=== PATIENT | male | born 1965 | race Hispanic/Latino ===

== ENCOUNTER 2016-08-14 08:56 | Inpatient (IN) | payer MEDICARE, OTHER ==
[2016-08-14 08:57] VITALS: BMI 32.1
[2016-08-14] MEDS ORDERED: Sodium Chloride 0.9% 1,000 ML IV STA (09:28)
[2016-08-14] MEDS ORDERED: Vancomycin 1gm in NS 250ml 250 ML IVPB STA (09:36)
[2016-08-14] MEDS ORDERED: Piperacill/Tazo 4.5gm in NS 100 ML IVPB STA (09:36)
--- NOTE | 2016-08-14 09:39 | ED PDOC ---
Arrival/HPI - General Historian: Patient - History of Present Illness Time/Duration: Other (since last night) Context: Home <Dean Diamond - Last Filed: 08/14/16 12:11> <Uyen Nicole - Last Filed: 08/22/16 11:13> - General Chief Complaint: Lower Extremity Problem/Injury Time Seen by Provider: 08/14/16 09:04 - History of Present Illness Narrative History of Present Illness (Text): 08/14/16 09:37 This 51 yo male with pmh dm, foot ulcer, presents to this ED c/o chill, fever since last night. Patient stated he stepped on a toy with his right foot, which has a foot ulcer. Patient stated his foot ulcer underwent a surgical procedure, performed at [facility] on 2016. Patient saw volumetric weigher surgeon from [facility], who stated wound is healing slow but getting better. Patient had spoke with Dr. Alvarado, who will (Dean Diamond) Past Medical History - Provider Review Nursing Documentation Reviewed: Yes - Infectious Disease Hx of Infectious Diseases: None - Tetanus Immunization Tetanus Immunization: Up to Date - Cardiac Hx Cardiac Disorders: Yes Hx Hypertension: Yes Hx Peripheral Edema: Yes Hx Peripheral Vascular Disease: Yes - Pulmonary Hx Respiratory Disorders: Yes Hx Emphysema: Yes - Neurological Hx Neurological Disorder: Yes Other/Comment: neuropathy - HEENT Hx HEENT Disorder: No - Renal Hx Renal Disorder: No - Endocrine/Metabolic Hx Endocrine Disorders: Yes Hx Diabetes Mellitus Type 2: Yes - Hematological/Oncological Hx Blood Disorders: Yes Hx Cirrhosis: Yes - Integumentary Hx Dermatological Disorder: Yes (hx cellulitis, gangrene left 2nd toe) Other/Comment: prior visit triage notes: 4th toe rt foot ulcer (resolved). RIGHT FOOT 3RD TOE AMPUTATED,PARTIAL AMPUTATION TO 4TH AND 5TH TOE. LEFT FOOT 2ND TOE AMPUTATION. OPEN WOUND TO SOLE OF RIGHT FOOT.HAD A BLISTER ,GOT WORSE. pt trerated by dr alvarado at the wound center with wound care and a cast but wound opened up 4x's, pt went to [facility], [place] to a dr nicole who specializes in charcot feet, had bone shaved on bottom of right charcot foot on 06/05/16, cast and herbie wrap in place pt ambulated with crutches - Musculoskeletal/Rheumatological Hx Falls: Yes (past) - Gastrointestinal Hx Gastrointestinal Disorders: Yes (c dif,colitis) - Genitourinary/Gynecological Hx Genitourinary Disorders: No - Psychiatric Hx Psychophysiologic Disorder: Yes (affective mood disorder/self mutilation) Hx Anxiety: Yes Hx Bipolar Disorder: Yes Hx Depression: Yes Hx Substance Use: No Other/Comment: notes from previous visit/triage: hx of bipolar depression and anxiety, 4 yrs ago, attends [facility] clinic once a week, suicide attempt lithium od october 2012, has been in rehab for alcoholism the last time was 05/2013 but had a couple beers friday, denies drug use, presently pt quit drinking 2 1/2 yrs ago, denies smoking and substance abuse - Surgical History Hx Amputation: Yes (left 2d toe, rt 3d toe,4TH AND 5TH PARTIAL AMPUTATION.) Hx Appendectomy: Yes Hx Joint Replacement: Yes (left knee replacement) Hx Orthopedic Surgery: Yes Other/Comment: RIGHT KNEE SURGERY - Anesthesia Hx Anesthesia: Yes Hx Anesthesia Reactions: No Hx Malignant Hyperthermia: No - Suicidal Assessment Feels Threatened In Home Enviroment: No <Dean Diamond - Last Filed: 08/14/16 12:11> Family/Social History - Physician Review Nursing Documentation Reviewed: Yes Family/Social History: No Known Family HX Smoking Status: Never Smoked Hx Alcohol Use: Yes (quit 1 1/2 yrs ago) Hx Substance Use: No Hx Substance Use Treatment: No <Dean Diamond - Last Filed: 08/14/16 12:11> Allergies/Home Meds <Dean Diamond - Last Filed: 08/14/16 12:11> <Uyen Nicole - Last Filed: 08/22/16 11:13> Allergies/Adverse Reactions: Allergies No Known Allergies Allergy (Verified 08/14/16 17:55) Home Medications: Home Meds Medication Instructions Recorded Confirmed Glimepiride [amaRYL] 4 mg PO BID 08/02/15 08/14/16 Losartan/Hydrochlorothiazide 1 tab PO DAILY 08/02/15 08/14/16 [Losartan-Hctz 100-12.5 mg Tab] Review of Systems - Review of Systems Constitutional: Fevers. absent: Fatigue, Weight Change, Night Sweats Eyes: Normal ENT: Normal Respiratory: Normal. absent: SOB, Cough Cardiovascular: Normal. absent: Chest Pain, Palpitations Gastrointestinal: Normal. absent: Abdominal Pain, Nausea, Vomiting Genitourinary Male: Normal Musculoskeletal: Other (See HPI) Skin: Normal Neurological: Normal. absent: Headache, Dizziness Endocrine: Normal Hemo/Lymphatic: Normal Psychiatric: Normal <DiamondDean block P - Last Filed: 08/14/16 12:11> Physical Exam Temperature: Febrile Blood Pressure: Hypertensive Pulse: Tachycardic Respiratory Rate: Normal Appearance: Positive for: Well-Appearing, Non-Toxic, Comfortable Pain Distress: None Mental Status: Positive for: Alert and Oriented X 3 Finger Stick Blood Glucose: 313 - Systems Exam Head: Present: Atraumatic, Normocephalic Pupils: Present: PERRL Extroacular Muscles: Present: EOMI Conjunctiva: Present: Normal Mouth: Present: Moist Mucous Membranes Pharnyx: Present: Normal. No: ERYTHEMA, EXUDATE, TONSILS ENLARGED Neck: Present: Normal Range of Motion. No: Meningeal Signs Respiratory/Chest: Present: Clear to Auscultation, Good Air Exchange. No: Respiratory Distress, Accessory Muscle Use, Wheezes, Retracting, Rhonchi Cardiovascular: Present: Regular Rate and Rhythm, Normal S1, S2. No: Murmurs Abdomen: Present: Normal Bowel Sounds. No: Tenderness, Distention, Peritoneal Signs, Rebound, Guarding Back: Present: Normal Inspection. No: CVA Tenderness Upper Extremity: Present: Normal Inspection, Normal ROM, NORMAL PULSES, Neurovascularly Intact, Capillary Refill < 2s. No: Cyanosis, Edema Lower Extremity: Present: Normal Inspection, NORMAL PULSES, Normal ROM, Capillary Refill < 2 s. No: Edema Neurological: Present: GCS=15, CN II-XII Intact, Speech Normal, Motor Func Grossly Intact, Normal Sensory Function, Normal Cerebellar Funct, Memory Normal Skin: Present: Warm, Dry, Normal Color, Other ((+) large plantar ulcer. Right foot is warmth to touch, whicha radiates to right anterior lower leg). No: Rashes Psychiatric: Present: Alert, Oriented x 3, Normal Insight <Dean Diamond P - Last Filed: 08/14/16 12:11> Medical Decision Making Re-evaluation Time: 12:15 Reassessment Condition: Re-examined, Improving,but remains with symptoms - Lab Interpretations Interpretation: Abnormal lab values - EKG Interpretation Interpreted by ED Physician: Yes (Sinus tachycardia @ 116bpm. No ST changes) Type: 12 lead EKG Comparison: No previous EKG avail. <Dean Diamond - Last Filed: 08/14/16 12:11> <Uyen Nicole - Last Filed: 08/22/16 11:13> ED Course and Treatment: 08/14/16 09:[address] Addi HYLTON regarding patient history and symptoms. He agrees with admission 08/14/16 12:[address] Sreekanth YO, who knows patient from previous visits. He recommended Meropenem 1 gr IV stat. He is aware patient is admitted (Dean Diamond) Patient's exam consistent with sepsis. IV antibitoics initiated after consultation with ID. Suspect cellulitis/osteomyelitis. (Uyen Nicole) - Lab Interpretations Microbiology Results: Microbiology Results 08/14/16 09:45 Blood-Venous Blood Culture - Final Streptococcus Pyogenes Grp A 08/14/16 09:45 Blood-Venous Gram Stain - Final 08/14/16 09:30 Blood-Venous S.aureus & Coag-Neg Staph PNA FISH - Final 08/14/16 09:30 Blood-Venous Blood Culture - Final Streptococcus Pyogenes Grp A 08/14/16 09:30 Blood-Venous Gram Stain - Final 08/14/16 10:15 Foot - Right Gram Stain - Final 08/14/16 10:15 Foot - Right Wound Culture - Final Staphylococcus Aureus Corynebacterium Species 08/14/16 09:45 Urine Urine Culture - Final No Growth (<1,000 CFU/ML) Lab Results: 08/14/16 09:30 08/14/16 09:30 Lab Results 08/14/16 10:19: Phosphorus 3.9, Magnesium 1.7 08/14/16 09:45: Urine Color Yellow, Urine Appearance Sl cloudy, Urine pH 6.0, Ur Specific Lamont 1.020, Urine Protein 30 H, Urine Glucose (UA) >=1000, Urine Ketones 40 H, Urine Blood Small H, Urine Nitrate Negative, Urine Bilirubin Negative, Urine Urobilinogen 0.2, Ur Leukocyte Esterase Negative, Urine RBC 0 - 2, Urine WBC 0 - 2 08/14/16 09:30: ESR 7 08/14/16 09:30: Hemoglobin A1c 7.3 H 08/14/16 09:30: C-React Prot High Sens > 15.00 H 08/14/16 09:30: pO2 22 L, VBG pH 7.27 L, VBG pCO2 49.0, VBG HCO3 22.5, VBG Total CO2 24.0, VBG O2 Sat (Calc) 37.4 L, VBG Base Excess -4.7 L, VBG Potassium 4.5, Sodium 133.0, Chloride 93.0 L, Glucose 361 H, Lactate 5.2 H*, FiO2 21.0, Venous Blood Potassium 4.5 08/14/16 09:30: Sodium 135, Chloride 93 L, Potassium 4.5, Carbon Dioxide 24, Anion Gap 23 H, BUN 19, Creatinine 1.0, Est GFR ( Amer) > 60, Est GFR ( Non-Af Amer) > 60, Random Glucose 349 H* D, Calcium 9.9, Total Bilirubin 2.0 H, AST 34, ALT 29, Alkaline Phosphatase 89, Total Protein 8.9 H, Albumin 4.7, Globulin 4.2, Albumin/Globulin Ratio 1.1 08/14/16 09:30: PT 12.1 H, INR 1.12 H, APTT 32.8 H 08/14/16 09:30: WBC 18.8 H D, RBC 5.44, Hgb 16.0, Hct 45.1, MCV 82.9, MCH 29.4, MCHC 35.5, RDW 14.5, Plt Count 79 L, MPV 10.4, Gran % 91.2 H, Lymph % (Auto) 2.6 L, Dodge % (Auto) 6.1 H, Eos % (Auto) 0.0 L, Baso % (Auto) 0.1, Gran # 17.17 H, Lymph # 0.5 L, Dodge # 1.1 H, Eos # 0.0, Baso # 0.01 08/14/16 09:23: POC Glucose (mg/dL) 313 H - RAD Interpretation Narrative RAD Interpretations (Text): 08/14/16 12:15 Accession No. : [id number] Patient Name / ID : STEPH Suggs / [id number] Exam Date : 08/14/2016 10:50:17 ( Approved ) Study Comment : Sex / Age : M / 51Y Creator : Jennie Victoria V. Dictator : Jennie Victoria V. Loans Consultant : Hand Glass Cutter : Jennie Victoria V. Approver2 : Report Date : 08/14/2016 11:22:16 My Comment : PROCEDURE: CHEST RADIOGRAPH, 1 VIEW HISTORY: admission COMPARISON: 06/10/2016 FINDINGS: LUNGS: Clear. PLEURA: No pneumothorax or pleural fluid seen. CARDIOVASCULAR: Normal. OSSEOUS STRUCTURES: Old left rib fractures -healed with resultant deformity -similar-appearing. Mild dextroscoliosis and thoracic spondylosis VISUALIZED UPPER ABDOMEN: Normal. OTHER FINDINGS: None. IMPRESSION: No active disease. No interval pathology noted 08/14/16 12:15 Accession No. : [id number] Patient Name / ID : STEPH Suggs / [id number] Exam Date : 08/14/2016 10:48:08 ( Approved ) Study Comment : Sex / Age : Creator : Jennie Victoria V. Dictator : Jennie Victoria V. Loans Consultant : Hand Glass Cutter : Jennie Victoria V. Approver2 : Report Date : 08/14/2016 11:30:39 My Comment : PROCEDURE: Right Foot Radiographs. Escape HISTORY: pain r/o osteo COMPARISON: 06/10/2016 FINDINGS: BONES: Extensive ossific debris and ossific disorganization of the tarsal and tarsal metatarsal suggest neuropathic/Charcot changes 2nd-3rd hypertrophic bony fusion as before The partial amputation since of the 3rd and 5th digit are as before The faint flocculent ossifications plantar and tarsal level on lateral view are similar appearing an overlap with both neuropathic and chronic osteomyelitis changes (in the past here) previously there was greater soft tissue swelling here. Currently, a superficial plantar 6 x 4 mm ulcer is suggested. No ulcer continuity/air tract to the bone directly is appreciated. No interval acute or subacute appearing periosteal reaction here suggested. Radiographically no acute on chronic osteomyelitis changes are appreciated JOINTS: As above SOFT TISSUES: Soft tissue swelling plantar midfoot-however less than before. Plantar ulcer as above OTHER FINDINGS: None. IMPRESSION: Neuropathic/Charcot changes, an postop partial amputations -as above. Interval plantar superficial ulcer gout interval acute on chronic osteomyelitis changes aappreciated . If further is needed consider MRI. (Dean Diamond) Radiology Orders: 08/14/16 09:38 CHEST ONE VIEW [RAD] Stat FOOT RIGHT 3 VIEWS ROUTINE [RAD] Stat - Medication Orders Current Medication Orders: Discontinued Medications Acetaminophen (Tylenol 325mg Tab) 650 mg PO STAT STA Stop: 08/14/16 09:33 Last Admin: 08/14/16 09:39 Dose: 650 mg Acetaminophen (Tylenol 325mg Tab) 650 mg PO Q6H PRN PRN Reason: Fever >100.4 F Last Admin: 08/14/16 16:52 Dose: 650 mg Re-Assess: [facility] Pain/Vitals Document 08/14/16 17:52 [facility] (Rec: 08/14/16 18:28 [id number]) Vitals Temperature (97.6 F-99.6 F) 100.3 F Temperature Source Oral Acetaminophen (Tylenol 325mg Tab) 650 mg PO Q4 PRN PRN Reason: Fever >100.4 F Last Admin: 08/16/16 18:50 Dose: 650 mg Fentanyl (Fentanyl) Confirm Administered Dose 100 mcg .ROUTE .STK-MED ONE Stop: 08/15/16 16:36 Gentamicin Sulfate (Gentamicin) Confirm Administered Dose 80 mg .ROUTE .STK-MED ONE Stop: 08/15/16 16:42 Last Admin: 08/15/16 16:55 Dose: 80 mg Comments: ORM Administered Route: IP Glimepiride (Amaryl) 4 mg PO BID [facility] Last Admin: 08/20/16 17:11 Dose: 4 mg Home Med (*Refrigerator Open) Confirm Administered Dose 1 unit XX .STK-MED ONE Stop: 08/16/16 16:00 Hydrochlorothiazide (Microzide) 12.5 mg PO DAILY [facility] Last Admin: 08/20/16 11:30 Dose: 12.5 mg Hydromorphone HCl (Dilaudid) 0.5 mg IVP Q15M PRN PRN Reason: Pain, moderate (4-7) Stop: 08/15/16 19:35 Sodium Chloride (Sodium Chloride 0.9%) 1,000 mls @ 999 mls/hr IV .Q1H1M STA Stop: 08/14/16 10:28 Last Admin: 08/14/16 09:39 Dose: 999 mls/hr Piperacillin Sod/Tazobactam Sod (Zosyn 4.5 Gm In Ns 100ml) 100 mls @ 200 mls/ hr IVPB STAT STA PRN Reason: Protocol Stop: 08/14/16 10:05 Last Admin: 08/14/16 09:42 Dose: 200 mls/hr Vancomycin HCl (Vancomycin 1gm) 250 mls @ 167 mls/hr IVPB STAT STA PRN Reason: Protocol Stop: 08/14/16 11:05 Last Admin: 08/14/16 10:19 Dose: 167 mls/hr Sodium Chloride 3,400 ml/ IV (SUPPLIES) 3,400 mls @ 6,803.88 mls/hr IV ONCE ONE PRN Reason: 60 ML/KG/HR Stop: 08/14/16 09:48 Last Admin: 08/14/16 10:11 Dose: 6,803.88 mls/hr Meropenem 1g/NS 100mL IVPB (Meropenem 1g/Ns 100ml Ivpb) 100 mls @ 100 mls/hr IVPB STAT STA PRN Reason: Protocol Stop: 08/14/16 12:56 Last Admin: 08/14/16 13:52 Dose: 100 mls/hr Meropenem 1 gm/ Sodium (Chloride) 100 mls @ 100 mls/hr IVPB Q8 JIMMIE PRN Reason: Protocol Stop: 08/21/16 22:01 Last Admin: 08/15/16 05:22 Dose: 100 mls/hr Vancomycin HCl (Vancomycin 1gm) 250 mls @ 167 mls/hr IVPB Q12H [facility] PRN Reason: Protocol Last Admin: 08/18/16 09:47 Dose: 167 mls/hr Meropenem 1g/NS 100mL IVPB (Meropenem 1g/Ns 100ml Ivpb) 100 mls @ 100 mls/hr IVPB Q8 [facility] Stop: 08/21/16 22:01 Last Admin: 08/18/16 05:46 Dose: 100 mls/hr Lactated Ringer's (Lactated Ringer's) 1,000 mls @ 75 mls/hr IV .[id number] [facility] Stop: 08/15/16 19:46 Last Admin: 08/15/16 19:59 Dose: Heparin Sodium (Porcine) (Heparin 1000 Units/500 Ml Ns) Confirm Administered Dose 500 mls @ ud IV .STK-MED ONE Stop: 08/16/16 09:42 Cefazolin Sodium 2 gm/ Sodium (Chloride) 100 mls @ 200 mls/hr IVPB Q8 [facility] PRN Reason: Protocol Last Admin: 08/20/16 13:59 Dose: 200 mls/hr Insulin Detemir (Levemir) 80 unit SC HS [facility] Last Admin: 08/19/16 22:55 Dose: 20 unit Comments: pt feels comfortable with this dose Insulin Human Regular (Humulin R Low) 0 units SC ACHS [facility] PRN Reason: Protocol Last Admin: 08/20/16 17:11 Dose: 1 units Lidocaine HCl (Lidocaine 2% 20ml Vial) Confirm Administered Dose 20 ml .ROUTE .STK-MED ONE Stop: 08/15/16 14:54 Lidocaine HCl (Lidocaine 2% 20ml Vial) Confirm Administered Dose 20 ml .ROUTE .STK-MED ONE Stop: 08/15/16 16:40 Lidocaine HCl (Lidocaine 2% 20ml Vial) Confirm Administered Dose 20 ml .ROUTE .STK-MED ONE Stop: 08/16/16 09:41 Losartan Potassium (Cozaar) 100 mg PO DAILY [facility] Last Admin: 08/20/16 11:30 Dose: 100 mg Metformin HCl (Glucophage) 1,000 mg PO BID [facility] Last Admin: 08/20/16 17:13 Dose: 1,000 mg Metoclopramide HCl (Reglan) Confirm Administered Dose 10 mg .ROUTE .STK-MED ONE Stop: 08/15/16 16:54 Midazolam HCl (Versed Inj) Confirm Administered Dose 2 mg .ROUTE .STK-MED ONE Stop: 08/15/16 16:36 Morphine Sulfate (Morphine) 2 mg IVP STAT STA Stop: 08/14/16 09:44 Last Admin: 08/14/16 10:19 Dose: 2 mg Morphine Sulfate (Morphine) 2 mg IVP STAT STA Stop: 08/14/16 14:14 Last Admin: 08/14/16 14:24 Dose: 2 mg Non-Formulary Medication (Losartan/Hydrochlorothiazide [Losartan-Hctz 100-12.5 Mg Tab]) 1 tab PO DAILY [facility] Ondansetron HCl (Zofran Inj) Confirm Administered Dose 4 mg .ROUTE .STK-MED ONE Stop: 08/15/16 16:54 Oxychlorosene Sodium (Clorpactin Wcs-90) 2 gm TOP ONCE ONE Stop: 08/16/16 09:01 Oxycodone/Acetaminophen (Percocet 5/325 Mg Tab) 1 tab PO Q4H PRN PRN Reason: Pain, moderate (4-7) Stop: 08/17/16 19:39 Last Admin: 08/17/16 14:53 Dose: 1 tab Re-Assess: [facility] Pain Assessment Document 08/17/16 15:53 DSZ (Rec: 08/17/16 18:16 DSZ [facility] [place] [id number]) Pain Reassessment Is this a pain reassessment? Yes Sleep Is patient sleeping during reassessment? No Presence of Pain Presence of Pain No Location Left, Right or Bilateral Right Pain Location Body Site Foot Description Description Sharp Intensity of Pain at present 1 Oxycodone/Acetaminophen (Percocet 5/325 Mg Tab) 1 tab PO Q4H PRN PRN Reason: Pain, moderate (4-7) Stop: 08/20/16 20:53 Last Admin: 08/20/16 13:58 Dose: 1 tab Re-Assess: [facility] Pain Assessment Document 08/20/16 14:58 [facility] (Rec: 08/20/16 17:12 SES [id number]) Pain Reassessment Is this a pain reassessment? Yes Sleep Is patient sleeping during reassessment? No Presence of Pain Presence of Pain Yes Pain Scale Used Pain Scale Used Numeric Location Left, Right or Bilateral Right Pain Location Body Site Foot Description Intensity of Pain at present 4 Alleviating Factors/Management Inactivity Techniques Pneumococcal Polyvalent Vaccine (Pneumovax 23 Vaccine) 0.5 ml IM .ONCE ONE Stop: 08/14/16 20:06 Potassium Chloride (K-Dur 20 Meq Er Tab) 20 meq PO ONCE ONE Stop: 08/17/16 14:14 Last Admin: 08/17/16 14:44 Dose: 20 meq Propofol (Diprivan) Confirm Administered Dose 200 mg .ROUTE .STK-MED ONE Stop: 08/15/16 16:36 Sitagliptin Phosphate (Januvia) 50 mg PO BID [facility] Last Admin: 08/20/16 17:13 Dose: 50 mg - PA / ASSISTANT BOOKKEEPER / Resident Statement /DO has reviewed & agrees with the documentation as recorded. / has examined the patient and agrees with the treatment plan. <Uyen Nicole - Last Filed: 08/22/16 11:13> Disposition/Present on Arrival - Present on Arrival Any Indicators Present on Arrival: No History of DVT/PE: No History of Uncontrolled Diabetes: No Urinary Catheter: No History of Decub. Ulcer: No History Surgical Site Infection Following: None - Disposition Have Diagnosis and Disposition been Completed?: Yes Disposition Time: 12:17 <Dean Diamond - Last Filed: 08/14/16 12:11> <Uyen Nicole - Last Filed: 08/22/16 11:13> - Disposition Diagnosis: Sepsis affecting skin, Cellulitis of foot, Diabetic foot ulcer Disposition: HOSPITALIZED
[2016-08-14 09:40] LABS: ADD MANUAL DIFF? NO
[2016-08-14] MEDS ORDERED: Morphine 2 mg/ml ISec IVP STA ×2 (09:43→14:13)
[2016-08-14 09:45] LABS: VENOUS BLOOD GAS BASE EXCESS -4.7 mmol/L (0.0-2.0); VENOUS BLOOD PH 7.27 (7.32-7.43)
[2016-08-14 09:46] LABS: BASO # 0.01 K/mm3 (0.0-2.0); BASO % 0.1 % (0.0-3.0); GRAN # 17.17 (1.4-6.5); GRAN % 91.2 % (50.0-68.0); HEMATOCRIT 45.1 % (42.0-52.0); LYMPH # 0.5 (1.2-3.4); LYMPH % 2.6 % (22.0-35.0); MEAN CELL VOLUME 82.9 fL (80.0-105.0); MEAN CORPUSCULAR HEMOGLOBIN 29.4 pg (25.0-35.0); MEAN CORPUSCULAR HGB CONC 35.5 g/dl (31.0-37.0); MEAN PLATELET VOLUME 10.4 fl (7.0-11.0); MONO # 1.1 (0.1-0.6); MONO % 6.1 % (1.0-6.0); PLATELET COUNT 79 10^3/uL (120.0-450.0); RED CELL DISTRIBUTION WIDTH 14.5 % (11.5-14.5); WHITE BLOOD COUNT 18.8 10^3/ul (4.5-11.0)
[2016-08-14 09:51] LABS: ALB/GLOB RATIO 1.1 (1.1-1.8); ALKALINE PHOSPHATASE 89 U/L (38-133); ALT/SGPT 29 U/L (7-56); AST/SGOT 34 U/L (15-59); BLOOD UREA NITROGEN 19 mg/dL (7-21); CALCIUM 9.9 mg/dL (8.4-10.5); CARBON DIOXIDE 24 mmol/L (21-33); CHLORIDE 93 mmol/L (95-110); GFR AFRICAN-AMERICAN > 60; POTASSIUM 4.5 mmol/L (3.6-5.0); SODIUM 135 mmol/L (132-148); TOTAL PROTEIN 8.9 g/dL (5.8-8.3)
[2016-08-14 09:52] LABS: URINE BILIRUBIN NEGATIVE (NEGATIVE); URINE BLOOD SMALL (NEGATIVE); URINE GLUCOSE (UA) >=1000 mg/dL (NEGATIVE); URINE KETONE 40 mg/dL (NEGATIVE); URINE LEUKOCYTE ESTERASE NEGATIVE Leu/uL (NEGATIVE); URINE PROTEIN 30 mg/dL (<30 mg/dL); URINE UROBILINOGEN 0.2 E.U./dL (<1 E.U./dL)
[2016-08-14 09:53] LABS: URINE APPEARANCE SL CLOUDY (CLEAR); URINE COLOR YELLOW (YELLOW)
[2016-08-14 09:54] LABS: GLUCOSE,RANDOM 349 mg/dL (70-110)
[2016-08-14 09:55] LABS: INR 1.12 (0.93-1.08); PARTIAL THROMBOPLASTIN TIME 32.8 Seconds (23.7-30.8)
[2016-08-14 10:07] LABS: URINE RBC 0 - 2 /hpf (0-2); URINE WBC 0 - 2 /hpf (0-6)
[2016-08-14 10:27] LABS: MAGNESIUM 1.7 mg/dL (1.7-2.2); PHOSPHOROUS 3.9 mg/dL (2.5-4.5)
--- NOTE | 2016-08-14 11:24 | RAD ---
PROCEDURE: CHEST RADIOGRAPH, 1 VIEW HISTORY: admission COMPARISON: 06/10/2016 FINDINGS: LUNGS: Clear. PLEURA: No pneumothorax or pleural fluid seen. CARDIOVASCULAR: Normal. OSSEOUS STRUCTURES: Old left rib fractures -healed with resultant deformity -similar-appearing. Mild dextroscoliosis and thoracic spondylosis VISUALIZED UPPER ABDOMEN: Normal. OTHER FINDINGS: None. IMPRESSION: No active disease. No interval pathology noted
--- NOTE | 2016-08-14 11:32 | RAD ---
PROCEDURE: Right Foot Radiographs. Escape HISTORY: pain r/o osteo COMPARISON: 06/10/2016 FINDINGS: BONES: Extensive ossific debris and ossific disorganization of the tarsal and tarsal metatarsal suggest neuropathic/Charcot changes 2nd-3rd hypertrophic bony fusion as before The partial amputation since of the 3rd and 5th digit are as before The faint flocculent ossifications plantar and tarsal level on lateral view are similar appearing an overlap with both neuropathic and chronic osteomyelitis changes (in the past here) previously there was greater soft tissue swelling here. Currently, a superficial plantar 6 x 4 mm ulcer is suggested. No ulcer continuity/air tract to the bone directly is appreciated. No interval acute or subacute appearing periosteal reaction here suggested. Radiographically no acute on chronic osteomyelitis changes are appreciated JOINTS: As above SOFT TISSUES: Soft tissue swelling plantar midfoot-however less than before. Plantar ulcer as above OTHER FINDINGS: None. IMPRESSION: Neuropathic/Charcot changes, an postop partial amputations -as above. Interval plantar superficial ulcer gout interval acute on chronic osteomyelitis changes aappreciated . If further is needed consider MRI.
[2016-08-14] MEDS ORDERED: Meropenem 1g/NS 100mL IVPB 100 ML IVPB STA (11:57)
--- NOTE | 2016-08-14 12:05 | CP.PCM.CON ---
Addendum entered and electronically signed by Yoselyn Gonzalez DPM 08/14/16 17:31: patient to go to OR tomorrow afternoon at 3:30PM for right foot incision and drainage with bone biopsy patient NPO after 6:30 AM tomorrow morning Original Note: <Yoselyn Gonzalez - Last Filed: 08/14/16 14:05> History of Present Illness - History of Present Illness History of Present Illness: 51 year old male with a PMH of DM, alcohol abuse with liver disease and history of portal hypertension, bipolar disorder, history of right foot infection S/P amputation of digits, Charcot arthropathy of the right foot seen in the ED with attending Dr. Alvarado for worsening pain in his right foot after stepping on a toy two nights ago. Patient reports having surgery on his right foot on 06/05/16 at [facility]. Patient states that he has had a fever, chills, denies v/d /cp/sob. Review of Systems - Constitutional Constitutional: As Per HPI Past Patient History - Infectious Disease Hx of Infectious Diseases: None - Tetanus Immunizations Tetanus Immunization: Up to Date - Past Medical History & Family History Past Medical History?: Yes - Past Social History Smoking Status: Never Smoked - CARDIAC Hx Cardiac Disorders: Yes Hx Hypertension: Yes Hx Peripheral Edema: Yes Hx Peripheral Vascular Disease: Yes - PULMONARY Hx Respiratory Disorders: Yes Hx Emphysema: Yes - NEUROLOGICAL Hx Neurological Disorder: Yes Other/Comment: neuropathy - HEENT Hx HEENT Problems: No - RENAL Hx Chronic Kidney Disease: No - ENDOCRINE/METABOLIC Hx Endocrine Disorders: Yes Hx Diabetes Mellitus Type 2: Yes - HEMATOLOGICAL/ONCOLOGICAL Hx Blood Disorders: Yes Hx Cirrhosis: Yes - INTEGUMENTARY Hx Dermatological Problems: Yes (hx cellulitis, gangrene left 2nd toe) Other/Comment: prior visit triage notes: 4th toe rt foot ulcer (resolved). RIGHT FOOT 3RD TOE AMPUTATED,PARTIAL AMPUTATION TO 4TH AND 5TH TOE. LEFT FOOT 2ND TOE AMPUTATION. OPEN WOUND TO SOLE OF RIGHT FOOT.HAD A BLISTER ,GOT WORSE. pt trerated by dr alvarado at the wound center with wound care and a cast but wound opened up 4x's, pt went to [facility] to a dr nicole who specializes in charcot feet, had bone shaved on bottom of right charcot foot on 06/05/16, cast and herbie wrap in place pt ambulated with crutches - MUSCULOSKELETAL/RHEUMATOLOGICAL Hx Falls: Yes (past) - GASTROINTESTINAL Hx Gastrointestinal Disorders: Yes (c dif,colitis) - GENITOURINARY/GYNECOLOGICAL Hx Genitourinary Disorders: No - PSYCHIATRIC Hx Psychophysiologic Disorder: Yes (affective mood disorder/self mutilation) Hx Anxiety: Yes Hx Bipolar Disorder: Yes Hx Depression: Yes Hx Substance Use: No Other/Comment: notes from previous visit/triage: hx of bipolar depression and anxiety, 4 yrs ago, attends [facility] mental health clinic once a week, suicide attempt lithium od october 2012, has been in rehab for alcoholism the last time was 05/2013 but had a couple beers friday, denies drug use, presently pt quit drinking 2 1/2 yrs ago, denies smoking and substance abuse - SURGICAL HISTORY Hx Amputation: Yes (left 2d toe, rt 3d toe,4TH AND 5TH PARTIAL AMPUTATION.) Hx Appendectomy: Yes Hx Joint Replacement: Yes (left knee replacement) Hx Orthopedic Surgery: Yes Other/Comment: RIGHT KNEE SURGERY - ANESTHESIA Hx Anesthesia: Yes Hx Anesthesia Reactions: No Hx Malignant Hyperthermia: No Meds Allergies/Adverse Reactions: Allergies Allergy/AdvReac Type Severity Reaction Status Date / Time No Known Allergies Allergy Verified 08/14/16 17:55 - Medications Medications: Current Medications Meropenem 1g/NS 100mL IVPB (Meropenem 1g/Ns 100ml Ivpb) 100 mls @ 100 mls/hr IVPB STAT STA PRN Reason: Protocol Stop: 08/14/16 12:56 Insulin Human Regular (Humulin R Low) 0 units SC ACHS JIMMIE PRN Reason: Protocol Physical Exam - Constitutional Appears: Well, Non-toxic, No Acute Distress - Extremities Exam Additional comments: vasc: nonpalpable pedal pulses, TG warm to warm, CFT < 3 sec to all digits neuro: grossly diminished derm: live grade 2 ulceration on the right plantar midfoot measuring 4cm x 3cm x 1cm mixed granular and fibrotic base with fibrotic border, mild serous drainage, no purulence, no malodor, no ascending cellulitis, probe to capsule + ortho: right foot 3rd toe amputated, partial amputation of 4th and 5th toes, left foot 2nd toe amputated - Neurological Exam Neurological exam: Alert, Oriented x3 - Psychiatric Exam Psychiatric exam: Normal Affect, Normal Mood Results - Vital Signs Recent Vital Signs: Last Vital Signs Temp 103.3 F H 08/14/16 10:35 Pulse 102 H 08/14/16 11:55 Resp 18 08/14/16 11:55 BP 144/83 08/14/16 11:55 Pulse Ox 98 08/14/16 11:55 - Labs Result Diagrams: 08/14/16 09:30 08/14/16 09:30 Assessment & Plan - Assessment and Plan (Free Text) Assessment: 51 y/o male with pmhx of HTN, DM, Charcot foot seen at bedside in ED for right foot ulceration and sepsis Plan: patient evaluated and seen at bedside with attending Dr. Alvarado labs and vitals reviewed; TMax 103.3, WBC 18.8 continue IV abx as instructed f.u wound cx f.u TERRA/PVR f/u right foot MRI f/u ESR, CRP, HA1C flushed wound with copious amounts of peroxide, applied petroleum gauze, DSD to right foot podiatry will continue to follow while patient remains in house <Leigh Ann Alvarado - Last Filed: 08/16/16 13:00> Meds - Medications Medications: Current Medications Acetaminophen (Tylenol 325mg Tab) 650 mg PO Q4 PRN PRN Reason: Fever >100.4 F Last Admin: 08/15/16 15:41 Dose: 650 mg Glimepiride (Amaryl) 4 mg PO BID [facility] Last Admin: 08/16/16 11:11 Dose: 4 mg Hydrochlorothiazide (Microzide) 12.5 mg PO DAILY [facility] Last Admin: 08/16/16 11:11 Dose: 12.5 mg Vancomycin HCl (Vancomycin 1gm) 250 mls @ 167 mls/hr IVPB Q12H JIMMIE PRN Reason: Protocol Last Admin: 08/15/16 22:49 Dose: 167 mls/hr Meropenem 1g/NS 100mL IVPB (Meropenem 1g/Ns 100ml Ivpb) 100 mls @ 100 mls/hr IVPB Q8 [facility] Stop: 08/21/16 22:01 Last Admin: 08/16/16 06:15 Dose: 100 mls/hr Insulin Detemir (Levemir) 80 unit SC HS [facility] Insulin Human Regular (Humulin R Low) 0 units SC ACHS JIMMIE PRN Reason: Protocol Last Admin: 08/16/16 08:06 Dose: 2 units Losartan Potassium (Cozaar) 100 mg PO DAILY [facility] Last Admin: 08/16/16 11:11 Dose: 100 mg Metformin HCl (Glucophage) 1,000 mg PO BID [facility] Last Admin: 08/16/16 11:11 Dose: 1,000 mg Oxycodone/Acetaminophen (Percocet 5/325 Mg Tab) 1 tab PO Q4H PRN PRN Reason: Pain, moderate (4-7) Stop: 08/17/16 19:39 Last Admin: 08/16/16 11:09 Dose: 1 tab Sitagliptin Phosphate (Januvia) 50 mg PO BID [facility] Last Admin: 08/16/16 11:11 Dose: 50 mg Results - Vital Signs Recent Vital Signs: Last Vital Signs Temp 98.9 F 08/16/16 12:00 Pulse 89 08/16/16 12:00 Resp 20 08/16/16 12:00 BP 130/73 08/16/16 12:00 Pulse Ox 98 08/15/16 18:00 - Labs Result Diagrams: 08/16/16 09:00 08/16/16 09:00 Labs: Laboratory Results - last 24 hr 08/15/16 08/15/16 08/15/16 07:30 10:25 11:45 WBC RBC Hgb Hct MCV MCH MCHC RDW Plt Count MPV Gran % Lymph % (Auto) Amelia % (Auto) Eos % (Auto) Baso % (Auto) Gran # Lymph # Amelia # Eos # Baso # Sodium Potassium Chloride Carbon Dioxide Anion Gap BUN Creatinine Est GFR ( Amer) Est GFR (Non-Af Amer) POC Glucose (mg/dL) Random Glucose Calcium Ferritin 235.0 Total Bilirubin AST ALT Alkaline Phosphatase Total Protein Total Protein (PEP) 6.4 Albumin Globulin Albumin/Globulin Ratio Vitamin B12 332 Folate 6.6 Blood Type AB NEGATIVE Antibody Screen Negative BBK History Checked No verified bt 08/15/16 08/16/16 17:40 09:00 WBC 3.7 L D RBC 4.32 Hgb 12.4 L Hct 35.5 L MCV 82.2 MCH 28.7 MCHC 34.9 RDW 14.8 H Plt Count 60 L MPV 10.0 Gran % 73.3 H Lymph % (Auto) 14.3 L Amelia % (Auto) 12.1 H Eos % (Auto) 0.0 L Baso % (Auto) 0.3 Gran # 2.72 Lymph # 0.5 L Amelia # 0.5 Eos # 0.0 Baso # 0.01 Sodium 135 Potassium 3.9 Chloride 99 Carbon Dioxide 28 Anion Gap 12 BUN 13 Creatinine 0.8 Est GFR ( Amer) > 60 Est GFR (Non-Af Amer) > 60 POC Glucose (mg/dL) 201 H Random Glucose 237 H Calcium 8.0 L Ferritin Total Bilirubin 1.1 AST 45 ALT 52 Alkaline Phosphatase 59 Total Protein 6.8 Total Protein (PEP) Albumin 3.4 Globulin 3.4 Albumin/Globulin Ratio 1.0 L Vitamin B12 Folate Blood Type Antibody Screen BBK History Checked Attending/Attestation - Attestation I have personally seen and examined this patient.: Yes I have fully participated in the care of the patient.: Yes I have reviewed all pertinent clinical information: Yes Notes (Text): 08/16/16 12:59 Pt seen in ER with resident - pt examined - assessment is deep tissue abcess and acute OM right foot; call made to Dr Fontana patients PMD - pt needs surgical treatment scheduled for tomorrow
[2016-08-14 13:00] LABS: VENOUS BLOOD GAS BASE EXCESS -1.7 mmol/L (0.0-2.0); VENOUS BLOOD PH 7.39 (7.32-7.43)
--- NOTE | 2016-08-14 13:44 | CP.PCM.CON ---
<Obey May - Last Filed: 08/14/16 13:30> History of Present Illness - History of Present Illness History of Present Illness: 51 y/o M with PMH of DM, HTN, and right charcot foot arthropathy presents to the ED after a 1 day history of worsening right foot pain. Pt states he stepped on his grandchild's toy and reinjured his foot yesterday. He states that it did not initially hurt, but began to get worse as the night progressed. Pt states the pain is now 10/10 and constant, described as a sharp pain. Pt does not radiate, but is located in multiple spots in his right foot. Pt reports having surgery on his right foot back in April. Pt reports trouble with wound healing and repeated infection in his foot at the time. Pt does admit to having one episode of vomiting overnight. Denies CP, SOB, diarrhea, fevers, chills, headaches. PMH: HTN, DM, Charcot foot Surgical Hx: Left ankle, left foot 5th digit amputation, left knee replacement. Right 3, 4, 5th, toe amputation FMH: Cancer on both sides of family Social Hx: Denies alcohol, tobacco, or illicit drugs Medications: Losartan, Glimeride, janumet, humalog Allergies: NKDA Review of Systems - Constitutional Constitutional: absent: Fatigue, Fever - EENT Eyes: absent: Blurred Vision, Change in Vision Nose/Mouth/Throat: absent: Nasal Congestion, Nasal Discharge - Cardiovascular Cardiovascular: absent: Chest Pain, Irregular Heart Rhythm - Respiratory Respiratory: absent: Cough, Dyspnea - Gastrointestinal Gastrointestinal: absent: Abdominal Pain, Diarrhea - Genitourinary Genitourinary: absent: Dysuria, Hematuria - Neurological Neurological: absent: Numbness, Tingling Past Patient History - Infectious Disease Hx of Infectious Diseases: None - Tetanus Immunizations Tetanus Immunization: Up to Date - Past Medical History & Family History Past Medical History?: Yes - Past Social History Smoking Status: Never Smoked - CARDIAC Hx Cardiac Disorders: Yes Hx Hypertension: Yes Hx Peripheral Edema: Yes Hx Peripheral Vascular Disease: Yes - PULMONARY Hx Respiratory Disorders: Yes Hx Emphysema: Yes - NEUROLOGICAL Hx Neurological Disorder: Yes Other/Comment: neuropathy - HEENT Hx HEENT Problems: No - RENAL Hx Chronic Kidney Disease: No - ENDOCRINE/METABOLIC Hx Endocrine Disorders: Yes Hx Diabetes Mellitus Type 2: Yes - HEMATOLOGICAL/ONCOLOGICAL Hx Blood Disorders: Yes Hx Cirrhosis: Yes - INTEGUMENTARY Hx Dermatological Problems: Yes (hx cellulitis, gangrene left 2nd toe) Other/Comment: prior visit triage notes: 4th toe rt foot ulcer (resolved). RIGHT FOOT 3RD TOE AMPUTATED,PARTIAL AMPUTATION TO 4TH AND 5TH TOE. LEFT FOOT 2ND TOE AMPUTATION. OPEN WOUND TO SOLE OF RIGHT FOOT.HAD A BLISTER ,GOT WORSE. pt trerated by dr alvarado at the wound center with wound care and a cast but wound opened up 4x's, [facility] to a dr nicole who specializes in charcot feet, had bone shaved on bottom of right charcot foot on 06/05/16, cast and herbie wrap in place pt ambulated with crutches - MUSCULOSKELETAL/RHEUMATOLOGICAL Hx Falls: Yes (past) - GASTROINTESTINAL Hx Gastrointestinal Disorders: Yes (c dif,colitis) - GENITOURINARY/GYNECOLOGICAL Hx Genitourinary Disorders: No - PSYCHIATRIC Hx Psychophysiologic Disorder: Yes (affective mood disorder/self mutilation) Hx Anxiety: Yes Hx Bipolar Disorder: Yes Hx Depression: Yes Hx Substance Use: No Other/Comment: notes from previous visit/triage: hx of bipolar depression and anxiety, 4 yrs ago, attends [facility] mental [facility] clinic once a week, suicide attempt lithium od october 2012, has been in rehab for alcoholism the last time was 05/2013 but had a couple beers friday, denies drug use, presently pt quit drinking 2 1/2 yrs ago, denies smoking and substance abuse - SURGICAL HISTORY Hx Amputation: Yes (left 2d toe, rt 3d toe,4TH AND 5TH PARTIAL AMPUTATION.) Hx Appendectomy: Yes Hx Joint Replacement: Yes (left knee replacement) Hx Orthopedic Surgery: Yes Other/Comment: RIGHT KNEE SURGERY - ANESTHESIA Hx Anesthesia: Yes Hx Anesthesia Reactions: No Hx Malignant Hyperthermia: No Meds Allergies/Adverse Reactions: Allergies Allergy/AdvReac Type Severity Reaction Status Date / Time No Known Allergies Allergy Verified 10/25/15 22:16 - Medications Medications: Current Medications Acetaminophen (Tylenol 325mg Tab) 650 mg PO Q6H PRN PRN Reason: Fever >100.4 F Insulin Human Regular (Humulin R Low) 0 units SC ACHS JIMMIE PRN Reason: Protocol Physical Exam - Constitutional Appears: Well, No Acute Distress - Head Exam Head Exam: ATRAUMATIC, NORMAL INSPECTION, NORMOCEPHALIC - Eye Exam Eye Exam: Normal appearance, PERRL - ENT Exam ENT Exam: Mucous Membranes Moist, Normal Exam - Neck Exam Neck exam: Positive for: Normal Inspection. Negative for: Lymphadenopathy - Respiratory Exam Respiratory Exam: Clear to Auscultation Bilateral, NORMAL BREATHING PATTERN. absent: Rales, Rhonchi, Wheezes - Cardiovascular Exam Cardiovascular Exam: RRR, +S1, +S2 - GI/Abdominal Exam GI & Abdominal Exam: Normal Bowel Sounds, Soft. absent: Tenderness - Extremities Exam Extremities exam: Positive for: tenderness. Negative for: calf tenderness Additional comments: Right bandaged by podiatry. Bandage clean, dry, and intact. - Neurological Exam Neurological exam: Alert, Oriented x3 - Psychiatric Exam Psychiatric exam: Normal Affect, Normal Mood - Skin Skin Exam: Intact, Normal Color, Warm Results - Vital Signs Recent Vital Signs: Last Vital Signs Temp 103.3 F H 08/14/16 10:35 Pulse 107 H 08/14/16 12:44 Resp 20 08/14/16 12:44 BP 128/81 08/14/16 12:44 Pulse Ox 98 08/14/16 12:44 - Labs Result Diagrams: 08/14/16 09:30 08/14/16 09:30 Labs: Laboratory Results - last 24 hr 08/14/16 12:45 pO2 58 H VBG pH 7.39 VBG pCO2 38.0 L VBG HCO3 23.0 VBG Total CO2 24.2 VBG O2 Sat (Calc) 92.3 H VBG Base Excess -1.7 L VBG Potassium 3.8 Sodium 132.0 Chloride 101.0 Glucose 299 H Lactate 2.5 H FiO2 21.0 Venous Blood Potassium 3.8 Assessment & Plan - Assessment and Plan (Free Text) Plan: 51 y/o M with PMH of DM, HTN, and right charcot foot arthropathy presents with right foot osteomyelitis. Pt will be followed by podiatry at this time. Pt is shown to have met sepsis criteria with no signs of shock at this time. Continue antibiotics, ID consulted. Pt will not require ICU admission. Neuro: AAOx3 Monitor mental status Cardio: Maintain hemodynamic stability Maintain MAP>65 Pulm: Maintain O2 sat >90% No supplemental O2 at this time GI: Consistent card diet Protonix for GI prophylaxis Endo: ISS Maintain euglycemia Nephro: Maintain euvolemia Replenish electrolytes as needed Heme/ID: Febrile, with leukocytosis Blood, urine, and wound cultures pending Vancomycin, Zosyn, and Merrem given in ED Continue abx Maintain normothermia ID consulted, Dr. Carter MSK: Right foot wound, bandaged Right foot MRI ordered which show findings consistent with osteomyelitis Podiatry following, Dr. Alvarado Seen, reviewed, and discussed with attending Yadira, PGY-1 <Rajesh HAMMER,Obinna H - Last Filed: 08/14/16 15:23> Meds - Medications Medications: Current Medications Acetaminophen (Tylenol 325mg Tab) 650 mg PO Q6H PRN PRN Reason: Fever >100.4 F Last Admin: 08/14/16 14:31 Dose: 650 mg Glimepiride (Amaryl) 4 mg PO BID JIMMIE Hydrochlorothiazide (Microzide) 12.5 mg PO DAILY [facility] Insulin Human Regular (Humulin R Low) 0 units SC ACHS JIMMIE PRN Reason: Protocol Losartan Potassium (Cozaar) 100 mg PO DAILY [facility] Results - Vital Signs Recent Vital Signs: Last Vital Signs Temp 103.3 F H 08/14/16 10:35 Pulse 107 H 08/14/16 12:44 Resp 20 08/14/16 12:44 BP 128/81 08/14/16 12:44 Pulse Ox 98 08/14/16 12:44 - Labs Result Diagrams: 08/14/16 09:30 08/14/16 09:30 Labs: Laboratory Results - last 24 hr 08/14/16 12:45 pO2 58 H VBG pH 7.39 VBG pCO2 38.0 L VBG HCO3 23.0 VBG Total CO2 24.2 VBG O2 Sat (Calc) 92.3 H VBG Base Excess -1.7 L VBG Potassium 3.8 Sodium 132.0 Chloride 101.0 Glucose 299 H Lactate 2.5 H FiO2 21.0 Venous Blood Potassium 3.8 Attending/Attestation - Attestation I have personally seen and examined this patient.: Yes I have fully participated in the care of the patient.: Yes I have reviewed all pertinent clinical information: Yes Notes (Text): 08/14/16 15:20 51 y/o M came to the ER with Painful R foot. Previous surgery was done to the foot and there is concern of non healing infection in that foot. Code sepsis was called and per the [employer] request- ICu was consulted. Currently pt is aao x3, hemodynamicaly stable and not in distress. No ICU indication Pt was started on IV fluids and lactate to be trended in 4 hrs. ABX should be given in the hr ( Vanco+ Zosyn) MRI would be needed to r.o Osteomylitis . Podiatry / Orthopedics may need to get involved. DM control needed . cc time 45 min please call the ICu if there is an ICU indication or change in clinical status
--- NOTE | 2016-08-14 13:55 | MRI ---
PROCEDURE: MRI of the right foot without contrast HISTORY: rule out OM of right foot COMPARISON: MRI right foot 12/26/2015 TECHNIQUE: MRI of the right foot was performed in multiple planes using multiple pulse sequences FINDINGS: There is a large amount of soft tissue inflammation and edema on the plantar side of the foot adjacent to cuboid bone. There is diffuse marrow edema in the cuboid as well as a a fracture line. Findings are most consistent with osteomyelitis. There is some bony destruction of the inferior cortex with some focal fluid collections. Findings are best seen on sagittal image 14 series 4 and 5 and axial image 11 series 6. Findings are also well demonstrated on coronal image 30 series 2. These findings were not present on the previous study. There is some chronic bony deformity of the 2nd and 3rd metatarsals and the midfoot. IMPRESSION: Marrow edema and fracture line in the cuboid with adjacent fluid collections and inflammatory changes. Findings consistent with osteomyelitis
--- NOTE | 2016-08-14 14:44 | US ---
PROCEDURE: Lower extremity TERRA exam HISTORY: Peripheral vascular disease with pain and ulceration. Diabetes PHYSICIAN(S): Bal Carrillo MD. FINDINGS: The resting TERRA's are normal: right, 1.17and left, 1.22. The brachial systolic pressures are symmetric. The high thigh pressures and waveforms are relatively normal. The calf PVR waveforms augment normally. No significant gradients are noted across the thighs. The ankle and metatarsal waveforms are relatively normal and symmetric. No significant pressure gradients are noted across the lower legs. IMPRESSION: 1. Relatively normal TERRA and PVR examination at rest.
--- NOTE | 2016-08-14 14:51 | HP ---
HISTORY OF PRESENT ILLNESS: This 51-year-old male presented to [place] [facility] with a history of an ulcer at the sole of the right foot that has been draining fluid. The patient states that sev eral weeks ago at [facility] he had a shaving of the foot done by a surgeon who specializes in Charcot feet, which the patient has on both sides, because of recurrent bouts of ulcer disease. He states that he has been having some delayed healing and he has been going year for wound care. Recen tly the wound started to drain more so he came to [place] [facility]. PAST MEDICAL HISTORY: He has a past medical history of alcohol abuse, bipolar disorder, depression, diabetes mellitus, suicidal ideation, drug overdose, foot ulcer, amputation of toes on both the right and left feet, lipoma of the axilla, seizure, syncope, hypertension, systemic inflammatory response syndrome, cellulitis of the legs, sepsis, thrombocytopenia. SOCIAL HISTORY: He states that he is not drinking at this time. He is not smoking, and he is not usi ng any drugs. MEDICATIONS: He is not able to give us an accurate list of his medications other than he is on losar harris/hydrochlorothiazide and Amaryl. He is requesting that family members to bring in his medications from home. ALLERGIES: He denies any known allergy history. REVIEW OF SYSTEMS: Twelve systems are reviewed. Pertinent findings is that there is a draining ulce r at the sole of the right foot. PHYSICAL EXAMINATION: VITAL SIGNS: The patient was found to have a temperature of 103.3 rectally and he was tachycardic wi th a pulse of 101, blood pressure was 113/54, respiratory rate was 25, oxygen saturation was reported at 98% on room air. NEUROLOGIC: He is alert and oriented x 3. NECK: Supple. LUNGS: Show diminished breath sounds at the bases. HEART: An S1, S2 rhythm. ABDOMEN: Soft with positive bowel sounds. EXTREMITIES: There is deformity secondary to the prior toe amputations and his Charcot feet, and the re is a draining ulcer on the sole of the right foot. LABORATORY DATA: Showed a WBC of 18.8, RBC 5.44, hemoglobin 16, hematocrit 45, platelet count of 79, 000. Sed rate of 7. His PT is 12.1 with an INR of 1.12. His PTT is 32.8. A lactate level of 5.2. His chemistry showed a sodium 135, potassium 4.5, chloride 93, CO2 24, BUN of 19, creatinine of 1. His blood sugar was 349. His calcium is 9.9. Phosphorus was 3.9, magnesium was 1.7. Total bilirubi n is 2. AST, ALT and alkaline phosphatase are normal. Total protein is 8.9. Urinalysis showed posi tive for glucose, cloudy, 0-2 WBC. A chest x-ray is read by the radiologist showing prior old fractures with no evidence of active disea se. An x-ray of the foot shows flocculent ossifications in the plantar and tarsal level on the later al view with chronic osteomyelitic changes. There is a superficial plantar 6 x 4 mm ulcer suggested on the x-ray. Soft tissue swelling is noted on the plantar surface. Neuropathic Charcot changes are noted also along with postop partial amputations. An MRI of the foot shows a large amount of soft t issue inflammation and edema on the plantar side of the foot adjacent to the cuboid bone. There is d iffuse marrow edema in the cuboid as well as a fracture line. Findings are consistent with osteomyel itis. There is some bony destruction on the inferior cortex with some focal fluid collection. There is also chronic bony deformities of the second and third metatarsals in the midfoot. A code sepsis was called in the Emergency Room. The patient was initiated on morphine for pain manag ement, IV fluids. He received Zosyn and vancomycin in the Emergency Room. Meropenem was later given . Consults have been requested with infectious disease and podiatry. An arterial Doppler study has been requested by podiatry. The Emergency Room physician initiated an evaluation by the secretary specialist, but verbal communication states that the secretary specialist does not feel that the patient was appropriate for the unit. Given the severity of the clinical setting, the high fever, the leukocytosis, the find ings on the MRI and the code sepsis, the patient will be admitted to telemetry; this with the recomme ndation by the Emergency Room physician as well as the consultants. Will follow up the patient's blo od work. Request has been made for the patient's family to bring in his home medications. He will b e placed on a diet with low carbohydrate consistency with a sliding insulin scale at this time and in itiated on antibiotic therapy. Will follow the patient closely. Aspen Fontana MD cc: [id number] TT: 08/14/2016 14:50:23 mn
[2016-08-14] MEDS: Insulin Reg-LOW-Coverage SC SCH ×2 (16:30→23:11)
--- NOTE | 2016-08-14 17:58 | CARD ---
APPROVED REPORT EKG Measurement Heart [id number] [place] [id number] <Conclusion> Sinus tachycardia Cannot rule out Anterior infarct, age undetermined Abnormal ECG
[2016-08-14] MEDS: Oxycodone/Acetaminophen 5/325 mg Tab PO PRN (19:58)
[2016-08-14] MEDS ORDERED: Pneumococcal 23-Valent Vaccine IM ONE (20:05)
[2016-08-14] MEDS: Vancomycin 1gm in NS 250ml 250 ML IVPB SCH (23:11)
[2016-08-14] MEDS: Meropenem 1 GM in Sodium Chloride 0.9% 100 ML IVPB SCH (23:11)
[2016-08-15] MEDS: Oxycodone/Acetaminophen 5/325 mg Tab PO PRN ×4 (00:47→20:12)
[2016-08-15] MEDS: Meropenem 1 GM in Sodium Chloride 0.9% 100 ML IVPB SCH (05:22)
[2016-08-15 07:20] LABS: ADD MANUAL DIFF? NO
[2016-08-15 07:26] LABS: BASO # 0.01 K/mm3 (0.0-2.0); BASO % 0.1 % (0.0-3.0); GRAN # 6.55 (1.4-6.5); GRAN % 89.3 % (50.0-68.0); HEMATOCRIT 37.8 % (42.0-52.0); LYMPH # 0.3 (1.2-3.4); LYMPH % 3.7 % (22.0-35.0); MEAN CELL VOLUME 82.4 fL (80.0-105.0); MEAN CORPUSCULAR HEMOGLOBIN 28.3 pg (25.0-35.0); MEAN CORPUSCULAR HGB CONC 34.4 g/dl (31.0-37.0); MEAN PLATELET VOLUME 10.9 fl (7.0-11.0); MONO # 0.5 (0.1-0.6); MONO % 6.9 % (1.0-6.0); PLATELET COUNT 53 10^3/uL (120.0-450.0); WHITE BLOOD COUNT 7.3 10^3/ul (4.5-11.0)
[2016-08-15 07:50] LABS: ALKALINE PHOSPHATASE 65 U/L (38-133); ALT/SGPT 38 U/L (7-56); AST/SGOT 31 U/L (15-59); BILIRUBIN,TOTAL 1.7 mg/dL (0.2-1.3); BLOOD UREA NITROGEN 14 mg/dL (7-21); CALCIUM 8.4 mg/dL (8.4-10.5); CARBON DIOXIDE 26 mmol/L (21-33); CHLORIDE 96 mmol/L (98-107); GFR AFRICAN-AMERICAN > 60; GLUCOSE,RANDOM 208 mg/dL (70-110); POTASSIUM 3.9 mmol/L (3.6-5.0); SODIUM 132 mmol/L (132-148); TOTAL PROTEIN 7.1 g/dL (5.8-8.3)
[2016-08-15] MEDS: Insulin Reg-LOW-Coverage SC SCH ×4 (08:33→22:52)
--- NOTE | 2016-08-15 08:41 | PN ---
DATE: 08/15/2016 A 51-year-old male feeling better this morning. PHYSICAL EXAMINATION: VITAL SIGNS: His T-max was 103.6. His pulse is 105. His blood pressure is 151/78. His oxygen sat is reported at 99% on room air with a respiratory rate of 20. GENERAL: He is alert and oriented x 3. NECK: Supple. LUNGS: Clear. HEART: S1, S2 rhythm. ABDOMEN: Soft with positive bowel sounds. EXTREMITIES: Show no edema, but there is a dressing on the right foot over an ulcer. LABORATORY DATA: Shows electrolytes - sodium is 132. Potassium is 3.9. Chloride is 96. BUN is 14. Creatinine is 0.9. His blood sugar was 208. Total bilirubin is 1.7. His CBC shows a WBC of 7.3, hemoglobin 13, hematocrit 37.8, platelet count 53,000. MEDICATIONS: The patient is currently on Amaryl 4 mg b.i.d., Cozaar 100 mg daily, hydrochlorothiazid e 12.5 mg daily, Percocet 5/325 q. 4 hours p.r.n. pain, Tylenol p.r.n. for temperature. He has been placed on meropenem and vancomycin by infectious disease. He has on MRI an osteomyelitis of the right foot. He is recently status post shaving of the right fo ot for management of his Charcot deformity with a recent development of an ulcer on the sole of the r ight foot. Podiatry has seen the patient and tentatively scheduled to go to the OR for debridement. We will continue to follow the patient closely. He has thrombocytopenia secondary to his cirrhosis. His coags were normal. We will follow up the patient's labs. He has a history of bipolar disorder , suicidal ideation, depression, episodes of cellulitis, systemic inflammatory response syndrome, and toe amputation secondary to his diabetic disorder. Aspen Fontana MD cc: [id number] TT: 08/15/2016 08:41:09 Confirmation # [id number] Dictation # [id number] tapan
--- NOTE | 2016-08-15 09:06 | PN ---
DATE: 08/15/2016 This is a 51-year-old diabetic male seen yesterday in the ER for an infected right foot. The patient is known to me from past. He had, approximately 6 weeks ago, gone to [place] to a surgeon to have a reconstruction of his right Charcot foot. However, at that time, only a bumpectomy was done under wh ere patient had a chronic opening and closing ulceration. Since that time, he has had an ulcer on th e plantar aspect of the foot. He states that he stepped on a toy and the foot became very painful an d he presented yesterday to the ER. PAST MEDICAL HISTORY: Positive for diabetes. The patient also has had multiple digital amputations on both feet. He has bilateral Charcot foot with deformity of the feet. He also has had a history o f drug and alcohol abuse. He is in a recovery program. The patient has a history of bipolar disease , seizures and syncope. He also has a history of hypertension and he has had sepsis in the past. MEDICATIONS: Noted on the MAR. He does not have any drug allergies. SOCIAL HISTORY: He lives at home with his and family, and as noted above he is in a recovery pr [facility] and does not use alcohol or drugs anymore, and he denies any tobacco use. PHYSICAL EXAMINATION: GENERAL: Shows him alert and oriented at bedside. VITAL SIGNS: Today show a temperature max of 103.6, his pulse was 105, blood pressure is 151/78 and his oxygen sat was 99. LABORATORY DATA: The patient's labs are reviewed. He came in yesterday with an 18.8 white blood faby l count; this morning it is 7.3. His H and H are 13 and 37.8. His platelets are 53. The patient do es have a history of a thrombocytopenia in the past. The patient's chemistries were reviewed. His g lucose was 295. His BUN and creatinine are 14 and 0.9. His sodium and potassium are within normal l imits. His C-reactive protein was greater than 15. ESR was only noted to be 7. The patient's micro biology has a Gram stain ____ culture pending. The Gram stain shows gram-positive cocci and gram-neg ative rods. Clinically, patient was seen at bedside with a dressing clean, dry and intact. He is scheduled to go to the OR today. The wound is deep. There is no bone exposed. However, there is a sinus tract manuelito t probes right down to the patient's cuboid area. The patient's wound was not fluctuant, but there w as a gross amount of edema and the plantar aspect of the foot was cellulitic and hot, leading to thin k that there may be an underlying deep seated abscess. His imagings were reviewed. His extremity ultrasound was normal ABIs with the right at 1.1 and the l eft at 1.1. His foot MRI was also reviewed. His foot MRI shows a large amount of soft tissue inflam mation and edema, which is consistent with the clinical picture, diffuse marrow edema in the cuboid a s well as a fracture line in the cuboid. These findings are consistent with osteomyelitis and again clinically it correlates. There is bony destruction of the inferior cortex with some focal fluid col lections and again clinical correlation seems to agree with the MRI findings. The patient's foot x-r ay was reviewed. The foot x-ray shows some bony erosion, some of it most likely from the bumpectomy that he had about 6 weeks ago; however, there are multiple fractures along the midtarsal joint and th ere are bony fragments noted along the lateral aspect of the foot as well as the dorsal aspect of the foot. There is a large enchondroma in the second metatarsal of this foot and, again, multiple fract ures and dislocations in the midtarsal joint area. ASSESSMENT: A diabetic with lower extremity neuropathy, Charcot disease bilateral, with sepsis and i nfected right foot ulcer and, because of the fracture line noted in the cuboid, this must be consider ed an osteomyelitis. PLAN OF TREATMENT: He is scheduled for the OR this afternoon at 3:30 for debridement and exploration . We will clean the wound, explore and see if there is any abscess, and at the same time will get de ep tissue cultures as well as a bone culture. The patient is well aware and consents to the above obrien rgery. The patient will be seen in followup. Leigh Ann Alvarado DPM cc: [id number] TT: 08/15/2016 09:05:34 Confirmation # [id number] Dictation # [id number] mn
[2016-08-15] MEDS: Vancomycin 1gm in NS 250ml 250 ML IVPB SCH ×2 (09:44→22:49)
[2016-08-15] MEDS ORDERED: Non Formulary Medication (Losartan/Hydrochlorothiazide [Losartan-Hctz 100-12.5 Mg Tab] 1 T PO SCH (10:00)
[2016-08-15 10:53] LABS: RETIC% 2.29 % (0.5-1.5)
[2016-08-15 12:15] LABS: IRON 15 ug/dL (45-180)
[2016-08-15] MEDS: Meropenem 1g/NS 100mL IVPB 100 ML IVPB SCH ×2 (14:04→22:48)
[2016-08-15] MEDS ORDERED: Lidocaine 2% Inj (20ml) ONE ×2 (14:53→16:39)
[2016-08-15] MEDS ORDERED: Propofol 10 mg/ml Inj (20 ML) ONE (16:35)
[2016-08-15] MEDS ORDERED: Midazolam 2 MG/2 ML VIAL ONE (16:35)
--- NOTE | 2016-08-15 16:37 | CON ---
DATE: 08/15/2016 REASON FOR CONSULTATION: Thrombocytopenia. HISTORY OF PRESENT ILLNESS: The patient is a 51-year-old male with past medical history significant for multiple medical problems including bipolar disorder, depression, diabetes, suicidal ideation, dr ug overdose, foot ulcer and known alcohol abuse. Hypertension as well as known thrombocytopenia seco ndary to known liver disease who presented to the Emergency Room with complaints of right foot ulcera tion as well as drainage of purulent fluid from the sole of the foot. He had a surgery done at [facility] several weeks ago, but his ulcers have not resolved. There is a question of osteomyelit is currently, and patient is awaiting re-revision of the surgery today. He has been having fevers. His normal platelet counts have been running around 100,000, but today's platelet count is at 53,000. There is no active bleeding. He has had prior platelet transfusions with prior procedures includin g his knee replacement. Denies any other complaints. No bruising. No other complaints. PAST MEDICAL HISTORY: As above, multiple medical problems including alcohol abuse, bipolar disorder, depression, diabetes, suicidal ideation, recurrent and chronic foot ulcers, amputation of both toes, lipoma of the axilla, seizure disorder, syncope, hypertension, cellulitis as well as thrombocytopeni a. SOCIAL HISTORY: Positive for alcohol abuse. Denies any tobacco abuse or illicit drug use. MEDICATIONS: At home include her losartan, hydrochlorothiazide and Amaryl. ALLERGIES: No known drug allergies. FAMILY HISTORY: Noncontributory. REVIEW OF SYSTEMS: As per the HPI. PHYSICAL EXAMINATION: VITAL SIGNS: Reveal a temperature of 98.1, T-max of 103.6, pulse of 99, respiratory rate of 20, and a blood pressure 115/75. GENERAL: The patient is a middle-aged male lying in bed in no acute distress. HEAD AND NECK: Normocephalic, atraumatic. EYES: Pupils equal, round, reactive to light and accommodation. Extraocular muscles are intact. Th ere is no pallor, no icterus is noted. NECK: Supple with no adenopathy, no JVD, no thyromegaly. LUNGS: Clear to auscultation bilaterally with no rales or rhonchi. CARDIOVASCULAR: S1, S2 is heard. ABDOMEN: Positive bowel sounds, soft, nontender, nondistended, no organomegaly is palpated. EXTREMITIES: There is a scar on the left knee from his total knee replacement as well as a bandage o brenda his foot ulcer. LABORATORY DATA: Reveal a white count of 7.3 initially was 18.8, hemoglobin 13.0, hematocrit 37.8 an d a platelet count of 53,000. White count is within normal limits. His retic is 2.29. ESR is malik l. Electrolytes are within normal limits. Iron studies reveal anemia of chronic disease. B12 and f olate are pending as is SPEP. ASSESSMENT AND PLAN: Middle-aged male with known alcohol abuse and thrombocytopenia secondary to alc oholic liver disease. Platelet counts have dropped from admission 79,000-53,000. He is awaiting julio judy today. Would transfuse 1 unit of single donor platelets prior to surgery as the risk of bleedin g is high with an acutely low platelet count. Check B12 and folate levels, will likely need replacem ent. Thank you for the consult. We will follow. Mirna Ferrell MD cc: [id number] TT: 08/15/2016 16:36:47 Confirmation # [id number] Dictation # [id number] an
[2016-08-15] MEDS ORDERED: Gentamicin 80 mg/2mL Inj. ONE (16:41)
[2016-08-15 17:32] LABS: FOLATE 6.6 ng/mL
[2016-08-15] MEDS ORDERED: HYDROmorphone 0.5 mg/0.5 ml ISec IVP PRN (17:35)
--- NOTE | 2016-08-15 17:35 | PCM.SURG1 ---
Surgeon's Initial Post Op Note - Surgeon's Notes Surgeon: Dr. Alvarado Virtual Classroom Manager: Dr. Gonzalez PGY-1 Type of Anesthesia: General Endo, Local Anesthesia Administered By: Dr. Valle Pre-Operative Diagnosis: right foot osteomyelitis with deep abscess Operative Findings: see dictation. 10mL 2% lidocaine plain Post-Operative Diagnosis: same as preop Operation Performed: right foot incision and drainage, bone biopsy and culture Specimen/Specimens Removed: bone and soft tissue Estimated Blood Loss: EBL {In ML}: 10 Blood Products Given: N/A Drains Used: No Drains Post-Op Condition: Good Date of Surgery/Procedure: 08/15/16 Time of Surgery/Procedure: 16:45
--- NOTE | 2016-08-15 17:40 | CP.PCM.CON ---
History of Present Illness - History of Present Illness History of Present Illness: 51 year old male with a PMH of DM, alcohol abuse with liver disease and history of portal hypertension, bipolar disorder, history of right foot infection S/P amputation of digits, Charcot arthropathy of the right foot, S/P surgery on the right foot in [address] Alvarado yesterday after apparently stepping on a toy with his right foot, with worsening pain. He also had fever and chills. He denies animal contacts, no walking on soil, no wading in water or swimming. He denies nausea or vomiting, no chest pain, no SOB, no dysuria, no abdominal pain, no headache, no sore throat, no headache or dizziness, no diarrhea, no cough or colds. In the ED, he was noted to have fever and leukocytosis. MRI of the right foot done yesterday showed osteomyelitis with associated fluid collection. Infectious Diseases consult is requested to further evaluate and manage. Review of Systems - Review of Systems All systems: reviewed and no additional remarkable complaints except (as per HPI ) Past Patient History - Infectious Disease Hx of Infectious Diseases: None - Tetanus Immunizations Tetanus Immunization: Up to Date - Past Medical History & Family History Past Medical History?: Yes - Past Social History Smoking Status: Never Smoked - CARDIAC Hx Cardiac Disorders: Yes Hx Hypertension: Yes Hx Peripheral Edema: Yes Hx Peripheral Vascular Disease: Yes - PULMONARY Hx Respiratory Disorders: Yes Hx Emphysema: Yes - NEUROLOGICAL Hx Neurological Disorder: Yes Other/Comment: neuropathy - HEENT Hx HEENT Problems: No - RENAL Hx Chronic Kidney Disease: No - ENDOCRINE/METABOLIC Hx Endocrine Disorders: Yes Hx Diabetes Mellitus Type 2: Yes - HEMATOLOGICAL/ONCOLOGICAL Hx Blood Disorders: Yes Hx Cirrhosis: Yes - INTEGUMENTARY Hx Dermatological Problems: Yes (hx cellulitis, gangrene left 2nd toe) Other/Comment: prior visit triage notes: 4th toe rt foot ulcer (resolved). RIGHT FOOT 3RD TOE AMPUTATED,PARTIAL AMPUTATION TO 4TH AND 5TH TOE. LEFT FOOT 2ND TOE AMPUTATION. OPEN WOUND TO SOLE OF RIGHT FOOT.HAD A BLISTER ,GOT WORSE. pt trerated by dr alvarado at the wound center with wound care and a cast but wound opened up 4x's, pt went [facility] to a dr nicole who specializes in charcot feet, had bone shaved on bottom of right charcot foot on 06/05/16, cast and herbie wrap in place pt ambulated with crutches - MUSCULOSKELETAL/RHEUMATOLOGICAL Hx Falls: Yes (past) - GASTROINTESTINAL Hx Gastrointestinal Disorders: Yes (c dif,colitis) - GENITOURINARY/GYNECOLOGICAL Hx Genitourinary Disorders: No - PSYCHIATRIC Hx Psychophysiologic Disorder: Yes (affective mood disorder/self mutilation) Hx Anxiety: Yes Hx Bipolar Disorder: Yes Hx Depression: Yes Hx Substance Use: No Other/Comment: notes from previous visit/triage: hx of bipolar depression and anxiety, 4 yrs ago, attends [facility] outpatient mental health clinic once a week, suicide attempt lithium od october 2012, has been in rehab for alcoholism the last time was 05/2013 but had a couple beers friday, denies drug use, presently pt quit drinking 2 1/2 yrs ago, denies smoking and substance abuse - SURGICAL HISTORY Hx Amputation: Yes (left 2d toe, rt 3d toe,4TH AND 5TH PARTIAL AMPUTATION.) Hx Appendectomy: Yes Hx Joint Replacement: Yes (left knee replacement) Hx Orthopedic Surgery: Yes Other/Comment: RIGHT KNEE SURGERY - ANESTHESIA Hx Anesthesia: Yes Hx Anesthesia Reactions: No Hx Malignant Hyperthermia: No Meds Allergies/Adverse Reactions: Allergies Allergy/AdvReac Type Severity Reaction Status Date / Time No Known Allergies Allergy Verified 08/14/16 17:55 - Medications Medications: Current Medications Acetaminophen (Tylenol 325mg Tab) 650 mg PO Q6H PRN PRN Reason: Fever >100.4 F Last Admin: 08/14/16 14:31 Dose: 650 mg Glimepiride (Amaryl) 4 mg PO BID JIMMIE Hydrochlorothiazide (Microzide) 12.5 mg PO DAILY JIMMIE Meropenem 1 gm/ Sodium (Chloride) 100 mls @ 100 mls/hr IVPB Q8 JIMMIE PRN Reason: Protocol Stop: 08/21/16 22:01 Vancomycin HCl (Vancomycin 1gm) 250 mls @ 167 mls/hr IVPB Q12H JIMMIE PRN Reason: Protocol Insulin Human Regular (Humulin R Low) 0 units SC ACHS JIMMIE PRN Reason: Protocol Losartan Potassium (Cozaar) 100 mg PO DAILY JIMMIE Physical Exam - Constitutional Appears: Non-toxic, No Acute Distress - Head Exam Head Exam: NORMAL INSPECTION - ENT Exam ENT Exam: Mucous Membranes Moist - Neck Exam Neck exam: Negative for: Lymphadenopathy, Meningismus - Respiratory Exam Respiratory Exam: Decreased Breath Sounds - Cardiovascular Exam Cardiovascular Exam: +S1, +S2 - GI/Abdominal Exam GI & Abdominal Exam: Soft. absent: Tenderness Results - Vital Signs Recent Vital Signs: Last Vital Signs Temp 103.3 F H 08/14/16 10:35 Pulse 107 H 08/14/16 12:44 Resp 20 08/14/16 12:44 BP 128/81 08/14/16 12:44 Pulse Ox 98 08/14/16 12:44 - Labs Result Diagrams: 08/15/16 06:45 08/15/16 06:45 Labs: Laboratory Results - last 24 hr 08/14/16 12:45 pO2 58 H VBG pH 7.39 VBG pCO2 38.0 L VBG HCO3 23.0 VBG Total CO2 24.2 VBG O2 Sat (Calc) 92.3 H VBG Base Excess -1.7 L VBG Potassium 3.8 Sodium 132.0 Chloride 101.0 Glucose 299 H Lactate 2.5 H FiO2 21.0 Venous Blood Potassium 3.8 Assessment & Plan - Assessment and Plan (Free Text) Plan: Assessment Sepsis secondary to right foot osteomyelitis and probable abscess history of right foot skin and skin structure infection Charcot foot on the right S/P shaving of the bone last week history of left sided parotitis Diabetes Mellitus Liver disease with history of portal hypertension Plan started patient on Vancomycin and Merrem pending blood cx, OR cultures and pathology; patient is for OR today Will follow clinically Discussed with Dr. Fontana
[2016-08-15] MEDS ORDERED: Lactated Ringer's 1,000 ML IV SCH (17:45)
--- NOTE | 2016-08-15 17:53 | OP ---
PROCEDURE DATE: 08/15/2016 PREOPERATIVE DIAGNOSES: Diabetic with an abscess and osteomyelitis to the right foot. POSTOPERATIVE DIAGNOSES: Diabetic with an abscess and osteomyelitis to the right foot. PROCEDURE: I and D of an abscess and bone biopsy with debridement of the ulcer to the right foot. SURGEON: Leigh Ann Alvarado DPM MATERIALS CLERK: ANESTHESIA: General. The patient was brought into the OR and placed on the OR table in the usual supine position. After a nesthesia was given, 10 mL of lidocaine plain was given in a V fashion to facilitate anesthesia, afte r which the foot was prepped and draped in the usual sterile fashion. Attention was directed to the plantar aspect of the right foot where an ulceration was noted measuring approximately 5 cm x 5 cm wi th a depth of approximately 4 cm. There was a sinus that went straight down to the cuboid. The tiss ue was devitalized granulation tissue and using a sterile stat, this wound was explored. There was a pocket of pink and yellow pus that was released from the medial and proximal portion of this ulcer. There is a sinus tract that tracks from the mid portion of the ulcer laterally, approximately 7-8 cm ; however, no pus was released from that sinus tract. We also opened up proximal and distal and no o ther areas of pus were opened at that time. The wound was then copiously flushed using gentamicin an d a Simpulse flush system. After the foot was copiously flushed, we took a bone culture. We took a piece of bone from the cuboid and was sent for bone culture as well as pathology. We then did a deep tissue culture. The wound was then packed open with iodoform and all of the sinuses and patient did coagulate. He was given platelets preop because of thrombocytopenia. The patient tolerated the ane sthesia and the procedure well, and he will be returned to the telemetry floor, where he will be foll owed in-house. The patient does have an osteomyelitis, for which he will need 4-6 weeks of IV antibi otics. Leigh Ann Alvarado DPM cc: [id number] TT: 08/15/2016 17:52:37 en
[2016-08-16] MEDS: Oxycodone/Acetaminophen 5/325 mg Tab PO PRN ×5 (01:29→20:18)
[2016-08-16] MEDS: Meropenem 1g/NS 100mL IVPB 100 ML IVPB SCH ×3 (06:15→22:55)
[2016-08-16 07:40] LABS: TOTAL PROTEIN, SERUM 6.4 g/dL (6.1-8.1)
[2016-08-16] MEDS: Insulin Reg-LOW-Coverage SC SCH ×4 (08:06→21:23)
[2016-08-16] MEDS ORDERED: Oxychlorosene Topical 2 gm Packet TOP ONE (09:00)
[2016-08-16 09:14] LABS: ADD MANUAL DIFF? NO
[2016-08-16 09:16] LABS: BASO # 0.01 K/mm3 (0.0-2.0); BASO % 0.3 % (0.0-3.0); GRAN # 2.72 (1.4-6.5); GRAN % 73.3 % (50.0-68.0); HEMATOCRIT 35.5 % (42.0-52.0); LYMPH # 0.5 (1.2-3.4); LYMPH % 14.3 % (22.0-35.0); MEAN CELL VOLUME 82.2 fL (80.0-105.0); MEAN CORPUSCULAR HEMOGLOBIN 28.7 pg (25.0-35.0); MEAN CORPUSCULAR HGB CONC 34.9 g/dl (31.0-37.0); MONO # 0.5 (0.1-0.6); MONO % 12.1 % (1.0-6.0); PLATELET COUNT 60 10^3/uL (120.0-450.0); RED CELL DISTRIBUTION WIDTH 14.8 % (11.5-14.5); WHITE BLOOD COUNT 3.7 10^3/ul (4.5-11.0)
[2016-08-16 09:38] LABS: ALKALINE PHOSPHATASE 59 U/L (38-133); ALT/SGPT 52 U/L (7-56); AST/SGOT 45 U/L (15-59); BILIRUBIN,TOTAL 1.1 mg/dL (0.2-1.3); BLOOD UREA NITROGEN 13 mg/dL (7-21); CARBON DIOXIDE 28 mmol/L (21-33); CHLORIDE 99 mmol/L (98-107); GFR AFRICAN-AMERICAN > 60; GLUCOSE,RANDOM 237 mg/dL (70-110); POTASSIUM 3.9 mmol/L (3.6-5.0); SODIUM 135 mmol/L (132-148); TOTAL PROTEIN 6.8 g/dL (5.8-8.3)
[2016-08-16] MEDS ORDERED: Lidocaine 2% Inj (20ml) ONE (09:40)
--- NOTE | 2016-08-16 09:44 | PN ---
DATE: 08/16/2016 A 51-year-old male, postop day 1 for surgical management of osteomyelitis of the right foot. PHYSICAL EXAMINATION: VITAL SIGNS: His T-max was 103. This morning, his temp is 97.6, his pulse is 87, his blood pressure is 137/65, respiratory rate is 20. GENERAL: He is alert and oriented x 3. NECK: Supple. LUNGS: Clear. HEART: Has an S1, S2 rhythm. ABDOMEN: Soft with positive bowel sounds. EXTREMITIES: Show a dressing over the right foot. LABORATORY DATA: Shows a WBC of 3.7, RBC 4.32, hemoglobin 12.4, hematocrit 35.5, platelet count is 6 0,000. Chemistry is pending. Iron studies show an iron of 15, a TIBC of 288, 5% saturation. B12 is 332. Folate is 6.6. The patient is currently on vancomycin and meropenem by infectious disease for osteomyelitis of the r ight foot. He is on insulin sliding scale along with Januvia and metformin and Amaryl for his diabet es. He is on Cozaar and hydrochlorothiazide for his blood pressure. He is on Percocet p.r.n. for pa in. The patient will require a PICC line placement for IV antibiotic therapy. Blood cultures are showing group A Strep pyogenes. Urine culture is negative and the wound culture grew gram-positive cocci an d corynebacterium species. The patient has a history of thrombocytopenia secondary to his cirrhosis. He received a transfusion of platelets prior to going to the OR and workup is being done by hematol ogkya. Continue current level of care. All the clinical findings have been discussed with the patient . Aspen Fontana MD cc: [id number] TT: 08/16/2016 09:44:21 Confirmation # [id number] Dictation # [id number]
--- NOTE | 2016-08-16 11:59 | CP.PCM.PN ---
<Yoselyn Gonzalez - Last Filed: 08/16/16 11:55> Subjective - Date & Time of Evaluation Date of Evaluation: 08/16/16 Time of Evaluation: 11:55 - Subjective Subjective: 51 y/o male seen at bedside with attending Dr. Wilson 1 day s/p incision and drainage and debridement of right foot plantar wound. Patients denies any acute events overnight. He had a slight fever overnight of 100.1. Patients dressing remains c/d/i with no strikethrough or drainage on bandage. Patient denies n/v/d /c/sob. Objective - Vital Signs/Intake and Output Vital Signs (last 24 hours): Temp Pulse Resp BP Pulse Ox 97.6 F 87 20 137/65 98 08/16/16 06:00 08/16/16 06:00 08/16/16 06:00 08/16/16 06:00 08/15/16 18:00 Intake and Output: 08/16/16 08/16/16 06:59 18:59 Intake Total 420 Output Total 1700 Balance -1280 - Medications Medications: Current Medications Acetaminophen (Tylenol 325mg Tab) 650 mg PO Q4 PRN PRN Reason: Fever >100.4 F Last Admin: 08/15/16 15:41 Dose: 650 mg Glimepiride (Amaryl) 4 mg PO BID [facility] Last Admin: 08/16/16 11:11 Dose: 4 mg Hydrochlorothiazide (Microzide) 12.5 mg PO DAILY [facility] Last Admin: 08/16/16 11:11 Dose: 12.5 mg Vancomycin HCl (Vancomycin 1gm) 250 mls @ 167 mls/hr IVPB Q12H [facility] PRN Reason: Protocol Last Admin: 08/15/16 22:49 Dose: 167 mls/hr Meropenem 1g/NS 100mL IVPB (Meropenem 1g/Ns 100ml Ivpb) 100 mls @ 100 mls/hr IVPB Q8 [facility] Stop: 08/21/16 22:01 Last Admin: 08/16/16 06:15 Dose: 100 mls/hr Insulin Detemir (Levemir) 80 unit SC HS [facility] Insulin Human Regular (Humulin R Low) 0 units SC ACHS [facility] PRN Reason: Protocol Last Admin: 08/16/16 08:06 Dose: 2 units Losartan Potassium (Cozaar) 100 mg PO DAILY [facility] Last Admin: 08/16/16 11:11 Dose: 100 mg Metformin HCl (Glucophage) 1,000 mg PO BID [facility] Last Admin: 08/16/16 11:11 Dose: 1,000 mg Oxycodone/Acetaminophen (Percocet 5/325 Mg Tab) 1 tab PO Q4H PRN PRN Reason: Pain, moderate (4-7) Stop: 08/17/16 19:39 Last Admin: 08/16/16 11:09 Dose: 1 tab Sitagliptin Phosphate (Januvia) 50 mg PO BID [facility] Last Admin: 08/16/16 11:11 Dose: 50 mg - Labs Labs: 08/16/16 09:00 08/16/16 09:00 PT 12.1 Seconds (9.9-11.8) H 08/14/16 09:30 INR 1.12 (0.93-1.08) H 08/14/16 09:30 APTT 32.8 Seconds (23.7-30.8) H 08/14/16 09:30 - Constitutional Appears: Well, Non-toxic, No Acute Distress - Extremities Exam Additional comments: vasc: nonpalpable pedal pulses, TG warm to warm, CFT < 3 sec to all digits neuro: grossly diminished derm: plantar ulceration of right midfoot measuring 5cm x 3cm x 2cm consists of granular base, fibrotic border, no malodor, no purulence, no ascending cellulitis, probe to bone +, no active bleeding ortho: right foot 3rd toe amputated, partial amputation of 4th and 5th toes, left foot 2nd toe amputated - Neurological Exam Neurological Exam: Alert, Awake, Oriented x3 - Psychiatric Exam Psychiatric exam: Normal Affect, Normal Mood Assessment and Plan - Assessment and Plan (Free Text) Assessment: 51 y/o male seen at bedside 1 day s/p right foot I&D with debridement Plan: patient evaluated and chart reviewed seen at bedside with attending Dr. Wilson labs and vitals reviewed; WBC 3.7 flushed right foot wound with chlorpactin solution with saline, packed with 1/2 inch iodoform, applied DSD and ARLEN continue IV abx as per ID podiatry will continue to monitor while patient remains in house <Blayne Wilson - Last Filed: 08/20/16 12:40> Objective - Vital Signs/Intake and Output Vital Signs (last 24 hours): Temp Pulse Resp BP Pulse Ox 98.1 F 75 20 130/87 98 08/20/16 08:00 08/20/16 08:00 08/20/16 08:00 08/20/16 08:00 08/20/16 08:00 Intake and Output: 08/20/16 08/20/16 06:59 18:59 Intake Total 1020 Balance 1020 - Medications Medications: Current Medications Acetaminophen (Tylenol 325mg Tab) 650 mg PO Q4 PRN PRN Reason: Fever >100.4 F Last Admin: 08/16/16 18:50 Dose: 650 mg Glimepiride (Amaryl) 4 mg PO BID [facility] Last Admin: 08/20/16 11:29 Dose: 4 mg Hydrochlorothiazide (Microzide) 12.5 mg PO DAILY [facility] Last Admin: 08/20/16 11:30 Dose: 12.5 mg Cefazolin Sodium 2 gm/ Sodium (Chloride) 100 mls @ 200 mls/hr IVPB Q8 [facility] PRN Reason: Protocol Last Admin: 08/19/16 22:56 Dose: 200 mls/hr Insulin Detemir (Levemir) 80 unit SC HS [facility] Last Admin: 08/19/16 22:55 Dose: 20 unit Insulin Human Regular (Humulin R Low) 0 units SC ACHS [facility] PRN Reason: Protocol Last Admin: 08/20/16 11:33 Dose: 1 units Losartan Potassium (Cozaar) 100 mg PO DAILY [facility] Last Admin: 08/20/16 11:30 Dose: 100 mg Metformin HCl (Glucophage) 1,000 mg PO BID [facility] Last Admin: 08/20/16 11:30 Dose: 1,000 mg Oxycodone/Acetaminophen (Percocet 5/325 Mg Tab) 1 tab PO Q4H PRN PRN Reason: Pain, moderate (4-7) Stop: 08/20/16 20:53 Last Admin: 08/20/16 09:41 Dose: 1 tab Sitagliptin Phosphate (Januvia) 50 mg PO BID [facility] Last Admin: 08/20/16 11:30 Dose: 50 mg - Labs Labs: 08/19/16 06:55 08/19/16 06:55 PT 12.1 Seconds (9.9-11.8) H 08/14/16 09:30 INR 1.12 (0.93-1.08) H 08/14/16 09:30 APTT 32.8 Seconds (23.7-30.8) H 08/14/16 09:30 Attending/Attestation - Attestation I have personally seen and examined this patient.: Yes I have fully participated in the care of the patient.: Yes I have reviewed all pertinent clinical information, including history, physical exam and plan: Yes
[2016-08-16] MEDS: Vancomycin 1gm in NS 250ml 250 ML IVPB SCH ×2 (14:12→21:16)
--- NOTE | 2016-08-16 17:36 | VASCULAR ---
PROCEDURE: Ultrasound and fluoroscopic left upper extremity PICC line HISTORY: Diabetic foot abscess with osteomyelitis. Long-term IV antibiotics. Needs PICC line. PHYSICIAN(S): Bal Carrillo MD. TECHNIQUE: The relative risks and indication of the procedure were explained the patient consent obtained. The patient is placed supine on the arteriogram table in a left arm prepped and draped usual sterile fashion. A tourniquet was applied at the left axilla. The skin and soft tissues at the puncture site were anesthetized 1 percent xylocaine. Under direct ultrasound guidance, a left brachial vein was punctured with a 21 gauge needle. 0.018 guidewire was advanced centrally in used to measure the length to the SVC/RA junction. A 5 [place] single lumen PICC line 44 centimeters long was advanced to the peel-away sheath with its tip placed at the SVC/RA junction. The catheter was flushed and secured. The patient tolerated the procedure well. FINDINGS: . IMPRESSION: Ultrasound fluoroscopically placed left upper extremity PICC line.
[2016-08-16 20:20] LABS: BETA 1 GLOBULIN 0.4 g/dL (0.4-0.6); BETA 2 GLOBULIN 0.5 g/dL (0.2-0.5); GAMMA GLOBULIN 0.9 g/dL (0.8-1.7)
[2016-08-16] MEDS: Insulin Detemir 100 units/ml Vial (Levemir) SC SCH (21:23)
--- NOTE | 2016-08-17 00:24 | CP.PCM.PN ---
Subjective - Date & Time of Evaluation Date of Evaluation: 08/16/16 Time of Evaluation: 10:45 - Subjective Subjective: Had surgery yesterday, no pain in his foot currently. No fevers overnight. Objective - Vital Signs/Intake and Output Vital Signs (last 24 hours): Temp Pulse Resp BP Pulse Ox 100.2 F H 94 H 20 130/82 98 08/16/16 18:50 08/16/16 16:00 08/16/16 16:00 08/16/16 16:00 08/16/16 16:00 Intake and Output: 08/16/16 08/17/16 18:59 06:59 Intake Total 780 480 Output Total 875 500 Balance -95 -20 - Medications Medications: Current Medications Acetaminophen (Tylenol 325mg Tab) 650 mg PO Q4 PRN PRN Reason: Fever >100.4 F Last Admin: 08/16/16 18:50 Dose: 650 mg Glimepiride (Amaryl) 4 mg PO BID [facility] [place] Last Admin: 08/16/16 18:48 Dose: 4 mg Hydrochlorothiazide (Microzide) 12.5 mg PO DAILY [facility] [place] Last Admin: 08/16/16 11:11 Dose: 12.5 mg Vancomycin HCl (Vancomycin 1gm) 250 mls @ 167 mls/hr IVPB Q12H [facility] PRN Reason: Protocol Last Admin: 08/16/16 21:16 Dose: 167 mls/hr Meropenem 1g/NS 100mL IVPB (Meropenem 1g/Ns 100ml Ivpb) 100 mls @ 100 mls/hr IVPB Q8 [facility] [place] Stop: 08/21/16 22:01 Last Admin: 08/16/16 22:55 Dose: 100 mls/hr Insulin Detemir (Levemir) 80 unit SC HS [facility] Last Admin: 08/16/16 21:23 Dose: 80 unit Insulin Human Regular (Humulin R Low) 0 units SC ACHS [facility] [place] PRN Reason: Protocol Last Admin: 08/16/16 21:23 Dose: Not Given Losartan Potassium (Cozaar) 100 mg PO DAILY [facility] Last Admin: 08/16/16 11:11 Dose: 100 mg Metformin HCl (Glucophage) 1,000 mg PO BID [facility] [place] Last Admin: 08/16/16 18:49 Dose: 1,000 mg Oxycodone/Acetaminophen (Percocet 5/325 Mg Tab) 1 tab PO Q4H PRN PRN Reason: Pain, moderate (4-7) Stop: 08/17/16 19:39 Last Admin: 08/16/16 20:18 Dose: 1 tab Sitagliptin Phosphate (Januvia) 50 mg PO BID [facility] Last Admin: 08/16/16 18:50 Dose: 50 mg - Labs Labs: 08/16/16 09:00 08/16/16 09:00 PT 12.1 Seconds (9.9-11.8) H 08/14/16 09:30 INR 1.12 (0.93-1.08) H 08/14/16 09:30 APTT 32.8 Seconds (23.7-30.8) H 08/14/16 09:30 - Constitutional Appears: Non-toxic, No Acute Distress - Head Exam Head Exam: NORMAL INSPECTION - ENT Exam ENT Exam: Mucous Membranes Moist - Neck Exam Neck Exam: absent: Lymphadenopathy, Meningismus - Respiratory Exam Respiratory Exam: Decreased Breath Sounds - Cardiovascular Exam Cardiovascular Exam: +S1, +S2 - GI/Abdominal Exam GI & Abdominal Exam: Soft. absent: Tenderness - Extremities Exam Additional comments: right foot with dressings in place Assessment and Plan - Assessment and Plan (Free Text) Plan: Assessment Sepsis secondary to right foot osteomyelitis and abscess S/P debridement POD #1 , with associated Group A strep bacteremia history of right foot skin and skin structure infection Charcot foot on the right S/P shaving of the bone last week history of left sided parotitis Diabetes Mellitus Liver disease with history of portal hypertension Plan continue Vancomycin and Merrem day 2, pending OR cultures and pathology; follow up repeat blood cx Will follow clinically Discussed with Dr. Fontana
[2016-08-17] MEDS: Oxycodone/Acetaminophen 5/325 mg Tab PO PRN ×5 (00:32→21:08)
[2016-08-17] MEDS: Meropenem 1g/NS 100mL IVPB 100 ML IVPB SCH ×3 (06:01→22:58)
[2016-08-17 07:13] LABS: ADD MANUAL DIFF? NO
[2016-08-17 07:14] LABS: BASO # 0.01 K/mm3 (0.0-2.0); BASO % 0.3 % (0.0-3.0); EOS % 0.6 % (1.5-5.0); GRAN # 2.49 (1.4-6.5); GRAN % 72.6 % (50.0-68.0); HEMATOCRIT 33.6 % (42.0-52.0); LYMPH # 0.4 (1.2-3.4); LYMPH % 12.5 % (22.0-35.0); MEAN CELL VOLUME 81.2 fL (80.0-105.0); MEAN CORPUSCULAR HEMOGLOBIN 28.3 pg (25.0-35.0); MEAN CORPUSCULAR HGB CONC 34.8 g/dl (31.0-37.0); MEAN PLATELET VOLUME 10.4 fl (7.0-11.0); MONO # 0.5 (0.1-0.6); PLATELET COUNT 63 10^3/uL (120.0-450.0); RED CELL DISTRIBUTION WIDTH 14.7 % (11.5-14.5); WHITE BLOOD COUNT 3.4 10^3/ul (4.5-11.0)
[2016-08-17 07:23] LABS: BLOOD UREA NITROGEN 12 mg/dL (7-21); CARBON DIOXIDE 25 mmol/L (21-33); CHLORIDE 102 mmol/L (95-110); GFR AFRICAN-AMERICAN > 60; GLUCOSE,RANDOM 158 mg/dL (70-110); POTASSIUM 3.5 mmol/L (3.6-5.0); SODIUM 135 mmol/L (132-148)
[2016-08-17] MEDS: Insulin Reg-LOW-Coverage SC SCH ×4 (08:20→22:58)
--- NOTE | 2016-08-17 08:39 | CP.PCM.PN ---
<Suresh Wong - Last Filed: 08/17/16 08:36> Subjective - Date & Time of Evaluation Date of Evaluation: 08/17/16 Time of Evaluation: 08:20 - Subjective Subjective: 51 y/o male seen at bedside with attending Dr. Wilson 2 day s/p incision and drainage with debridement of right foot plantar wound (DOS: 08/15/16). Patient denies any acute events overnight. He had a slight fever overnight of 100.3F, though denies feelings of chills overnight. . Patients dressing remains c/d/i with no strikethrough or drainage on bandage. Patient denies n/v/d/c/sob. Objective - Vital Signs/Intake and Output Vital Signs (last 24 hours): Temp Pulse Resp BP Pulse Ox 98.3 F 80 20 134/81 100 08/17/16 07:55 08/17/16 07:55 08/17/16 07:55 08/17/16 07:55 08/17/16 07:55 Intake and Output: 08/17/16 08/17/16 06:59 18:59 Intake Total 930 Output Total 500 Balance 430 - Medications Medications: Current Medications Acetaminophen (Tylenol 325mg Tab) 650 mg PO Q4 PRN PRN Reason: Fever >100.4 F Last Admin: 08/16/16 18:50 Dose: 650 mg Glimepiride (Amaryl) 4 mg PO BID [facility] Last Admin: 08/17/16 08:22 Dose: 4 mg Hydrochlorothiazide (Microzide) 12.5 mg PO DAILY [facility] Last Admin: 08/17/16 08:23 Dose: 12.5 mg Vancomycin HCl (Vancomycin 1gm) 250 mls @ 167 mls/hr IVPB Q12H [facility] PRN Reason: Protocol Last Admin: 08/16/16 21:16 Dose: 167 mls/hr Meropenem 1g/NS 100mL IVPB (Meropenem 1g/Ns 100ml Ivpb) 100 mls @ 100 mls/hr IVPB Q8 [facility] Stop: 08/21/16 22:01 Last Admin: 08/17/16 06:01 Dose: 100 mls/hr Insulin Detemir (Levemir) 80 unit SC HS [facility] Last Admin: 08/16/16 21:23 Dose: 80 unit Insulin Human Regular (Humulin R Low) 0 units SC ACHS [facility] PRN Reason: Protocol Last Admin: 08/17/16 08:20 Dose: 1 units Losartan Potassium (Cozaar) 100 mg PO DAILY [facility] Last Admin: 08/17/16 08:24 Dose: 100 mg Metformin HCl (Glucophage) 1,000 mg PO BID [facility] Last Admin: 08/17/16 08:23 Dose: 1,000 mg Oxycodone/Acetaminophen (Percocet 5/325 Mg Tab) 1 tab PO Q4H PRN PRN Reason: Pain, moderate (4-7) Stop: 08/17/16 19:39 Last Admin: 08/17/16 06:01 Dose: 1 tab Sitagliptin Phosphate (Januvia) 50 mg PO BID [facility] Last Admin: 08/17/16 08:23 Dose: 50 mg - Labs Labs: 08/17/16 07:12 08/17/16 07:12 PT 12.1 Seconds (9.9-11.8) H 08/14/16 09:30 INR 1.12 (0.93-1.08) H 08/14/16 09:30 APTT 32.8 Seconds (23.7-30.8) H 08/14/16 09:30 - Constitutional Appears: Well, Non-toxic, No Acute Distress - Extremities Exam Additional comments: vasc: nonpalpable pedal pulses, TG warm to warm, CFT < 3 sec to all digits neuro: grossly diminished derm: plantar ulceration of right midfoot measuring 5cm x 3cm x 2cm consists of granular base, fibrotic border, no malodor, no purulence, no ascending cellulitis, probe to bone +, no active bleeding ortho: right foot 3rd toe amputated, partial amputation of 4th and 5th toes, left foot 2nd toe amputated - Neurological Exam Neurological Exam: Alert, Awake, Oriented x3 - Psychiatric Exam Psychiatric exam: Normal Affect, Normal Mood Assessment and Plan - Assessment and Plan (Free Text) Assessment: 51 y/o male 2 day s/p right foot I&D with debridement (DOS: 08/15/16) Plan: Patient evaluated and chart reviewed, labs and vitals reviewed; WBC 3.4, T-Max= 100.3F. Seen at bedside with attending Dr. Wilson. Flushed right foot wound with chlorpactin solution with saline, packed with 1/2 inch iodoform, applied DSD and ARLEN. Continue IV abx as per ID. Podiatry will continue to monitor while patient remains in house . <Blayne Wilson - Last Filed: 08/17/16 11:58> Objective - Vital Signs/Intake and Output Vital Signs (last 24 hours): Temp Pulse Resp BP Pulse Ox 98.3 F 80 20 134/81 100 08/17/16 07:55 08/17/16 07:55 08/17/16 07:55 08/17/16 07:55 08/17/16 07:55 Intake and Output: 08/17/16 08/17/16 06:59 18:59 Intake Total 930 Output Total 500 Balance 430 - Medications Medications: Current Medications Acetaminophen (Tylenol 325mg Tab) 650 mg PO Q4 PRN PRN Reason: Fever >100.4 F Last Admin: 08/16/16 18:50 Dose: 650 mg Glimepiride (Amaryl) 4 mg PO BID [facility] Last Admin: 08/17/16 10:05 Dose: Not Given Hydrochlorothiazide (Microzide) 12.5 mg PO DAILY [facility] Last Admin: 08/17/16 10:06 Dose: Not Given Vancomycin HCl (Vancomycin 1gm) 250 mls @ 167 mls/hr IVPB Q12H [facility] PRN Reason: Protocol Last Admin: 08/17/16 09:44 Dose: 167 mls/hr Meropenem 1g/NS 100mL IVPB (Meropenem 1g/Ns 100ml Ivpb) 100 mls @ 100 mls/hr IVPB Q8 [facility] Stop: 08/21/16 22:01 Last Admin: 08/17/16 06:01 Dose: 100 mls/hr Insulin Detemir (Levemir) 80 unit SC HS [facility] Last Admin: 08/16/16 21:23 Dose: 80 unit Insulin Human Regular (Humulin R Low) 0 units SC ACHS [facility] PRN Reason: Protocol Last Admin: 08/17/16 08:20 Dose: 1 units Losartan Potassium (Cozaar) 100 mg PO DAILY [facility] Last Admin: 08/17/16 10:05 Dose: Not Given Metformin HCl (Glucophage) 1,000 mg PO BID [facility] Last Admin: 08/17/16 10:05 Dose: Not Given Oxycodone/Acetaminophen (Percocet 5/325 Mg Tab) 1 tab PO Q4H PRN PRN Reason: Pain, moderate (4-7) Stop: 08/17/16 19:39 Last Admin: 08/17/16 10:05 Dose: 1 tab Sitagliptin Phosphate (Januvia) 50 mg PO BID [facility] Last Admin: 08/17/16 10:06 Dose: Not Given - Labs Labs: 08/17/16 07:12 08/17/16 07:12 PT 12.1 Seconds (9.9-11.8) H 08/14/16 09:30 INR 1.12 (0.93-1.08) H 08/14/16 09:30 APTT 32.8 Seconds (23.7-30.8) H 08/14/16 09:30 Attending/Attestation - Attestation I have personally seen and examined this patient.: Yes I have fully participated in the care of the patient.: Yes I have reviewed all pertinent clinical information, including history, physical exam and plan: Yes
[2016-08-17] MEDS: Vancomycin 1gm in NS 250ml 250 ML IVPB SCH ×2 (09:44→21:08)
--- NOTE | 2016-08-17 09:49 | PN ---
DATE: 08/17/2016 A 51-year-old male postop day 2 of surgical management and debridement of osteomyelitis of the right foot. He recently had shaving of a Charcot foot deformity and developed a draining ulcer. PHYSICAL EXAMINATION: VITAL SIGNS: Currently, the patient is afebrile with a temp of 98.3. His blood pressure is 134/81. His oxygen sat is 100% on room air. GENERAL: He is alert and oriented x 3. NECK: Supple. LUNGS: Clear. HEART: An S1, S2 rhythm. ABDOMEN: Soft with positive bowel sounds. EXTREMITIES: The right foot is dressed. It was recently seen by the executive creative director, Dr. Wilson. LABORATORY DATA: He has a WBC of 3.4, hemoglobin 11.7, hematocrit 33.6, platelet count is 63,000. H is chemistry showed a blood sugar this morning of 159. The patient received platelet transfusion prior to surgery. He has thrombocytopenia secondary to his cirrhosis. Immunological evaluation is pending. Microbiological studies have shown that the patien t was growing Strep ____ group A in blood cultures and the wound culture showed Staph aureus and ____ bacteria species. Repeat cultures of the blood are pending. Repeat wound culture is also pending. Currently, the patient is on vancomycin and meropenem IV. He is on Amaryl 4 mg b.i.d. Glucophage 100 0 mg b.i.d., Januvia 50 mg b.i.d., and Levemir 80 units subQ at bedtime for his diabetes. He is on h ydrochlorothiazide and Cozaar for his hypertension and Percocet p.r.n. for pain. A PICC line was radha patrick for IV antibiotic access and he is currently feeling more comfortable this morning. We will foll ow up the patient's labs and continue current care. Aside from his osteomyelitis and diabetes, he martines s a history of cirrhosis with thrombocytopenia, history of depression, bipolar disorder, suicidal matt ation and hypertension. Aspen Fontana MD cc: [id number] TT: 08/17/2016 09:48:22 Confirmation # [id number] Dictation # [id number]
[2016-08-17] MEDS ORDERED: Potassium Chloride 20 mEq ER Tab PO ONE (14:13)
--- NOTE | 2016-08-17 20:54 | CP.PCM.PN ---
Subjective - Date & Time of Evaluation Date of Evaluation: 08/17/16 Time of Evaluation: 20:53 - Subjective Subjective: Renewal of percocet was ordered as order fell off [facility]. Objective - Vital Signs/Intake and Output Vital Signs (last 24 hours): Temp Pulse Resp BP Pulse Ox 99.3 F 82 20 141/94 H 100 08/17/16 16:21 08/17/16 16:21 08/17/16 16:21 08/17/16 16:21 08/17/16 16:21 Intake and Output: 08/17/16 08/18/16 18:59 06:59 Intake Total 860 Output Total 800 Balance 60 - Medications Medications: Current Medications Acetaminophen (Tylenol 325mg Tab) 650 mg PO Q4 PRN PRN Reason: Fever >100.4 F Last Admin: 08/16/16 18:50 Dose: 650 mg Glimepiride (Amaryl) 4 mg PO BID [facility] Last Admin: 08/17/16 18:14 Dose: 4 mg Hydrochlorothiazide (Microzide) 12.5 mg PO DAILY [facility] Last Admin: 08/17/16 10:06 Dose: Not Given Vancomycin HCl (Vancomycin 1gm) 250 mls @ 167 mls/hr IVPB Q12H [facility] PRN Reason: Protocol Last Admin: 08/17/16 09:44 Dose: 167 mls/hr Meropenem 1g/NS 100mL IVPB (Meropenem 1g/Ns 100ml Ivpb) 100 mls @ 100 mls/hr IVPB Q8 [facility] Stop: 08/21/16 22:01 Last Admin: 08/17/16 14:43 Dose: 100 mls/hr Insulin Detemir (Levemir) 80 unit SC HS [facility] Last Admin: 08/16/16 21:23 Dose: 80 unit Insulin Human Regular (Humulin R Low) 0 units SC ACHS [facility] PRN Reason: Protocol Last Admin: 08/17/16 18:15 Dose: 1 units Losartan Potassium (Cozaar) 100 mg PO DAILY [facility] Last Admin: 08/17/16 10:05 Dose: Not Given Metformin HCl (Glucophage) 1,000 mg PO BID [facility] Last Admin: 08/17/16 18:14 Dose: 1,000 mg Oxycodone/Acetaminophen (Percocet 5/325 Mg Tab) 1 tab PO Q4H PRN PRN Reason: Pain, moderate (4-7) Stop: 08/20/16 20:53 Sitagliptin Phosphate (Januvia) 50 mg PO BID [facility] Last Admin: 08/17/16 18:14 Dose: 50 mg - Labs Labs: 08/17/16 07:12 08/17/16 07:12 PT 12.1 Seconds (9.9-11.8) H 08/14/16 09:30 INR 1.12 (0.93-1.08) H 08/14/16 09:30 APTT 32.8 Seconds (23.7-30.8) H 08/14/16 09:30
--- NOTE | 2016-08-17 21:52 | CP.PCM.PN ---
Subjective - Date & Time of Evaluation Date of Evaluation: 08/17/16 Time of Evaluation: 10:50 - Subjective Subjective: Less pain in the foot, no nausea, no diarrhea, no fevers overnight. Had PICC line placed yesterday. Objective - Vital Signs/Intake and Output Vital Signs (last 24 hours): Temp Pulse Resp BP Pulse Ox 99.3 F 82 20 141/94 H 100 08/17/16 16:21 08/17/16 16:21 08/17/16 16:21 08/17/16 16:21 08/17/16 16:21 Intake and Output: 08/17/16 08/18/16 18:59 06:59 Intake Total 860 1020 Output Total 800 550 Balance 60 470 - Medications Medications: Current Medications Acetaminophen (Tylenol 325mg Tab) 650 mg PO Q4 PRN PRN Reason: Fever >100.4 F Last Admin: 08/16/16 18:50 Dose: 650 mg Glimepiride (Amaryl) 4 mg PO BID [facility] Last Admin: 08/17/16 18:14 Dose: 4 mg Hydrochlorothiazide (Microzide) 12.5 mg PO DAILY [facility] Last Admin: 08/17/16 10:06 Dose: Not Given Vancomycin HCl (Vancomycin 1gm) 250 mls @ 167 mls/hr IVPB Q12H [facility] PRN Reason: Protocol Last Admin: 08/17/16 21:08 Dose: 167 mls/hr Meropenem 1g/NS 100mL IVPB (Meropenem 1g/Ns 100ml Ivpb) 100 mls @ 100 mls/hr IVPB Q8 [facility] Stop: 08/21/16 22:01 Last Admin: 08/17/16 14:43 Dose: 100 mls/hr Insulin Detemir (Levemir) 80 unit SC HS [facility] Last Admin: 08/16/16 21:23 Dose: 80 unit Insulin Human Regular (Humulin R Low) 0 units SC ACHS [facility] PRN Reason: Protocol Last Admin: 08/17/16 18:15 Dose: 1 units Losartan Potassium (Cozaar) 100 mg PO DAILY [facility] Last Admin: 08/17/16 10:05 Dose: Not Given Metformin HCl (Glucophage) 1,000 mg PO BID [facility] Last Admin: 08/17/16 18:14 Dose: 1,000 mg Oxycodone/Acetaminophen (Percocet 5/325 Mg Tab) 1 tab PO Q4H PRN PRN Reason: Pain, moderate (4-7) Stop: 08/20/16 20:53 Last Admin: 08/17/16 21:08 Dose: 1 tab Sitagliptin Phosphate (Januvia) 50 mg PO BID [facility] Last Admin: 08/17/16 18:14 Dose: 50 mg - Labs Labs: 08/17/16 07:12 08/17/16 07:12 PT 12.1 Seconds (9.9-11.8) H 08/14/16 09:30 INR 1.12 (0.93-1.08) H 08/14/16 09:30 APTT 32.8 Seconds (23.7-30.8) H 08/14/16 09:30 - Constitutional Appears: Non-toxic, No Acute Distress - Head Exam Head Exam: NORMAL INSPECTION - ENT Exam ENT Exam: Mucous Membranes Moist - Neck Exam Neck Exam: absent: Lymphadenopathy, Meningismus - Respiratory Exam Respiratory Exam: Decreased Breath Sounds - Cardiovascular Exam Cardiovascular Exam: +S1, +S2 - GI/Abdominal Exam GI & Abdominal Exam: Soft. absent: Tenderness - Extremities Exam Additional comments: right foot with dry dressings in place Assessment and Plan - Assessment and Plan (Free Text) Plan: Assessment Sepsis secondary to right foot osteomyelitis and abscess S/P debridement POD #2 , with associated Group A strep bacteremia history of right foot skin and skin structure infection Charcot foot on the right S/P shaving of the bone last week history of left sided parotitis Diabetes Mellitus Liver disease with history of portal hypertension Plan continue Vancomycin and Merrem day 3, pending OR cultures and pathology; repeat blood cx negqtive x 24 hours Will continue to follow clinically Discussed with Dr. Fontana
[2016-08-17] MEDS: Insulin Detemir 100 units/ml Vial (Levemir) SC SCH (22:57)
[2016-08-18] MEDS: Oxycodone/Acetaminophen 5/325 mg Tab PO PRN ×6 (01:59→23:21)
[2016-08-18] MEDS: Meropenem 1g/NS 100mL IVPB 100 ML IVPB SCH (05:46)
[2016-08-18 06:02] LABS: ADD MANUAL DIFF? NO
[2016-08-18 06:28] LABS: BASO # 0.01 K/mm3 (0.0-2.0); BASO % 0.2 % (0.0-3.0); EOS # 0.1 (0.0-0.7); EOS % 1.4 % (1.5-5.0); GRAN % 62.4 % (50.0-68.0); HEMATOCRIT 34.2 % (42.0-52.0); MEAN CELL VOLUME 81.2 fL (80.0-105.0); MEAN CORPUSCULAR HGB CONC 34.5 g/dl (31.0-37.0); MEAN PLATELET VOLUME 10.7 fl (7.0-11.0); MONO # 0.5 (0.1-0.6); PLATELET COUNT 72 10^3/uL (120.0-450.0); RED CELL DISTRIBUTION WIDTH 14.7 % (11.5-14.5); WHITE BLOOD COUNT 4.2 10^3/ul (4.5-11.0)
[2016-08-18 06:45] LABS: ALB/GLOB RATIO 0.9 (1.1-1.8); ALKALINE PHOSPHATASE 67 U/L (38-133); ALT/SGPT 65 U/L (7-56); AST/SGOT 43 U/L (15-59); BLOOD UREA NITROGEN 11 mg/dL (7-21); CALCIUM 8.5 mg/dL (8.4-10.5); CARBON DIOXIDE 26 mmol/L (21-33); CHLORIDE 102 mmol/L (98-107); GFR AFRICAN-AMERICAN > 60; GLUCOSE,RANDOM 144 mg/dL (70-110); POTASSIUM 3.7 mmol/L (3.6-5.0); SODIUM 136 mmol/L (132-148); TOTAL PROTEIN 6.7 g/dL (5.8-8.3)
[2016-08-18] MEDS: Insulin Reg-LOW-Coverage SC SCH ×4 (08:08→22:48)
[2016-08-18] MEDS: Vancomycin 1gm in NS 250ml 250 ML IVPB SCH (09:47)
--- NOTE | 2016-08-18 11:00 | PN ---
DATE: 08/18/2016 A 51-year-old male, postoperative day 2 for debridement of an osteomyelitis of the right foot with bi opsy of the bone, which is pending. PHYSICAL EXAMINATION: VITAL SIGNS: He has a temp of 98.6, his blood pressure is 142/95, his respiration is 18, his pulse i s 76, oxygen saturation 100% on room air. GENERAL: He is alert and oriented x 3. LUNGS: Clear. HEART: Has an S1, S2 rhythm. ABDOMEN: Soft with positive bowel sounds. EXTREMITIES: Show an ARLEN wrapping of the right foot. Currently, the patient is being treated for sepsis with group A Strep, on vancomycin and meropenem. Culture of the wound, bone biopsy is pending. He has insulin-dependent diabetes, is on medication. His evening dose of Levemir is being adjusted according to his blood sugar levels. This has been dis cussed with the patient. He has a history of cirrhosis with thrombocytopenia, history of bipolar dis order and depression, suicidal ideation and hypertension. LABORATORY DATA: Shows a WBC of 4.2, hemoglobin 11.8, hematocrit 34.2, platelet count is 72,000. Ch emistry shows normal electrolytes. His random blood sugar was 138. LFTs show an ALT of 65. We will continue current antibiotic treatment, being followed by infectious disease and podiatry. We will await bone biopsy culture results and follow the patient's labs. Aspen Fontana MD cc: [id number] TT: 08/18/2016 10:59:46 Confirmation # [id number] Dictation # [id number]
[2016-08-18] MEDS: ceFAZolin 2 GM in Sodium Chloride 0.9% 100 ML IVPB SCH ×2 (13:04→21:35)
--- NOTE | 2016-08-18 18:40 | CP.PCM.PN ---
Subjective - Date & Time of Evaluation Date of Evaluation: 08/18/16 Time of Evaluation: 10:55 - Subjective Subjective: Comfortable in bed, not in distresss, no fevers, no nausea, no diarrhea. Objective - Vital Signs/Intake and Output Vital Signs (last 24 hours): Temp Pulse Resp BP Pulse Ox 98.8 F 77 18 149/90 98 08/18/16 16:00 08/18/16 16:00 08/18/16 16:00 08/18/16 16:00 08/18/16 16:00 Intake and Output: 08/18/16 08/18/16 06:59 18:59 Intake Total 1260 960 Output Total 1850 1000 Balance -590 -40 - Medications Medications: Current Medications Acetaminophen (Tylenol 325mg Tab) 650 mg PO Q4 PRN PRN Reason: Fever >100.4 F Last Admin: 08/16/16 18:50 Dose: 650 mg Glimepiride (Amaryl) 4 mg PO BID [facility] Last Admin: 08/18/16 17:38 Dose: 4 mg Hydrochlorothiazide (Microzide) 12.5 mg PO DAILY [facility] Last Admin: 08/18/16 09:48 Dose: 12.5 mg Cefazolin Sodium 2 gm/ Sodium (Chloride) 100 mls @ 200 mls/hr IVPB Q8 [facility] PRN Reason: Protocol Last Admin: 08/18/16 13:04 Dose: 200 mls/hr Insulin Detemir (Levemir) 80 unit SC HS [facility] Last Admin: 08/17/16 22:57 Dose: 30 unit Insulin Human Regular (Humulin R Low) 0 units SC ACHS [facility] PRN Reason: Protocol Last Admin: 08/18/16 16:29 Dose: Not Given Losartan Potassium (Cozaar) 100 mg PO DAILY [facility] Last Admin: 08/18/16 09:48 Dose: 100 mg Metformin HCl (Glucophage) 1,000 mg PO BID [facility] Last Admin: 08/18/16 17:38 Dose: 1,000 mg Oxycodone/Acetaminophen (Percocet 5/325 Mg Tab) 1 tab PO Q4H PRN PRN Reason: Pain, moderate (4-7) Stop: 08/20/16 20:53 Last Admin: 08/18/16 14:42 Dose: 1 tab Sitagliptin Phosphate (Januvia) 50 mg PO BID [facility] Last Admin: 08/18/16 17:38 Dose: 50 mg - Labs Labs: 08/18/16 05:45 08/18/16 05:45 PT 12.1 Seconds (9.9-11.8) H 08/14/16 09:30 INR 1.12 (0.93-1.08) H 08/14/16 09:30 APTT 32.8 Seconds (23.7-30.8) H 08/14/16 09:30 - Constitutional Appears: Non-toxic, No Acute Distress - Head Exam Head Exam: NORMAL INSPECTION - Neck Exam Neck Exam: absent: Lymphadenopathy, Meningismus - Respiratory Exam Respiratory Exam: Decreased Breath Sounds - Cardiovascular Exam Cardiovascular Exam: +S1, +S2 - GI/Abdominal Exam GI & Abdominal Exam: Soft. absent: Tenderness - Extremities Exam Additional comments: right foot with dressings in place; left upper arm with PICC line in place Assessment and Plan - Assessment and Plan (Free Text) Plan: Assessment Sepsis secondary to right foot osteomyelitis and abscess S/P debridement POD #3 , with associated Group A strep bacteremia; bone is growing Group B strep and wound is growing MSSA history of right foot skin and skin structure infection Charcot foot on the right S/P shaving of the bone last week history of left sided parotitis Diabetes Mellitus Liver disease with history of portal hypertension Plan changed antibiotics to Cefazolin - plan is to complete 4-6 weeks of antibiotics with weekly ESR, CRP, CBC, CMP; follow up OR pathology; repeat blood cx negative Will continue to follow clinically Discussed with Dr. Fontana previously
[2016-08-18] MEDS: Insulin Detemir 100 units/ml Vial (Levemir) SC SCH (21:35)
[2016-08-19] MEDS: Oxycodone/Acetaminophen 5/325 mg Tab PO PRN ×5 (04:01→22:54)
[2016-08-19] MEDS: ceFAZolin 2 GM in Sodium Chloride 0.9% 100 ML IVPB SCH ×3 (05:49→22:56)
[2016-08-19 07:51] LABS: ADD MANUAL DIFF? NO
[2016-08-19 07:55] LABS: BASO # 0.02 K/mm3 (0.0-2.0); BASO % 0.4 % (0.0-3.0); EOS # 0.1 (0.0-0.7); GRAN # 3.46 (1.4-6.5); GRAN % 68.5 % (50.0-68.0); HEMATOCRIT 34.9 % (42.0-52.0); LYMPH % 19.2 % (22.0-35.0); MEAN CELL VOLUME 81.4 fL (80.0-105.0); MEAN CORPUSCULAR HEMOGLOBIN 27.5 pg (25.0-35.0); MEAN CORPUSCULAR HGB CONC 33.8 g/dl (31.0-37.0); MEAN PLATELET VOLUME 10.4 fl (7.0-11.0); MONO # 0.5 (0.1-0.6); MONO % 9.9 % (1.0-6.0); PLATELET COUNT 98 10^3/uL (120.0-450.0); RED CELL DISTRIBUTION WIDTH 14.6 % (11.5-14.5); WHITE BLOOD COUNT 5.1 10^3/ul (4.5-11.0)
[2016-08-19] MEDS: Insulin Reg-LOW-Coverage SC SCH ×4 (08:03→22:55)
[2016-08-19 08:23] LABS: ALB/GLOB RATIO 0.9 (1.1-1.8); ALKALINE PHOSPHATASE 77 U/L (38-133); ALT/SGPT 62 U/L (7-56); AST/SGOT 41 U/L (15-59); BILIRUBIN,TOTAL 0.5 mg/dL (0.2-1.3); BLOOD UREA NITROGEN 14 mg/dL (7-21); CALCIUM 8.6 mg/dL (8.4-10.5); CARBON DIOXIDE 25 mmol/L (21-33); CHLORIDE 104 mmol/L (95-110); GFR AFRICAN-AMERICAN > 60; GLUCOSE,RANDOM 119 mg/dL (70-110); POTASSIUM 3.6 mmol/L (3.6-5.0); SODIUM 140 mmol/L (132-148); TOTAL PROTEIN 6.8 g/dL (5.8-8.3)
--- NOTE | 2016-08-19 09:23 | CP.PCM.PN ---
<Yoselyn Gonzalez - Last Filed: 08/19/16 09:19> Subjective - Date & Time of Evaluation Date of Evaluation: 08/19/16 Time of Evaluation: 09:19 - Subjective Subjective: 51 y/o male seen at bedside with attending Dr. Alvarado 4 day s/p incision and drainage with debridement of right foot plantar wound (DOS: 08/15/16). Patient denies any acute events overnight. Patients dressing remains c/d/i with no strikethrough or drainage on bandage. Patient denies n/v/d/c/sob. Objective - Vital Signs/Intake and Output Vital Signs (last 24 hours): Temp Pulse Resp BP Pulse Ox 98.3 F 78 18 135/86 100 08/19/16 07:30 08/19/16 07:30 08/19/16 07:30 08/19/16 07:30 08/19/16 07:30 Intake and Output: 08/19/16 08/19/16 06:59 18:59 Intake Total 1080 Output Total 2400 Balance -1320 - Medications Medications: Current Medications Acetaminophen (Tylenol 325mg Tab) 650 mg PO Q4 PRN PRN Reason: Fever >100.4 F Last Admin: 08/16/16 18:50 Dose: 650 mg Glimepiride (Amaryl) 4 mg PO BID [facility] Last Admin: 08/18/16 17:38 Dose: 4 mg Hydrochlorothiazide (Microzide) 12.5 mg PO DAILY [facility] Last Admin: 08/18/16 09:48 Dose: 12.5 mg Cefazolin Sodium 2 gm/ Sodium (Chloride) 100 mls @ 200 mls/hr IVPB Q8 [facility] PRN Reason: Protocol Last Admin: 08/19/16 05:49 Dose: 200 mls/hr Insulin Detemir (Levemir) 80 unit SC HS [facility] Last Admin: 08/18/16 21:35 Dose: 60 unit Insulin Human Regular (Humulin R Low) 0 units SC ACHS [facility] PRN Reason: Protocol Last Admin: 08/19/16 08:03 Dose: Not Given Losartan Potassium (Cozaar) 100 mg PO DAILY [facility] Last Admin: 08/18/16 09:48 Dose: 100 mg Metformin HCl (Glucophage) 1,000 mg PO BID [facility] Last Admin: 08/18/16 17:38 Dose: 1,000 mg Oxycodone/Acetaminophen (Percocet 5/325 Mg Tab) 1 tab PO Q4H PRN PRN Reason: Pain, moderate (4-7) Stop: 08/20/16 20:53 Last Admin: 08/19/16 04:01 Dose: 1 tab Sitagliptin Phosphate (Januvia) 50 mg PO BID [facility] Last Admin: 08/18/16 17:38 Dose: 50 mg - Labs Labs: 08/19/16 06:55 08/19/16 06:55 PT 12.1 Seconds (9.9-11.8) H 08/14/16 09:30 INR 1.12 (0.93-1.08) H 08/14/16 09:30 APTT 32.8 Seconds (23.7-30.8) H 08/14/16 09:30 - Constitutional Appears: Well, Non-toxic, No Acute Distress - Extremities Exam Additional comments: vasc: nonpalpable pedal pulses, TG warm to warm, CFT < 3 sec to all digits neuro: grossly diminished derm: plantar ulceration of right midfoot measuring 5cm x 3cm x 2cm consists of granular base, fibrotic border, no malodor, no purulence, no ascending cellulitis, probe to bone +, no active bleeding ortho: right foot 3rd toe amputated, partial amputation of 4th and 5th toes, left foot 2nd toe amputated - Neurological Exam Neurological Exam: Alert, Awake, Oriented x3 - Psychiatric Exam Psychiatric exam: Normal Affect, Normal Mood Assessment and Plan - Assessment and Plan (Free Text) Assessment: 51 y/o male 4 days s/p right foot I&D with debridement (DOS: 08/15/16) Plan: Patient evaluated and chart reviewed, labs and vitals reviewed; WBC 5.1, afebrile Seen at bedside with attending Dr. Alvarado Flushed right foot wound with chlorpactin solution with saline, packed with 1/2 inch iodoform, applied DSD and ARLEN. Continue IV abx as per ID. Picc line in place for 4-6 weeks of IV abx patient instructed to remain nonweightbearing to right foot Podiatry will continue to monitor while patient remains in house . <Leigh Ann Alvarado - Last Filed: 09/01/16 14:07> Objective - Vital Signs/Intake and Output Vital Signs (last 24 hours): Temp Pulse Resp BP Pulse Ox 98.4 F 80 20 130/86 96 08/20/16 16:00 08/20/16 16:00 08/20/16 16:00 08/20/16 16:00 08/20/16 16:00 - Labs Labs: 08/19/16 06:55 08/19/16 06:55 PT 12.1 Seconds (9.9-11.8) H 08/14/16 09:30 INR 1.12 (0.93-1.08) H 08/14/16 09:30 APTT 32.8 Seconds (23.7-30.8) H 08/14/16 09:30 Attending/Attestation - Attestation I have personally seen and examined this patient.: Yes I have fully participated in the care of the patient.: Yes I have reviewed all pertinent clinical information, including history, physical exam and plan: Yes
--- NOTE | 2016-08-19 11:53 | CARD ---
APPROVED REPORT EXAM: Two-dimensional and M-mode echocardiogram with Doppler and color Doppler. INDICATION R/O VEGETATIONS 2D DIMENSIONS Left Atrium (2D)4.2 (1.6-4.0cm)IVSd1.9 (0.7-1.1cm) Aortic Root (2D)3.6 (2.0-3.7cm)LVDd4.3 (3.9-5.9cm) PWd1.6 (0.7-1.1cm)LVDs2.9 (2.5-4.0cm) FS (%) 32.6 %LVEF (%)61.4 (>50%) M-Mode DIMENSIONS Aortic Cusp Exc.2.30 (1.5-2.0cm) Aortic Valve AoV Peak Opidhfoc308.0cm/Riddhi Peak GR.7mmHg Mitral Valve MV E Muhpylif34.3cm/sMV A Tqctpzzn94.3cm/sE/A ratio1.1 TDI Lateral E' Peak V6.53cm/sMedial E' Peak V7.60cm/sE/Lateral E'11.5 E/Medial E'9.9 Pulmonary Valve PV Peak Ueqvawvp98.0cm/sPV Peak Grad.3mmHg Tricuspid Valve TR Peak Pnsdhspr208jl/sRAP NTMAMBND9cfWtCZ Peak Gr.19mmHg [id number] LEFT VENTRICLE The left ventricle is normal size. There is mild concentric left ventricular hypertrophy. The left ventricular function is normal. The left ventricular ejection fraction is within the normal range. There is normal LV segmental wall motion. Transmitral Doppler flow pattern is Grade I-abnormal relaxation pattern. RIGHT VENTRICLE The right ventricle is borderline dilated. The right ventricle is mildly hypertrophied. The right ventricular systolic function is normal. ATRIA The left atrium is borderline dilated. The right atrium size is normal. AORTIC VALVE The aortic valve is not well visualized. No aortic regurgitation is present. MITRAL VALVE The mitral valve is normal in structure. There is no mitral valve regurgitation noted. TRICUSPID VALVE There is no pulmonary hypertension. GREAT VESSELS The aortic root is normal in size. <Conclusion> Poor Echow window No vegitation seen
--- NOTE | 2016-08-19 17:47 | PN ---
DATE: 08/19/2016 This is a 51-year-old male receiving IV antibiotic therapy for osteomyelitis of the right foot. PHYSICAL EXAMINATION: VITAL SIGNS: The temperature is 98.3, his pulse is 78, his blood pressure is 135/86, his oxygen satu ration is 100% on room air. GENERAL: Alert and oriented x 3. NECK: Supple. LUNGS: Clear. HEART: Regular S1, S2 rhythm. ABDOMEN: Soft with positive bowel sounds. EXTREMITIES: Show a dressing over the right foot. LABORATORY DATA: Shows a WBC of 5.1, RBC 4.29, hemoglobin 11.8, hematocrit 34.9, platelet count 98,0 00. Chemistry shows normal electrolytes, the BUN is 14, the creatinine is 0.6. His random blood sug ar is 119. His ALT is now 62. The remainder of his LFTs are normal. Repeat blood cultures are nega tive. He had a first set of blood cultures which grew out strep pyogenes group A and a wound culture growing Staph aureus and corynebacterium species. A C. diff specimen of stool is negative. He continues at this time on Amaryl 4 mg b.i.d., metformin 1000 mg b.i.d., Levemir 30 units at bedtim e, depending upon the patient's blood sugar, hydrochlorothiazide 12.5 mg daily, Cozaar 100 mg daily, Januvia 50 mg b.i.d., Percocet p.r.n. for pain, Tylenol p.r.n. for fever. He is currently being followed by podiatry and infectious disease. We are awaiting the results of an echocardiogram and decision about continuation of the patient's antibiotics and course of therapy. Aspen Fontana MD cc: [id number] TT: 08/19/2016 17:46:55 Confirmation # [id number] Dictation # [id number]
--- NOTE | 2016-08-19 22:27 | CP.PCM.PN ---
Subjective - Date & Time of Evaluation Date of Evaluation: 08/19/16 Time of Evaluation: 12:40 - Subjective Subjective: Comfortable in bed, not in distress, afebrile, no pain in the foot currently. Objective - Vital Signs/Intake and Output Vital Signs (last 24 hours): Temp Pulse Resp BP Pulse Ox 98.1 F 77 18 159/91 H 99 08/19/16 16:00 08/19/16 16:00 08/19/16 16:00 08/19/16 16:00 08/19/16 16:00 Intake and Output: 08/19/16 08/20/16 18:59 06:59 Intake Total 960 780 Balance 960 780 - Medications Medications: Current Medications Acetaminophen (Tylenol 325mg Tab) 650 mg PO Q4 PRN PRN Reason: Fever >100.4 F Last Admin: 08/16/16 18:50 Dose: 650 mg Glimepiride (Amaryl) 4 mg PO BID [facility] Last Admin: 08/19/16 17:05 Dose: 4 mg Hydrochlorothiazide (Microzide) 12.5 mg PO DAILY [facility] Last Admin: 08/19/16 09:40 Dose: 12.5 mg Cefazolin Sodium 2 gm/ Sodium (Chloride) 100 mls @ 200 mls/hr IVPB Q8 [facility] PRN Reason: Protocol Last Admin: 08/19/16 14:06 Dose: 200 mls/hr Insulin Detemir (Levemir) 80 unit SC HS [facility] Last Admin: 08/18/16 21:35 Dose: 60 unit Insulin Human Regular (Humulin R Low) 0 units SC ACHS [facility] PRN Reason: Protocol Last Admin: 08/19/16 17:02 Dose: Not Given Losartan Potassium (Cozaar) 100 mg PO DAILY [facility] Last Admin: 08/19/16 09:40 Dose: 100 mg Metformin HCl (Glucophage) 1,000 mg PO BID [facility] Last Admin: 08/19/16 17:05 Dose: 1,000 mg Oxycodone/Acetaminophen (Percocet 5/325 Mg Tab) 1 tab PO Q4H PRN PRN Reason: Pain, moderate (4-7) Stop: 08/20/16 20:53 Last Admin: 08/19/16 18:26 Dose: 1 tab Sitagliptin Phosphate (Januvia) 50 mg PO BID [facility] Last Admin: 08/19/16 17:05 Dose: 50 mg - Labs Labs: 08/19/16 06:55 08/19/16 06:55 PT 12.1 Seconds (9.9-11.8) H 08/14/16 09:30 INR 1.12 (0.93-1.08) H 08/14/16 09:30 APTT 32.8 Seconds (23.7-30.8) H 08/14/16 09:30 - Constitutional Appears: Non-toxic, No Acute Distress - Head Exam Head Exam: NORMAL INSPECTION - Neck Exam Neck Exam: absent: Lymphadenopathy, Meningismus - Respiratory Exam Respiratory Exam: Decreased Breath Sounds - Cardiovascular Exam Cardiovascular Exam: +S1, +S2 - GI/Abdominal Exam GI & Abdominal Exam: Soft. absent: Tenderness - Extremities Exam Additional comments: right foot with dressings in place Assessment and Plan - Assessment and Plan (Free Text) Plan: Assessment Sepsis secondary to right foot osteomyelitis and abscess S/P debridement POD #4 , with associated Group A strep bacteremia; bone is growing Group B strep and wound is growing MSSA history of right foot skin and skin structure infection Charcot foot on the right S/P shaving of the bone last week history of left sided parotitis Diabetes Mellitus Liver disease with history of portal hypertension Plan continue Cefazolin - plan is to complete 4-6 weeks of antibiotics with weekly ESR, CRP, CBC, CMP; repeat blood cx negative; reviewed 2D echo results which does not show valvular vegetations Will continue to follow clinically Discussed with Dr. Fontana
[2016-08-19] MEDS: Insulin Detemir 100 units/ml Vial (Levemir) SC SCH (22:55)
[2016-08-20] MEDS: Insulin Reg-LOW-Coverage SC SCH ×3 (07:58→17:11)
[2016-08-20 08:46] VITALS: RESP 20
[2016-08-20] MEDS: Oxycodone/Acetaminophen 5/325 mg Tab PO PRN ×2 (09:41→13:58)
--- NOTE | 2016-08-20 10:39 | CP.PCM.PN ---
Subjective - Date & Time of Evaluation Date of Evaluation: 08/20/16 Time of Evaluation: 10:37 - Subjective Subjective: 51 y/o male seen at bedside 5 days s/p incision and drainage with debridement of right foot plantar wound (DOS: 08/15/16). Patient denies any acute events overnight. Patients dressing remains c/d/i with no strikethrough or drainage on bandage. Patient denies n/v/d/c/sob. Objective - Vital Signs/Intake and Output Vital Signs (last 24 hours): Temp Pulse Resp BP Pulse Ox 98.1 F 75 20 130/87 98 08/20/16 08:00 08/20/16 08:00 08/20/16 08:00 08/20/16 08:00 08/20/16 08:00 Intake and Output: 08/20/16 08/20/16 06:59 18:59 Intake Total 1020 Balance 1020 - Medications Medications: Current Medications Acetaminophen (Tylenol 325mg Tab) 650 mg PO Q4 PRN PRN Reason: Fever >100.4 F Last Admin: 08/16/16 18:50 Dose: 650 mg Glimepiride (Amaryl) 4 mg PO BID [facility] Last Admin: 08/19/16 17:05 Dose: 4 mg Hydrochlorothiazide (Microzide) 12.5 mg PO DAILY [facility] Last Admin: 08/19/16 09:40 Dose: 12.5 mg Cefazolin Sodium 2 gm/ Sodium (Chloride) 100 mls @ 200 mls/hr IVPB Q8 [facility] PRN Reason: Protocol Last Admin: 08/19/16 22:56 Dose: 200 mls/hr Insulin Detemir (Levemir) 80 unit SC HS [facility] Last Admin: 08/19/16 22:55 Dose: 20 unit Insulin Human Regular (Humulin R Low) 0 units SC ACHS [facility] PRN Reason: Protocol Last Admin: 08/20/16 07:58 Dose: Not Given Losartan Potassium (Cozaar) 100 mg PO DAILY [facility] Last Admin: 08/19/16 09:40 Dose: 100 mg Metformin HCl (Glucophage) 1,000 mg PO BID [facility] Last Admin: 08/19/16 17:05 Dose: 1,000 mg Oxycodone/Acetaminophen (Percocet 5/325 Mg Tab) 1 tab PO Q4H PRN PRN Reason: Pain, moderate (4-7) Stop: 08/20/16 20:53 Last Admin: 08/20/16 09:41 Dose: 1 tab Sitagliptin Phosphate (Januvia) 50 mg PO BID [facility] Last Admin: 08/19/16 17:05 Dose: 50 mg - Labs Labs: 08/19/16 06:55 08/19/16 06:55 PT 12.1 Seconds (9.9-11.8) H 08/14/16 09:30 INR 1.12 (0.93-1.08) H 08/14/16 09:30 APTT 32.8 Seconds (23.7-30.8) H 08/14/16 09:30 - Constitutional Appears: Well, Non-toxic, No Acute Distress - Extremities Exam Additional comments: vasc: nonpalpable pedal pulses, TG warm to warm, CFT < 3 sec to all digits neuro: grossly diminished derm: plantar ulceration of right midfoot measuring 5cm x 3cm x 2cm consists of granular base, fibrotic border, no malodor, no purulence, no ascending cellulitis, probe to bone +, no active bleeding ortho: right foot 3rd toe amputated, partial amputation of 4th and 5th toes, left foot 2nd toe amputated - Neurological Exam Neurological Exam: Alert, Awake, Oriented x3 - Psychiatric Exam Psychiatric exam: Normal Affect, Normal Mood Assessment and Plan - Assessment and Plan (Free Text) Assessment: 51 y/o male 5 days s/p right foot I&D with debridement (DOS: 08/15/16) Plan: Patient evaluated and chart reviewed, labs and vitals reviewed; afebrile discussed in detail with attending Dr. Wilson Flushed right foot wound with sterile saline solution,applied DSD and ARLEN. Continue IV abx as per ID. Picc line in place for 4-6 weeks of IV abx patient instructed to remain nonweightbearing to right foot patient stable from podiatry standpoint and instructed to follow up [facility] as [facility] Podiatry will continue to monitor while patient remains in house .
[2016-08-20] MEDS: ceFAZolin 2 GM in Sodium Chloride 0.9% 100 ML IVPB SCH (13:59)
[2016-08-20 17:28] VITALS: BP 130/86; PULSE 80; TEMP 98.4; O2SAT 96
--- NOTE | 2016-08-20 21:11 | CP.PCM.PN ---
Subjective - Date & Time of Evaluation Date of Evaluation: 08/20/16 Time of Evaluation: 11:50 - Subjective Subjective: Comfortable in bed, not in distress, afebrile. Objective - Vital Signs/Intake and Output Vital Signs (last 24 hours): Temp Pulse Resp BP Pulse Ox 98.4 F 80 20 130/86 96 08/20/16 16:00 08/20/16 16:00 08/20/16 16:00 08/20/16 16:00 08/20/16 16:00 Intake and Output: 08/20/16 08/21/16 18:59 06:59 Intake Total 840 Balance 840 - Labs Labs: 08/19/16 06:55 08/19/16 06:55 PT 12.1 Seconds (9.9-11.8) H 08/14/16 09:30 INR 1.12 (0.93-1.08) H 08/14/16 09:30 APTT 32.8 Seconds (23.7-30.8) H 08/14/16 09:30 - Constitutional Appears: Non-toxic, No Acute Distress - Head Exam Head Exam: NORMAL INSPECTION - ENT Exam ENT Exam: Mucous Membranes Moist - Neck Exam Neck Exam: absent: Lymphadenopathy, Meningismus - Respiratory Exam Respiratory Exam: Decreased Breath Sounds - Cardiovascular Exam Cardiovascular Exam: +S1, +S2 - GI/Abdominal Exam GI & Abdominal Exam: Soft. absent: Tenderness - Extremities Exam Additional comments: right foot with dry dressings in place Assessment and Plan - Assessment and Plan (Free Text) Plan: Assessment Sepsis secondary to right foot osteomyelitis and abscess S/P debridement POD #4 , with associated Group A strep bacteremia; bone is growing Group B strep and wound is growing MSSA history of right foot skin and skin structure infection Charcot foot on the right S/P shaving of the bone last week history of left sided parotitis Diabetes Mellitus Liver disease with history of portal hypertension Plan continue Cefazolin - plan is to complete 4-6 weeks of antibiotics with weekly ESR, CRP, CBC, CMP; repeat blood cx negative; reviewed 2D echo results which does not show valvular vegetations Will continue to follow clinically Discussed with Dr. Fontana
--- NOTE | 2016-08-22 18:58 | DS ---
This is a 51-year-old male who is status post surgical debridement of an osteomyelitis of his right f oot with Charcot foot deformity. He is receiving IV antibiotics and is being followed by podiatry an d infectious disease. PHYSICAL EXAMINATION: VITAL SIGNS: On discharge show a temperature of 98.7, his blood pressure was 140/70. He had a tempe rature of 98.7. His oxygen saturation was 96%. NECK: Supple. LUNGS: Clear. HEART: S1, S2 rhythm. ABDOMEN: Soft with positive bowel sounds. EXTREMITIES: Showed dressing over the right foot. LABORATORY DATA: WBC of 5.1, hemoglobin 11.8, hematocrit 34.9, platelet count of 98,000. He had nor mal coags. His chemistry showed a sodium 136, potassium 3.7, chloride 102, BUN of 11, the chloride w as 26, creatinine was 0.6. The patient would continue at a subacute rehab facility to complete a course of 4-6 weeks of antibiot ics, Ancef 3 times a day for group A strep bacteremia and osteomyelitis of the foot. The wound was g rowing group B strep and MSSA. He is a diabetic and is on Levemir in the evening on a titrated scale with metformin and Amaryl. He is on Tylenol p.r.n. for temperature and the Amaryl is 4 mg twice a day. He is on Microzide 12.5 mg daily. He will be on Ancef 2 grams q. 8. He will be on a Levemir titrated scale, Cozaar 100 mg chandler y, metformin 1000 mg b.i.d., Percocet 5/325 q. 4 hours for pain. He is on Januvia 50 mg b.i.d. 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 He had a PICC line in place. His other past medical history problems were bipolar disorder, suicidal ideation, rommel ateral Charcot foot deformity. He has had osteomyelitis in the past. He recently had a shaving of t he right foot prior to this recent surgery and will continue to be followed as an outpatient. Aspen Fontana MD cc: [id number] TT: 08/22/2016 18:57:48 rn
== END 2016-08-20 18:40 | DRG 854 ==
LOC: ED 08:56 → ERH 11:31 → 2RNO 14:42 → 5RSO 08-16 14:56
PROVIDERS: ADMIT Internal Medicine; ATTEND Internal Medicine
PROC: 0QBL0ZX Excision of Right Tarsal, Open Approach, Diagnostic (ICD-10-PCS; 2016-08-15)
PROC: 30233R1 Transfusion of Nonautologous Platelets into Peripheral Vein, Percutaneous Approach (ICD-10-PCS; 2016-08-15)
PROC: 0J9Q0ZZ Drainage of Right Foot Subcutaneous Tissue and Fascia, Open Approach (ICD-10-PCS; principal; 2016-08-15 15:30)
PROC: B548ZZA Ultrasonography of Superior Vena Cava, Guidance (ICD-10-PCS; 2016-08-16)
PROC: 02HV33Z Insertion of Infusion Device into Superior Vena Cava, Percutaneous Approach (ICD-10-PCS; 2016-08-16)
DX: A40.0 Sepsis due to streptococcus, group A (principal); M86.671 Other chronic osteomyelitis, right ankle and foot; E11.69 Type 2 diabetes mellitus with other specified complication; E11.610 Type 2 diabetes mellitus with diabetic neuropathic arthropathy; E11.621 Type 2 diabetes mellitus with foot ulcer; L02.611 Cutaneous abscess of right foot; M14.679 Charcot's joint, unspecified ankle and foot; L97.519 Non-pressure chronic ulcer of other part of right foot with unspecified severity; K70.30 Alcoholic cirrhosis of liver without ascites; K76.6 Portal hypertension; D69.59 Other secondary thrombocytopenia; I10 Essential (primary) hypertension; F31.9 Bipolar disorder, unspecified; F10.10 Alcohol abuse, uncomplicated; G40.909 Epilepsy, unspecified, not intractable, without status epilepticus; K70.9 Alcoholic liver disease, unspecified; Z96.652 Presence of left artificial knee joint

== ENCOUNTER 2016-10-06 20:37 | Inpatient (IN) | payer MEDICARE, OTHER ==
[2016-10-06 20:38] VITALS: BMI 32.1
--- NOTE | 2016-10-06 21:08 | ED PDOC ---
Arrival/HPI - General Chief Complaint: Psychiatric Evaluation Time Seen by Provider: 10/06/16 20:39 - History of Present Illness Narrative History of Present Illness (Text): 10/06/16 21:05 51 yo male, hx of etoh abuse, depression, previous diabetic foot ulcer, presetns with feeling depressed. pt states he "was drinking with his friends" and was "talking stupid" and considering "jumping into the water to swim to [place]". pt reports feeling depressed over last few days. no hi/ hallucinations. pt also reports a chronic right foot ulcer, which he reports is improving, follws with podiatry. Past Medical History - Provider Review Nursing Documentation Reviewed: Yes - Infectious Disease Hx of Infectious Diseases: None - Tetanus Immunization Tetanus Immunization: Up to Date - Cardiac Hx Cardiac Disorders: Yes Hx Hypertension: Yes Hx Peripheral Edema: Yes Hx Peripheral Vascular Disease: Yes - Pulmonary Hx Respiratory Disorders: Yes Hx Emphysema: Yes - Neurological Hx Neurological Disorder: Yes Other/Comment: neuropathy - HEENT Hx HEENT Disorder: No - Renal Hx Renal Disorder: No - Endocrine/Metabolic Hx Endocrine Disorders: Yes Hx Diabetes Mellitus Type 2: Yes - Hematological/Oncological Hx Blood Disorders: Yes Hx Cirrhosis: Yes - Integumentary Hx Dermatological Disorder: Yes (hx cellulitis, gangrene left 2nd toe) Other/Comment: prior visit triage notes: 4th toe rt foot ulcer (resolved). RIGHT FOOT 3RD TOE AMPUTATED,PARTIAL AMPUTATION TO 4TH AND 5TH TOE. LEFT FOOT 2ND TOE AMPUTATION. OPEN WOUND TO SOLE OF RIGHT FOOT.HAD A BLISTER ,GOT WORSE. pt trerated by dr underwood at the wound center with wound care and a cast but wound opened up 4x's, pt went to [facility] to a dr nicole who specializes in charcot feet, had bone shaved on bottom of right charcot foot on 06/05/16, cast and herbie wrap in place pt ambulated with crutches - Musculoskeletal/Rheumatological Hx Falls: Yes (past) - Gastrointestinal Hx Gastrointestinal Disorders: Yes (c dif,colitis) - Genitourinary/Gynecological Hx Genitourinary Disorders: No - Psychiatric Hx Psychophysiologic Disorder: Yes (affective mood disorder/self mutilation) Hx Anxiety: Yes Hx Bipolar Disorder: Yes Hx Depression: Yes Hx Substance Use: No Other/Comment: notes from previous visit/triage: hx of bipolar depression and anxiety, 4 yrs ago, attends [facility] once a week, suicide attempt lithium od october 2012, has been in rehab for alcoholism the last time was 05/2013 but had a couple beers friday, denies drug use, presently pt quit drinking 2 1/2 yrs ago, denies smoking and substance abuse - Surgical History Hx Amputation: Yes (left 2d toe, rt 3d toe,4TH AND 5TH PARTIAL AMPUTATION.) Hx Appendectomy: Yes Hx Joint Replacement: Yes (left knee replacement) Hx Orthopedic Surgery: Yes Other/Comment: RIGHT KNEE SURGERY - Anesthesia Hx Anesthesia: Yes Hx Anesthesia Reactions: No Hx Malignant Hyperthermia: No - Suicidal Assessment Feels Threatened In Home Enviroment: No Family/Social History - Physician Review Nursing Documentation Reviewed: Yes Family/Social History: Unknown Family HX Smoking Status: Never Smoked Hx Alcohol Use: Yes (quit 1 1/2 yrs ago) Hx Substance Use: No Hx Substance Use Treatment: No Allergies/Home Meds Allergies/Adverse Reactions: Allergies No Known Allergies Allergy (Verified 10/07/16 03:50) Home Medications: Home Meds Medication Instructions Recorded Confirmed Glimepiride [amaRYL] 4 mg PO BID 08/02/15 10/07/16 Losartan/Hydrochlorothiazide 1 tab PO DAILY 08/02/15 10/07/16 [Losartan-Hctz 100-12.5 mg Tab] Insulin Glargine, Recombina 0 units SQ HS 10/06/16 10/07/16 [Lantus] Insulin Lispro [humALOG] units SQ ACHS 10/06/16 Sitagliptin Phos/Metformin HCl 1 tab PO BID 10/06/16 10/07/16 [Janumet 50-1,000 mg Tablet] Review of Systems - Review of Systems Constitutional: Normal Eyes: Normal ENT: Normal Respiratory: Normal Cardiovascular: Normal Gastrointestinal: Normal Genitourinary Male: Normal Musculoskeletal: Normal Skin: Ulcer ((+)right sided foot ulcer, healing) Neurological: Normal Endocrine: Normal Hemo/Lymphatic: Normal Psychiatric: Depression Physical Exam Vital Signs Temp Pulse Resp BP Pulse Ox 10/07/16 02:39 89 18 112/55 L 96 10/07/16 00:21 92 H 18 132/74 98 10/06/16 23:04 105 H 16 146/80 95 10/06/16 20:38 98.1 F 111 H 18 148/79 96 Temperature: Afebrile Blood Pressure: Normal Pulse: Regular Respiratory Rate: Normal Appearance: Positive for: Well-Appearing, Non-Toxic, Comfortable Pain Distress: None Mental Status: Positive for: Alert and Oriented X 3 - Systems Exam Head: Present: Atraumatic, Normocephalic Pupils: Present: PERRL Extroacular Muscles: Present: EOMI Conjunctiva: Present: Normal Mouth: Present: Moist Mucous Membranes Neck: Present: Normal Range of Motion Respiratory/Chest: Present: Clear to Auscultation, Good Air Exchange. No: Respiratory Distress, Accessory Muscle Use Cardiovascular: Present: Regular Rate and Rhythm, Normal S1, S2. No: Murmurs Abdomen: Present: Normal Bowel Sounds. No: Tenderness, Distention, Peritoneal Signs Back: Present: Normal Inspection Upper Extremity: Present: Normal Inspection. No: Cyanosis, Edema Lower Extremity: Present: Normal Inspection, Other ((+)healing right foot ulcer , 1cm, to plantar surface, no surrouding erythema). No: Edema Neurological: Present: GCS=15, CN II-XII Intact, Speech Normal Skin: Present: Warm, Dry, Normal Color. No: Rashes Psychiatric: Present: Alert, Oriented x 3, Normal Insight, Normal Concentration Medical Decision Making ED Course and Treatment: 10/06/16 21:08 ekg sins tac 115, no st t wave chagnes, normal interval.s 10/06/16 21:28 cxr no acute disease, as read by me 10/06/16 22:[address] Fontana, who is aware and agrees with plan as possible psych admission. 10/07/16 00:37 Pt medically cleared for psychiatric evaluation. 10/07/16 02:55 Pt seen and evaluate by CAROLINE Leger, who discussed case with Dr. Bajwa. States pt can be admitted to behavioral health for major depression and alcohol use disorder, sever under Dr. Bajwa's service. - Lab Interpretations Lab Results: 10/06/16 21:30 10/06/16 21:30 Lab Results 10/06/16 21:30: Alcohol, Quantitative 227 H 10/06/16 21:30: Salicylates < 1 L, Acetaminophen < 10.0 L 10/06/16 21:30: Urine Opiates Screen Negative, Urine Methadone Screen Negative, Ur Barbiturates Screen Negative, Ur Phencyclidine Scrn Negative, Ur Amphetamines Screen Negative, U Benzodiazepines Scrn Negative, U Oth Cocaine Metabols Negative, U Cannabinoids Screen Negative 10/06/16 21:30: Sodium 139, Potassium 3.7, Chloride 101, Carbon Dioxide 21, Anion Gap 21 H, BUN 9, Creatinine 0.8, Est GFR ( Amer) > 60, Est GFR (Non -Af Amer) > 60, Random Glucose 249 H, Calcium 9.5, Total Bilirubin 0.6, AST 33, ALT 38, Alkaline Phosphatase 61, Total Protein 7.4, Albumin 4.5, Globulin 3.0, Albumin/Globulin Ratio 1.5 10/06/16 21:30: Urine Color Yellow, Urine Appearance Clear, Urine pH 6.0, Ur Specific [place] 1.010, Urine Protein Negative, Urine Glucose (UA) 250 H, Urine Ketones Negative, Urine Blood Negative, Urine Nitrate Negative, Urine Bilirubin Negative, Urine Urobilinogen 0.2, Ur Leukocyte Esterase Negative 10/06/16 21:30: WBC 8.4 D, RBC 4.77, Hgb 13.6 L, Hct 39.0 L, MCV 81.8, MCH 28.5 , MCHC 34.9, RDW 14.4, Plt Count 86 L, MPV 10.7, Gran % 68.9 H, Lymph % (Auto) 20.8 L, [place] % (Auto) 8.9 H, Eos % (Auto) 1.2 L, Baso % (Auto) 0.2, Gran # 5.81 , Lymph # 1.8, [place] # 0.8 H, Eos # 0.1, Baso # 0.02 - RAD Interpretation Radiology Orders: 10/06/16 21:03 CHEST PORTABLE [RAD] Stat - Medication Orders Current Medication Orders: Discontinued Medications Lorazepam (Ativan) 0.5 mg PO STAT STA PRN Reason: Protocol Stop: 10/06/16 23:31 Last Admin: 10/06/16 23:51 Dose: 0.5 mg Disposition/Present on Arrival - Present on Arrival Any Indicators Present on Arrival: No History of DVT/PE: No History of Uncontrolled Diabetes: No Urinary Catheter: No History of Decub. Ulcer: No History Surgical Site Infection Following: None - Disposition Have Diagnosis and Disposition been Completed?: Yes Diagnosis: Depression Disposition: HOSPITALIZED Disposition Time: 04:21 Condition: STABLE
[2016-10-06 21:39] LABS: ADD MANUAL DIFF? NO
[2016-10-06 21:49] LABS: ALB/GLOB RATIO 1.5 (1.1-1.8); ALKALINE PHOSPHATASE 61 U/L (38-133); ALT/SGPT 38 U/L (7-56); AST/SGOT 33 U/L (15-59); BILIRUBIN,TOTAL 0.6 mg/dL (0.2-1.3); BLOOD UREA NITROGEN 9 mg/dL (7-21); CALCIUM 9.5 mg/dL (8.4-10.5); CARBON DIOXIDE 21 mmol/L (21-33); CHLORIDE 101 mmol/L (95-110); GFR AFRICAN-AMERICAN > 60; GLUCOSE,RANDOM 249 mg/dL (70-110); POTASSIUM 3.7 mmol/L (3.6-5.0); SODIUM 139 mmol/L (132-148); TOTAL PROTEIN 7.4 g/dL (5.8-8.3)
[2016-10-06 22:10] LABS: URINE BILIRUBIN NEGATIVE (NEGATIVE); URINE BLOOD NEGATIVE (NEGATIVE); URINE GLUCOSE (UA) 250 mg/dL (NEGATIVE); URINE KETONE NEGATIVE (NEGATIVE); URINE LEUKOCYTE ESTERASE NEGATIVE Leu/uL (NEGATIVE); URINE PROTEIN NEGATIVE mg/dL (<30 mg/dL); URINE UROBILINOGEN 0.2 E.U./dL (<1 E.U./dL)
[2016-10-06 22:16] LABS: BASO # 0.02 K/mm3 (0.0-2.0); BASO % 0.2 % (0.0-3.0); EOS # 0.1 (0.0-0.7); EOS % 1.2 % (1.5-5.0); GRAN # 5.81 (1.4-6.5); GRAN % 68.9 % (50.0-68.0); LYMPH # 1.8 (1.2-3.4); LYMPH % 20.8 % (22.0-35.0); MEAN CELL VOLUME 81.8 fL (80.0-105.0); MEAN CORPUSCULAR HEMOGLOBIN 28.5 pg (25.0-35.0); MEAN CORPUSCULAR HGB CONC 34.9 g/dl (31.0-37.0); MEAN PLATELET VOLUME 10.7 fl (7.0-11.0); MONO # 0.8 (0.1-0.6); MONO % 8.9 % (1.0-6.0); PLATELET COUNT 86 10^3/uL (120.0-450.0); RED CELL DISTRIBUTION WIDTH 14.4 % (11.5-14.5); WHITE BLOOD COUNT 8.4 10^3/ul (4.5-11.0)
[2016-10-06 22:20] LABS: URINE APPEARANCE CLEAR (CLEAR); URINE COLOR YELLOW (YELLOW)
[2016-10-07 02:40] VITALS: O2SAT 96
[2016-10-07 07:55] LABS: CHOLESTEROL 172 mg/dL (130-200)
[2016-10-07] MEDS ORDERED: Insulin Lispro 1 UNITS/0.01 ML SC ONE (09:45)
--- NOTE | 2016-10-07 10:17 | RAD ---
HISTORY: pes COMPARISON: 08/14/2016 FINDINGS: LUNGS: No active pulmonary disease. PLEURA: No significant pleural effusion identified, no pneumothorax apparent. CARDIOVASCULAR: Normal. OSSEOUS STRUCTURES: Multiple old rib fractures on the left VISUALIZED UPPER ABDOMEN: Normal. OTHER FINDINGS: None. IMPRESSION: No active disease.
--- NOTE | 2016-10-07 11:01 | CARD ---
APPROVED REPORT EKG Measurement Heart [id number] <Conclusion> Sinus tachycardia NSSTW changes
[2016-10-07] MEDS ORDERED: Insulin Lispro 1 UNITS/0.01 ML SC SCH (11:30)
[2016-10-07] MEDS ORDERED: Insulin Lispro (humaLOG) LOW Coverage SC SCH (11:30)
[2016-10-07] MEDS ORDERED: Insulin Detemir 100 units/ml Vial (Levemir) SC SCH ×2 (11:30→22:00)
[2016-10-07] MEDS: Insulin Lispro 1 UNITS/0.01 ML SC SCH ×2 (12:54→16:57)
--- NOTE | 2016-10-07 14:32 | CON ---
DATE: 10/07/2016 MEDICAL CONSULT HISTORY OF PRESENT ILLNESS: This is a 51-year-old male who came to [facility] seeking help. He recently has been drinking alcohol. He states that over the last several days, he has been sneaking some drinks, and had argument at home, subsequently, leading to increase in his dri nking, and he came to the Emergency Room for assistance. PAST MEDICAL HISTORY: Bipolar disorder and suicidal ideation, depression, insulin-dependent diabetes , cirrhosis of the liver, thrombocytopenia secondary to the above, history of osteomyelitis of the ri ght foot, with Charcot foot. He has had foot surgery recently as well. He has recently completed a course of antibiotics for his osteomyelitis and is being followed by Dr. Alvarado, the solution strategist, as an outpatient. He has a history of hypertension. ALLERGY HISTORY: He does not admit to any known allergies. HOME MEDICATIONS: Amaryl 4 mg p.o. b.i.d., losartan/hydrochlorothiazide 100/12.5, Janumet b. i.d. He is on a sliding insulin scale with his Lantus and Humalog, which is to be clarified with the patient and the staff. He is on trazodone 50 mg at bedtime. Librium, he has been placed on 50 mg q . 8 hours p.r.n. REVIEW OF SYSTEMS: Fourteen systems are reviewed. Pertinent findings are that he is wearing a boot cast on the right foot. He states that the wound on the right foot is healed, although there is a sm all open area secondary to rupture of the stitches, which Dr. Alvarado has been following, but there h as been no evidence of drainage or infection. PHYSICAL EXAMINATION: VITAL SIGNS: His temperature is reported at 98.1. His pulse is 89. His blood pressure is 112/55. Oxygen saturation is 96% on room air. His respiratory rate is 20. He is alert and oriented x 3. NECK: Supple. There is no JVD. LUNGS: Clear. HEART: Has an S1, S2 rhythm. ABDOMEN: Soft, scaphoid with positive bowel sounds. EXTREMITIES: The left foot is no evidence of edema. NEUROLOGIC: The right foot has a boot cast on it. His EKG is reported as a sinus tachycardia, otherwise normal EKG. Chest x-ray is pending. LABORATORY DATA: Shows a drug screen - alcohol level was 227. Urinalysis was within normal range. Chemistry showed normal electrolytes. His BUN is 9. His creatinine is 0.8. His random blood sugar was 249. His LFTs are normal. Triglycerides are 208. Cholesterol is 172. His LDL cholesterol is 123. HDL is 29. Hematology: WBC is 8.4. RBC is 4.77, hemoglobin 13.6, hematocrit 39. Platelet co unt is 86,000. IMPRESSION: 1. A 51-year-old male with known history of alcohol abuse, bipolar disorder, suicidal ideation. 2. History of insulin-dependent diabetes. 3. History of Charcot foot. 4. History of recent osteomyelitis of the right foot. 5. Cirrhosis. 6. Thrombocytopenia. The patient will be on the psychiatry unit, will be followed by the psychiatrist, and we will follow the patient medically. We will also request a podiatry followup. Aspen Fontana MD cc: [id number] TT: 10/07/2016 14:31:22 Confirmation # [id number] Dictation # [id number] tapan
--- NOTE | 2016-10-07 15:43 | PCM.PSYCH ---
Initial Psychiatric Evaluation - Initial Psychiatric Evaluation Type of Admission: Voluntary Legal Status: Capacity (atient has capacity to sign consent for treatment) Chief Complaint (in patient's own words): 'I asked bystanders to call 911, I was not able to contract for safety, I wanted to be in the hospital, I was not able to control myself, and act stupidly" Patient's Reaction to Hospitalization: patient was admitted for evaluation of d symptoms, irritability, suicidal ideations with a plan to jump into the river and swim to [facility]. History of Present Illness and Precipitating Events: Shortly pt is 51yo male with long and debilitated h/o alcohol dependence, h/o mood disorder, multiple admissions in psych inpatient unit, multiple suicidal attempts, three rehabs in the past, lives at [facility] with his , was admitted for evaluation and stabilization of depressive symptoms, suicidal ideation with the plan to jump into the water and "swim into the [place]", pt also relapsed on alcohol, was feeling depressed, hopeless and helpless. Pt was seen and examined, discussed with RNs, SW and medical residents and student. patient was seen at the treatment team meeting, patient said that he was released from subacute rehabilitation at the end of August, patient started to have relapse on his alcohol, was feeling irritable, angry, had impulsive behavior such drinking for past week, patient said that he was outside he was drinking about a pint of vodka, he started to have intrusive thoughts about killing himself, patient asked bystanders to call 911 because he was not able to contract for safety. During the interview patient denied thoughts of harming himself or others. Patient said for past month she was feeling more depressed, irritable, angry, "it is not usually what they feel". Patient said that he was screaming at his grandkids, was feeling irritable, was not able to sleep "because of my mind racing", was not taking medications for past here, does not have a knee follow- up appointment with outpatient psychiatrist. Patient denied smoking, denied using illicit drugs. Patient denied feeling anxious, no psychotic symptoms elicited or reported. Patient feels guilty about his relapse on alcohol, patient said "if I could wait till October, I would have 2 years of sobriety". pt said that he still goes to AA meetings, has sponsor. Pt had three rehabs in the past, most recent was in [place] about four years ago. No psychotic symptoms were elicited. h/o mental illness: multiple psych admissions, h/o bipolar, h/o suicidal attempts pt's LFT wnl patient was educated about naltrexone, Abilify, as well as cymbalta and neurontin. Risk benefits alternatives were discussed with the patient, patient is willing to try those medications. pt denied abuse pt said that he has poor relationship with his son who recently revealed that he is a tolentino, had difficulties to accept it. medical issues: Insulin-dependent diabetes, Charcot foot, recent osteomyelitis of the right foot, cirrhosis, thrombocytopenia, diabetic neuropathy. 10/06/16 21:30 10/06/16 21:30 Lab Results 10/07/16 11:35: POC Glucose (mg/dL) 214 H 10/07/16 07:17: POC Glucose (mg/dL) 242 H 10/07/16 07:00: Hemoglobin A1c 7.1 H 10/07/16 07:00: Triglycerides 208 H, Cholesterol 172, LDL Cholesterol Direct 123 , HDL Cholesterol 29 10/07/16 04:51: POC Glucose (mg/dL) 248 H 10/06/16 21:30: Alcohol, Quantitative 227 H 10/06/16 21:30: Salicylates < 1 L, Acetaminophen < 10.0 L 10/06/16 21:30: Urine Opiates Screen Negative, Urine Methadone Screen Negative, Ur Barbiturates Screen Negative, Ur Phencyclidine Scrn Negative, Ur Amphetamines Screen Negative, U Benzodiazepines Scrn Negative, U Oth Cocaine Metabols Negative, U Cannabinoids Screen Negative 10/06/16 21:30: Sodium 139, Potassium 3.7, Chloride 101, Carbon Dioxide 21, Anion Gap 21 H, BUN 9, Creatinine 0.8, Est GFR ( Amer) > 60, Est GFR (Non -Af Amer) > 60, Random Glucose 249 H, Calcium 9.5, Total Bilirubin 0.6, AST 33, ALT 38, Alkaline Phosphatase 61, Total Protein 7.4, Albumin 4.5, Globulin 3.0, Albumin/Globulin Ratio 1.5 10/06/16 21:30: Urine Color Yellow, Urine Appearance Clear, Urine pH 6.0, Ur Specific [place] 1.010, Urine Protein Negative, Urine Glucose (UA) 250 H, Urine Ketones Negative, Urine Blood Negative, Urine Nitrate Negative, Urine Bilirubin Negative, Urine Urobilinogen 0.2, Ur Leukocyte Esterase Negative 10/06/16 21:30: WBC 8.4 D, RBC 4.77, Hgb 13.6 L, Hct 39.0 L, MCV 81.8, MCH 28.5 , MCHC 34.9, RDW 14.4, Plt Count 86 L, MPV 10.7, Gran % 68.9 H, Lymph % (Auto) 20.8 L, [place]bert % (Auto) 8.9 H, Eos % (Auto) 1.2 L, Baso % (Auto) 0.2, Gran # 5.81 , Lymph # 1.8, Colbert # 0.8 H, Eos # 0.1, Baso # 0.02 Vital Signs Temp Pulse Pulse Resp BP Pulse Ox 10/07/16 04:32 90 20 10/07/16 02:39 89 18 112/55 L 96 10/07/16 00:21 92 H 18 132/74 98 10/06/16 23:04 105 H 16 146/80 95 10/06/16 20:38 98.1 F 111 H 18 148/79 96 Current Medications: Active Medications Generic Name Dose Route Start Last Admin Trade Name Freq PRN Reason Stop Dose Admin Chlordiazepoxide 50 mg 10/07/16 04:40 Librium PO Q8 PRN ETOH WITHDRAWAL Protocol Duloxetine HCl 20 mg 10/08/16 08:00 Cymbalta PO DAILY [facility] Folic Acid 1 mg 10/07/16 14:15 Folic Acid PO DAILY [facility] Gabapentin 100 mg 10/07/16 18:00 Neurontin PO TID [facility] Protocol Glimepiride 4 mg 10/07/16 16:30 Amaryl PO ACBD [facility] Hydrochlorothiazide 12.5 mg 10/07/16 08:45 10/07/16 09:29 Microzide PO 12.5 mg DAILY [facility] Administration Insulin Detemir 100 unit 10/07/16 22:00 Levemir SC HS [facility] Insulin Human Lispro 30 units 10/07/16 11:30 10/07/16 12:54 Humalog SC 30 units ACTID [facility] Administration Insulin Human Lispro 0 units 10/07/16 16:30 Humalog Low SC ACHS [facility] Protocol Losartan Potassium 100 mg 10/07/16 08:45 10/07/16 09:29 Cozaar PO 100 mg DAILY JIMMIE Administration Metformin HCl 1,000 mg 10/07/16 08:45 10/07/16 09:29 Glucophage PO 1,000 mg BID JIMMIE Administration Multivitamins 1 tab 10/07/16 14:15 Thera Tab PO DAILY JIMMI[facility] Naltrexone HCl 50 mg 10/07/16 14:15 Revia PO DAILY JIMMIE Sitagliptin Phosphate 50 mg 10/07/16 08:45 10/07/16 09:29 Januvia PO 50 mg BID JIMMIE Administration Thiamine HCl 100 mg 10/07/16 14:15 Vitamin B1 Tab PO DAILY JIMMIE Trazodone HCl 50 mg 10/07/16 04:43 Desyrel PO HS PRN Insomnia Past Psychiatric History - Past Psychiatric History Previous Treatment History: Inpatient Prior Professional Help: see HPI Prior Psychiatric Treatment: see HPI At what hospital: see HPI Duration: see HPI Nature of Treatment: see HPI Explanation of prior treatment: see HPI History of Abuse: see HPI History of ETOH/Drug Use: see HPI History of Family Illness: see HPI Pertinent Medical Hx (Current Medical&Sleep Prob, Allergies): Allergies Allergy/AdvReac Type Severity Reaction Status Date / Time No Known Allergies Allergy Verified 10/07/16 03:50 Glimepiride [amaRYL] 4 mg PO BID 08/02/15 Losartan/Hydrochlorothiazide [Losartan-Hctz 100-12.5 mg Tab] 1 tab PO DAILY 10/11 Insulin Glargine, Recombina [Lantus] 0 units SQ HS 10/06/16 Insulin Lispro [humALOG] units SQ ACHS 10/06/16 Sitagliptin Phos/Metformin HCl [Janumet 50-1,000 mg Tablet] 1 tab PO BID Review of Systems - Review of Systems Systems not reviewed;Unavailable: Acuity of Condition - EENT Eyes: As Per HPI Ears: As Per HPI Nose/Mouth/Throat: As Per HPI - Cardiovascular Cardiovascular: As Per HPI - Respiratory Respiratory: As Per HPI - Gastrointestinal Gastrointestinal: As Per HPI - Genitourinary Genitourinary: As Per HPI - Reproductive: Male Reproductive:Male: As Per HPI - Musculoskeletal Musculoskeletal: As Par HPI - Integumentary Integumentary: As Per HPI - Neurological Neurological: As Per HPI - Psychiatric Psychiatric: As Per HPI - Endocrine Endocrine: As Per HPI - Hematologic/Lymphatic Hematologic: As Per HPI Mental Status Examination - Personal Presentation Personal Presentation: Looks stated age - Affect Affect: Flat - Motor Activity Motor Activity: Calm - Reliability in Providing Information Reliability in Providing Information: Fair - Speech Speech: Organized - Mood Mood: Depressed, Anxious - Formal Thought Process Formal Thought Process: No Impairment - Obsessions/Compulsions Obsessions: None Compulsions: None - Cognitive Functions Orientation: Person Sensorium: Alert Attention/Concentration: Easily distracted Abstract Thinking: [place] Estimate of Intelligence: Average Judgement: Intact, as evidence by: Insight regarding need for hospitalization - Risk Risk: Suicidal, Withdrawal, Self-mutilation, Diminished functioning - Strength & Assets Inventory Strength & Assets Inventory: Family support, 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) , Employment history, Life experience, Cooperative - Limitations Limitations: Other (chronic alcoholism) DSM 5 DX - DSM 5 DSM 5 Diagnosis: bipolar as per h/o, most recent episode mixed alcohol use disorder - Recommended/Plan of Treatment Treatment Recommendations and Plan of Treatment: milieu/structure/supportive therapy will start Cymbalta 20 mg daily for depression and anxiety, diabetes neuropathy Neurontin 100 mg 3 times a day for neuropathy as well as mood stabilization as well as anxiety and cravings Abilify 5 mg at the nighttime as a most stabilizer Multivitamins, folic acid, thiamine will be started naltrexone 50 mg daily for cravings, patient had history of cirrhosis, will monitor LFTs closely family involvement SW evaluation medical consult appreciated Projected ELOS: 7days Prognosis: guarded Discharge Plan and Discharge Criteria: Pt will be not depressed or manic, will be more hopeful, will be not psychotic or anxious, will be not having thoughts of harming self or others, will be tolerating medications well, will not have major side effects, will be able to function, will not pose threat to self or others. - Smoking Cessation Smoking Cessation Initiated: No Reason for not providing: pt denied smoking
[2016-10-07] MEDS: Insulin Lispro (humaLOG) LOW Coverage SC SCH ×2 (16:57→22:00)
[2016-10-07] MEDS: Multivitamin Therapeutic Tab PO SCH (17:27)
--- NOTE | 2016-10-07 20:21 | CON ---
DATE: 10/07/2016 LOCATION: Room 513, psychiatry. HISTORY OF PRESENT ILLNESS: This is a 51-year-old male with known history of type 2 insulin-requirin g diabetes with near optimal metabolic control on a combination therapy of both insulin and oral hypo glycemic medications, who presents here with progressively worsening depression, suicidal ideations a nd has been admitted to psychiatry for closer evaluation and management. He is being referred now fo r diabetic evaluation and management. He was actually seen in my office over a week ago with near op timal metabolic control of his diabetic condition and the last hemoglobin A1c he had was 7.1%. PAST MEDICAL HISTORY: As mentioned above, history of type 2 insulin-requiring diabetes on a combinat ion of Janumet given as b.i.d. with Amaryl given as 4 mg b.i.d. before meals as ordered. He is also on a basal and bolus insulin regimen with Toujeo taken as 100 units subQ at bedtime daily wit h Humalog taken as 30 units subQ t.i.d. before meals as ordered. History of hypertension and dyslip idemia, history of diabetic retinopathy, polyneuropathy and severe underlying vasculopathy with perip heral arterial disease as noted. History of a right foot nonhealing plantar ulceration and has been followed very closely by Dr. 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 He had a prior history of osteomyelitis and recei josefa antibiotic management accordingly. FAMILY HISTORY: Positive for hypertension and heart disease. SOCIAL HISTORY: The patient has supportive family. Admits to chronic alcoholism and apparently was off alcohol for a few months until recently when he overindulged with acute alcoholic intoxicat ion and developed suicidal ideations as noted thereof. REVIEW OF SYSTEMS: As mentioned above. Admits to generalized body weakness with easy fatigability a nd tiredness and suboptimal energy level. No chest pains, palpitations or PNDs. His oral intake is variable, but admits to occasional nausea and dyspepsia with vague upper abdominal pains. Also, admi ts to recent nocturia and polyuria with about a 5-pound or so weight loss because of variable oral in take. PHYSICAL EXAMINATION: GENERAL: This is an overweight male in no apparent distress. VITAL SIGNS: Blood pressure of 140/80, pulse of 70 beats per minute and regular, temperature 98, res pirations 20. Height is 6 feet 2 inches, weight is 250 pounds. HEENT: Head normocephalic. Eyes anicteric with pink conjunctivae. Fundoscopy not possible at this time. Ears, nose and throat otherwise normal. NECK: Supple. Thyroid gland is normal size. No carotid bruits or any cervical adenopathy. CARDIOPULMONARY: Some adynamic precordium. S1, S2 is rapid and regular. LUNGS: Clear to auscultation. ABDOMEN: Flat, soft with positive bowel sounds. EXTREMITIES: No peripheral edema. Pulses are +2 bilaterally. Pinprick is diminished up to the mids haft of both legs. His nonhealing right foot plantar ulceration is bandaged at this time as noted wi th no active bleeding or exudate noted at this time LABORATORY DATA: His chemistry showed a BUN of 9, sodium 139, potassium 3.7, chloride 101, CO2 21, g lucose 249 and creatinine is 0.8. His hemoglobin A1c is 7.1% and the glucose levels have ranged from 214-242 mg/dL. ASSESSMENT: This is a 51-year-old male with uncontrolled and decompensated type 2 insulin-requiring diabetes with a significant history of near optimal metabolic control on combination therapy using salma oral hypoglycemic therapy and a basal and bolus insulin drug combination, who presents here with m ajor depression and with underlying generalized anxiety and depressive disorders as noted thereof. Courtney wiggins also had a recent bout of suicidal ideations as noted from the detailed history mentioned above. T here is also a significant history of alcoholic intoxication on the background of chronic alcoholism, which could be a big factor with this resurgence of his major depressive disorder. There is also si gnificant history of diabetic microvascular complications of retinopathy and polyneuropathy with diab etic macrovascular complications of peripheral arterial disease and vasculopathy. He has a nonhealin g right foot neuropathic ulceration at this time. PLAN OF MANAGEMENT: As discussed with the patient and the staff. We will restart him back on his [facility] home insulin regimen with Humalog given as 30 units subQ t.i.d. before meals to start today as or dered. We will also continue the basal insulin given as Levemir, which is the only one available in our hospital formulary, to be given as 100 units subQ at bedtime daily as given. We will modify the coverage scale to a very low dose algorithm using Humalog insulin as given and detailed orders have b een given. A hemoglobin A1c has been done and will obtain serial chemistries and supplement accordin gly as needed. We will follow. Christianne Russ MD cc: [id number] TT: 10/07/2016 20:20:55 Confirmation # [id number] Dictation # [id number] mn
[2016-10-07] MEDS: Insulin Detemir 100 units/ml Vial (Levemir) SC SCH (22:53)
[2016-10-08 07:41] LABS: ALB/GLOB RATIO 1.4 (1.1-1.8); ALKALINE PHOSPHATASE 59 U/L (38-133); ALT/SGPT 39 U/L (7-56); AST/SGOT 23 U/L (15-59); BILIRUBIN,TOTAL 0.9 mg/dL (0.2-1.3); BLOOD UREA NITROGEN 10 mg/dL (7-21); CALCIUM 9.4 mg/dL (8.4-10.5); CARBON DIOXIDE 24 mmol/L (21-33); CHLORIDE 103 mmol/L (98-107); CHOLESTEROL 168 mg/dL (130-200); GFR AFRICAN-AMERICAN > 60; GLUCOSE,RANDOM 196 mg/dL (70-110); POTASSIUM 3.9 mmol/L (3.6-5.0); SODIUM 137 mmol/L (132-148); TOTAL PROTEIN 7.1 g/dL (5.8-8.3)
[2016-10-08] MEDS: Multivitamin Therapeutic Tab PO SCH (08:30)
[2016-10-08] MEDS: Insulin Lispro (humaLOG) LOW Coverage SC SCH ×4 (08:32→21:32)
[2016-10-08] MEDS: Insulin Lispro 1 UNITS/0.01 ML SC SCH ×3 (08:33→17:24)
--- NOTE | 2016-10-08 11:49 | CP.PCM.CON ---
History of Present Illness - History of Present Illness History of Present Illness: 51 year old male know to podiatry service and followed in [facility] seen in psychiatric department concerning right foot Charcot wound. Pt presents to [facility] after alcohol relapse following home argument. Pt is registered in Alcoholics Anonymous. Pt has no major pedal complaints at this time. Still ambulating to right lower extremity with CAM boot to offload ulceration site. Pt denies overnight fever, chills chest pain, shortness of breath, nausea, and vomiting. Past Patient History - Infectious Disease Hx of Infectious Diseases: None - Tetanus Immunizations Tetanus Immunization: Up to Date - Past Medical History & Family History Past Medical History?: Yes - Past Social History Smoking Status: Never Smoked - CARDIAC Hx Cardiac Disorders: Yes Hx Hypertension: Yes Hx Peripheral Edema: Yes Hx Peripheral Vascular Disease: Yes - PULMONARY Hx Respiratory Disorders: Yes Hx Emphysema: Yes - NEUROLOGICAL Hx Neurological Disorder: Yes Hx Seizures: No Other/Comment: neuropathy - HEENT Hx HEENT Problems: No - RENAL Hx Chronic Kidney Disease: No - ENDOCRINE/METABOLIC Hx Endocrine Disorders: Yes Hx Diabetes Mellitus Type 2: Yes - HEMATOLOGICAL/ONCOLOGICAL Hx Blood Disorders: Yes Hx Cirrhosis: Yes - INTEGUMENTARY Hx Dermatological Problems: Yes (hx cellulitis, gangrene left 2nd toe) Other/Comment: prior visit triage notes: 4th toe rt foot ulcer (resolved). RIGHT FOOT 3RD TOE AMPUTATED,PARTIAL AMPUTATION TO 4TH AND 5TH TOE. LEFT FOOT 2ND TOE AMPUTATION. OPEN WOUND TO SOLE OF RIGHT FOOT.HAD A BLISTER ,GOT WORSE. pt trerated by dr alvarado at the wound center with wound care and a cast but wound opened up 4x's, pt went to [facility] to a dr nicole who specializes in charcot feet, had bone shaved on bottom of right charcot foot on 06/05/16, cast and herbie wrap in place pt ambulated with crutches - MUSCULOSKELETAL/RHEUMATOLOGICAL Hx Falls: Yes (past) - GASTROINTESTINAL Hx Gastrointestinal Disorders: Yes (c dif,colitis) - GENITOURINARY/GYNECOLOGICAL Hx Genitourinary Disorders: No - PSYCHIATRIC Hx Anxiety: Yes Hx Depression: Yes - SURGICAL HISTORY Hx Amputation: Yes (left 2d toe, rt 3d toe,4TH AND 5TH PARTIAL AMPUTATION.) Hx Appendectomy: Yes Hx Joint Replacement: Yes (left knee replacement) Hx Orthopedic Surgery: Yes (left ankle F/X 6 years ago) Other/Comment: RIGHT KNEE SURGERY - ANESTHESIA Hx Anesthesia: Yes Hx Anesthesia Reactions: No Hx Malignant Hyperthermia: No Meds Allergies/Adverse Reactions: Allergies Allergy/AdvReac Type Severity Reaction Status Date / Time No Known Allergies Allergy Verified 10/07/16 03:50 - Medications Medications: Current Medications Aripiprazole (Abilify) 5 mg PO HS [facility] Last Admin: 10/07/16 22:12 Dose: 5 mg Chlordiazepoxide (Librium) 50 mg PO Q8 PRN; Protocol PRN Reason: ETOH WITHDRAWAL Last Admin: 10/07/16 22:12 Dose: 50 mg Duloxetine HCl (Cymbalta) 20 mg PO DAILY [facility] Last Admin: 10/08/16 08:30 Dose: 20 mg Folic Acid (Folic Acid) 1 mg PO DAILY [facility] Last Admin: 10/08/16 08:31 Dose: 1 mg Gabapentin (Neurontin) 100 mg PO TID [facility] PRN Reason: Protocol Last Admin: 10/08/16 08:30 Dose: 100 mg Glimepiride (Amaryl) 4 mg PO ACBD [facility] Last Admin: 10/08/16 08:30 Dose: 4 mg Hydrochlorothiazide (Microzide) 12.5 mg PO DAILY [facility] Last Admin: 10/08/16 08:30 Dose: 12.5 mg Insulin Detemir (Levemir) 100 unit SC HS [facility] Last Admin: 10/07/16 22:53 Dose: 100 unit Insulin Human Lispro (Humalog Low) 0 units SC [facility] PRN Reason: Protocol Last Admin: 10/08/16 08:32 Dose: Not Given Insulin Human Lispro (Humalog) 24 units SC ACTID [facility] Last Admin: 10/08/16 08:33 Dose: 24 units Losartan Potassium (Cozaar) 100 mg PO DAILY [facility] Last Admin: 10/08/16 08:30 Dose: 100 mg Metformin HCl (Glucophage) 1,000 mg PO BID [facility] Last Admin: 10/08/16 08:30 Dose: 1,000 mg Multivitamins (Thera Tab) 1 tab PO DAILY [facility] Last Admin: 10/08/16 08:30 Dose: 1 tab Naltrexone HCl (Revia) 50 mg PO DAILY [facility] Last Admin: 10/08/16 08:30 Dose: 50 mg Sitagliptin Phosphate (Januvia) 50 mg PO BID [facility] Last Admin: 10/08/16 08:30 Dose: 50 mg Thiamine HCl (Vitamin B1 Tab) 100 mg PO DAILY [facility] Last Admin: 10/08/16 08:31 Dose: 100 mg Trazodone HCl (Desyrel) 50 mg PO HS PRN PRN Reason: Insomnia Last Admin: 10/07/16 22:12 Dose: 50 mg Physical Exam - Constitutional Appears: Well, Non-toxic, No Acute Distress - Extremities Exam Additional comments: Vasc: nonpalpable pedal pulses, TG warm to warm, CFT < 3 sec to all digits Neuro: grossly diminished Derm: plantar ulceration of right midfoot measuring 4cm x 2cm x 0.5cm consists of fibro-granular base and hyperkeratitic periwound borders. No noted malodor, purulence, ascending cellulitis, nor positive [id number]. No active bleeding Musc: right foot 3rd toe amputated, partial amputation of 4th and 5th toes, left foot 2nd toe amputated - Neurological Exam Neurological exam: Alert, Oriented x3 Results - Vital Signs Recent Vital Signs: Last Vital Signs Temp 98.5 F 10/08/16 07:18 Pulse 85 10/08/16 07:18 Resp 20 10/08/16 07:18 BP 141/86 10/08/16 07:18 Pulse Ox 96 10/07/16 02:39 - Labs Result Diagrams: 10/06/16 21:30 10/08/16 06:59 Labs: Laboratory Results - last 24 hr 10/07/16 10/07/16 10/07/16 07:00 15:45 21:46 Sodium Potassium Chloride Carbon Dioxide Anion Gap BUN Creatinine Est GFR ( Amer) Est GFR (Non-Af Amer) POC Glucose (mg/dL) 67 289 H Random Glucose Hemoglobin A1c 7.1 H Calcium Total Bilirubin AST ALT Alkaline Phosphatase Total Protein Albumin Globulin Albumin/Globulin Ratio Triglycerides Cholesterol LDL Cholesterol Direct HDL Cholesterol TSH 3rd Generation 10/08/16 10/08/16 10/08/16 06:59 06:59 07:16 Sodium 137 Potassium 3.9 Chloride 103 Carbon Dioxide 24 Anion Gap 14 BUN 10 Creatinine 0.7 Est GFR ( Amer) > 60 Est GFR (Non-Af Amer) > 60 POC Glucose (mg/dL) 200 H Random Glucose 196 H Hemoglobin A1c Calcium 9.4 Total Bilirubin 0.9 AST 23 ALT 39 Alkaline Phosphatase 59 Total Protein 7.1 Albumin 4.1 Globulin 3.0 Albumin/Globulin Ratio 1.4 Triglycerides 169 H Cholesterol 168 LDL Cholesterol Direct 126 HDL Cholesterol 31 TSH 3rd Generation 0.80 10/08/16 11:22 Sodium Potassium Chloride Carbon Dioxide Anion Gap BUN Creatinine Est GFR ( Amer) Est GFR (Non-Af Amer) POC Glucose (mg/dL) 257 H Random Glucose Hemoglobin A1c Calcium Total Bilirubin AST ALT Alkaline Phosphatase Total Protein Albumin Globulin Albumin/Globulin Ratio Triglycerides Cholesterol LDL Cholesterol Direct HDL Cholesterol TSH 3rd Generation Assessment & Plan - Assessment and Plan (Free Text) Assessment: Right foot partial thickness ulceration, ( non-complicated Sánchez Grade 1) secondary to Charcot arthropathy deformities. Plan: Pt seen and evaluated with attending Dr. Alvarado. Chart and vitals reviewed. Cleansed wound site with normal saline. Dressed with Acticote, and bordered gauze. Pt to continue full weightbearing to right foot and leg. Podiatry will continue to follow while inhouse. - Date & Time Date: 10/07/16 Time: 13:00
--- NOTE | 2016-10-08 12:23 | PN ---
DATE: 10/08/2016 This is a 51-year-old male on the psych unit being seen by psychiatry for recent resumption of alcoho l consumption and has a history of bipolar disorder, suicidal ideation history. He has a past medica l history of insulin-dependent diabetes, hypertension, cirrhosis, thrombocytopenia, Charcot foot on t he right, osteomyelitis of the right foot. He has been found to have a worsening depression with roman cidal ideations and was admitted to psychiatry floor. PHYSICAL EXAMINATION: VITAL SIGNS: This morning show a temp of 98.5, his pulse is 85, his blood pressure is 141/86, his re spiratory rate is 20. Oxygen saturation is 96% on room air. GENERAL: He is alert and oriented x 3. LUNGS: Clear. HEART: An S1, S2 rhythm. ABDOMEN: Soft with positive bowel sounds. EXTREMITIES: Show no evidence of edema. His chest x-ray was shown as no active disease. His EKG is reported as showing a sinus tach on admis tony. His blood sugar this morning was 196. Triglycerides are 169, cholesterol 168. His TSH is 0.8 . Electrolytes are normal. His BUN is 10 with a creatinine of 0.7. The patient has been placed on Abilify 5 mg at bedtime, Cymbalta 20 mg daily, Desyrel 50 mg at bedtim e, Librium 50 mg q. 8 hours p.r.n. for alcohol withdrawal. He will be continued to monitor medically , following his sliding insulin scale coverage. Request has been made for podiatry to follow the pat ient as well as endocrinology. Aspen Fontana MD cc: [id number] TT: 10/08/2016 12:22:12 Confirmation # [id number] Dictation # [id number] tn
--- NOTE | 2016-10-08 15:32 | PN ---
DATE: 10/08/2016 ROOM: 513 SUBJECTIVE: This is a 51-year-old male with recent uncontrolled type 2 insulin-requiring diabetes pr esenting here with major depression and concomitant recent alcoholic intoxication on the background o f chronic alcoholism and is now being followed closely in the psychiatric unit and also from the meta bolic viewpoint, being followed closely for diabetic management. His oral intake is quite variable w ith the hospital meals as given and noted. His latest chemistries showed a BUN of 10, sodium 137, po tassium 3.9, chloride 103, CO2 24, glucose 196 and creatinine 0.7. His latest glucose levels have ra nged from 200-257 mg/dL. The hemoglobin A1c is 7.1% which is actually near optimal and indicative of very good metabolic control of his diabetic condition thereof. However, because of the underlying i ncreased insulin resistance, he has tremendous insulin requirements to override increased insulin res istance as mentioned and noted thereof. So at this time, we will continue the modified basal and dmitry us insulin regimen as given with Levemir given as 100 units subQ at bedtime daily as ordered. We jasmyn l continue the Humalog given as 24 units subQ t.i.d. before meals as ordered. We will also continue his oral hypoglycemic therapy with Januvia given as 50 mg b.i.d. and metformin as 1000 mg b.i.d. as h feliciano is actually using Janumet mg b.i.d. on the outpatient. We will continue the Amaryl given a s 4 mg b.i.d. before meals as ordered. We will titrate incrementally as indicated to optimize metabo lic control. We will follow. Christianne Russ MD cc: [id number] TT: 10/08/2016 15:31:43 Confirmation # [id number] Dictation # [id number] tn
--- NOTE | 2016-10-08 15:40 | PCM.PYCHPN ---
Psychiatric Progress Note - Psychiatric Progress Note Patient seen today, length of contact: 30 minutes Patient Chief Complaint: 'I slept well last night, usually I am not sleeping at all" Problems Identified/Issues Discussed: Suicide/ homicide prevention, past psychiatric h/o, current psychiatric symptoms , medical problems, risk/benefits and alternatives of medications, medications compliance, coping strategies, substance abuse h/o, relapse prevention, importance of follow up with psychiatrist and therapist, discharge plan. Medical Problems: Insulin-dependent diabetes, Charcot foot, recent osteomyelitis of the right foot , cirrhosis, thrombocytopenia, diabetic neuropathy. Diagnostic Results: 10/06/16 21:30 10/08/16 06:59 Lab Results 10/08/16 11:22: POC Glucose (mg/dL) 257 H 10/08/16 07:16: POC Glucose (mg/dL) 200 H 10/08/16 06:59: TSH 3rd Generation 0.80 10/08/16 06:59: Sodium 137, Potassium 3.9, Chloride 103, Carbon Dioxide 24, Anion Gap 14, BUN 10, Creatinine 0.7, Est GFR ( Amer) > 60, Est GFR (Non- Af Amer) > 60, Random Glucose 196 H, Calcium 9.4, Total Bilirubin 0.9, AST 23, ALT 39, Alkaline Phosphatase 59, Total Protein 7.1, Albumin 4.1, Globulin 3.0, Albumin/Globulin Ratio 1.4, Triglycerides 169 H, Cholesterol 168, LDL Cholesterol Direct 126, HDL Cholesterol 31 10/07/16 21:46: POC Glucose (mg/dL) 289 H 10/07/16 15:45: POC Glucose (mg/dL) 67 10/07/16 11:35: POC Glucose (mg/dL) 214 H 10/07/16 07:17: POC Glucose (mg/dL) 242 H 10/07/16 07:00: Hemoglobin A1c 7.1 H 10/07/16 07:00: Triglycerides 208 H, Cholesterol 172, LDL Cholesterol Direct 123 , HDL Cholesterol 29 10/07/16 04:51: POC Glucose (mg/dL) 248 H 10/06/16 21:30: Alcohol, Quantitative 227 H 10/06/16 21:30: Salicylates < 1 L, Acetaminophen < 10.0 L 10/06/16 21:30: Urine Opiates Screen Negative, Urine Methadone Screen Negative, Ur Barbiturates Screen Negative, Ur Phencyclidine Scrn Negative, Ur Amphetamines Screen Negative, U Benzodiazepines Scrn Negative, U Oth Cocaine Metabols Negative, U Cannabinoids Screen Negative 10/06/16 21:30: Sodium 139, Potassium 3.7, Chloride 101, Carbon Dioxide 21, Anion Gap 21 H, BUN 9, Creatinine 0.8, Est GFR ( Amer) > 60, Est GFR (Non -Af Amer) > 60, Random Glucose 249 H, Calcium 9.5, Total Bilirubin 0.6, AST 33, ALT 38, Alkaline Phosphatase 61, Total Protein 7.4, Albumin 4.5, Globulin 3.0, Albumin/Globulin Ratio 1.5 10/06/16 21:30: Urine Color Yellow, Urine Appearance Clear, Urine pH 6.0, Ur Specific [place] 1.010, Urine Protein Negative, Urine Glucose (UA) 250 H, Urine Ketones Negative, Urine Blood Negative, Urine Nitrate Negative, Urine Bilirubin Negative, Urine Urobilinogen 0.2, Ur Leukocyte Esterase Negative 10/06/16 21:30: WBC 8.4 D, RBC 4.77, Hgb 13.6 L, Hct 39.0 L, MCV 81.8, MCH 28.5 , MCHC 34.9, RDW 14.4, Plt Count 86 L, MPV 10.7, Gran % 68.9 H, Lymph % (Auto) 20.8 L, Holt % (Auto) 8.9 H, Eos % (Auto) 1.2 L, Baso % (Auto) 0.2, Gran # 5.81 , Lymph # 1.8, Holt # 0.8 H, Eos # 0.1, Baso # 0.02 Vital Signs Temp Pulse Pulse Resp BP Pulse Ox 10/08/16 07:18 98.5 F 85 20 141/86 10/07/16 15:56 84 158/89 H 10/07/16 04:32 90 20 10/07/16 02:39 89 18 112/55 L 96 10/07/16 00:21 92 H 18 132/74 98 10/06/16 23:04 105 H 16 146/80 95 10/06/16 20:38 98.1 F 111 H 18 148/79 96 DSM 5 Symptoms Update: Shortly pt is 51yo male with long and debilitated h/o alcohol dependence, h/o mood disorder, multiple admissions in psych inpatient unit, multiple suicidal attempts, three rehabs in the past, lives at [place] with his , was admitted for evaluation and stabilization of depressive symptoms, suicidal ideation with the plan to jump into the water and "swim into the [place]", pt also relapsed on alcohol, was feeling depressed, hopeless and helpless. Pt was seen and examined next to the nursing station, improved hygiene, pt said that he slept better. pt still reported to be irritable, depressed, hopeless, denied thoughts of harming self or others. Patient denied feeling anxious, no psychotic symptoms elicited or reported. Patient feels guilty about his relapse on alcohol. pt compliant with meds, was educated about antabuse, campral, narltrexone, pt prefer the last one, pt was educated about potential liver damage, pt verbalized understanding. pt tolerates meds well, no side effects observed or reported. Impression: bipolar, most recent episode mixed alcohol use disorder Medication Change: Yes Medical Record Reviewed: Yes Consults ordered or reviewed: med consult appreciated Mental Status Examination - Cognitive Function Orientation: Person Memory: Intact Attention: Poor Concentration: Poor Association: WNL Fund of Knowledge: WNL - Mood Mood: Depressed, Anxious - Affect Affect: Flat - Speech Speech: Appropriate - Formal Thought Process Formal Thought Process: No Impairment - Suicidal Ideation Suicidal Ideation: No - Homicidal Ideation Homicidal Ideation: No Goal/Treatment Plan - Goal/Treatment Plan Need for Continued Stay: Remain at risks for inpatient hospitalization, Severe depression anxiety, Discharge may exacerbated symptoms, Failed transitioning, Severe functional impairment Progress Toward Problem(s) and Goals/Treatment Plan: milieu/structure/supportive therapy Cymbalta 20 mg daily for depression and anxiety, diabetes neuropathy Neurontin 3300 mg 3 times a day for neuropathy as well as mood stabilization as well as anxiety and cravings Abilify 5 mg at the nighttime as a most stabilizer Multivitamins, folic acid, thiamine will be started naltrexone 50 mg daily for cravings, patient had history of cirrhosis, will monitor LFTs closely family involvement SW evaluation medical consult appreciated Estimated Date of D/C: 10/11/16 (we'll monitor closely)
--- NOTE | 2016-10-08 16:59 | CP.PCM.PN ---
<Suresh Wong - Last Filed: 10/08/16 16:55> Subjective - Date & Time of Evaluation Date of Evaluation: 10/08/16 Time of Evaluation: 11:50 - Subjective Subjective: 51 year old male seen concerning right foot Charcot wound. Pt has no major pedal complaints at this time. Still ambulating to right lower extremity with CAM boot to offload ulceration site. Pt denies overnight fever, chills chest pain, shortness of breath, nausea, and vomiting. Objective - Vital Signs/Intake and Output Vital Signs (last 24 hours): Temp Pulse Resp BP Pulse Ox 98.5 F 85 20 141/86 96 10/08/16 07:18 10/08/16 07:18 10/08/16 07:18 10/08/16 07:18 10/07/16 02:39 - Medications Medications: Current Medications Aripiprazole (Abilify) 5 mg PO HS [facility] Last Admin: 10/07/16 22:12 Dose: 5 mg Chlordiazepoxide (Librium) 50 mg PO Q8 PRN; Protocol PRN Reason: ETOH WITHDRAWAL Last Admin: 10/07/16 22:12 Dose: 50 mg Duloxetine HCl (Cymbalta) 20 mg PO DAILY [facility] Last Admin: 10/08/16 08:30 Dose: 20 mg Folic Acid (Folic Acid) 1 mg PO DAILY [facility] Last Admin: 10/08/16 08:31 Dose: 1 mg Gabapentin (Neurontin) 300 mg PO TID [facility] PRN Reason: Protocol Glimepiride (Amaryl) 4 mg PO ACBD [facility] Last Admin: 10/08/16 08:30 Dose: 4 mg Hydrochlorothiazide (Microzide) 12.5 mg PO DAILY [facility] Last Admin: 10/08/16 08:30 Dose: 12.5 mg Insulin Detemir (Levemir) 100 unit SC HS [facility] Last Admin: 10/07/16 22:53 Dose: 100 unit Insulin Human Lispro (Humalog Low) 0 units SC [facility] PRN Reason: Protocol Last Admin: 10/08/16 12:55 Dose: Not Given Insulin Human Lispro (Humalog) 24 units SC ACTID [facility] Last Admin: 10/08/16 12:56 Dose: 24 units Losartan Potassium (Cozaar) 100 mg PO DAILY [facility] Last Admin: 10/08/16 08:30 Dose: 100 mg Metformin HCl (Glucophage) 1,000 mg PO BID [facility] Last Admin: 10/08/16 08:30 Dose: 1,000 mg Multivitamins (Thera Tab) 1 tab PO DAILY [facility] Last Admin: 10/08/16 08:30 Dose: 1 tab Naltrexone HCl (Revia) 50 mg PO DAILY [facility] Last Admin: 10/08/16 08:30 Dose: 50 mg Sitagliptin Phosphate (Januvia) 50 mg PO BID [facility] Last Admin: 10/08/16 08:30 Dose: 50 mg Thiamine HCl (Vitamin B1 Tab) 100 mg PO DAILY [facility] Last Admin: 10/08/16 08:31 Dose: 100 mg Trazodone HCl (Desyrel) 50 mg PO HS PRN PRN Reason: Insomnia Last Admin: 10/07/16 22:12 Dose: 50 mg - Labs Labs: 10/08/16 06:59 - Constitutional Appears: Well, Non-toxic, No Acute Distress - Extremities Exam Additional comments: Vasc: nonpalpable pedal pulses, TG warm to warm, CFT < 3 sec to all digits Neuro: grossly diminished Derm: plantar ulceration of right midfoot measuring 0.8 x 0.4 x 0.3 cm consists of fibro-granular base on a raised hyperkeratotic periwound area covering 4 x 2 cm. No noted malodor, purulence, ascending cellulitis, nor positive [id number]. No active bleeding Musc: right foot 3rd toe amputated, partial amputation of 4th and 5th toes, left foot 2nd toe amputated - Neurological Exam Neurological Exam: Alert, Awake, Oriented x3 Assessment and Plan - Assessment and Plan (Free Text) Assessment: Right foot partial thickness ulceration, ( non-complicated Sánchez Grade 1) secondary to Charcot arthropathy deformities. Plan: Pt seen and evaluated with attending Dr. Wilson. Chart and vitals reviewed. Cleansed wound site with normal saline. Dressed with Acticote, and DSD. Pt to continue full weightbearing to right foot and leg in CAM boot. Podiatry will continue to follow while inhouse. Upon discharge, pt to follow up at [facility] at previously established, regularly scheduled intervals. <Blayne Wilson - Last Filed: 10/11/16 18:21> Objective - Vital Signs/Intake and Output Vital Signs (last 24 hours): Temp Pulse Resp BP Pulse Ox 97.8 F 81 20 114/64 96 10/11/16 07:36 10/11/16 16:19 10/11/16 07:36 10/11/16 16:19 10/07/16 02:39 - Medications Medications: Current Medications Acetaminophen (Tylenol 325mg Tab) 650 mg PO Q6H PRN PRN Reason: Pain, moderate (4-7) Last Admin: 10/10/16 20:01 Dose: 650 mg Aripiprazole (Abilify) 5 mg PO AMHS [facility] Last Admin: 10/11/16 09:42 Dose: 5 mg Chlordiazepoxide (Librium) 50 mg PO Q8 PRN; Protocol PRN Reason: ETOH WITHDRAWAL Last Admin: 10/10/16 21:43 Dose: 50 mg Duloxetine HCl (Cymbalta) 40 mg PO DAILY [facility] Folic Acid (Folic Acid) 1 mg PO DAILY [facility] Last Admin: 10/11/16 08:44 Dose: 1 mg Gabapentin (Neurontin) 300 mg PO TID [facility] PRN Reason: Protocol Last Admin: 10/11/16 17:16 Dose: 300 mg Glimepiride (Amaryl) 4 mg PO ACBD [facility] Last Admin: 10/11/16 17:18 Dose: 4 mg Hydrochlorothiazide (Microzide) 12.5 mg PO DAILY [facility] Last Admin: 10/11/16 08:43 Dose: 12.5 mg Insulin Detemir (Levemir) 100 unit SC HS [facility] Last Admin: 10/10/16 21:43 Dose: 100 unit Insulin Human Lispro (Humalog Low) 0 units SC ACHS [facility] PRN Reason: Protocol Last Admin: 10/11/16 17:27 Dose: Not Given Insulin Human Lispro (Humalog) 24 units SC ACTID [facility] Last Admin: 10/11/16 17:26 Dose: 24 units Lorazepam (Ativan) 1 mg PO TID [facility] PRN Reason: Protocol Last Admin: 10/11/16 17:16 Dose: 1 mg Losartan Potassium (Cozaar) 100 mg PO DAILY [facility] Last Admin: 10/11/16 08:43 Dose: 100 mg Metformin HCl (Glucophage) 1,000 mg PO BID [facility] Last Admin: 10/11/16 17:17 Dose: 1,000 mg Multivitamins (Thera Tab) 1 tab PO DAILY [facility] Last Admin: 10/11/16 08:44 Dose: 1 tab Naltrexone HCl (Revia) 50 mg PO DAILY [facility] Last Admin: 10/11/16 08:45 Dose: 50 mg Sitagliptin Phosphate (Januvia) 50 mg PO BID [facility] Last Admin: 10/11/16 17:16 Dose: 50 mg Thiamine HCl (Vitamin B1 Tab) 100 mg PO DAILY [facility] Last Admin: 10/11/16 08:45 Dose: 100 mg Trazodone HCl (Desyrel) 50 mg PO HS PRN PRN Reason: Insomnia Last Admin: 10/10/16 21:43 Dose: 50 mg - Labs Labs: 10/10/16 05:00 Attending/Attestation - Attestation I have personally seen and examined this patient.: Yes I have fully participated in the care of the patient.: Yes I have reviewed all pertinent clinical information, including history, physical exam and plan: Yes
[2016-10-08] MEDS: Insulin Detemir 100 units/ml Vial (Levemir) SC SCH (22:09)
[2016-10-09] MEDS: Insulin Lispro (humaLOG) LOW Coverage SC SCH ×3 (08:00→17:26)
[2016-10-09] MEDS: Insulin Lispro 1 UNITS/0.01 ML SC SCH ×3 (08:22→17:28)
[2016-10-09] MEDS: Multivitamin Therapeutic Tab PO SCH (08:24)
--- NOTE | 2016-10-09 10:36 | PN ---
DATE: 10/09/2016 A 51-year-old male on the psychiatry unit, being followed for depression, anxiety, history of suicida l ideation. VITAL SIGNS: Show a temp of 98.1, pulse is 82, blood pressure is 127/77, oxygen saturation is 98% on room air, respiratory rate is 20. His blood sugar this morning is reported at 161. His TSH level was 0.8. The patient states that he slept better last night, but still has a little bit of anxiety. He is waiting to meet with the psych iatrist. PHYSICAL EXAMINATION NECK: Supple. LUNGS: Clear. HEART: S1, S2 rhythm. ABDOMEN: Soft with positive bowel sounds. EXTREMITIES: Show no evidence of edema. There is an Unna boot on his right lower extremity. He has a Charcot foot on the right, status post treatment for acute osteomyelitis. He is being followed by podiatry, Dr. Alvarado. He has a history of cirrhosis of the liver, thrombocy topenia secondary to cirrhosis, history of hypertension, insulin-dependent diabetes, suicidal ideatio n, bipolar disorder, anxiety, depression. He has had surgeries on both feet, most recently on the tn ght. MEDICATIONS: At this time consist of Abilify 5 mg at bedtime, Amaryl 4 mg daily, Cozaar 100 mg daily , Cymbalta 20 mg daily, Desyrel 50 mg at bedtime, folic acid 1 mg daily, Glucophage 1000 mg b.i.d. H e is on Humalog insulin 24 units t.i.d. and Januvia 50 mg b.i.d., Levemir 100 units at bedtime. He i s on Librium 50 mg p.o. q. 8 hours for alcohol withdrawal as he had been drinking on the outside. Remy rontin 300 mg t.i.d., Revia 50 mg daily, multivitamin and vitamin B1 complex. He has been seen by Dr. Russ, his portfolio analyst, who has reviewed his medications. He is being foll owed by Dr. Bajwa, the psychiatrist. He is being followed by podiatry for his foot. Will cont inue to monitor the patient closely. He is here for psych social support as well as medical manageme nt. Aspen Fontana MD cc: [id number] TT: 10/09/2016 10:35:30 Confirmation # [id number] Dictation # [id number] rn
--- NOTE | 2016-10-09 17:07 | PN ---
DATE: 10/09/2016 ROOM: 513. SUBJECTIVE: This is a 51-year-old male with recent uncontrolled type 2 insulin-requiring diabetes, p resenting here with major depression and associated alcoholic intoxication on the background of chron ic alcoholism and is now being followed closely for metabolic management. His glycemic levels are fl uctuating, but much improved at this time and the latest glucose levels have ranged from 142-166 mg/d L. His latest chemistries showed a BUN of 10, sodium 137, potassium 3.9, chloride 103, CO2 of 24, gl ucose 196 and creatinine 0.7. His A1c level is 7.1%, which is near optimal in terms of his outpatien t metabolic control of his diabetic condition. So at this time, we will continue the same basal and bolus insulin regimen to allow for dose equilibration and keep him on the Humalog given as 24 units s ubQ t.i.d. before meals as ordered. We will also continue the low-dose correction scale using Humalo g insulin as given. We will continue also the Levemir given as 100 units subQ at bedtime daily as or dered. We will continue his dual oral hypoglycemic drug therapy with Janumet given as b.i.d. a nd Amaryl given as 4 mg b.i.d. before meals as ordered. We will titrate incrementally as indicated t o optimize metabolic control. We will also obtain serial chemistries and supplement accordingly as n eeded. We will follow . Christianne Russ MD cc: [id number] TT: 10/09/2016 17:06:17 Confirmation # [id number] Dictation # [id number] kev
--- NOTE | 2016-10-09 17:21 | PCM.PYCHPN ---
Psychiatric Progress Note - Psychiatric Progress Note Patient seen today, length of contact: 30 minutes Patient Chief Complaint: 'I am very angry, anxious too" Problems Identified/Issues Discussed: Suicide/ homicide prevention, past psychiatric h/o, current psychiatric symptoms , medical problems, risk/benefits and alternatives of medications, medications compliance, coping strategies, substance abuse h/o, relapse prevention, importance of follow up with psychiatrist and therapist, discharge plan. Medical Problems: Insulin-dependent diabetes, Charcot foot, recent osteomyelitis of the right foot , cirrhosis, thrombocytopenia, diabetic neuropathy. Diagnostic Results: 10/06/16 21:30 10/08/16 06:59 Lab Results 10/08/16 11:22: POC Glucose (mg/dL) 257 H 10/08/16 07:16: POC Glucose (mg/dL) 200 H 10/08/16 06:59: TSH 3rd Generation 0.80 10/08/16 06:59: Sodium 137, Potassium 3.9, Chloride 103, Carbon Dioxide 24, Anion Gap 14, BUN 10, Creatinine 0.7, Est GFR ( Amer) > 60, Est GFR (Non- Af Amer) > 60, Random Glucose 196 H, Calcium 9.4, Total Bilirubin 0.9, AST 23, ALT 39, Alkaline Phosphatase 59, Total Protein 7.1, Albumin 4.1, Globulin 3.0, Albumin/Globulin Ratio 1.4, Triglycerides 169 H, Cholesterol 168, LDL Cholesterol Direct 126, HDL Cholesterol 31 10/07/16 21:46: POC Glucose (mg/dL) 289 H 10/07/16 15:45: POC Glucose (mg/dL) 67 10/07/16 11:35: POC Glucose (mg/dL) 214 H 10/07/16 07:17: POC Glucose (mg/dL) 242 H 10/07/16 07:00: Hemoglobin A1c 7.1 H 10/07/16 07:00: Triglycerides 208 H, Cholesterol 172, LDL Cholesterol Direct 123 , HDL Cholesterol 29 10/07/16 04:51: POC Glucose (mg/dL) 248 H 10/06/16 21:30: Alcohol, Quantitative 227 H 10/06/16 21:30: Salicylates < 1 L, Acetaminophen < 10.0 L 10/06/16 21:30: Urine Opiates Screen Negative, Urine Methadone Screen Negative, Ur Barbiturates Screen Negative, Ur Phencyclidine Scrn Negative, Ur Amphetamines Screen Negative, U Benzodiazepines Scrn Negative, U Oth Cocaine Metabols Negative, U Cannabinoids Screen Negative 10/06/16 21:30: Sodium 139, Potassium 3.7, Chloride 101, Carbon Dioxide 21, Anion Gap 21 H, BUN 9, Creatinine 0.8, Est GFR ( Amer) > 60, Est GFR (Non -Af Amer) > 60, Random Glucose 249 H, Calcium 9.5, Total Bilirubin 0.6, AST 33, ALT 38, Alkaline Phosphatase 61, Total Protein 7.4, Albumin 4.5, Globulin 3.0, Albumin/Globulin Ratio 1.5 10/06/16 21:30: Urine Color Yellow, Urine Appearance Clear, Urine pH 6.0, Ur Specific [place] 1.010, Urine Protein Negative, Urine Glucose (UA) 250 H, Urine Ketones Negative, Urine Blood Negative, Urine Nitrate Negative, Urine Bilirubin Negative, Urine Urobilinogen 0.2, Ur Leukocyte Esterase Negative 10/06/16 21:30: WBC 8.4 D, RBC 4.77, Hgb 13.6 L, Hct 39.0 L, MCV 81.8, MCH 28.5 , MCHC 34.9, RDW 14.4, Plt Count 86 L, MPV 10.7, Gran % 68.9 H, Lymph % (Auto) 20.8 L, Rice % (Auto) 8.9 H, Eos % (Auto) 1.2 L, Baso % (Auto) 0.2, Gran # 5.81 , Lymph # 1.8, Rice # 0.8 H, Eos # 0.1, Baso # 0.02 Vital Signs Temp Pulse Pulse Resp BP Pulse Ox 10/08/16 07:18 98.5 F 85 20 141/86 10/07/16 15:56 84 158/89 H 10/07/16 04:32 90 20 10/07/16 02:39 89 18 112/55 L 96 10/07/16 00:21 92 H 18 132/74 98 10/06/16 23:04 105 H 16 146/80 95 10/06/16 20:38 98.1 F 111 H 18 148/79 96 Laboratory Results - last 24 hr 10/08/16 10/09/16 10/09/16 21:25 07:19 11:18 POC Glucose (mg/dL) 142 H 161 H 166 H DSM 5 Symptoms Update: Shortly pt is 51yo male with long and debilitated h/o alcohol dependence, h/o mood disorder, multiple admissions in psych inpatient unit, multiple suicidal attempts, three rehabs in the past, lives at [place] with his , was admitted for evaluation and stabilization of depressive symptoms, suicidal ideation with the plan to jump into the water and "swim into the [place]", pt also relapsed on alcohol, was feeling depressed, hopeless and helpless. Pt was seen and examined next to the nursing station, improved hygiene, pt said that he slept better. pt still reported to be irritable, depressed, hopeless, denied thoughts of harming self or others, pt also said he feels more irritable and angry, as well asked meds for anxiety. pt compliant with meds, was educated about antabuse, campral, narltrexone, pt prefer the last one, pt was educated about potential liver damage, pt verbalized understanding. pt tolerates meds well, no side effects observed or reported. Impression: bipolar, most recent episode mixed alcohol use disorder Medication Change: Yes (abilify increased, ativan and cymbalta) Medical Record Reviewed: Yes Consults ordered or reviewed: med consult appreciated Mental Status Examination - Cognitive Function Orientation: Person Memory: Intact Attention: Poor Concentration: Poor Association: WNL Fund of Knowledge: WNL - Mood Mood: Depressed, Anxious - Affect Affect: Flat - Speech Speech: Appropriate - Formal Thought Process Formal Thought Process: No Impairment - Suicidal Ideation Suicidal Ideation: No - Homicidal Ideation Homicidal Ideation: No Goal/Treatment Plan - Goal/Treatment Plan Need for Continued Stay: Remain at risks for inpatient hospitalization, Severe depression anxiety, Discharge may exacerbated symptoms, Failed transitioning, Severe functional impairment Progress Toward Problem(s) and Goals/Treatment Plan: milieu/structure/supportive therapy Cymbalta 30 mg daily for depression and anxiety, diabetes neuropathy Neurontin 300 mg 3 times a day for neuropathy as well as mood stabilization as well as anxiety and cravings Abilify 5 mg amhs as a mood stabilizer ativan 0.5mg tid for anxiety Multivitamins, folic acid, thiamine will be started naltrexone 50 mg daily for cravings, patient had history of cirrhosis, will monitor LFTs closely family involvement SW evaluation medical consult appreciated [facility] tomorrow to f/u on LFT Estimated Date of D/C: 10/11/16 (we'll monitor closely)
[2016-10-09] MEDS: Insulin Detemir 100 units/ml Vial (Levemir) SC SCH (22:00)
[2016-10-10] MEDS: Insulin Lispro 1 UNITS/0.01 ML SC SCH ×3 (08:27→17:37)
[2016-10-10 08:31] LABS: ALB/GLOB RATIO 1.3 (1.1-1.8); ALKALINE PHOSPHATASE 68 U/L (38-133); ALT/SGPT 43 U/L (7-56); AST/SGOT 31 U/L (15-59); BILIRUBIN,TOTAL 0.8 mg/dL (0.2-1.3); BLOOD UREA NITROGEN 12 mg/dL (7-21); CALCIUM 9.5 mg/dL (8.4-10.5); CARBON DIOXIDE 25 mmol/L (21-33); CHLORIDE 103 mmol/L (98-107); GFR AFRICAN-AMERICAN > 60; GLUCOSE,RANDOM 150 mg/dL (70-110); POTASSIUM 4.4 mmol/L (3.6-5.0); SODIUM 137 mmol/L (132-148); TOTAL PROTEIN 7.5 g/dL (5.8-8.3)
[2016-10-10] MEDS: Multivitamin Therapeutic Tab PO SCH (08:40)
[2016-10-10] MEDS: Insulin Lispro (humaLOG) LOW Coverage SC SCH ×4 (10:26→21:41)
--- NOTE | 2016-10-10 10:28 | PN ---
DATE: 10/10/2016 The patient this morning states that he met with the psychiatrist yesterday who is adjusting his medi cations. He says he is sleeping at night. PHYSICAL EXAMINATION: VITAL SIGNS: His temp is 98, his pulse is 84, his blood pressure is 136/90, his respiratory rate is 20. His blood sugar this morning was 152: GENERAL: He is alert and oriented x 3, a bit anxious. LUNGS: Clear. HEART: An S1, S2 rhythm. ABDOMEN: Soft with positive bowel sounds. EXTREMITIES: There is a surgical boot on his right foot where he is being followed by podiatry post- treatment for osteomyelitis of the right foot. He has Charcot foot. He has a history of cirrhosis of the liver with thrombocytopenia, hypertension, insulin-dependent estrellita betes and osteomyelitis. He is being followed by psychiatry for his bipolar disorder, suicidal ideat ion, anxiety and depression. Currently, he is on Abilify 5 mg at bedtime, Amaryl 4 mg b.i.d., Ativan 0.5 mg t.i.d., Cozaar 100 mg daily, Cymbalta 30 mg daily, Desyrel 50 mg at bedtime, folic acid 1 mg daily, Glucophage 1000 mg b.i. d. Humalog 24 units t.i.d. and a sliding low scale with Humalog, Januvia 50 mg b.i.d., Levemir 100 u nits at bedtime, Librium 50 mg p.r.n. for alcohol withdrawal, hydrochlorothiazide 12.5 mg daily, Neur ontin 300 mg t.i.d. for peripheral neuropathy, Revia 50 mg daily and multivitamin. He is also on thi amine. The patient is being followed by Dr. Russ, his emergency response technician, and by podiatry for his wound care. Aspen Fontana MD cc: [id number] TT: 10/10/2016 10:28:11 Confirmation # [id number] Dictation # [id number] tn
--- NOTE | 2016-10-10 10:43 | PN ---
DATE: 10/10/2016 This is a 51-year-old diabetic male seen for followup of an ulceration on the plantar aspect of his r ight foot secondary to an exostosectomy of bone and he has just finished a 4-week course of IV antibi otics. The patient's dressing is clean, dry and intact. Upon removal of the dressing, there is a sm all ulceration remaining that measures 0.4 x 0.1 x 0.1 cm. There is minimal drainage. There is no c ellulitis. There is a small amount of callus built up, but no fluctuance or edema is noted in the fo ot. LABORATORY DATA: The patient's labs were reviewed. They are from 10/06. At that time, he had an 8.4 white blood cell count and his SMA was grossly within normal except for the glucose which was at 150 . ASSESSMENT: Diabetic with bilateral Charcot foot, history of osteomyelitis to the right foot, post-a ntibiotic use. PLAN OF TREATMENT: Local care. I put an Acticoat 7-day dressing on the patient's foot with a foam d ressing. He is to leave that in place until I see him again on Friday. Leigh Ann Alvarado DPM cc: [id number] TT: 10/10/2016 10:42:20 Confirmation # [id number] Dictation # [id number] tn
--- NOTE | 2016-10-10 14:00 | PN ---
DATE: 10/10/2016 ROOM: 513, psychiatry. SUBJECTIVE: This is a 51-year-old male with recent uncontrolled type 2 insulin-requiring diabetes, p resenting here with major depression and behavioral disturbances also related to recent alcoholic int oxication and is now being followed closely for metabolic management. His glycemic levels are fluctu ating, but much improved at this time and have ranged from 152 to 180 mg/dL. It was 148 to 193 at be dtime last night. The latest chemistry showed a BUN of 12, sodium 137, potassium 4.4, chloride 103, CO2 25, glucose 150, and creatinine 0.5. So, at this time, we will continue the same basal and bolus insulin regimen to allow for dose equilibration and keep him on the Humalog given as 24 units subQ t .i.d. before meals as ordered. We will continue the basal insulin given as Levemir at 100 units subQ at bedtime daily as ordered. We will continue the low-dose correction scale using Humalog insulin a s given. We will also continue his oral hypoglycemic drug therapy given in the dual drug combination with Janumet given at 51,000 b.i.d. and Amaryl given as 4 mg b.i.d. before meals as ordered. We jasmyn l titrate incrementally as indicated to optimize metabolic control. We will follow. Christianne Russ MD cc: [id number] TT: 10/10/2016 13:59:51 Confirmation # [id number] Dictation # [id number] tapan
--- NOTE | 2016-10-10 15:46 | PCM.PYCHPN ---
Psychiatric Progress Note - Psychiatric Progress Note Patient seen today, length of contact: 30 minutes Patient Chief Complaint: 'I am less irritable" Problems Identified/Issues Discussed: Suicide/ homicide prevention, past psychiatric h/o, current psychiatric symptoms , medical problems, risk/benefits and alternatives of medications, medications compliance, coping strategies, substance abuse h/o, relapse prevention, importance of follow up with psychiatrist and therapist, discharge plan. Medical Problems: Insulin-dependent diabetes, Charcot foot, recent osteomyelitis of the right foot , cirrhosis, thrombocytopenia, diabetic neuropathy. Diagnostic Results: 10/06/16 21:30 10/08/16 06:59 Lab Results 10/08/16 11:22: POC Glucose (mg/dL) 257 H 10/08/16 07:16: POC Glucose (mg/dL) 200 H 10/08/16 06:59: TSH 3rd Generation 0.80 10/08/16 06:59: Sodium 137, Potassium 3.9, Chloride 103, Carbon Dioxide 24, Anion Gap 14, BUN 10, Creatinine 0.7, Est GFR ( Amer) > 60, Est GFR (Non- Af Amer) > 60, Random Glucose 196 H, Calcium 9.4, Total Bilirubin 0.9, AST 23, ALT 39, Alkaline Phosphatase 59, Total Protein 7.1, Albumin 4.1, Globulin 3.0, Albumin/Globulin Ratio 1.4, Triglycerides 169 H, Cholesterol 168, LDL Cholesterol Direct 126, HDL Cholesterol 31 10/07/16 21:46: POC Glucose (mg/dL) 289 H 10/07/16 15:45: POC Glucose (mg/dL) 67 10/07/16 11:35: POC Glucose (mg/dL) 214 H 10/07/16 07:17: POC Glucose (mg/dL) 242 H 10/07/16 07:00: Hemoglobin A1c 7.1 H 10/07/16 07:00: Triglycerides 208 H, Cholesterol 172, LDL Cholesterol Direct 123 , HDL Cholesterol 29 10/07/16 04:51: POC Glucose (mg/dL) 248 H 10/06/16 21:30: Alcohol, Quantitative 227 H 10/06/16 21:30: Salicylates < 1 L, Acetaminophen < 10.0 L 10/06/16 21:30: Urine Opiates Screen Negative, Urine Methadone Screen Negative, Ur Barbiturates Screen Negative, Ur Phencyclidine Scrn Negative, Ur Amphetamines Screen Negative, U Benzodiazepines Scrn Negative, U Oth Cocaine Metabols Negative, U Cannabinoids Screen Negative 10/06/16 21:30: Sodium 139, Potassium 3.7, Chloride 101, Carbon Dioxide 21, Anion Gap 21 H, BUN 9, Creatinine 0.8, Est GFR ( Amer) > 60, Est GFR (Non -Af Amer) > 60, Random Glucose 249 H, Calcium 9.5, Total Bilirubin 0.6, AST 33, ALT 38, Alkaline Phosphatase 61, Total Protein 7.4, Albumin 4.5, Globulin 3.0, Albumin/Globulin Ratio 1.5 10/06/16 21:30: Urine Color Yellow, Urine Appearance Clear, Urine pH 6.0, Ur Specific [place] 1.010, Urine Protein Negative, Urine Glucose (UA) 250 H, Urine Ketones Negative, Urine Blood Negative, Urine Nitrate Negative, Urine Bilirubin Negative, Urine Urobilinogen 0.2, Ur Leukocyte Esterase Negative 10/06/16 21:30: WBC 8.4 D, RBC 4.77, Hgb 13.6 L, Hct 39.0 L, MCV 81.8, MCH 28.5 , MCHC 34.9, RDW 14.4, Plt Count 86 L, MPV 10.7, Gran % 68.9 H, Lymph % (Auto) 20.8 L, [place] % (Auto) 8.9 H, Eos % (Auto) 1.2 L, Baso % (Auto) 0.2, Gran # 5.81 , Lymph # 1.8, [place] # 0.8 H, Eos # 0.1, Baso # 0.02 Vital Signs Temp Pulse Pulse Resp BP Pulse Ox 10/08/16 07:18 98.5 F 85 20 141/86 10/07/16 15:56 84 158/89 H 10/07/16 04:32 90 20 10/07/16 02:39 89 18 112/55 L 96 10/07/16 00:21 92 H 18 132/74 98 10/06/16 23:04 105 H 16 146/80 95 10/06/16 20:38 98.1 F 111 H 18 148/79 96 Laboratory Results - last 24 hr 10/08/16 10/09/16 10/09/16 21:25 07:19 11:18 POC Glucose (mg/dL) 142 H 161 H 166 H Laboratory Results - last 24 hr 10/09/16 10/09/16 10/10/16 17:08 21:25 05:00 Sodium 137 Potassium 4.4 Chloride 103 Carbon Dioxide 25 Anion Gap 13 BUN 12 Creatinine 0.7 Est GFR ( Amer) > 60 Est GFR (Non-Af Amer) > 60 POC Glucose (mg/dL) 148 H 193 H Random Glucose 150 H Calcium 9.5 Total Bilirubin 0.8 AST 31 ALT 43 Alkaline Phosphatase 68 Total Protein 7.5 Albumin 4.2 Globulin 3.3 Albumin/Globulin Ratio 1.3 10/10/16 10/10/16 07:10 11:07 Sodium Potassium Chloride Carbon Dioxide Anion Gap BUN Creatinine Est GFR ( Amer) Est GFR (Non-Af Amer) POC Glucose (mg/dL) 152 H 180 H Random Glucose Calcium Total Bilirubin AST ALT Alkaline Phosphatase Total Protein Albumin Globulin Albumin/Globulin Ratio DSM 5 Symptoms Update: Shortly pt is 51yo male with long and debilitated h/o alcohol dependence, h/o mood disorder, multiple admissions in psych inpatient unit, multiple suicidal attempts, three rehabs in the past, lives at [place] with his , was admitted for evaluation and stabilization of depressive symptoms, suicidal ideation with the plan to jump into the water and "swim into the [place]", pt also relapsed on alcohol, was feeling depressed, hopeless and helpless. Pt was seen and examined next to the nursing station, improved hygiene, pt said that he slept better. pt still reported to be irritable "but less doctor", depressed, hopeless, denied thoughts of harming self or others, pt also said he feels more irritable and angry, as well asked meds for anxiety. pt compliant with meds, was educated about antabuse, campral, narltrexone, pt prefer the last one, pt was educated about potential liver damage, pt verbalized understanding. pt tolerates meds well, no side effects observed or reported. Impression: bipolar, most recent episode mixed alcohol use disorder Medication Change: Yes (abilify increased, ativan and cymbalta) Medical Record Reviewed: Yes Consults ordered or reviewed: med consult appreciated Mental Status Examination - Cognitive Function Orientation: Person Memory: Intact Attention: Poor Concentration: Poor Association: WNL Fund of Knowledge: WNL - Mood Mood: Depressed, Anxious - Affect Affect: Flat - Speech Speech: Appropriate - Formal Thought Process Formal Thought Process: No Impairment - Suicidal Ideation Suicidal Ideation: No - Homicidal Ideation Homicidal Ideation: No Goal/Treatment Plan - Goal/Treatment Plan Need for Continued Stay: Remain at risks for inpatient hospitalization, Severe depression anxiety, Discharge may exacerbated symptoms, Failed transitioning, Severe functional impairment Progress Toward Problem(s) and Goals/Treatment Plan: milieu/structure/supportive therapy Cymbalta 30 mg daily for depression and anxiety, diabetes neuropathy Neurontin 300 mg 3 times a day for neuropathy as well as mood stabilization as well as anxiety and cravings Abilify 5 mg amhs as a mood stabilizer ativan 0.5mg tid for anxiety Multivitamins, folic acid, thiamine will be started naltrexone 50 mg daily for cravings, patient had history of cirrhosis, will monitor LFTs closely family involvement SW evaluation medical consult appreciated ALT AST WNL Estimated Date of D/C: 10/11/16 (we'll monitor closely)
[2016-10-10] MEDS: Insulin Detemir 100 units/ml Vial (Levemir) SC SCH (21:43)
[2016-10-11] MEDS: Insulin Lispro (humaLOG) LOW Coverage SC SCH ×4 (08:43→22:08)
[2016-10-11] MEDS: Multivitamin Therapeutic Tab PO SCH (08:44)
[2016-10-11] MEDS: Insulin Lispro 1 UNITS/0.01 ML SC SCH ×3 (09:31→17:26)
--- NOTE | 2016-10-11 09:34 | PN ---
DATE: 10/11/2016 A 51-year-old male on the psych unit, being followed for depression, anxiety, suicidal ideation histo ry, bipolar disorder history. He also has a history of cirrhosis, thrombocytopenia, insulin-dependen t diabetes, history of Charcot foot, history of podiatric surgery on the Charcot foot, history of ost eomyelitis of the right foot. This morning, the nursing staff relates that the patient is doing okay . PHYSICAL EXAMINATION: VITAL SIGNS: His temp is 97.8, his pulse is 82, his blood pressure is 124/76. NECK: Supple. LUNGS: Clear. HEART: Has an S1, S2 rhythm. ABDOMEN: Soft with positive bowel sounds. EXTREMITIES: Show no evidence of edema. He is wearing a podiatric boot for support on his right naomie t and is being followed by podiatry. He states this morning that he has been getting some low back p ain across the lower back. On physical exam, there is some mild tenderness in the mid lumbar area. We will get an x-ray of this area as discussed with the patient and follow up. He continues on Abili fy 5 mg at bedtime, Amaryl 4 mg b.i.d., Ativan 0.5 mg t.i.d., Cozaar 100 mg daily, Cymbalta 30 mg karan ly, Desyrel 50 mg at bedtime, folic acid 1 mg daily, Glucophage 1000 mg b.i.d., Humalog 24 units t.i. d., insulin lispro scale, Januvia 50 mg b.i.d., Levemir 100 units at bedtime, Librium 50 mg q. 8 hour s p.r.n. for alcohol withdrawal, hydrochlorothiazide 12.5 mg daily, Neurontin 300 t.i.d., Revia 50 mg daily, multivitamins daily, Tylenol q. 6 hours p.r.n. and vitamin B 100 mg daily. Aspen Fontana MD cc: [id number] TT: 10/11/2016 09:34:14 Confirmation # [id number] Dictation # [id number] cn
--- NOTE | 2016-10-11 10:35 | RAD ---
PROCEDURE: Radiographs of the Lumbar Spine. HISTORY: bach pain COMPARISON: No prior. FINDINGS: BONES: Normal alignment. No listhesis. No fracture. DISC SPACES: Unremarkable. OTHER FINDINGS: None. IMPRESSION: Unremarkable radiographs of the lumbar spine.
--- NOTE | 2016-10-11 15:09 | PCM.PYCHPN ---
Psychiatric Progress Note - Psychiatric Progress Note Patient seen today, length of contact: 30 minutes Patient Chief Complaint: "look, I am shacking...." Problems Identified/Issues Discussed: Suicide/ homicide prevention, past psychiatric h/o, current psychiatric symptoms , medical problems, risk/benefits and alternatives of medications, medications compliance, coping strategies, substance abuse h/o, relapse prevention, importance of follow up with psychiatrist and therapist, discharge plan. Medical Problems: Insulin-dependent diabetes, Charcot foot, recent osteomyelitis of the right foot , cirrhosis, thrombocytopenia, diabetic neuropathy. Diagnostic Results: 10/06/16 21:30 10/08/16 06:59 Lab Results 10/08/16 11:22: POC Glucose (mg/dL) 257 H 10/08/16 07:16: POC Glucose (mg/dL) 200 H 10/08/16 06:59: TSH 3rd Generation 0.80 10/08/16 06:59: Sodium 137, Potassium 3.9, Chloride 103, Carbon Dioxide 24, Anion Gap 14, BUN 10, Creatinine 0.7, Est GFR ( Amer) > 60, Est GFR (Non- Af Amer) > 60, Random Glucose 196 H, Calcium 9.4, Total Bilirubin 0.9, AST 23, ALT 39, Alkaline Phosphatase 59, Total Protein 7.1, Albumin 4.1, Globulin 3.0, Albumin/Globulin Ratio 1.4, Triglycerides 169 H, Cholesterol 168, LDL Cholesterol Direct 126, HDL Cholesterol 31 10/07/16 21:46: POC Glucose (mg/dL) 289 H 10/07/16 15:45: POC Glucose (mg/dL) 67 10/07/16 11:35: POC Glucose (mg/dL) 214 H 10/07/16 07:17: POC Glucose (mg/dL) 242 H 10/07/16 07:00: Hemoglobin A1c 7.1 H 10/07/16 07:00: Triglycerides 208 H, Cholesterol 172, LDL Cholesterol Direct 123 , HDL Cholesterol 29 10/07/16 04:51: POC Glucose (mg/dL) 248 H 10/06/16 21:30: Alcohol, Quantitative 227 H 10/06/16 21:30: Salicylates < 1 L, Acetaminophen < 10.0 L 10/06/16 21:30: Urine Opiates Screen Negative, Urine Methadone Screen Negative, Ur Barbiturates Screen Negative, Ur Phencyclidine Scrn Negative, Ur Amphetamines Screen Negative, U Benzodiazepines Scrn Negative, U Oth Cocaine Metabols Negative, U Cannabinoids Screen Negative 10/06/16 21:30: Sodium 139, Potassium 3.7, Chloride 101, Carbon Dioxide 21, Anion Gap 21 H, BUN 9, Creatinine 0.8, Est GFR ( Amer) > 60, Est GFR (Non -Af Amer) > 60, Random Glucose 249 H, Calcium 9.5, Total Bilirubin 0.6, AST 33, ALT 38, Alkaline Phosphatase 61, Total Protein 7.4, Albumin 4.5, Globulin 3.0, Albumin/Globulin Ratio 1.5 10/06/16 21:30: Urine Color Yellow, Urine Appearance Clear, Urine pH 6.0, Ur Specific [place] 1.010, Urine Protein Negative, Urine Glucose (UA) 250 H, Urine Ketones Negative, Urine Blood Negative, Urine Nitrate Negative, Urine Bilirubin Negative, Urine Urobilinogen 0.2, Ur Leukocyte Esterase Negative 10/06/16 21:30: WBC 8.4 D, RBC 4.77, Hgb 13.6 L, Hct 39.0 L, MCV 81.8, MCH 28.5 , MCHC 34.9, RDW 14.4, Plt Count 86 L, MPV 10.7, Gran % 68.9 H, Lymph % (Auto) 20.8 L, [place] % (Auto) 8.9 H, Eos % (Auto) 1.2 L, Baso % (Auto) 0.2, Gran # 5.81 , Lymph # 1.8, [place] # 0.8 H, Eos # 0.1, Baso # 0.02 Vital Signs Temp Pulse Pulse Resp BP Pulse Ox 10/08/16 07:18 98.5 F 85 20 141/86 10/07/16 15:56 84 158/89 H 10/07/16 04:32 90 20 10/07/16 02:39 89 18 112/55 L 96 10/07/16 00:21 92 H 18 132/74 98 10/06/16 23:04 105 H 16 146/80 95 10/06/16 20:38 98.1 F 111 H 18 148/79 96 Laboratory Results - last 24 hr 10/08/16 10/09/16 10/09/16 21:25 07:19 11:18 POC Glucose (mg/dL) 142 H 161 H 166 H Laboratory Results - last 24 hr 10/09/16 10/09/16 10/10/16 17:08 21:25 05:00 Sodium 137 Potassium 4.4 Chloride 103 Carbon Dioxide 25 Anion Gap 13 BUN 12 Creatinine 0.7 Est GFR ( Amer) > 60 Est GFR (Non-Af Amer) > 60 POC Glucose (mg/dL) 148 H 193 H Random Glucose 150 H Calcium 9.5 Total Bilirubin 0.8 AST 31 ALT 43 Alkaline Phosphatase 68 Total Protein 7.5 Albumin 4.2 Globulin 3.3 Albumin/Globulin Ratio 1.3 10/10/16 10/10/16 07:10 11:07 Sodium Potassium Chloride Carbon Dioxide Anion Gap BUN Creatinine Est GFR ( Amer) Est GFR (Non-Af Amer) POC Glucose (mg/dL) 152 H 180 H Random Glucose Calcium Total Bilirubin AST ALT Alkaline Phosphatase Total Protein Albumin Globulin Albumin/Globulin Ratio Temp Pulse Resp BP Pulse Ox 97.8 F 82 20 124/76 96 10/11/16 07:36 10/11/16 07:36 10/11/16 07:36 10/11/16 07:36 10/07/16 02:39 DSM 5 Symptoms Update: Shortly pt is 51yo male with long and debilitated h/o alcohol dependence, h/o mood disorder, multiple admissions in psych inpatient unit, multiple suicidal attempts, three rehabs in the past, lives at [place] with his , was admitted for evaluation and stabilization of depressive symptoms, suicidal ideation with the plan to jump into the water and "swim into the [place]", pt also relapsed on alcohol, was feeling depressed, hopeless and helpless. Pt was seen and examined next to the nursing station, improved hygiene, pt said that he slept better. pt still reported to be irritable "but less doctor", depressed, hopeless, denied thoughts of harming self or others, pt also said he feels more irritable and angry, pt c/o to be feeling "anxious and not on ease, look I am shaking..." . ativan will be increased. pt will also expressed willingness for family session at 's office (local psychiatrist). pt compliant with meds, was educated about antabuse, campral, narltrexone, pt prefer the last one, pt was educated about potential liver damage, pt verbalized understanding. pt tolerates meds well, no side effects observed or reported. Impression: bipolar, most recent episode mixed alcohol use disorder Medication Change: Yes (ativan, cymbalta increased) Medical Record Reviewed: Yes Consults ordered or reviewed: med consult appreciated Mental Status Examination - Cognitive Function Orientation: Person Memory: Intact Attention: Poor (some improvement) Concentration: Poor (some improvement) Association: WNL Fund of Knowledge: WNL - Mood Mood: Depressed, Anxious - Affect Affect: Flat - Speech Speech: Appropriate - Formal Thought Process Formal Thought Process: No Impairment - Suicidal Ideation Suicidal Ideation: No - Homicidal Ideation Homicidal Ideation: No Goal/Treatment Plan - Goal/Treatment Plan Need for Continued Stay: Remain at risks for inpatient hospitalization, Severe depression anxiety, Discharge may exacerbated symptoms, Failed transitioning, Severe functional impairment Progress Toward Problem(s) and Goals/Treatment Plan: milieu/structure/supportive therapy Cymbalta 40 mg daily for depression and anxiety, diabetes neuropathy Neurontin 300 mg 3 times a day for neuropathy as well as mood stabilization as well as anxiety and cravings Abilify 5 mg amhs as a mood stabilizer ativan 1mg tid for anxiety Multivitamins, folic acid, thiamine will be started naltrexone 50 mg daily for cravings, patient had history of cirrhosis, will monitor LFTs closely family involvement SW evaluation medical consult appreciated ALT AST WNL Estimated Date of D/C: 10/11/16 (we'll monitor closely)
--- NOTE | 2016-10-11 21:50 | PN ---
DATE: 10/11/2016 ROOM: 513 SUBJECTIVE: This is a 51-year-old male with recent uncontrolled type 2 insulin-requiring diabetes, a dmitted to the psychiatric unit for major depression and is now being followed closely for metabolic management. His glycemic values are fluctuating, but much improved at this time and his glucose leve ls have ranged from 139 to 168 mg/dL. His latest chemistry showed a BUN of 12, sodium 137, potassium 4.4, chloride 103, CO2 25, glucose 150 and creatinine 0.7. So, at this time, we will continue the s jeremy basal and bolus insulin regimen to allow for dose equilibration and keep him on the Humalog given as 24 units subQ t.i.d. before meals as ordered. We will continue the Levemir given as 100 units obrien bQ at bedtime daily as ordered. We will titrate incrementally as indicated to optimize metabolic con trol. We will follow. Christianne Russ MD cc: [id number] TT: 10/11/2016 21:49:44 Confirmation # [id number] Dictation # [id number] jn
[2016-10-11] MEDS: Insulin Detemir 100 units/ml Vial (Levemir) SC SCH (22:09)
--- NOTE | 2016-10-12 08:28 | PCM.PYCHPN ---
Psychiatric Progress Note - Psychiatric Progress Note Patient seen today, length of contact: 25 minutes Patient Chief Complaint: "pretty good" Problems Identified/Issues Discussed: I reviewed recent notes and spoke with patient in the dayroom. He is alert, well -oriented, groomed and superficially pleasant. He reports feeling "pretty good" and he is more hopeful. Affect is congruent and appropriately reactive. Patient reports his sleep and appetite are good. Patient has been taking his medications and denies discomfort, pain or side effects. Staff notes indicate that patient continues to be in good control, visible and attending groups. Social with peers. Insight and judgment are improving. Diagnostic Results: bipolar, most recent episode mixed alcohol use disorder Medication Change: No ( ) Medical Record Reviewed: Yes (reports, notes, vitals, labs) Mental Status Examination - Cognitive Function Orientation: Person Memory: Intact Attention: Poor (some improvement) Concentration: Poor (some improvement) Association: WNL Fund of Knowledge: WNL - Mood Mood: Depressed ("pretty good"), Anxious - Affect Affect: Flat - Speech Speech: Appropriate - Formal Thought Process Formal Thought Process: No Impairment - Suicidal Ideation Suicidal Ideation: No - Homicidal Ideation Homicidal Ideation: No Goal/Treatment Plan - Goal/Treatment Plan Need for Continued Stay: Remain at risks for inpatient hospitalization, Severe depression anxiety, Discharge may exacerbated symptoms, Failed transitioning, Severe functional impairment Progress Toward Problem(s) and Goals/Treatment Plan: * c/w current tx and plan * No new weekend labs * Vitals reviewed and noted below: Selected Entries 10/11/16 10/11/16 07:36 16:19 Temperature 97.8 F Pulse Rate 82 81 Respiratory 20 Rate Blood Pressure 124/76 114/64 Estimated Date of D/C: 10/11/16 (we'll monitor closely)
[2016-10-12] MEDS: Insulin Lispro (humaLOG) LOW Coverage SC SCH ×4 (10:04→22:32)
[2016-10-12] MEDS: Multivitamin Therapeutic Tab PO SCH (10:22)
[2016-10-12] MEDS: Insulin Lispro 1 UNITS/0.01 ML SC SCH ×4 (10:27→18:33)
--- NOTE | 2016-10-12 14:01 | PN ---
DATE: 10/12/2016 A 51-year-old male on the psychiatry unit, being followed for bipolar disorder, depression, anxiety, and history of suicidal ideation in the past. PHYSICAL EXAMINATION: VITAL SIGNS: Temp is 97.8, pulse is 79, blood pressure is 108/73, respiratory rate is 18. GENERAL: The patient states that he is feeling a bit better today, calmer, sleeping better. LUNGS: Clear. HEART: S1, S2 rhythm. ABDOMEN: Soft with positive bowel sounds. EXTREMITIES: Show no evidence of edema. He has a surgical boot on his right foot. He offers no specific complaints about back pain this morning. The x-ray that was done of the lumbar spine was reported as showing no acute findings. His blood sugar this morning fasting was 97. He continued to be monitored by psychiatry, followed by endocrinology for his non-insulin dependent d iabetes. He has cirrhosis, thrombocytopenia, hypertension. We will continue to monitor the patient closely at this time. Aspen Fontana MD cc: [id number] TT: 10/12/2016 14:00:49 Confirmation # [id number] Dictation # [id number] jn
--- NOTE | 2016-10-12 18:40 | PN ---
DATE: 10/12/2016 ROOM: 513 SUBJECTIVE: This is a 51-year-old male with recent uncontrolled type 2 insulin-requiring diabetes, n ow being followed closely for metabolic management. He is undergoing closer psychiatric evaluation a nd management following a recent bout of major depression and alcoholic intoxication on the backgroun d of chronic alcoholism. His glycemic levels are fluctuating, but much improved at this time and the latest glucose levels have ranged from 97 to 193 and 249 mg/dL. His latest chemistry showed a BUN o f 12, sodium 137, potassium 4.4, chloride 103, CO2 25, glucose 150, and creatinine 0.7. So, at this time, we will continue the same basal and bolus insulin regimen to allow for dose equilibration and k eep him on the Levemir given as 100 units subQ at bedtime daily as ordered. We will also continue th e Humalog given as 24 units subQ t.i.d. before meals as given. We will continue the dual oral hypogl ycemic drug therapy given as Janumet at 51,000 b.i.d. before meals and Amaryl given as 4 mg b.i.d. as ordered. We will obtain serial chemistries and supplement accordingly as needed. We will also cont inue the low-dose correction scale using Humalog insulin to obviate hypoglycemia and detailed orders have been given. We will follow and advise accordingly. Christianne Russ MD cc: [id number] TT: 10/12/2016 18:38:37 Confirmation # [id number] Dictation # [id number] tapan
[2016-10-12] MEDS: Insulin Detemir 100 units/ml Vial (Levemir) SC SCH (22:34)
[2016-10-13 07:46] VITALS: RESP 20
[2016-10-13 08:01] LABS: ADD MANUAL DIFF? NO
[2016-10-13 08:19] LABS: BASO # 0.02 K/mm3 (0.0-2.0); BASO % 0.3 % (0.0-3.0); EOS # 0.1 (0.0-0.7); EOS % 2.2 % (1.5-5.0); GRAN # 4.64 (1.4-6.5); GRAN % 72.6 % (50.0-68.0); HEMATOCRIT 40.3 % (42.0-52.0); LYMPH # 1.1 (1.2-3.4); LYMPH % 16.9 % (22.0-35.0); MEAN CELL VOLUME 83.6 fL (80.0-105.0); MEAN CORPUSCULAR HEMOGLOBIN 28.6 pg (25.0-35.0); MEAN CORPUSCULAR HGB CONC 34.2 g/dl (31.0-37.0); MEAN PLATELET VOLUME 10.6 fl (7.0-11.0); MONO # 0.5 (0.1-0.6); PLATELET COUNT 87 10^3/uL (120.0-450.0); WHITE BLOOD COUNT 6.4 10^3/ul (4.5-11.0)
[2016-10-13 08:28] LABS: ALB/GLOB RATIO 1.3 (1.1-1.8); ALKALINE PHOSPHATASE 74 U/L (38-133); ALT/SGPT 47 U/L (7-56); AST/SGOT 33 U/L (15-59); BILIRUBIN,TOTAL 0.6 mg/dL (0.2-1.3); BLOOD UREA NITROGEN 13 mg/dL (7-21); CALCIUM 9.3 mg/dL (8.4-10.5); CARBON DIOXIDE 28 mmol/L (21-33); CHLORIDE 102 mmol/L (98-107); GFR AFRICAN-AMERICAN > 60; GLUCOSE,RANDOM 149 mg/dL (70-110); POTASSIUM 4.7 mmol/L (3.6-5.0); SODIUM 138 mmol/L (132-148); TOTAL PROTEIN 7.5 g/dL (5.8-8.3)
--- NOTE | 2016-10-13 08:33 | PCM.PYCHPN ---
Psychiatric Progress Note - Psychiatric Progress Note Patient seen today, length of contact: 25 minutes Patient Chief Complaint: "pretty good" Problems Identified/Issues Discussed: I reviewed recent notes and spoke with patient in the dayroom. He remains alert , well-oriented, groomed and superficially pleasant. He reports feeling "pretty good" and he is more hopeful. Affect is congruent and appropriately reactive. Patient reports his sleep and appetite are good. Patient has been taking his medications and denies discomfort, pain or side effects. Staff notes indicate that patient continues to be in good control, visible and attending groups. Social with peers and active in the community. Insight and judgment are improving. There were no behavioral issues over the weekend. Diagnostic Results: bipolar, most recent episode mixed alcohol use disorder Medication Change: Yes ( d/c librium) Medical Record Reviewed: Yes (reports, notes, vitals, labs) Mental Status Examination - Cognitive Function Orientation: Person Memory: Intact Attention: Poor (some improvement) Concentration: Poor (some improvement) Association: WNL Fund of Knowledge: WNL - Mood Mood: Depressed ("pretty good"), Anxious - Affect Affect: Flat - Speech Speech: Appropriate - Formal Thought Process Formal Thought Process: No Impairment - Suicidal Ideation Suicidal Ideation: No - Homicidal Ideation Homicidal Ideation: No Goal/Treatment Plan - Goal/Treatment Plan Need for Continued Stay: Remain at risks for inpatient hospitalization, Severe depression anxiety, Discharge may exacerbated symptoms, Failed transitioning, Severe functional impairment Progress Toward Problem(s) and Goals/Treatment Plan: * c/w current tx and plan * Appreciate f/u by Dr. Russ on 10/12/16~ordering serial chemistries & supplementing. Will follow and advised accordingly * Appreciate f/u by Dr. Fontana on 10/12/16~will continue to monitor patient closely at this time * d/c'ed librium 50 mg q8 prn on 10/13/16, patient was only receiving one dose daily at night, remains on Ativan 1 mg po TID. * Vitals reviewed and noted below: Selected Entries 10/11/16 10/12/16 10/12/16 16:19 06:39 14:00 Temperature 97.8 F Pulse Rate 81 79 87 Respiratory 18 Rate Blood Pressure 114/64 108/73 158/95 H 10/13/16 07:45 Temperature 97.7 F Pulse Rate 84 Respiratory 20 Rate Blood Pressure 154/95 H * New weekend labs noted below: Laboratory Results - last 24 hr 10/12/16 10/12/16 10/12/16 11:46 17:04 22:26 WBC RBC Hgb Hct MCV MCH MCHC RDW Plt Count MPV Gran % Lymph % (Auto) [place] % (Auto) Eos % (Auto) Baso % (Auto) Gran # Lymph # [place] # Eos # Baso # POC Glucose (mg/dL) 193 H 249 H 177 H 10/13/16 10/13/16 07:00 07:17 WBC 6.4 D RBC 4.82 Hgb 13.8 L Hct 40.3 L MCV 83.6 MCH 28.6 MCHC 34.2 RDW 15.0 H Plt Count 87 L MPV 10.6 Gran % 72.6 H Lymph % (Auto) 16.9 L [place] % (Auto) 8.0 H Eos % (Auto) 2.2 Baso % (Auto) 0.3 Gran # 4.64 Lymph # 1.1 L [place] # 0.5 Eos # 0.1 Baso # 0.02 POC Glucose (mg/dL) 151 H Estimated Date of D/C: 10/11/16 (we'll monitor closely)
[2016-10-13] MEDS: Multivitamin Therapeutic Tab PO SCH (09:59)
[2016-10-13] MEDS: Insulin Lispro 1 UNITS/0.01 ML SC SCH ×3 (10:01→17:39)
[2016-10-13] MEDS: Insulin Lispro (humaLOG) LOW Coverage SC SCH ×4 (10:03→22:17)
--- NOTE | 2016-10-13 11:08 | PN ---
DATE: 10/13/2016 This is a 51-year-old male sitting in the dining tse on the psychiatric unit. The patient states th at he slept okay last night and that he is feeling a bit calmer. PHYSICAL EXAMINATION: VITAL SIGNS: His temp is 97.7. His blood pressure was reported at 154/95. His pulse is 84. His re spiratory rate is 20. GENERAL: He is alert and oriented x 3. NECK: Supple. There is no JVD. LUNGS: Clear. HEART: Regular S1, S2 rhythm. ABDOMEN: Soft with positive bowel sounds. EXTREMITIES: Show no evidence of edema. He is wearing a surgical boot on the right foot for managem ent of healing wounds secondary to treatment for osteomyelitis with a history of Charcot foot. LABORATORY DATA: Shows sodium 138, potassium 4.7, chloride 102, the BUN is 13, the creatinine is 0.8 . His blood sugar this morning was 149. His LFTs are normal. CBC shows a WBC of 6.4, RBC 4.82, hem oglobin 13.8, hematocrit 40.3. The platelet count is 87,000. ASSESSMENT AND PLAN: 1. The patient is on psychiatry for severe depression, anxiety, history of bipolar disorder, suicidal ideations history, thoughts in the past, recent return to using alcohol. He is being followed by ps ychiatry, and the psychiatric progress note is noted by Dr. Quintana and by Dr. Bajwa. 2. The patient has insulin-dependent diabetes, is being followed by endocrinology and is continuing his medical regimen as prescribed by endocrinology. 3. He has cirrhosis of the liver. 4. Thrombocytopenia secondary to cirrhosis of liver. 5. He has a history of hypertension. His medications are being given, and we will monitor his blood pressure. 6. Backache with a negative x-ray of the lumbar spine. It is slightly better, although it may be at tributed to his gait, which is distorted because of the boot that he is wearing. We will continue us e of Tylenol on a p.r.n. basis for pain. Continue current level of supportive care. As per psychiat ry and endocrinology. Aspen Fontana MD cc: [id number] TT: 10/13/2016 11:07:35 Confirmation # [id number] Dictation # [id number] mn
[2016-10-13] MEDS: Insulin Detemir 100 units/ml Vial (Levemir) SC SCH (22:17)
--- NOTE | 2016-10-14 08:22 | PN ---
DATE: 10/13/2016 This is a 51-year-old male with recent uncontrolled type 2 insulin-requiring diabetes, now being foll owed closely for metabolic management. His glycemic are fluctuating. for psychiatric evaluati on and management major depressive disorder. Repeat chemistry showed a BUN of 13, sodium 138, potassium 4.7, chloride 102, CO2 of 28, glucose 149 and creatinine 0.8. His glucose levels have rang ed from 151 to 177 mg/dL. So at this point, we will continue the same basal and bolus insulin regime n as given . We will continue the Levemir daily as given. optimize . We will continue also and Amaryl given at 4 mg daily before meals as ordered. We will optimize m etabolic control. . Christianne Russ MD cc: [id number] TT: 10/13/2016 14:23:53 Confirmation # [id number] Dictation # [id number]
[2016-10-14] MEDS: Multivitamin Therapeutic Tab PO SCH (08:24)
[2016-10-14] MEDS: Insulin Lispro (humaLOG) LOW Coverage SC SCH ×4 (08:26→22:26)
[2016-10-14] MEDS: Insulin Lispro 1 UNITS/0.01 ML SC SCH ×3 (08:26→17:20)
--- NOTE | 2016-10-14 13:48 | CP.PCM.PN ---
Subjective - Date & Time of Evaluation Date of Evaluation: 10/14/16 Time of Evaluation: 13:44 - Subjective Subjective: 51 year old male seen at bedside in psych with attending Dr. Alvarado for right foot Charcot wound. Pt has no major pedal complaints at this time. Still ambulating to right lower extremity with CAM boot to offload ulceration site. Pt denies overnight fever, chills chest pain, shortness of breath, nausea, and vomiting. Objective - Vital Signs/Intake and Output Vital Signs (last 24 hours): Temp Pulse Resp BP Pulse Ox 97.5 F L 84 20 156/97 H 96 10/14/16 07:45 10/14/16 07:45 10/14/16 07:45 10/14/16 07:45 10/07/16 02:39 - Medications Medications: Current Medications Acetaminophen (Tylenol 325mg Tab) 650 mg PO Q6H PRN PRN Reason: Pain, moderate (4-7) Last Admin: 10/13/16 22:00 Dose: 650 mg Aripiprazole (Abilify) 5 mg PO AMHS [facility] Last Admin: 10/14/16 12:25 Dose: Not Given Duloxetine HCl (Cymbalta) 40 mg PO DAILY [facility] Last Admin: 10/14/16 08:24 Dose: 40 mg Folic Acid (Folic Acid) 1 mg PO DAILY [facility] Last Admin: 10/14/16 08:23 Dose: 1 mg Gabapentin (Neurontin) 300 mg PO TID [facility] PRN Reason: Protocol Last Admin: 10/14/16 12:30 Dose: 300 mg Glimepiride (Amaryl) 4 mg PO ACBD [facility] Last Admin: 10/14/16 08:23 Dose: 4 mg Hydrochlorothiazide (Microzide) 12.5 mg PO DAILY [facility] Last Admin: 10/14/16 08:25 Dose: 12.5 mg Insulin Detemir (Levemir) 100 unit SC HS [facility] Last Admin: 10/13/16 22:17 Dose: 100 unit Insulin Human Lispro (Humalog Low) 0 units SC ACHS [facility] PRN Reason: Protocol Last Admin: 10/14/16 12:27 Dose: Not Given Insulin Human Lispro (Humalog) 24 units SC ACTID [facility] Last Admin: 10/14/16 12:27 Dose: 24 units Lorazepam (Ativan) 0.5 mg PO TID [facility] PRN Reason: Protocol Last Admin: 10/14/16 12:30 Dose: 0.5 mg Losartan Potassium (Cozaar) 100 mg PO DAILY [facility] Last Admin: 10/14/16 08:25 Dose: 100 mg Metformin HCl (Glucophage) 1,000 mg PO BID [facility] Last Admin: 10/14/16 08:25 Dose: 1,000 mg Multivitamins (Thera Tab) 1 tab PO DAILY [facility] Last Admin: 10/14/16 08:24 Dose: 1 tab Naltrexone HCl (Revia) 50 mg PO DAILY [facility] Last Admin: 10/14/16 08:24 Dose: 50 mg Sitagliptin Phosphate (Januvia) 50 mg PO BID [facility] Last Admin: 10/14/16 08:23 Dose: 50 mg Thiamine HCl (Vitamin B1 Tab) 100 mg PO DAILY [facility] Last Admin: 10/14/16 08:23 Dose: 100 mg Trazodone HCl (Desyrel) 50 mg PO PRN PRN Reason: Insomnia Last Admin: 10/13/16 21:59 Dose: 50 mg - Labs Labs: 10/13/16 07:00 10/13/16 07:00 - Constitutional Appears: Well, Non-toxic, No Acute Distress - Extremities Exam Additional comments: Vasc: nonpalpable pedal pulses, TG warm to warm, CFT < 3 sec to all digits Neuro: grossly diminished Derm: plantar ulceration of right midfoot measuring 0.8 x 0.4 x 0.3 cm consists of fibro-granular base on a raised hyperkeratotic periwound area covering 4 x 2 cm. No noted malodor, purulence, ascending cellulitis, nor positive gtjce-er-phej. No active bleeding Musc: right foot 3rd toe amputated, partial amputation of 4th and 5th toes, left foot 2nd toe amputated - Neurological Exam Neurological Exam: Alert, Awake, Oriented x3 - Psychiatric Exam Psychiatric exam: Normal Affect, Normal Mood Assessment and Plan - Assessment and Plan (Free Text) Assessment: 51 y/o male seen at bedside for Right foot partial thickness ulceration, ( non- complicated Sánchez Grade 1) secondary to Charcot arthropathy deformities. Plan: Pt seen and evaluated with attending Dr. Alvarado Chart and vitals reviewed. Cleansed wound site with normal saline. Dressed with Acticote, and DSD. Pt to continue full weightbearing to right foot and leg in CAM boot. Podiatry will continue to follow while inhouse. Upon discharge, pt to follow up at [facility] at previously established, regularly scheduled intervals.
--- NOTE | 2016-10-14 16:23 | PCM.PYCHPN ---
Psychiatric Progress Note - Psychiatric Progress Note Patient seen today, length of contact: 30min Patient Chief Complaint: "my family does not feel that I am ready for discharge" Problems Identified/Issues Discussed: Suicide/ homicide prevention, past psychiatric h/o, current psychiatric symptoms , medical problems, risk/benefits and alternatives of medications, medications compliance, coping strategies, substance abuse h/o, relapse prevention, importance of follow up with psychiatrist and therapist, discharge plan. Medical Problems: Insulin-dependent diabetes, Charcot foot, recent osteomyelitis of the right foot , cirrhosis, thrombocytopenia, diabetic neuropathy. Diagnostic Results: 10/06/16 21:30 10/08/16 06:59 Lab Results 10/08/16 11:22: POC Glucose (mg/dL) 257 H 10/08/16 07:16: POC Glucose (mg/dL) 200 H 10/08/16 06:59: TSH 3rd Generation 0.80 10/08/16 06:59: Sodium 137, Potassium 3.9, Chloride 103, Carbon Dioxide 24, Anion Gap 14, BUN 10, Creatinine 0.7, Est GFR ( Amer) > 60, Est GFR (Non- Af Amer) > 60, Random Glucose 196 H, Calcium 9.4, Total Bilirubin 0.9, AST 23, ALT 39, Alkaline Phosphatase 59, Total Protein 7.1, Albumin 4.1, Globulin 3.0, Albumin/Globulin Ratio 1.4, Triglycerides 169 H, Cholesterol 168, LDL Cholesterol Direct 126, HDL Cholesterol 31 10/07/16 21:46: POC Glucose (mg/dL) 289 H 10/07/16 15:45: POC Glucose (mg/dL) 67 10/07/16 11:35: POC Glucose (mg/dL) 214 H 10/07/16 07:17: POC Glucose (mg/dL) 242 H 10/07/16 07:00: Hemoglobin A1c 7.1 H 10/07/16 07:00: Triglycerides 208 H, Cholesterol 172, LDL Cholesterol Direct 123 , HDL Cholesterol 29 10/07/16 04:51: POC Glucose (mg/dL) 248 H 10/06/16 21:30: Alcohol, Quantitative 227 H 10/06/16 21:30: Salicylates < 1 L, Acetaminophen < 10.0 L 10/06/16 21:30: Urine Opiates Screen Negative, Urine Methadone Screen Negative, Ur Barbiturates Screen Negative, Ur Phencyclidine Scrn Negative, Ur Amphetamines Screen Negative, U Benzodiazepines Scrn Negative, U Oth Cocaine Metabols Negative, U Cannabinoids Screen Negative 10/06/16 21:30: Sodium 139, Potassium 3.7, Chloride 101, Carbon Dioxide 21, Anion Gap 21 H, BUN 9, Creatinine 0.8, Est GFR ( Amer) > 60, Est GFR (Non -Af Amer) > 60, Random Glucose 249 H, Calcium 9.5, Total Bilirubin 0.6, AST 33, ALT 38, Alkaline Phosphatase 61, Total Protein 7.4, Albumin 4.5, Globulin 3.0, Albumin/Globulin Ratio 1.5 10/06/16 21:30: Urine Color Yellow, Urine Appearance Clear, Urine pH 6.0, Ur Specific [place] 1.010, Urine Protein Negative, Urine Glucose (UA) 250 H, Urine Ketones Negative, Urine Blood Negative, Urine Nitrate Negative, Urine Bilirubin Negative, Urine Urobilinogen 0.2, Ur Leukocyte Esterase Negative 10/06/16 21:30: WBC 8.4 D, RBC 4.77, Hgb 13.6 L, Hct 39.0 L, MCV 81.8, MCH 28.5 , MCHC 34.9, RDW 14.4, Plt Count 86 L, MPV 10.7, Gran % 68.9 H, Lymph % (Auto) 20.8 L, [place] % (Auto) 8.9 H, Eos % (Auto) 1.2 L, Baso % (Auto) 0.2, Gran # 5.81 , Lymph # 1.8, [place] # 0.8 H, Eos # 0.1, Baso # 0.02 Vital Signs Temp Pulse Pulse Resp BP Pulse Ox 10/08/16 07:18 98.5 F 85 20 141/86 10/07/16 15:56 84 158/89 H 10/07/16 04:32 90 20 10/07/16 02:39 89 18 112/55 L 96 10/07/16 00:21 92 H 18 132/74 98 10/06/16 23:04 105 H 16 146/80 95 10/06/16 20:38 98.1 F 111 H 18 148/79 96 Laboratory Results - last 24 hr 10/08/16 10/09/16 10/09/16 21:25 07:19 11:18 POC Glucose (mg/dL) 142 H 161 H 166 H Laboratory Results - last 24 hr 10/09/16 10/09/16 10/10/16 17:08 21:25 05:00 Sodium 137 Potassium 4.4 Chloride 103 Carbon Dioxide 25 Anion Gap 13 BUN 12 Creatinine 0.7 Est GFR ( Amer) > 60 Est GFR (Non-Af Amer) > 60 POC Glucose (mg/dL) 148 H 193 H Random Glucose 150 H Calcium 9.5 Total Bilirubin 0.8 AST 31 ALT 43 Alkaline Phosphatase 68 Total Protein 7.5 Albumin 4.2 Globulin 3.3 Albumin/Globulin Ratio 1.3 10/10/16 10/10/16 07:10 11:07 Sodium Potassium Chloride Carbon Dioxide Anion Gap BUN Creatinine Est GFR ( Amer) Est GFR (Non-Af Amer) POC Glucose (mg/dL) 152 H 180 H Random Glucose Calcium Total Bilirubin AST ALT Alkaline Phosphatase Total Protein Albumin Globulin Albumin/Globulin Ratio Temp Pulse Resp BP Pulse Ox 97.8 F 82 20 124/76 96 10/11/16 07:36 10/11/16 07:36 10/11/16 07:36 10/11/16 07:36 10/07/16 02:39 Temp Pulse Resp BP Pulse Ox 97.5 F L 84 20 156/97 H 96 10/14/16 07:45 10/14/16 07:45 10/14/16 07:45 10/14/16 07:45 10/07/16 02:39 DSM 5 Symptoms Update: Shortly pt is 51yo male with long and debilitated h/o alcohol dependence, h/o mood disorder, multiple admissions in psych inpatient unit, multiple suicidal attempts, three rehabs in the past, lives at [place] with his , was admitted for evaluation and stabilization of depressive symptoms, suicidal ideation with the plan to jump into the water and "swim into the [place]", pt also relapsed on alcohol, was feeling depressed, hopeless and helpless. Pt was seen and examined at the tx team meeting, improved hygiene, pt said that he slept better. at the same time pt said that he is not ready to leave the hospital, pt said his and daughter visited him yesterday and they thought that pt is "overmedicated", pt said that he does not feel overmedicated but "mellow". Pt said that he feels down and "I feel that I will be doing better if I will stay for another day". ativan will be decreased to 0.5mg po tid for anxiety. will call pt's for collaterals. case was d/w , pt's expressed concerns about pt and not being ready for d/c. will hold d/c today. pt compliant with meds, was educated about antabuse, campral, narltrexone, pt prefer the last one, pt was educated about potential liver damage, pt verbalized understanding. pt tolerates meds well, no side effects observed or reported. Impression: bipolar, most recent episode mixed alcohol use disorder Medication Change: Yes (ativan decreased) Medical Record Reviewed: Yes (reports, notes, vitals, labs) Consults ordered or reviewed: med consult appreciated Mental Status Examination - Cognitive Function Orientation: Person Memory: Intact Attention: Poor (some improvement) Concentration: Poor (some improvement) Association: WNL Fund of Knowledge: WNL - Mood Mood: Depressed ("mellow"), Anxious - Affect Affect: Constricted (but reactive today) - Speech Speech: Appropriate - Formal Thought Process Formal Thought Process: No Impairment - Suicidal Ideation Suicidal Ideation: No - Homicidal Ideation Homicidal Ideation: No Goal/Treatment Plan - Goal/Treatment Plan Need for Continued Stay: Remain at risks for inpatient hospitalization, Severe depression anxiety, Discharge may exacerbated symptoms, Failed transitioning, Severe functional impairment Progress Toward Problem(s) and Goals/Treatment Plan: milieu/structure/supportive therapy Cymbalta 40 mg daily for depression and anxiety, diabetes neuropathy Neurontin 300 mg 3 times a day for neuropathy as well as mood stabilization as well as anxiety and cravings Abilify 5 mg amhs as a mood stabilizer ativan 0.5mg tid for anxiety Multivitamins, folic acid, thiamine will be started naltrexone 50 mg daily for cravings, patient had history of cirrhosis, will monitor LFTs closely family involvement SW evaluation medical consult appreciated ALT AST WNL Estimated Date of D/C: 10/15/16 (we'll monitor closely)
--- NOTE | 2016-10-14 16:44 | PN ---
DATE: 10/14/2016 ROOM: 513 This is a 51-year-old male with recent uncontrolled type 2 insulin-requiring diabetes, admitted to [facility] psychiatric unit for closer evaluation and management because of major depression and behavioral di sturbances thereof. His glycemic levels are fluctuating, but much improved at this time and the latest glucose levels hav e ranged from 136-220 mg/dL. His bedtime glucose was 167-241 mg/dL. His latest chemistries showed a BUN of 13, sodium 138, potassium 4.7, chloride 102, CO2 28, glucose 149 and creatinine 0.8. So at this time, we will continue the same basal and bolus insulin regimen as given with Levemir give n as 100 units subQ at bedtime daily as ordered. We will continue the Humalog given as 24 units subQ t.i.d. before meals as given. We will also continue the oral hypoglycemic drug therapy as ordered w ith Janumet given as 50-1000 b.i.d. and Amaryl given as 4 mg b.i.d. as ordered. We will titrate incr ementally as indicated to optimize metabolic control. We will also reinforce diabetic education and dietary instructions at the time of this admission. We will follow. Christianne Russ MD cc: [id number] TT: 10/14/2016 16:43:48 Confirmation # [id number] Dictation # [id number]
--- NOTE | 2016-10-14 18:50 | PN ---
DATE: 10/14/2016 This is a 51-year-old male on the psychiatric unit, being followed for recent excessive use of alcoho l, bipolar disorder, depression, anxiety disorder, history of suicidal ideation, cirrhosis of the cam er with thrombocytopenia, diabetic neuropathy and recent osteomyelitis of the right foot. PHYSICAL EXAMINATION: GENERAL: He is alert and oriented x 3. NECK: Supple. There is no JVD. LUNGS: Clear. HEART: An S1, S2 rhythm. ABDOMEN: Soft with positive bowel sounds. His blood sugar was 136. He is being followed by endocrinology for his insulin-dependent diabetes. He is being followed by podiatry for wound care of his right foot, status post treatment for osteomye litis and is being followed by psychiatry. The patient states that he is feeling a bit better since coming on to the unit and has been encouraged to interact with the psychiatrist and express his clinton rns as well as his concerns about interacting with his family. This has also been conveyed to the ps ychiatry. Will continue current level of care and follow the patient. Aspen Fontana MD cc: [id number] TT: 10/14/2016 18:49:51 Confirmation # [id number] Dictation # [id number] zoran
[2016-10-14] MEDS: Insulin Detemir 100 units/ml Vial (Levemir) SC SCH (21:19)
[2016-10-15 08:07] VITALS: BP 139/95; PULSE 77; TEMP 97.8
[2016-10-15] MEDS: Multivitamin Therapeutic Tab PO SCH (09:19)
[2016-10-15] MEDS: Insulin Lispro 1 UNITS/0.01 ML SC SCH ×2 (09:21→13:07)
[2016-10-15] MEDS: Insulin Lispro (humaLOG) LOW Coverage SC SCH (09:22)
--- NOTE | 2016-10-15 15:13 | PCM.PYCHDC ---
Mental Status Examination - Mental Status Examination Orientation: Person, Place, Situation, Time Memory: Intact Mood: Neutral Affect: Broad (`and mood congruent) Speech: Appropriate Attention: WNL Concentration: WNL Association: WNL Fund of Knowledge: WNL Formal Thought Process: No Impairment Description of patient's judgement and insight: Pt has improved insight into mental and medical illness, pt was compliant with medications and unit rules and regulations, pt was going to groups, was calm, cooperative, socially appropriate, no behavioral incidents, no agitation, no aggression. Psychotic Thoughts and Behaviors: Pt denied v/a/t hallucinations, denied paranoid ideations, pt does not appear to be psychotic, and thought process is goal directed. Suicidal Ideation: No Current Homicidal Ideation?: No Plan: pt adamantly denied thoughts of harming self or others denied intent or plan. Discharge Summary - Discharge Note Reason for Hospitalization: patient was admitted for evaluation of d symptoms, irritability, suicidal ideations with a plan to jump into the river and swim to the [place]. Psychiatric History (includes Medical, Family, Personal Hx): see HPI Laboratory Data: Abnormal Lab Results 10/14/16 10/15/16 10/15/16 22:22 07:21 11:07 POC Glucose (mg/dL) 145 H 83 190 H Consultations:: List each consultation separately and include: 1. Reason for request. 2. Findings. 3. Follow-up Consultations: med consult appreciated see notes for more detailed information Summary of Hospital Course include:: 1. Description of specific treatment plan utilized for patients during their course of treatmen. 2. Summarize the time- course for resolution of acute symptoms and/or regressed behaviors. 3. Describe issues identified and worked on during hospitalization. 4. Describe medication utilized. 5. Describe medical problems identified and treated. 6. Reassessment of suicide risk Summary of Hospital Course: Shortly pt is 51yo male with long and debilitated h/o alcohol dependence, h/o mood disorder, multiple admissions in psych inpatient unit, multiple suicidal attempts, three rehabs in the past, lives at [place] with his , was admitted for evaluation and stabilization of depressive symptoms, suicidal ideation with the plan to jump into the water and "swim into the [place]", pt also relapsed on alcohol, was feeling depressed, hopeless and helpless. initially patient was seen at the treatment team meeting, patient said that he was released from subacute rehabilitation at the end of August, patient started to have relapse on his alcohol, was feeling irritable, angry, had impulsive behavior such drinking for past week, patient said that he was outside he was drinking about a pint of vodka, he started to have intrusive thoughts about killing himself, patient asked bystanders to call 911 because he was not able to contract for safety. During the interview patient denied thoughts of harming himself or others. Patient said for past month she was feeling more depressed, irritable, angry, "it is not usually what they feel". Patient said that he was screaming at his grandkids, was feeling irritable, was not able to sleep "because of my mind racing", was not taking medications for past here, does not have a knee follow- up appointment with outpatient psychiatrist. Patient denied smoking, denied using illicit drugs. Patient denied feeling anxious, no psychotic symptoms elicited or reported. Patient feels guilty about his relapse on alcohol, patient said "if I could wait till October, I would have 2 years of sobriety". pt said that he still goes to AA meetings, has sponsor. Pt had three rehabs in the past, most recent was in [place] about four years ago. No psychotic symptoms were elicited. h/o mental illness: multiple psych admissions, h/o bipolar, h/o suicidal attempts pt's LFT wnl patient was educated about naltrexone, Abilify, as well as cymbalta and neurontin. Risk benefits alternatives were discussed with the patient, patient is willing to try those medications. pt denied abuse pt said that he has poor relationship with his son who recently revealed that he is a tolentino, had difficulties to accept it. medical issues: Insulin-dependent diabetes, Charcot foot, recent osteomyelitis of the right foot, cirrhosis, thrombocytopenia, diabetic neuropathy. 10/06/16 21:30 10/06/16 21:30 Lab Results 10/07/16 11:35: POC Glucose (mg/dL) 214 H 10/07/16 07:17: POC Glucose (mg/dL) 242 H 10/07/16 07:00: Hemoglobin A1c 7.1 H 10/07/16 07:00: Triglycerides 208 H, Cholesterol 172, LDL Cholesterol Direct 123 , HDL Cholesterol 29 10/07/16 04:51: POC Glucose (mg/dL) 248 H 10/06/16 21:30: Alcohol, Quantitative 227 H 10/06/16 21:30: Salicylates < 1 L, Acetaminophen < 10.0 L 10/06/16 21:30: Urine Opiates Screen Negative, Urine Methadone Screen Negative, Ur Barbiturates Screen Negative, Ur Phencyclidine Scrn Negative, Ur Amphetamines Screen Negative, U Benzodiazepines Scrn Negative, U Oth Cocaine Metabols Negative, U Cannabinoids Screen Negative 10/06/16 21:30: Sodium 139, Potassium 3.7, Chloride 101, Carbon Dioxide 21, Anion Gap 21 H, BUN 9, Creatinine 0.8, Est GFR ( Amer) > 60, Est GFR (Non -Af Amer) > 60, Random Glucose 249 H, Calcium 9.5, Total Bilirubin 0.6, AST 33, ALT 38, Alkaline Phosphatase 61, Total Protein 7.4, Albumin 4.5, Globulin 3.0, Albumin/Globulin Ratio 1.5 10/06/16 21:30: Urine Color Yellow, Urine Appearance Clear, Urine pH 6.0, Ur Specific [place] 1.010, Urine Protein Negative, Urine Glucose (UA) 250 H, Urine Ketones Negative, Urine Blood Negative, Urine Nitrate Negative, Urine Bilirubin Negative, Urine Urobilinogen 0.2, Ur Leukocyte Esterase Negative 10/06/16 21:30: WBC 8.4 D, RBC 4.77, Hgb 13.6 L, Hct 39.0 L, MCV 81.8, MCH 28.5 , MCHC 34.9, RDW 14.4, Plt Count 86 L, MPV 10.7, Gran % 68.9 H, Lymph % (Auto) 20.8 L, [place] % (Auto) 8.9 H, Eos % (Auto) 1.2 L, Baso % (Auto) 0.2, Gran # 5.81 , Lymph # 1.8, [place] # 0.8 H, Eos # 0.1, Baso # 0.02 Vital Signs Temp Pulse Pulse Resp BP Pulse Ox 10/07/16 04:32 90 20 10/07/16 02:39 89 18 112/55 L 96 10/07/16 00:21 92 H 18 132/74 98 10/06/16 23:04 105 H 16 146/80 95 10/06/16 20:38 98.1 F 111 H 18 148/79 96 patient was stabilized on the following medications: Abilify 5 mg twice a day for mood stabilization Cymbalta 40 mg daily for major depressive disorder neuropathy as well as anxiety Ativan 0.5 mg twice a day as needed for anxiety gabapentin 300 mg 3 times a day for neuropathy and anxiety as well as mood stabilization trazodone 50 mg at the nighttime for insomnia and depression Naltrexone was started 50 mg daily, patient liver function tests was within normal limits, repeat of liver function test was within normal limits patient needs to the monitor for liver function test on a monthly basis for 6 months, then every 3 months for another 6 months, after that twice a year because patient has history of liver cirrhosis. Multivitamins thiamine and folic acid was provided to the patient patient tolerated medications well, no side effects observed or reported, aims 0 , no EPS. Patient improved significantly, but patient's family agrees concerned about patient being "over medicated", that is when this short story writer held discharged yesterday. Patient Erica was called today [phone], she reported that patient looks better, willing to accept patient back:, Willing to have family meeting at 's office (local psychiatrist). patient was seen by medical team, endocrinology team, meds were adjusted. Over the course of this hospitalization pt was attending groups, pt also had medication management, had therapeutic milieu. Overall pt improved significantly, pt's affect became brighter, pt was less depressed, has realistic future oriented plans, pt also does not appear to be psychotic, or anxious, pt was socially appropriate, no behavioral issues, pts insight improved as well and soon pt deemed to be ready for discharge. At the time of the discharge pt denied been depressed, denied thoughts of harming self or others, denied psychotic symptoms, and pt does not appeared to be psychotic, denied been anxious, was considered to pose no threat to self or others, will be following up at 's office, information about follow up appointment, time and address provided to the pt, it is patient responsibility to follow up with outpatient clinic, PMD as well as specialists (see SW note for more detailed information). In case pt will need to obtain results of studies pending at discharge pt was provided with contact information of Psychiatric Inpatient unit [phone] as well as Medical Record Department [phone]. Counseling about alcohol cessation provided AA meetings as well as [facility] smoking cessation treatment program information was provided by the pt was provided with prescriptions for two weeks and one refill for psychotropic meds (see medication reconciliation form) d/w today, pt will be f/u in his office and switch foreman within two weeks Pt was educated about safety plan in case of worsening of symptoms or in case of suicidal or homicidal ideation call 911 or go to the nearest ER, also was educated to take meds as prescribed and stay away from drugs, pt verbalized understanding. - Diagnosis (1) Alcohol use disorder Status: Acute (2) Bipolar 1 disorder, depressed Status: Acute Comment: Patient states improved mood and sleeping well. Dr. Hay from psychiatry saw patient and does not find reason for involuntary commitment. (see report) Pt to be d/c on Cymbalta, Neurontin and Trazadole. Pt has been cleared by Psych. Pt to follow up with his pyschiatrist Dr. Hughes as outpatient next week. - Final Diagnosis (DSM 5) Condition upon Discharge: STABLE Disposition: HOME/ ROUTINE Follow-up Treatment Plan: At the time of the discharge pt denied been depressed, denied thoughts of harming self or others, denied psychotic symptoms, and pt does not appeared to be psychotic, denied been anxious, was considered to pose no threat to self or others, will be following up at 's office, information about follow up appointment, time and address provided to the pt, it is patient responsibility to follow up with outpatient clinic, PMD as well as specialists (see note for more detailed information). In case pt will need to obtain results of studies pending at discharge pt was provided with contact information of Psychiatric Inpatient unit [phone] as well as Medical Record Department [phone]. Counseling about alcohol cessation provided AA meetings as well as [facility] smoking cessation treatment program information was provided by the pt was provided with prescriptions for two weeks and one refill for psychotropic meds (see medication reconciliation form) d/w today, pt will be f/u in his office and switch foreman within two weeks Pt was educated about safety plan in case of worsening of symptoms or in case of suicidal or homicidal ideation call 911 or go to the nearest ER, also was educated to take meds as prescribed and stay away from drugs, pt verbalized understanding. Prescriptions/Medication Reconciliation: ARIPiprazole [Abilify] 5 mg PO AMHS #30 tab DULoxetine [Cymbalta] 40 mg PO DAILY #30 ecc Gabapentin [Neurontin] 300 mg PO TID #45 cap Lorazepam [Ativan] 0.5 mg PO BID #30 tab LORazepam [Ativan] 0.5 mg PO TID #14 tab Naltrexone [Revia] 50 mg PO DAILY #14 tab traZODone [Desyrel] 50 mg PO HS PRN #14 tab PRN Reason: Insomnia - Smoking Cessation Smoking Cessation Medication prescribed: No Reason for not providing: pt does not smoke - Antipsychotic Medications Pt discharged on 2 or more routine antipsychotic medications: No
--- NOTE | 2016-10-15 15:49 | PN ---
DATE: 10/15/2016 ROOM: 513, psychiatry. This is a 51-year-old male with recent uncontrolled type 2 insulin-requiring diabetes, admitted here to the psychiatric unit because of major depression and is now being followed closely for metabolic m anagement. His glycemic levels are fluctuating but much improved at this time, and the latest glucose levels hav e ranged from 83-145 and 190 mg/dL. His A1c was 7.1% which is actually near optimal in terms of his metabolic control on the outpatient. So for now, will continue the same basal and bolus insulin regimen as ordered with Levemir given as 1 00 units subQ at bedtime daily and Humalog given as 24 units subQ t.i.d. before meals as ordered. Wi ll titrate incrementally as indicated to optimize metabolic control. He is scheduled for discharge t and he will resume his home insulin regimen at home as discussed lengthily at bedtime. Christianne Russ MD cc: [phone] TT: 10/15/2016 15:47:59 Confirmation # [id number] Dictation # [id number] kev
== END 2016-10-15 14:35 | disposition home or self-care (01) | DRG 885 ==
LOC: ED 20:37 → ERH 10-07 02:55 → PSYC 10-07 03:33
PROVIDERS: ADMIT Psychiatry & Neurology Psychiatry; ATTEND Psychiatry & Neurology Psychiatry
PROC: GZ3ZZZZ Medication Management (ICD-10-PCS; principal; 2016-10-07)
DX: F31.9 Bipolar disorder, unspecified (principal); F10.229 Alcohol dependence with intoxication, unspecified; R45.851 Suicidal ideations; F41.1 Generalized anxiety disorder; E11.42 Type 2 diabetes mellitus with diabetic polyneuropathy; E11.51 Type 2 diabetes mellitus with diabetic peripheral angiopathy without gangrene; E11.610 Type 2 diabetes mellitus with diabetic neuropathic arthropathy; D69.59 Other secondary thrombocytopenia; M86.9 Osteomyelitis, unspecified; E11.621 Type 2 diabetes mellitus with foot ulcer; L97.519 Non-pressure chronic ulcer of other part of right foot with unspecified severity; K70.30 Alcoholic cirrhosis of liver without ascites; I10 Essential (primary) hypertension; E11.319 Type 2 diabetes mellitus with unspecified diabetic retinopathy without macular edema; E78.5 Hyperlipidemia, unspecified; Z96.652 Presence of left artificial knee joint; Z79.4 Long term (current) use of insulin; Z89.421 Acquired absence of other right toe(s)

== ENCOUNTER 2016-12-21 15:23 | Emergency (ER) | payer MEDICARE, OTHER ==
[2016-12-21 15:31] VITALS: BMI 32.1
[2016-12-21 15:32] VITALS: TEMP 98.2
[2016-12-21] MEDS ORDERED: Sodium Chloride 0.9% 500 ML IV ONE (15:36)
--- NOTE | 2016-12-21 15:39 | ED PDOC ---
Arrival/HPI - General Chief Complaint: GI Problem Time Seen by Provider: 12/21/16 15:26 Historian: Patient - History of Present Illness Time/Duration: Other (This morning) Symptom Onset: Gradual Symptom Course: Improving Severity Level: Mild Activities at Onset: Rest Associated Symptoms (Text): 12/21/16 15:37 Patient woke up this morning with nausea vomiting and diarrhea. The vomiting has since resolved, but the diarrhea continues. He then developed a generalized global headache. He took his blood pressure was elevated at 220/120. Then this afternoon he developed some shortness of breath. He reports that his blood sugar was elevated this morning requiring insulin. No fever or chills. No chest pain. No abdominal pain. No numbness tingling or paresthesias. There is generalized, but no focal, weakness. No difficulty with ADLs. No dizziness or lightheadedness. No visual disturbance. No travel or exposure. He does not appear ill, but he is somewhat anxious. Past Medical History - Infectious Disease Hx of Infectious Diseases: None - Tetanus Immunization Tetanus Immunization: Up to Date - Cardiac Hx Hypertension: Yes Hx Peripheral Vascular Disease: Yes - Pulmonary Hx Respiratory Disorders: Yes Hx Emphysema: Yes - Neurological Hx Neurological Disorder: Yes Hx Seizures: No Other/Comment: neuropathy - HEENT Hx HEENT Disorder: No - Renal Hx Renal Disorder: No - Endocrine/Metabolic Hx Endocrine Disorders: Yes Hx Diabetes Mellitus Type 2: Yes - Hematological/Oncological Hx Blood Disorders: Yes Hx Cirrhosis: Yes - Integumentary Hx Dermatological Disorder: Yes (hx cellulitis, gangrene left 2nd toe) Other/Comment: prior visit triage notes: 4th toe rt foot ulcer (resolved). RIGHT FOOT 3RD TOE AMPUTATED,PARTIAL AMPUTATION TO 4TH AND 5TH TOE. LEFT FOOT 2ND TOE AMPUTATION. OPEN WOUND TO SOLE OF RIGHT FOOT.HAD A BLISTER ,GOT WORSE. pt trerated by dr underwood at the wound center with wound care and a cast but wound opened up 4x's, pt went to [facility] to a dr nicole who specializes in charcot feet, had bone shaved on bottom of right charcot foot on 06/05/16, cast and herbie wrap in place pt ambulated with crutches - Musculoskeletal/Rheumatological Hx Arthritis: Yes - Gastrointestinal Hx Gastrointestinal Disorders: Yes (c dif,colitis) - Genitourinary/Gynecological Hx Genitourinary Disorders: No - Psychiatric Hx Anxiety: Yes Hx Depression: Yes Hx Substance Use: No - Surgical History Hx Orthopedic Surgery: Yes (left ankle F/X 6 years ago) - Anesthesia Hx Anesthesia: Yes Hx Anesthesia Reactions: No Hx Malignant Hyperthermia: No - Suicidal Assessment Feels Threatened In Home Enviroment: No Family/Social History - Physician Review Nursing Documentation Reviewed: Yes Family/Social History: Unknown Family HX Smoking Status: Never Smoked Hx Alcohol Use: Yes Hx Substance Use: No Hx Substance Use Treatment: No Allergies/Home Meds Allergies/Adverse Reactions: Allergies No Known Allergies Allergy (Verified 10/07/16 03:50) Home Medications: Home Meds Medication Instructions Recorded Confirmed Insulin Glargine,Hum.rec.anlog 100 unit SQ HS 10/22/16 12/21/16 [Toujeo Solostar] Losartan/Hydrochlorothiazide 1 tab PO DAILY 10/22/16 12/21/16 [Losartan Potassium-Hydrochlorothiazide 12.5 M] Sitagliptin Phos/Metformin HCl 1 each PO BID 10/22/16 12/21/16 [Janumet 50-1,000 mg Tablet] buPROPion XL [Wellbutrin] 150 mg PO DAILY 10/22/16 12/21/16 traZODone [Desyrel] 150 mg PO HS 10/22/16 12/21/16 Gabapentin [Neurontin] 600 mg PO TID 12/21/16 12/21/16 Glimepiride [amaRYL] 4 mg PO BID 12/21/16 12/21/16 Insulin Lispro [humALOG] 0 units SC TID 12/21/16 12/21/16 Review of Systems - Physician Review All systems were reviewed & negative as marked: Yes - Review of Systems Constitutional: Normal Eyes: Normal ENT: Normal Respiratory: SOB. absent: Cough, Wheezing Cardiovascular: absent: Chest Pain, Palpitations, Syncope Gastrointestinal: Diarrhea, Nausea, Vomiting. absent: Abdominal Pain, Constipation, Anorexia Genitourinary Male: absent: Dysuria, Frequency Neurological: Headache. absent: Dizziness, Focal Weakness, Gait Changes, Speech Changes, Facial Droop, Disequilibrium, Seizure Physical Exam Vital Signs Temp Pulse Resp BP Pulse Ox 12/21/16 17:05 58 L 176/102 H 12/21/16 16:32 56 L 16 189/104 H 97 12/21/16 16:01 56 L 193/103 H 12/21/16 15:23 98.2 F 64 18 197/103 H 98 Temperature: Afebrile Blood Pressure: Hypertensive Pulse: Regular Respiratory Rate: Normal Appearance: Positive for: Well-Appearing, Non-Toxic, Comfortable Pain Distress: None Mental Status: Positive for: Alert and Oriented X 3 - Systems Exam Head: Present: Atraumatic, Normocephalic Pupils: Present: PERRL Extroacular Muscles: Present: EOMI Conjunctiva: Present: Normal Ears: Present: NORMAL TM, Normal Canal. No: Erythema Mouth: Present: Moist Mucous Membranes Pharnyx: No: ERYTHEMA, EXUDATE, TONSILS ENLARGED Neck: Present: Normal Range of Motion. No: Meningeal Signs, MIDLINE TENDERNESS , Paraspinal Tenderness Respiratory/Chest: Present: Clear to Auscultation, Good Air Exchange. No: Respiratory Distress, Accessory Muscle Use Cardiovascular: Present: Regular Rate and Rhythm, Normal S1, S2. No: Murmurs Abdomen: Present: Normal Bowel Sounds. No: Tenderness, Distention, Peritoneal Signs, Rebound, Guarding Upper Extremity: Present: Normal Inspection. No: Cyanosis, Edema Neurological: Present: GCS=15, CN II-XII Intact, Speech Normal, Motor Func Grossly Intact, Normal Sensory Function, Normal Cerebellar Funct, Gait Normal Skin: Present: Warm, Dry, Normal Color. No: Rashes Psychiatric: Present: Alert, Oriented x 3, Normal Insight, Normal Concentration Medical Decision Making ED Course and Treatment: 12/21/16 15:43 EKG shows sinus bradycardia rate approximately [address] or T-wave changes and poor R-wave progression. 12/21/16 16:18 Patient's lipase is always elevated in the 312-360 range. Chronic thrombocytopenia noted different from usual. 12/21/16 17:05 Symptoms have markedly improved. He did take his medications this morning, but vomited and did not hold them down. He wants to go home with his daughter. Second dose of clonidine has been given and we are waiting for his blood pressure to improve, but patient does not want to wait. Patient's d-dimer BNP and troponin are all within normal limits. He will be discharged home with Codie to follow up with his PMD. Follow up in ER as needed. - Lab Interpretations Lab Results: 12/21/16 15:45 12/21/16 15:45 Lab Results 12/21/16 15:45: Sodium 137, Potassium 4.1, Chloride 103, Carbon Dioxide 25, Anion Gap 13, BUN 15, Creatinine 0.8, Est GFR ( Amer) > 60, Est GFR (Non- Af Amer) > 60, Random Glucose 227 H, Calcium 9.6, Total Bilirubin 0.6, AST 30, ALT 36, Alkaline Phosphatase 65, Lactate Dehydrogenase 387, Total Creatine Kinase 82, Troponin I < 0.01, NT-Pro-B Natriuret Pep 363, Total Protein 6.7, Albumin 3.9, Globulin 2.8, Albumin/Globulin Ratio 1.4, Lipase 348 H 12/21/16 15:45: PT 11.6, INR 1.07, APTT 28.1, D-Dimer, Quantitative 0.24 12/21/16 15:45: WBC 4.1 L D, RBC 4.64, Hgb 12.6 L, Hct 37.0 L, MCV 79.7 L, MCH 27.2, MCHC 34.1, RDW 14.8 H, Plt Count 66 L, MPV 10.8, Gran % 73.7 H, Lymph % ( Auto) 17.2 L, [place] % (Auto) 7.4 H, Eos % (Auto) 1.5, Baso % (Auto) 0.2, Gran # 3.00, Lymph # 0.7 L, [place] # 0.3, Eos # 0.1, Baso # 0.01 - RAD Interpretation Radiology Orders: 12/21/16 15:35 HEAD W/O CONTRAST [CT] Stat CHEST ONE VIEW [RAD] Stat CT scan of the head as read by the radiologist shows no acute findings. Chest x- ray shows no infiltrate effusion or cardiomegaly. Retail Visual Merchandiser: Radiologist - Medication Orders Current Medication Orders: Discontinued Medications Clonidine HCl (Catapres) 0.1 mg PO ONCE ONE Stop: 12/21/16 16:01 Last Admin: 12/21/16 16:01 Dose: 0.1 mg Clonidine HCl (Catapres) 0.2 mg PO ONCE ONE Stop: 12/21/16 16:52 Last Admin: 12/21/16 17:05 Dose: 0.2 mg Sodium Chloride (Sodium Chloride 0.9%) 500 mls @ 500 mls/hr IV ONCE ONE Stop: 12/21/16 16:35 Last Admin: 12/21/16 15:58 Dose: 500 mls/hr Ondansetron HCl (Zofran Inj) 4 mg IVP ONCE ONE Stop: 12/21/16 15:37 Last Admin: 12/21/16 15:54 Dose: 4 mg Disposition/Present on Arrival - Present on Arrival Any Indicators Present on Arrival: No History of DVT/PE: No History of Uncontrolled Diabetes: No Urinary Catheter: No History of Decub. Ulcer: No History Surgical Site Infection Following: None - Disposition Have Diagnosis and Disposition been Completed?: Yes Diagnosis: HTN (hypertension), Headache, Nausea vomiting and diarrhea, Gastroenteritis, Thrombocytopenia, Dyspnea, Hyperglycemia Disposition: HOME/ ROUTINE Disposition Time: 17:14 Patient Plan: Discharge Condition: IMPROVED Discharge Instructions (ExitCare): Gastroenteritis (ED), Acute Nausea and Vomiting (ED), Acute Diarrhea (ED), Hypertension (ED), Dyspnea (ED), Diabetic Hyperglycemia (ED) Additional Instructions: Tylenol or Advil as directed on bottle as needed. Follow-up with her PMD. Follow -up in the ER as needed. Prescriptions: Ondansetron [Zofran Odt] 4 mg SL Q6 #20 odt Referrals: Aspen Fontana MD [Primary Care Provider] - Follow up with primary
[2016-12-21 16:13] LABS: ALB/GLOB RATIO 1.4 (1.1-1.8); ALKALINE PHOSPHATASE 65 U/L (38-133); ALT/SGPT 36 U/L (7-56); AST/SGOT 30 U/L (15-59); BILIRUBIN,TOTAL 0.6 mg/dL (0.2-1.3); BLOOD UREA NITROGEN 15 mg/dL (7-21); CALCIUM 9.6 mg/dL (8.4-10.5); CARBON DIOXIDE 25 mmol/L (21-33); CHLORIDE 103 mmol/L (98-107); GFR AFRICAN-AMERICAN > 60; GLUCOSE,RANDOM 227 mg/dL (70-110); LIPASE 348 U/L (23-300); POTASSIUM 4.1 mmol/L (3.6-5.0); SODIUM 137 mmol/L (132-148); TOTAL PROTEIN 6.7 g/dL (5.8-8.3)
[2016-12-21 16:22] LABS: BASO # 0.01 K/mm3 (0.0-2.0); BASO % 0.2 % (0.0-3.0); EOS # 0.1 (0.0-0.7); EOS % 1.5 % (1.5-5.0); GRAN % 73.7 % (50.0-68.0); LYMPH # 0.7 (1.2-3.4); LYMPH % 17.2 % (22.0-35.0); MEAN CELL VOLUME 79.7 fl (80.0-105.0); MEAN CORPUSCULAR HEMOGLOBIN 27.2 pg (25.0-35.0); MEAN CORPUSCULAR HGB CONC 34.1 g/dl (31.0-37.0); MEAN PLATELET VOLUME 10.8 fl (7.0-11.0); MONO # 0.3 (0.1-0.6); MONO % 7.4 % (1.0-6.0); RED CELL DISTRIBUTION WIDTH 14.8 % (11.5-14.5); WHITE BLOOD COUNT 4.1 10^3/ul (4.5-11.0)
--- NOTE | 2016-12-21 16:32 | CT ---
PROCEDURE: CT HEAD WITHOUT CONTRAST. HISTORY: [facility] COMPARISON: Comparison made with CT scan brain 06/10/2016. TECHNIQUE: Axial computed tomography images were obtained through the head/brain without intravenous contrast. Radiation dose: Total exam DLP = 870.54 mGy-cm. This CT exam was performed using one or more of the following dose reduction techniques: Automated exposure control, adjustment of the mA and/or kV according to patient size, and/or use of iterative reconstruction technique. FINDINGS: HEMORRHAGE: No acute parenchymal, subarachnoid or extra-axial hemorrhage. BRAIN: There appears to be some very minor chronic periventricular white matter ischemic changes. No obvious parenchymal nor extra-axial mass or collection seen on this noncontrast study. The mild generalized volume loss with more mild moderate localized biparietal cortical atrophic changes. VENTRICLES: No obstructive hydrocephalus CALVARIUM: Calvarium appears grossly intact. PARANASAL SINUSES: The frontal sinuses remain underpneumatized/ hypoplastic more so on the left side the remaining visualized paranasal sinuses are well-developed. No fluid levels seen to suggest acute sinusitis or hemorrhage. Minor focal polypoid like mucosal thickening floor right maxillary antrum. There may also be some minimal mucosal thickening few ethmoid air cells. . MASTOID AIR CELLS: Unremarkable as visualized. No inflammatory changes. OTHER FINDINGS: None. IMPRESSION: No acute intracranial hemorrhage. Suspect minor chronic white matter ischemic changes. Mild generalized volume loss with more localized mild moderate cortical atrophic changes both parietal lobes
[2016-12-21 16:33] VITALS: RESP 16; O2SAT 97
[2016-12-21 16:37] LABS: TROPONIN I < 0.01 ng/mL
[2016-12-21 16:43] LABS: INR 1.07 (0.93-1.08); PARTIAL THROMBOPLASTIN TIME 28.1 Seconds (23.7-30.8)
--- NOTE | 2016-12-21 16:45 | RAD ---
PROCEDURE: CHEST RADIOGRAPH, 1 VIEW HISTORY: sob COMPARISON: Comparison chest 10/06/2016 FINDINGS: LUNGS: Clear. PLEURA: No pneumothorax or pleural fluid seen. CARDIOVASCULAR: Cardiomegaly. OSSEOUS STRUCTURES: No significant abnormalities. Re- demonstrated are multiple old healed left posterolateral rib fractures. VISUALIZED UPPER ABDOMEN: Normal. OTHER FINDINGS: None. IMPRESSION: No acute infiltrates.
[2016-12-21 16:46] LABS: D DIMER 0.24 mg/L FEU (0-0.50)
[2016-12-21 17:05] VITALS: PULSE 58
[2016-12-21 17:28] VITALS: BP 168/106
--- NOTE | 2016-12-22 21:14 | CARD ---
APPROVED REPORT EKG Measurement Heart [id number] [id number] <Conclusion> Sinus bradycardia Cannot rule out Anterior infarct, age undetermined Abnormal ECG
== END 2016-12-21 17:28 | disposition home or self-care (01) ==
LOC: ED 15:23
DX: K52.9 Noninfective gastroenteritis and colitis, unspecified (principal); I10 Essential (primary) hypertension; E11.65 Type 2 diabetes mellitus with hyperglycemia; D69.6 Thrombocytopenia, unspecified; R51 Headache; R06.00 Dyspnea, unspecified
CPT/HCPCS: 70450; 71010; 80053; 82550; 83615; 83690; 83880; 84484; 85025; 85378; 85610; 85730; 93005; 96361; 96374; 99284; J2405; J7040

== ENCOUNTER 2016-12-23 09:11 | Observation (INO) | payer MEDICARE, OTHER ==
[2016-12-23 10:09] LABS: BASO # 0.01 K/mm3 (0.0-2.0); BASO % 0.2 % (0.0-3.0); EOS # 0.1 (0.0-0.7); GRAN # 5.12 (1.4-6.5); GRAN % 82.4 % (50.0-68.0); HEMATOCRIT 39.3 % (42.0-52.0); LYMPH # 0.6 (1.2-3.4); LYMPH % 9.8 % (22.0-35.0); MEAN CELL VOLUME 78.9 fl (80.0-105.0); MEAN CORPUSCULAR HEMOGLOBIN 27.5 pg (25.0-35.0); MEAN CORPUSCULAR HGB CONC 34.9 g/dl (31.0-37.0); MEAN PLATELET VOLUME 10.7 fl (7.0-11.0); MONO # 0.4 (0.1-0.6); MONO % 6.6 % (1.0-6.0); RED CELL DISTRIBUTION WIDTH 14.8 % (11.5-14.5); URINE BILIRUBIN NEGATIVE (NEGATIVE); URINE BLOOD NEGATIVE (NEGATIVE); URINE GLUCOSE (UA) 500 mg/dL (NEGATIVE); URINE KETONE NEGATIVE (NEGATIVE); URINE LEUKOCYTE ESTERASE NEGATIVE Leu/uL (NEGATIVE); URINE PROTEIN NEGATIVE mg/dL (<30 mg/dL); URINE UROBILINOGEN 0.2 E.U./dL (<1 E.U./dL); WHITE BLOOD COUNT 6.2 10^3/ul (4.5-11.0)
--- NOTE | 2016-12-23 10:12 | ED PDOC ---
Arrival/HPI - General Chief Complaint: Dizziness/Lightheaded Time Seen by Provider: 12/23/16 09:23 Historian: Patient, Spouse - History of Present Illness Narrative History of Present Illness (Text): 12/23/16 10:09 51yr old male with hx of DM, right foot wound, HTN, presents today with dizziness and unsteady gait that started this morning upon awakening from sleep. pt states for the past 2 days he has been having headaches, dizziness, nausea and just not feeling right. pt denies chest pain. pt states he has been having intermittent SOB on exertion. pt denies sob at present time. pt states he is a diabetic and did not check his sugar today. pt c/o dry mouth. no vomiting. c/o continued headaches for the past 3 days. no urinary symptoms. denies abdominal pain. no other complaints. Time/Duration: Other (2-3 days) Symptom Onset: Gradual Symptom Course: Worsening Severity Level: 2 Past Medical History - Provider Review Nursing Documentation Reviewed: Yes - Travel History Have you recently traveled outside [place] w/in the past 3 mons?: No - Infectious Disease Hx of Infectious Diseases: None - Tetanus Immunization Tetanus Immunization: Up to Date - Cardiac Hx Hypertension: Yes Hx Peripheral Vascular Disease: Yes - Pulmonary Hx Respiratory Disorders: Yes Hx Emphysema: Yes - Neurological Hx Neurological Disorder: Yes Hx Seizures: No Other/Comment: neuropathy - HEENT Hx HEENT Disorder: No - Renal Hx Renal Disorder: No - Endocrine/Metabolic Hx Endocrine Disorders: Yes Hx Diabetes Mellitus Type 2: Yes - Hematological/Oncological Hx Blood Disorders: Yes Hx Cirrhosis: Yes - Integumentary Hx Dermatological Disorder: Yes (hx cellulitis, gangrene left 2nd toe) Other/Comment: prior visit triage notes: 4th toe rt foot ulcer (resolved). RIGHT FOOT 3RD TOE AMPUTATED,PARTIAL AMPUTATION TO 4TH AND 5TH TOE. LEFT FOOT 2ND TOE AMPUTATION. OPEN WOUND TO SOLE OF RIGHT FOOT.HAD A BLISTER ,GOT WORSE. pt trerated by dr underwood at the wound center with wound care and a cast but wound opened up 4x's, pt went to [facility] to a dr nicole who specializes in charcot feet, had bone shaved on bottom of right charcot foot on 06/05/16, cast and herbie wrap in place pt ambulated with crutches - Musculoskeletal/Rheumatological Hx Arthritis: Yes - Gastrointestinal Hx Gastrointestinal Disorders: Yes (c dif,colitis) - Genitourinary/Gynecological Hx Genitourinary Disorders: No - Psychiatric Hx Anxiety: Yes Hx Depression: Yes Hx Substance Use: No - Surgical History Hx Orthopedic Surgery: Yes (left ankle F/X 6 years ago, L TKR) - Anesthesia Hx Anesthesia: Yes Hx Anesthesia Reactions: No Hx Malignant Hyperthermia: No - Suicidal Assessment Feels Threatened In Home Enviroment: No Family/Social History - Physician Review Nursing Documentation Reviewed: Yes Family/Social History: Unknown Family HX Smoking Status: Never Smoked Hx Alcohol Use: Yes Hx Substance Use: No Hx Substance Use Treatment: No Allergies/Home Meds Allergies/Adverse Reactions: Allergies No Known Allergies Allergy (Verified 10/07/16 03:50) Home Medications: Home Meds Medication Instructions Recorded Confirmed Insulin Glargine,Hum.rec.anlog 100 unit SQ HS 10/22/16 12/23/16 [Toujeo Solostar] Losartan/Hydrochlorothiazide 1 tab PO DAILY 10/22/16 12/23/16 [Losartan Potassium-Hydrochlorothiazide 12.5 M] Sitagliptin Phos/Metformin HCl 1 each PO BID 10/22/16 12/23/16 [Janumet 50-1,000 mg Tablet] buPROPion XL [Wellbutrin] 150 mg PO DAILY 10/22/16 12/23/16 traZODone [Desyrel] 150 mg PO HS 10/22/16 12/23/16 Gabapentin [Neurontin] 600 mg PO TID 12/21/16 12/23/16 Glimepiride [amaRYL] 4 mg PO BID 12/21/16 12/23/16 Insulin Lispro [humALOG] 0 units SC TID 12/21/16 12/23/16 Review of Systems - Review of Systems Constitutional: Fatigue. absent: Fevers ENT: absent: Sinus Congestion Respiratory: SOB. absent: Cough Cardiovascular: absent: Chest Pain, Palpitations, Syncope Gastrointestinal: Diarrhea, Nausea. absent: Abdominal Pain, Constipation, Vomiting Genitourinary Male: Frequency. absent: Dysuria Musculoskeletal: absent: Arthralgias, Back Pain Skin: Other (right foot wound) Neurological: Headache, Dizziness, Gait Changes Psychiatric: absent: Anxiety, Depression, Suicidal Ideation Physical Exam Vital Signs Reviewed: Yes Vital Signs Temp Pulse Resp BP Pulse Ox 12/23/16 14:18 64 17 165/96 H 96 12/23/16 14:00 62 18 167/90 H 95 12/23/16 12:06 68 18 167/95 H 96 12/23/16 11:38 65 18 184/113 H 96 12/23/16 09:29 66 18 183/110 H 96 12/23/16 09:26 98.3 F 69 13 176/113 H 97 Temperature: Afebrile Blood Pressure: Hypertensive Pulse: Regular Respiratory Rate: Normal Appearance: Positive for: Well-Appearing, Non-Toxic, Comfortable Pain Distress: None Mental Status: Positive for: Alert and Oriented X 3 Finger Stick Blood Glucose: 268 - Systems Exam Head: Present: Atraumatic Mouth: Present: Dry Nose (External): Present: Atraumatic Nose (Internal): Present: Normal Inspection Neck: Present: Normal Range of Motion, Trachea Midline. No: Meningeal Signs Respiratory/Chest: Present: Clear to Auscultation, Good Air Exchange. No: Respiratory Distress, Accessory Muscle Use, Wheezes, Rhonchi Cardiovascular: Present: Regular Rate and Rhythm Abdomen: No: Tenderness, Peritoneal Signs, Rebound, Guarding Back: Present: Normal Inspection Upper Extremity: Present: Normal Inspection, Normal ROM Neurological: Present: GCS=15 Skin: Present: Warm, Dry. No: Rashes Psychiatric: Present: Alert, Oriented x 3 Medical Decision Making ED Course and Treatment: 12/23/16 10:36 51yr old diabetic male with hx of htn. c/o dizziness, weakness x 2-3 days with unsteady gait and dry mouth/slurring of speech that was present when patient woke from sleep. pt c/o continued headache and dizziness with unsteady gait. baseline stroke score; 1 due to slurring of speech which may be related to dry mouth. pt seen and evaluated by dr. clayton cbc: platelets 74 cmp: glucose; 245 trop: wnl lipase; 281 ekg; normal sinus rhythm at 65 bpm normal axis normal intervals no ST elevations cxr; wnl UA: + glucose head ct: FINDINGS: HEMORRHAGE: No intracranial hemorrhage. BRAIN: Vásquez-white matter differentiation is preserved. There is no mass, mass effect or abnormal extra-axial fluid collection. There is no territorial infarction. VENTRICLES: There is mild age-related global parenchymal volume loss and proportionate enlargement of the ventricles and cortical sulci. CALVARIUM: The skull base and calvarium are normal. PARANASAL SINUSES: Predominantly clear. MASTOID AIR CELLS: Predominantly clear. OTHER FINDINGS: None. IMPRESSION: No acute intracranial abnormality. Mild age-related global parenchymal volume loss. pt reassessment; pts BP improved; after drinking water; speech improved. no slurred speech noted. all results discussed with patient and family. TPA was not given as patients onset of symptoms is unknown and patients symptoms of slurred speech improved. case discussed with dr. mejía covering for dr. lee; will admit patient observational status to remote tele with cardiology and neuro consult. ASA given po pt was seen and evaluated by dr. clayton. impression; dizziness, hypertension, hyperglycemia, unsteady gait. admit observational status to remote tele. dr. mejía. - Lab Interpretations Lab Results: 12/23/16 09:40 12/23/16 09:40 Lab Results 12/23/16 10:00: pO2 74 H, VBG pH 7.40, VBG pCO2 48.0, VBG HCO3 29.7 H, VBG Total CO2 31.2 H, VBG O2 Sat (Calc) 97.1 H, VBG Base Excess 4.0 H, VBG Potassium 4.2, Glucose 248 H, Lactate 1.5, FiO2 21.0, Sodium 137.0, Chloride 99.0, Venous Blood Potassium 4.2 12/23/16 09:40: Urine Color Yellow, Urine Appearance Clear, Urine pH 7.0, Ur Specific [place] 1.010, Urine Protein Negative, Urine Glucose (UA) 500 H, Urine Ketones Negative, Urine Blood Negative, Urine Nitrate Negative, Urine Bilirubin Negative, Urine Urobilinogen 0.2, Ur Leukocyte Esterase Negative 12/23/16 09:40: WBC 6.2 D, RBC 4.98, Hgb 13.7 L, Hct 39.3 L, MCV 78.9 L, MCH 27.5, MCHC 34.9, RDW 14.8 H, Plt Count 74 L, MPV 10.7, Gran % 82.4 H, Lymph % ( Auto) 9.8 L, [place] % (Auto) 6.6 H, Eos % (Auto) 1.0 L, Baso % (Auto) 0.2, Gran # 5.12, Lymph # 0.6 L, [place] # 0.4, Eos # 0.1, Baso # 0.01 12/23/16 09:40: Sodium 138, Potassium 4.2, Chloride 99, Carbon Dioxide 27, Anion Gap 16, BUN 13, Creatinine 0.8, Est GFR ( Amer) > 60, Est GFR (Non- Af Amer) > 60, Random Glucose 245 H, Calcium 9.4, Total Bilirubin 0.8, AST 29, ALT 37, Alkaline Phosphatase 69, Lactate Dehydrogenase 486, Total Creatine Kinase 46, Troponin I < 0.01, NT-Pro-B Natriuret Pep 261, Total Protein 7.1, Albumin 4.2, Globulin 3.0, Albumin/Globulin Ratio 1.4, Lipase 281 - RAD Interpretation Radiology Orders: 12/23/16 09:53 HEAD W/O CONTRAST [CT] Stat CHEST ONE VIEW [RAD] Stat - Medication Orders Current Medication Orders: Bupropion HCl (Wellbutrin Xl) 150 mg PO DAILY [facility] Last Admin: 12/23/16 14:50 Dose: Clonidine HCl (Catapres) 0.1 mg PO BID [facility] Last Admin: 12/23/16 17:08 Dose: Gabapentin (Neurontin) 600 mg PO TID [facility] PRN Reason: Protocol Last Admin: 12/23/16 17:15 Dose: 600 mg Glimepiride (Amaryl) 4 mg PO BID [facility] Last Admin: 12/23/16 17:15 Dose: 4 mg Hydrochlorothiazide (Microzide) 12.5 mg PO DAILY [facility] Last Admin: 12/23/16 14:50 Dose: 12.5 mg Sodium Chloride (Sodium Chloride 0.9%) 1,000 mls @ 70 mls/hr IV .[id number] [facility] Last Admin: 12/23/16 12:11 Dose: 70 mls/hr Insulin Human Regular (Humulin R Med) 0 units SC ACHS [facility] PRN Reason: Protocol Last Admin: 12/23/16 17:16 Dose: 3 units Losartan Potassium (Cozaar) 100 mg PO DAILY [facility] Last Admin: 12/23/16 14:50 Dose: 100 mg Metformin HCl (Glucophage) 1,000 mg PO BID [facility] Last Admin: 12/23/16 17:15 Dose: 1,000 mg Oxycodone/Acetaminophen (Percocet 5/325 Mg Tab) 1 tab PO Q6H PRN PRN Reason: Pain, severe (8-10) Stop: 12/26/16 17:00 Last Admin: 12/23/16 17:17 Dose: 1 tab Sitagliptin Phosphate (Januvia) 50 mg PO BID [facility] Last Admin: 12/23/16 17:15 Dose: 50 mg Trazodone HCl (Desyrel) 150 mg PO HS [facility] Discontinued Medications Aspirin (Aspirin) 325 mg PO STAT STA Stop: 12/23/16 11:56 Last Admin: 12/23/16 12:10 Dose: 325 mg NIHSS Scale ([place]) Time Performed: 09:50 - How Severe is the Stoke Baseline Level of Consciousness: 0=Alert LOC to Questions: 0=Both comments correct LOC to commands: 0=Obeys both correctly Best Gaze: 0=Normal Visual: 0=No visual loss Facial: 0=Normal Motor Arm - Left: 0=No drift Motor Arm - Right: 0=No drift Motor Leg - Left: 0=No drift Motor Leg - Right: 0=No drift Limb Ataxia: 0=Absent Sensory: 0=Normal Best Language: 0=No aphasia Dysarthia: 1=Mild to moderate slurring (suspect dry mouth) Extinction & Inattention (Neglect): 0=Normal, no object Score: 1 Risk Level: Minor Stroke Risk Disposition/Present on Arrival - Present on Arrival Any Indicators Present on Arrival: No History of DVT/PE: No History of Uncontrolled Diabetes: No Urinary Catheter: No History of Decub. Ulcer: No History Surgical Site Infection Following: None - Disposition Have Diagnosis and Disposition been Completed?: Yes Diagnosis: Hyperglycemia, Hypertension, Dizziness Disposition: HOSPITALIZED Disposition Time: 12:00 Patient Plan: Observation Condition: FAIR
[2016-12-23 10:13] LABS: URINE APPEARANCE CLEAR (CLEAR); URINE COLOR YELLOW (YELLOW)
[2016-12-23 10:20] LABS: ALB/GLOB RATIO 1.4 (1.1-1.8); ALKALINE PHOSPHATASE 69 U/L (38-133); ALT/SGPT 37 U/L (7-56); AST/SGOT 29 U/L (15-59); BILIRUBIN,TOTAL 0.8 mg/dL (0.2-1.3); BLOOD UREA NITROGEN 13 mg/dL (7-21); CALCIUM 9.4 mg/dL (8.4-10.5); CARBON DIOXIDE 27 mmol/L (21-33); CHLORIDE 99 mmol/L (98-107); GFR AFRICAN-AMERICAN > 60; GLUCOSE,RANDOM 245 mg/dL (70-110); LIPASE 281 U/L (23-300); POTASSIUM 4.2 mmol/L (3.6-5.0); SODIUM 138 mmol/L (132-148); TOTAL PROTEIN 7.1 g/dL (5.8-8.3)
[2016-12-23 10:32] LABS: TROPONIN I < 0.01 ng/mL
--- NOTE | 2016-12-23 10:47 | RAD ---
PROCEDURE: CHEST RADIOGRAPH, 1 VIEW HISTORY: dizziness/unsteady gait COMPARISON: 12/21/2016 FINDINGS: LUNGS: Clear. PLEURA: No pneumothorax or pleural fluid seen. CARDIOVASCULAR: Normal. OSSEOUS STRUCTURES: Chronic rib fractures are seen on the left VISUALIZED UPPER ABDOMEN: Normal. OTHER FINDINGS: None. IMPRESSION: No active disease.
--- NOTE | 2016-12-23 11:11 | CT ---
PROCEDURE: CT HEAD WITHOUT CONTRAST. HISTORY: headache/dizziness/unsteady gait COMPARISON: 12/21/2016. TECHNIQUE: Axial computed tomography images were obtained through the head/brain without intravenous contrast. Radiation dose: Total exam DLP = 802.20 mGy-cm. This CT exam was performed using one or more of the following dose reduction techniques: Automated exposure control, adjustment of the mA and/or kV according to patient size, and/or use of iterative reconstruction technique. FINDINGS: HEMORRHAGE: No intracranial hemorrhage. BRAIN: Vásquez-white matter differentiation is preserved. There is no mass, mass effect or abnormal extra-axial fluid collection. There is no territorial infarction. VENTRICLES: There is mild age-related global parenchymal volume loss and proportionate enlargement of the ventricles and cortical sulci. CALVARIUM: The skull base and calvarium are normal. PARANASAL SINUSES: Predominantly clear. MASTOID AIR CELLS: Predominantly clear. OTHER FINDINGS: None. IMPRESSION: No acute intracranial abnormality. Mild age-related global parenchymal volume loss.
[2016-12-23] MEDS ORDERED: Labetalol 5 mg/ml Inj 20ML IV ONE (11:50)
[2016-12-23] MEDS: Sodium Chloride 0.9% 1,000 ML IV SCH (12:11)
--- NOTE | 2016-12-23 12:57 | CARD ---
APPROVED REPORT EKG Measurement Heart [id number] OK 178P50 [id number] <Conclusion> Normal sinus rhythm Normal ECG
[2016-12-23] MEDS ORDERED: Non Formulary Medication (Losartan/Hydrochlorothiazide [Losartan-Hctz 100-12.5 Mg Tab] 1 T PO SCH (14:15)
[2016-12-23] MEDS: buPROPion 150 mg/24 Hours XL Tab PO SCH (14:50)
[2016-12-23] MEDS: Insulin Reg-MEDIUM-Coverage SC SCH ×2 (17:16→22:04)
[2016-12-23] MEDS: Oxycodone/Acetaminophen 5/325 mg Tab PO PRN ×2 (17:17→23:35)
[2016-12-23] MEDS ORDERED: Non Formulary Medication (Sitagliptin Phos/Metformin Hcl [Janumet 50-1,000 Mg Tablet] 1 EA PO SCH (18:00)
[2016-12-23 19:28] VITALS: BMI 32.3
[2016-12-23] MEDS ORDERED: Pneumococcal 23-Valent Vaccine IM ONE (19:28)
[2016-12-24] MEDS: Sodium Chloride 0.9% 1,000 ML IV SCH (04:21)
[2016-12-24] MEDS: Oxycodone/Acetaminophen 5/325 mg Tab PO PRN ×2 (05:59→11:55)
[2016-12-24] MEDS: Insulin Reg-MEDIUM-Coverage SC SCH ×3 (08:11→16:38)
[2016-12-24 08:27] VITALS: RESP 18
--- NOTE | 2016-12-24 08:32 | CON ---
DATE: 12/23/2016 CARDIOLOGY CONSULTATION HISTORY: The patient is a 51-year-old male who presents with dizziness and unsteady gait. He was found to have elevated blood pressures varying from 180-210 measured both at home as well as in the emergency room. The patient's past medical history is notable for hypertension, diabetes mellitus. Cardiac workup includes a stress test which was performed in 10/2016. The LV function is normal. There is no evidence for coronary disease. The patient has a history of alcoholism as well as mood disorder and was seen, evaluated by psychiatry in the past. SOCIAL HISTORY: Denies smoking. REVIEW OF SYSTEMS: Besides the dizziness, there is no other cardiac symptomatology. PHYSICAL EXAMINATION: VITAL SIGNS; Blood pressure is 180 systolic, heart rate is in the 70s. NECK: Negative JVD. LUNGS: Without rales. HEART: Reveal S1, S2. EXTREMITIES: Without edema. DIAGNOSTIC DATA: EKG is within normal limits. Troponins are negative. CT scan of the head is negative. IMPRESSION: 1. Unsteady gait. 2. Accelerated hypertension. 3. Diabetes mellitus. 4. History of alcoholism. 5. No evidence for acute coronary nor cardiac disease. Given these findings, an MRI of the brain is pending. No echocardiogram is necessary given his recent echocardiogram was unremarkable. We will start the patient on clonidine for better blood pressure control. Bal Caal MD
[2016-12-24] MEDS: buPROPion 150 mg/24 Hours XL Tab PO SCH (09:33)
--- NOTE | 2016-12-24 14:31 | PN ---
DATE: 12/24/2016 SUBJECTIVE: The patient's unsteady gait and dizziness resolved. Blood pressure is much better, currently on Norvasc. OBJECTIVE: VITAL SIGNS: On physical exam, blood pressure is 148/70, heart rate is in the 60s. NECK: Negative JVD. LUNGS: Without rales. HEART: S1, S2. EXTREMITIES: Without edema. LABORATORY DATA: Unremarkable. IMPRESSION: 1. Unsteady gait is much improved. 2. Accelerated hypertension is well-controlled. 3. Diabetes mellitus. 4. History of alcoholism, which the patient no longer drinks. 5. No evidence for acute coronary syndrome. Given these findings, we will continue the patient on Norvasc. From a cardiac perspective, the patient can be discharged. Bal Caal MD
[2016-12-24 16:03] VITALS: BP 160/103; PULSE 75; TEMP 98.5; O2SAT 99
--- NOTE | 2016-12-24 22:22 | CP.PCM.CON ---
<Bill Gamez - Last Filed: 12/24/16 22:10> History of Present Illness - History of Present Illness History of Present Illness: Neurology Consult Note for Dr. Cui Service Consulted for Dizziness HPI: This is a 51 yo M with PMH of DM, charcot foot bilaterally, multiple prior toe amputations B/L, HTN, and alcoholic cirrhosis who presented to [facility] with complaint of dizziness and worsening of unsteady gait. As per patient, symptoms began on Friday (2 days prior to admission), and he presented to the ED, at which time he was found to have elevated BP's (SBP ~200' s as per pt). He was given medication in the ED and sent home. He reports continuing to feel poorly, with home SBP readings of 170-180's persisting ( reports never that high previously, normally 130's-140's), and notes that his gait, which is unsteady at baseline due to diabetic neuropathy and prior surgeries, has worsened to the point that he feels unsafe walking at home even when bracing himself on other objects in the home. He was seen by Dr. Alvarado in the wound care center yesterday, and upon report of his symptoms, directed him to present to the ED. In the ED, was found to still have elevated BP's in the 170's-180's, so patient was admitted. CT head was obtained in the ED, and was read as no acute intracranial abnormalities, with mild age-related global parenchymal volume loss. On exam at bedside today, patient reports dizziness symptoms completely resolved. His SBP overnight improved to 130's-140's with medication, and patient reports feeling back at baseline. Denies sided-motor or sensory deficits, focal weakness, chest pain, shortness of breath, room-spinning, nausea /emesis, cough, diarrhea/constipation, dysuria/hematuria. Admits to bilateral LE numbness 2/2 diabetic neuropathy, which he states is longstanding and at baseline. All other ROS in 12-point system review negative. PMH: As above PSH: R foot (3rd toe complete amputation), partial 4th and 5th toe, bone shaving for Charcot foot), L foot (2nd toe complete amputation), appendectomy as child, L knee replacement 5 yrs prior SHx: Denies any tobacco, admits to former illicits (Cocaine, snorted, last used 7 yrs prior), denies IVDA Chronic alcoholic, ongoing for > 5 years, currently sober 72 days FHx: denies PMD: None Review of Systems - Review of Systems All systems: reviewed and no additional remarkable complaints except (as per HPI ) Past Patient History - Infectious Disease Hx of Infectious Diseases: None - Tetanus Immunizations Tetanus Immunization: Up to Date - Past Medical History & Family History Past Medical History?: Yes - Past Social History Smoking Status: Never Smoked - CARDIAC Hx Hypercholesterolemia: Yes Hx Hypertension: Yes - PULMONARY Hx Respiratory Disorders: Yes Hx Emphysema: Yes - NEUROLOGICAL Hx Neurological Disorder: Yes (syncope) Hx Dizziness: Yes Hx Seizures: No Other/Comment: neuropathy - HEENT Hx HEENT Problems: No - RENAL Hx Chronic Kidney Disease: No - ENDOCRINE/METABOLIC Hx Diabetes Mellitus Type 2: Yes - HEMATOLOGICAL/ONCOLOGICAL Hx Blood Disorders: Yes Hx Cirrhosis: Yes - INTEGUMENTARY Hx Dermatological Problems: Yes (hx cellulitis, gangrene left 2nd toe) Other/Comment: prior visit triage notes: 4th toe rt foot ulcer (resolved), now partially amputated. RIGHT FOOT 3RD TOE AMPUTATED,PARTIAL AMPUTATION TO 4TH AND 5TH TOE.hx gangrene l 2nd toe now amputated. LEFT FOOT 2ND TOE AMPUTATION. OPEN WOUND TO SOLE OF RIGHT FOOT.HAD A BLISTER ,GOT WORSE. pt trerated by dr alvarado at the wound center with wound care and a cast but wound opened up 4x's , pt went to overlook to a dr nicole who specializes in charcot feet, had bone shaved on bottom of right charcot foot on 06/05/16, cast and herbie wrap in place pt ambulated with crutches, wound opened was trreated by dr alvarado, pt stepped on toy made it worse dr alvarado corrected problem with sx abx picc line wound is healing as per pt - MUSCULOSKELETAL/RHEUMATOLOGICAL Hx Arthritis: Yes - GASTROINTESTINAL Hx Gastrointestinal Disorders: Yes (c dif,colitis) - GENITOURINARY/GYNECOLOGICAL Hx Genitourinary Disorders: No - PSYCHIATRIC Hx Anxiety: Yes Hx Bipolar Disorder: Yes Hx Depression: Yes Hx Panic Symptoms: Yes Other/Comment: difficulty sleeping, 2013 suicide attempt lithium od, hx self mutilitation, affective mood disorder - SURGICAL HISTORY Hx Appendectomy: Yes Hx Orthopedic Surgery: Yes (left ankle F/X 6 years ago, L TKR) - ANESTHESIA Hx Anesthesia: Yes Hx Anesthesia Reactions: No Hx Malignant Hyperthermia: No Meds Home Medications: Home Medication List Medication Instructions Recorded Confirmed Type amLODIPine [Norvasc] 10 mg PO DAILY #30 tab 12/24/16 Rx Allergies/Adverse Reactions: Allergies Allergy/AdvReac Type Severity Reaction Status Date / Time No Known Allergies Allergy Verified 10/07/16 03:50 Physical Exam - Constitutional Appears: Well, Non-toxic, No Acute Distress - Head Exam Head Exam: ATRAUMATIC, NORMAL INSPECTION, NORMOCEPHALIC - Eye Exam Eye Exam: EOMI, Normal appearance, PERRL. absent: Conjunctival injection, Scleral icterus Pupil Exam: PERRL. absent: Fixed, Irregular, Unequal - ENT Exam ENT Exam: Mucous Membranes Moist - Neck Exam Neck exam: Positive for: Full Rom, Normal Inspection. Negative for: Lymphadenopathy, Tenderness, Thyromegaly - Respiratory Exam Respiratory Exam: Decreased Breath Sounds (mildly decreased breath sounds in all ndiaye, likely 2/2 body habitus), Clear to Auscultation Bilateral, NORMAL BREATHING PATTERN. absent: Accessory Muscle Use, Chest Wall Tenderness, Prolonged Expiratory Phase, Rales, Rhonchi, Wheezes, Respiratory Distress - Cardiovascular Exam Cardiovascular Exam: REGULAR RHYTHM, RRR, +S1, +S2. absent: Bradycardia, Tachycardia, Irregular Rhythm, JVD, +S4 - GI/Abdominal Exam GI & Abdominal Exam: Normal Bowel Sounds, Soft. absent: Diminished Bowel Sounds , Firm, Guarding, Hyperactive Bowel Sounds, Hypoactive Bowel Sounds, Rigid, Tenderness - Extremities Exam Extremities exam: Negative for: calf tenderness, pedal edema, tenderness, pedal pulses present Additional comments: waxy cool skin at distal LE on palpation amptuations as described in surgical hx unable to palpate dorsalis pedis or posterior tibial pulses bilaterally Gross foot motor intact, minimal sensory intact in bilateral LE (able to sense hard prolonged palpation in bilateral LE from foot to mid-emmanuel only), normal gross motor and sensation proximal to bilateral knees Requires Fitted stabilizer boot on RLE to walk Hesitant gait with short leg swing and placement step - Back Exam Back exam: absent: CVA tenderness (L), CVA tenderness (R), rash noted - Neurological Exam Neurological exam: Alert, CN II-XII Intact, Oriented x3 Additional comments: gait as described in extremities exam gross motor and sensory intact without extinction, able to appropriately lateralize sensation, except as described in extremities exam - Psychiatric Exam Psychiatric exam: Normal Affect, Normal Mood - Skin Skin Exam: Dry, Intact, Normal Color, Warm Results - Vital Signs Recent Vital Signs: Last Vital Signs Temp 98.5 F 12/24/16 16:02 Pulse 75 12/24/16 16:02 Resp 18 12/24/16 16:02 BP 160/103 H 12/24/16 16:02 Pulse Ox 99 12/24/16 16:02 - Labs Result Diagrams: 12/23/16 09:40 12/23/16 09:40 Labs: Laboratory Results - last 24 hr 12/24/16 12/24/16 12/24/16 07:32 11:42 16:04 POC Glucose (mg/dL) 224 H 214 H 94 Assessment & Plan - Assessment and Plan (Free Text) Assessment: This is a 51 yo M with PMH of DM, charcot foot bilaterally, multiple prior toe amputations B/L, HTN, and alcoholic cirrhosis who presented to [facility] with complaint of dizziness and worsening of unsteady gait. His dizziness is likely 2/2 Hypertensive urgency, which has now resolved with improved BP control. Unsteady gait is 2/2 underlying peripheral neuropathy; sensory motor axonal type causing poor gait and imbalance with underlying foot amputations. At this time, he is stable for discharge from Neurological standpoint. Plan: 1) Keep SBP 130-140 2) Sodium reduction in diet 3) maintain Blood glucose 140-180 4) Continue Neurontin 600mg PO TID for neuropathy Patient seen, reviewed, and examined with attending, Dr. Hollie Cui. Thank you for this interesting consult. <Tacos Cui - Last Filed: 12/25/16 11:19> Results - Vital Signs Recent Vital Signs: Last Vital Signs Temp 98.5 F 12/24/16 16:02 Pulse 75 12/24/16 16:02 Resp 18 12/24/16 16:02 BP 160/103 H 12/24/16 16:02 Pulse Ox 99 12/24/16 16:02 - Labs Result Diagrams: 12/23/16 09:40 12/23/16 09:40 Labs: Laboratory Results - last 24 hr 12/24/16 12/24/16 11:42 16:04 POC Glucose (mg/dL) 214 H 94 Attending/Attestation - Attestation I have personally seen and examined this patient.: Yes I have fully participated in the care of the patient.: Yes I have reviewed all pertinent clinical information: Yes
--- NOTE | 2016-12-25 08:39 | HP ---
CHIEF COMPLAINT AND HISTORY OF PRESENT ILLNESS: This 51-year-old male who come to the hospital with past medical history of diabetes, hypertension, right foot wound, and was complaining of dizziness. He was having difficulty ambulating. He says he had woken up from sleep and has been having headache and was dizzy. He denies any chest, pain. He says he does get shortness of breath at times, but did not have shortness of breath when I found this morning. He has no nausea, no vomiting, no abdominal pain, no back pain, no dysuria, no frequency, and no nocturia. He has had cardiac workup in the past. He had a stress test done in October 2016, which was essentially normal. He has no history of coronary artery disease. He does have a history of alcoholism, according to the nurse that I have reviewed in the chart. He says he feels well and currently is feeing better than when he first came into the hospital. REVIEW OF SYSTEMS: All other review of systems are within normal limits except what is mentioned. ALLERGIES: NO KNOWN DRUG ALLERGIES. HOME MEDICATIONS: He is on insulin glargine, potassium, Janumet, bupropion, trazodone, gabapentin, Amaryl, and Humalog. SOCIAL HISTORY: He never smoked. He drinks. He denies drug use. PAST MEDICAL HISTORY: He has hypertension, dyslipidemia, C. diff, bipolar disorder, and diabetes type 2. PAST SURGICAL HISTORY: Appendectomy, left ankle surgery, left second toe surgery, amputation of the third, fourth and fifth toes on the right foot. PHYSICAL EXAMINATION VITAL SIGNS: He has a temperature of 97.8, pulse of 85, blood pressure of 148/80, respirations of 18, and O2 saturation of 97%. Height is 6 feet and 2 inches and weight is 252 pounds, BMI is 32.4. GENERAL: The patient lying in bed, uncomfortable, and in no acute distress. HEENT: Atraumatic and normocephalic. Anicteric sclerae. Moist mucosa. Ola conjunctivae. No oral lesions. NECK: No JVD, anterior and posterior adenopathy, thyromegaly, or bruits. CARDIOVASCULAR: S1 and S2 regular. No murmur, rubs, or gallop. LUNGS: Clear to auscultation bilaterally. No wheezes, rales, or rhonchi. ABDOMEN: Bowel sounds are positive. Soft, nontender and nondistended. No hepatosplenomegaly. No rebound and no guarding EXTREMITIES: No cyanosis, clubbing, or edema. NEUROLOGIC: No facial asymmetry. Tongue is midline. No uvula deviation. Power is 5/5 upper extremity and lower extremity. Sensation intact in upper extremity and lower extremity. PSYCHIATRIC: He is awake, alert and oriented x3. No anxiety or depression. He has normal affect. GENITOURINARY: No CVA tenderness. VASCULAR: 2+ pulses in the carotid pulses and pedal pulses. SKIN: No erythema or nodules SPINE: Shows normal curvature. EXTREMITIES: No Cyanosis and clubbing, no edema. IMAGING DATA: 1. CT of the head done, he has no acute intracranial abnormalities. 2. His EKG showed sinus rhythm at 65, and no ST-T changes. 3. Chest x-ray shows no active disease. LABORATORY DATA: His labs were reviewed. His hemoglobin was 13.7 and white count was 6.2. He had a chemistry that showed a creatinine of 0.8 and troponin of 0.01 ASSESSMENT: 1. Dizziness. 2. Diabetes type 2. 3. Bipolar disorder. 4. Hypertension. PLAN: The patient is currently feeling better. He was given aspirin. He is tolerating his diet. He says he was feeling better, so the patient was discharged home. He was placed on insulin. He was given his blood pressure medication. He was seen by Dr. Caal. I had offered him to wait to be seen by Dr. Cui before being discharged. He is going to follow Dr. Parra. Condition stable. Activities increase as tolerated. Pavan Valero MD
== END 2016-12-24 18:54 | disposition home or self-care (01) ==
LOC: ED 09:11 → ERH 12:14 → 3RSO 14:25
PROVIDERS: ADMIT Internal Medicine Nephrology; ATTEND Internal Medicine Nephrology
DX: I16.0 Hypertensive urgency (principal); E11.65 Type 2 diabetes mellitus with hyperglycemia; E11.40 Type 2 diabetes mellitus with diabetic neuropathy, unspecified; E11.610 Type 2 diabetes mellitus with diabetic neuropathic arthropathy; R26.2 Difficulty in walking, not elsewhere classified; F31.9 Bipolar disorder, unspecified; K70.30 Alcoholic cirrhosis of liver without ascites; E78.5 Hyperlipidemia, unspecified; F10.21 Alcohol dependence, in remission; R42 Dizziness and giddiness; Z89.421 Acquired absence of other right toe(s); Z89.422 Acquired absence of other left toe(s); Z79.4 Long term (current) use of insulin; Z96.652 Presence of left artificial knee joint
CPT/HCPCS: 70450; 71010; 80053; 81003; 82550; 82803; 82948; 83615; 83690; 83880; 84484; 85025; 87086; 93005; 97116; 97161; 99285; G0378; G8978; G8979; G8980; J7040

== ENCOUNTER 2017-04-21 15:50 | Inpatient (IN) | payer MEDICARE ==
[2017-04-21 15:50] VITALS: BMI 32.1
[2017-04-21] MEDS ORDERED: Morphine 4 mg/ml ISec IVP STA (16:13)
[2017-04-21] MEDS ORDERED: Sodium Chloride 0.9% 1,000 ML IV STA (16:13)
--- NOTE | 2017-04-21 16:19 | ED PDOC ---
Arrival/HPI - General Chief Complaint: GI Problem Time Seen by Provider: 04/21/17 16:13 Historian: Patient - History of Present Illness Narrative History of Present Illness (Text): 04/21/17 16:19 pt p/w < 1 day onset of mid abd cramps/pain, at most pain is 7/10, diffuse, and within 1 hour of the onset of abd pain/cramps, pt noted the start of copious episodes of watery diarrhea (light yellow), no foul odor noted, no gross blood noted; pt states at least 18-20 episodes of loose bowel movement is noted prior to ED arrival; pt states + chills, no fever/sweats, no cp/sob/palpitations, + no appetite, no urinary changes, no bleeding, no rashes, recent abx use was a few weeks ago for right heel ulcer; pt has a hx of C-diff ~ 1 year ago and states symptoms today are similar; pt states no loc, mild lightheadedness, no fall/trauma/sick contact, no travel, no new foods as well; pt is here for further eval; pt's without other complaints. 04/21/17 18:05 04/21/17 18:25 Time/Duration: 1-3 hours Symptom Onset: Sudden Symptom Course: Worsening Quality: Cramping Severity Level: 7 Activities at Onset: Rest Context: Home Past Medical History - Provider Review Nursing Documentation Reviewed: Yes - Travel History Have you recently traveled outside [place] w/in the past 3 mons?: No - Past History Past History: No Previous - Infectious Disease Hx of Infectious Diseases: C.diff - Tetanus Immunization Tetanus Immunization: Up to Date - Cardiac Hx Hypertension: Yes Hx Peripheral Edema: Yes - Pulmonary Hx Respiratory Disorders: Yes Hx Emphysema: Yes - Neurological Hx Neurological Disorder: Yes Hx Dizziness: Yes (SYNCOPE) - HEENT Hx HEENT Disorder: No - Renal Hx Renal Disorder: No - Endocrine/Metabolic Hx Diabetes Mellitus Type 2: Yes - Hematological/Oncological Hx Blood Disorders: Yes Hx Cirrhosis: Yes - Integumentary Other/Comment: prior visit triage notes: 4th toe rt foot ulcer (resolved). RIGHT FOOT 3RD TOE AMPUTATED,PARTIAL AMPUTATION TO 4TH AND 5TH TOE. LEFT FOOT 2ND TOE AMPUTATION. OPEN WOUND TO SOLE OF RIGHT FOOT.HAD A BLISTER ,GOT WORSE. pt trerated by dr underwood at the wound center with wound care and a cast but wound opened up 4x's, pt went to [facility] to a dr nicole who specializes in charcot feet, had bone shaved on bottom of right charcot foot on 06/05/16, cast and herbie wrap in place pt ambulated with crutches - Musculoskeletal/Rheumatological Hx Falls: Yes (past) Hx Unsteady Gait: Yes Other/Comment: CHARCOT FOOT RIGHT,LEFT ANKLE WITH PLATES AND SCREWS - Gastrointestinal Hx Gastrointestinal Disorders: Yes (c dif,colitis) - Genitourinary/Gynecological Hx Genitourinary Disorders: No - Psychiatric Hx Substance Use: No Other/Comment: notes from previous visit/triage: hx of bipolar depression and anxiety, 4 yrs ago, attends [facility] outpatient mental health clinic once a week, suicide attempt lithium od october 2012, has been in rehab for alcoholism the last time was 05/2013 but had a couple beers friday, denies drug use, presently pt quit drinking 2 1/2 yrs ago, denies smoking and substance abuse - Surgical History Hx Appendectomy: Yes Hx Orthopedic Surgery: Yes (left ankle F/X 6 years ago, L TKR) - Anesthesia Hx Anesthesia: Yes Hx Anesthesia Reactions: No Hx Malignant Hyperthermia: No - Suicidal Assessment Feels Threatened In Home Enviroment: No Family/Social History - Physician Review Nursing Documentation Reviewed: Yes Family/Social History: No Known Family HX Smoking Status: Never Smoked Hx Alcohol Use: Yes Hx Substance Use: No Hx Substance Use Treatment: No Allergies/Home Meds Allergies/Adverse Reactions: Allergies No Known Allergies Allergy (Verified 10/07/16 03:50) Home Medications: Home Meds Medication Instructions Recorded Confirmed Insulin Glargine,Hum.rec.anlog 100 unit SQ HS 10/22/16 04/21/17 [Toujeo Solostar] Losartan/Hydrochlorothiazide 1 tab PO DAILY 10/22/16 04/21/17 [Losartan-Hctz 100-12.5 mg Tab] Sitagliptin Phos/Metformin HCl 1 each PO BID 10/22/16 04/21/17 [Janumet 50-1,000 mg Tablet] buPROPion XL [Wellbutrin XL] 150 mg PO DAILY 10/22/16 04/21/17 traZODone [Desyrel] 150 mg PO HS 10/22/16 04/21/17 Gabapentin [Neurontin] 600 mg PO TID 12/21/16 04/21/17 Glimepiride [amaRYL] 4 mg PO BID 12/21/16 04/21/17 Insulin Lispro [humALOG] 0 units SC TID 12/21/16 04/21/17 Review of Systems - Review of Systems Constitutional: Fatigue Eyes: Normal ENT: Normal Respiratory: Normal Cardiovascular: Normal Gastrointestinal: Abdominal Pain, Diarrhea, Appetite Changes Genitourinary Male: Normal Musculoskeletal: Normal Skin: Normal Neurological: Dizziness Endocrine: Normal Hemo/Lymphatic: Normal Psychiatric: Normal Physical Exam Vital Signs Reviewed: Yes Vital Signs Temp Pulse Resp BP Pulse Ox 04/21/17 17:51 97.9 F 82 16 121/86 98 04/21/17 15:51 97.8 F 101 H 20 125/84 95 Temperature: Afebrile Blood Pressure: Normal Pulse: Tachycardic (slightly elevated HR) Respiratory Rate: Normal Appearance: Positive for: Well-Appearing, Non-Toxic, Other (uncomfortable, resting in bed, NAD, alert/awake, GCS = 15, oriented x 3) Pain Distress: None Mental Status: Positive for: Alert and Oriented X 3 - Systems Exam Head: Present: Atraumatic, Normocephalic Pupils: Present: PERRL, Other (no photophobia, sclera anicteric, no nystagmus; visual field intact b/l) Extroacular Muscles: Present: EOMI Conjunctiva: Present: Normal Ears: Present: Normal Mouth: Present: Dry, Normal Teeth, Other (uvula/tongue are midline, no exudate/ lesions, no drooling/stridor) Pharnyx: Present: Normal Nose (External): Present: Atraumatic Neck: Present: Normal Range of Motion, Trachea Midline. No: MIDLINE TENDERNESS Respiratory/Chest: Present: Clear to Auscultation, Good Air Exchange. No: Respiratory Distress, Accessory Muscle Use Cardiovascular: Present: Regular Rate and Rhythm, Normal S1, S2. No: Murmurs Abdomen: Present: Normal Bowel Sounds, Other (+ mid abd tenderness, well nourished/obese male, no franks's sign, no mcburney's point tenderness, no masses/rebound/guarding/rigidity). No: Tenderness, Distention, Peritoneal Signs Back: Present: Normal Inspection. No: Midline Tenderness Upper Extremity: Present: Normal Inspection, Normal ROM, NORMAL PULSES, Neurovascularly Intact. No: Cyanosis, Edema Lower Extremity: Present: Normal Inspection, NORMAL PULSES, Normal ROM, Capillary Refill < 2 s. No: Edema Neurological: Present: GCS=15, CN II-XII Intact, Speech Normal Skin: Present: Warm, Dry, Normal Color, Other (cap refill ~ 1 sec, no ulcerations, no petechiae). No: Rashes Psychiatric: Present: Alert, Oriented x 3, Normal Insight, Normal Concentration Medical Decision Making ED Course and Treatment: 04/21/17 18:17 Impression: diarrhea/abd pain/cramps i have consider all the differential diagnosis regarding pt's chief medical complaints/clinical findings, including but are not limited to: ? colitis/c-diff , ? non-specific diarrhea, inflam disorder, infectious disorder, obstruction, unlikely surgical process A/P: abd cramps/diarrhea - labs - stool cultures - ct - ua - observe - supportive care 04/21/17 18:36 re-eval: pt's pain is improved, but remained at 5/10 pt is feeling slightly improved paging Dr Fontana 04/21/17 19:06 Dr Fontana contacted, made aware, agrees with admission, would like pt NPO; would like to consult Dr Carter (ID) and Dr Holliday (GI); to start patient on maintainence fluids and will see patient in the morning pt is made aware of his medical results agrees with admission Re-evaluation Time: 18:19 Reassessment Condition: Improving,but remains with symptoms - Lab Interpretations Lab Results: 04/21/17 16:00 04/21/17 16:00 Lab Results 04/21/17 17:00: Urine Color Yellow, Urine Appearance Clear, Urine pH 6.0, Ur Specific [place] 1.020, Urine Protein Trace H, Urine Glucose (UA) 250 H, Urine Ketones Negative, Urine Blood Negative, Urine Nitrate Negative, Urine Bilirubin Negative, Urine Urobilinogen 0.2, Ur Leukocyte Esterase Negative, Urine RBC Negative, Urine WBC 1 - 3, Ur Epithelial Cells 3 - 4, Urine Bacteria Few 04/21/17 16:00: Sodium 138, Chloride 98, Potassium 4.1, Carbon Dioxide 25, Anion Gap 19, BUN 14, Creatinine 0.9, Est GFR ( Amer) > 60, Est GFR (Non- Af Amer) > 60, Random Glucose 222 H, Calcium 10.5, Total Bilirubin 0.7, AST 25, ALT 49, Alkaline Phosphatase 72, Total Protein 8.6 H, Albumin 5.0 H, Globulin 3.6, Albumin/Globulin Ratio 1.4, Lipase 236 04/21/17 16:00: pO2 60 H, VBG pH 7.39, VBG pCO2 45.0, VBG HCO3 27.2, VBG Total CO2 28.6 H, VBG O2 Sat (Calc) 93.3 H, VBG Base Excess 1.7, VBG Potassium 4.1, Sodium 136.0, Chloride 101.0, Glucose 236 H, Lactate 1.9, FiO2 21.0, Venous Blood Potassium 4.1 04/21/17 16:00: WBC 8.9 D, RBC 5.39, Hgb 15.6, Hct 43.8, MCV 81.3, MCH 28.9, MCHC 35.6, RDW 14.0, Plt Count 115 L, MPV 10.4, Gran % 78.5 H, Lymph % (Auto) 13.5 L, [place] % (Auto) 6.2 H, Eos % (Auto) 1.6, Baso % (Auto) 0.2, Gran # 7.01 H , Lymph # 1.2, [place] # 0.6, Eos # 0.1, Baso # 0.02 elevated GLUC I have reviewed the lab results: Yes (elevated GLUC) Interpretation: Abnormal lab values - RAD Interpretation Radiology Orders: 04/21/17 16:15 ABD & PELVIS IV CONTRAST ONLY [CT] Stat CT Abdomen and Pelvis with contrast HISTORY: diffuse abd pain, diarrhea, hx of c-diff COMPARISON: 01/13/2015 CT abdomen and pelvis TECHNIQUE: Contrast dose: 100 cc Omnipaque 350 Radiation dose: Total exam DLP = 1036.76 mGy-cm. This CT exam was performed using one or more of the following dose reduction techniques: Automated exposure control, adjustment of the mA and/or kV according to patient size, and/or use of iterative reconstruction technique. FINDINGS: LOWER THORAX: Unremarkable. LIVER: Hepatic steatosis. No focal masses. No intrahepatic bile duct dilatation or perihepatic ascites. GALLBLADDER AND BILE DUCTS: Unremarkable. PANCREAS: Unremarkable. No gross lesion or ductal dilatation. SPLEEN: Top-normal spleen, unchanged compared to the prior study. ADRENALS: Unremarkable. No mass. KIDNEYS AND URETERS: Unremarkable. No hydronephrosis. No solid mass. VASCULATURE: Unremarkable. No aortic aneurysm. BOWEL: Fluid throughout the colon and small bowel compatible with a diarrheal state. No evidence of mechanical obstruction. No findings on the current study to indicate acute inflammatory bowel disease, colitis. APPENDIX: No abnormalities to suggest acute appendicitis. No right lower quadrant inflammatory processes identified. PERITONEUM: Unremarkable. No free fluid. No free air. LYMPH NODES: Unremarkable. No enlarged lymph nodes. BLADDER: Unremarkable. REPRODUCTIVE: Unremarkable. BONES: No acute fracture. Healed posterior lateral left rib fractures. OTHER FINDINGS: None. IMPRESSION: Fluid-filled colon and small bowel without mechanical obstruction. No evidence of colitis, inflammatory bowel disease. Additional benign and/or incidental findings described above. 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 - Medication Orders Current Medication Orders: Dextrose/Sodium Chloride (Dextrose 5%/0.9% Ns 1000 Ml) 1,000 mls @ 150 mls/hr IV .Q6H40M [facility] Insulin Human Regular (Humulin R Low) 0 units SC ACHS JIMMIE PRN Reason: Protocol Discontinued Medications Sodium Chloride (Sodium Chloride 0.9%) 1,000 mls @ 1,000 mls/hr IV .Q1H STA Stop: 04/21/17 17:12 Last Admin: 04/21/17 16:58 Dose: 1,000 mls/hr eMAR Start Stop Document 04/21/17 16:58 (Rec: 04/21/17 16:58 [id number] Intravenous Solution Start Date 04/21/17 Start Time 16:58 End Date 04/21/17 End time 17:58 Total Infusion Time 60 Morphine Sulfate (Morphine) 4 mg IVP STAT STA Stop: 04/21/17 16:14 Last Admin: 04/21/17 16:52 Dose: 4 mg MAR Pain Assessment Document 04/21/17 16:52 (Rec: 04/21/17 16:58 [id number] Pain Reassessment Is this a pain reassessment? Yes Sleep Is patient sleeping during reassessment? No Presence of Pain Presence of Pain Yes Pain Scale Used Pain Scale Used Numeric Location Pain Location Body Site Abdomen Description Description Constant Pain Behavior Guarding Aggravating Factors ADL's Alleviating Factors/Management Medication Techniques Alleviating Factors Medication IVP Administration Document 04/21/17 16:52 AB (Rec: 04/21/17 16:58 AB [id number]) Charges for Administration # of IVP Administrations 1 Disposition/Present on Arrival - Present on Arrival Any Indicators Present on Arrival: No History of DVT/PE: No History of Uncontrolled Diabetes: No Urinary Catheter: No History of Decub. Ulcer: No History Surgical Site Infection Following: None - Disposition Have Diagnosis and Disposition been Completed?: Yes Diagnosis: Diarrhea, Dehydration, Abdominal pain Disposition: HOSPITALIZED Disposition Time: 19:08 Patient Plan: Admission Condition: STABLE Forms: [facility] (E[place]ian)
[2017-04-21 16:33] LABS: BASO # 0.02 K/mm3 (0.0-2.0); BASO % 0.2 % (0.0-3.0); EOS # 0.1 (0.0-0.7); EOS % 1.6 % (1.5-5.0); GRAN # 7.01 (1.4-6.5); GRAN % 78.5 % (50.0-68.0); HEMOGLOBIN 15.6 g/dL (14.0-18.0); LYMPH # 1.2 (1.2-3.4); LYMPH % 13.5 % (22.0-35.0); MEAN CELL VOLUME 81.3 fl (80.0-105.0); MEAN CORPUSCULAR HEMOGLOBIN 28.9 pg (25.0-35.0); MEAN CORPUSCULAR HGB CONC 35.6 g/dl (31.0-37.0); MEAN PLATELET VOLUME 10.4 fl (7.0-11.0); MONO # 0.6 (0.1-0.6); MONO % 6.2 % (1.0-6.0); RBC 5.39 10^6/uL (3.5-6.1); VENOUS BLOOD GAS BASE EXCESS 1.7 mmol/L (0.0-2.0); VENOUS BLOOD GAS PO2 60 mm/Hg (30-55); VENOUS BLOOD PH 7.39 (7.32-7.43); WHITE BLOOD COUNT 8.9 10^3/ul (4.5-11.0)
[2017-04-21 16:42] LABS: ALT/SGPT 49 U/L (7-56); AST/SGOT 25 U/L (17-59); BLOOD UREA NITROGEN 14 mg/dL (7-21); CALCIUM 10.5 mg/dL (8.4-10.5); GFR AFRICAN-AMERICAN > 60; GFR NON-AFRICAN AMERICAN > 60; LIPASE 236 U/L (23-300)
[2017-04-21 16:45] LABS: ALB/GLOB RATIO 1.4 (1.1-1.8)
[2017-04-21] MEDS ORDERED: Iohexol 350 MG/100 ML VIAL ONE (16:56)
[2017-04-21 17:16] LABS: URINE BILIRUBIN NEGATIVE (NEGATIVE); URINE BLOOD NEGATIVE (NEGATIVE); URINE GLUCOSE (UA) 250 mg/dL (NEGATIVE); URINE LEUKOCYTE ESTERASE NEGATIVE Leu/uL (NEGATIVE); URINE NITRATE NEGATIVE (NEGATIVE); URINE PROTEIN TRACE mg/dL (<30 mg/dL); URINE UROBILINOGEN 0.2 E.U./dL (<1 E.U./dL)
--- NOTE | 2017-04-21 17:23 | CT ---
PROCEDURE: CT Abdomen and Pelvis with contrast HISTORY: diffuse abd pain, diarrhea, hx of c-diff COMPARISON: 01/13/2015 CT abdomen and pelvis TECHNIQUE: Contrast dose: 100 cc Omnipaque 350 Radiation dose: Total exam DLP = 1036.76 mGy-cm. This CT exam was performed using one or more of the following dose reduction techniques: Automated exposure control, adjustment of the mA and/or kV according to patient size, and/or use of iterative reconstruction technique. FINDINGS: LOWER THORAX: Unremarkable. LIVER: Hepatic steatosis. No focal masses. No intrahepatic bile duct dilatation or perihepatic ascites. GALLBLADDER AND BILE DUCTS: Unremarkable. PANCREAS: Unremarkable. No gross lesion or ductal dilatation. SPLEEN: Top-normal spleen, unchanged compared to the prior study. ADRENALS: Unremarkable. No mass. KIDNEYS AND URETERS: Unremarkable. No hydronephrosis. No solid mass. VASCULATURE: Unremarkable. No aortic aneurysm. BOWEL: Fluid throughout the colon and small bowel compatible with a diarrheal state. No evidence of mechanical obstruction. No findings on the current study to indicate acute inflammatory bowel disease, colitis. APPENDIX: No abnormalities to suggest acute appendicitis. No right lower quadrant inflammatory processes identified. PERITONEUM: Unremarkable. No free fluid. No free air. LYMPH NODES: Unremarkable. No enlarged lymph nodes. BLADDER: Unremarkable. REPRODUCTIVE: Unremarkable. BONES: No acute fracture. Healed posterior lateral left rib fractures. OTHER FINDINGS: None. IMPRESSION: Fluid-filled colon and small bowel without mechanical obstruction. No evidence of colitis, inflammatory bowel disease. Additional benign and/or incidental findings described above.
[2017-04-21 17:28] LABS: URINE APPEARANCE CLEAR (CLEAR); URINE COLOR YELLOW (YELLOW)
[2017-04-21 17:39] LABS: URINE BACTERIA FEW (NEG); URINE RBC NEGATIVE /hpf (0-2)
[2017-04-21] MEDS ORDERED: Dextrose 5%/0.9% NS 1,000 ML IV SCH (19:15)
[2017-04-21] MEDS: Dextrose 5%/0.9% NS 1,000 ML IV SCH (21:09)
[2017-04-21] MEDS: Insulin Reg-LOW-Coverage SC SCH (22:01)
[2017-04-21] MEDS ORDERED: Influenza Vaccine 60 mcg/0.5 mL SYR (4YR UP) IM ONE (23:00)
[2017-04-21] MEDS ORDERED: Pneumococcal 23-Valent Vaccine IM ONE (23:00)
[2017-04-22 07:30] LABS: BASO # 0.02 K/mm3 (0.0-2.0); BASO % 0.3 % (0.0-3.0); EOS # 0.2 (0.0-0.7); EOS % 3.3 % (1.5-5.0); GRAN # 4.8 (1.4-6.5); GRAN % 69.6 % (50.0-68.0); HEMOGLOBIN 13.8 g/dL (14.0-18.0); LYMPH # 1.2 (1.2-3.4); LYMPH % 17.8 % (22.0-35.0); MEAN CELL VOLUME 82.5 fl (80.0-105.0); MEAN CORPUSCULAR HEMOGLOBIN 28.1 pg (25.0-35.0); MEAN CORPUSCULAR HGB CONC 34.1 g/dl (31.0-37.0); MEAN PLATELET VOLUME 10.2 fl (7.0-11.0); MONO # 0.6 (0.1-0.6); RBC 4.91 10^6/uL (3.5-6.1); RED CELL DISTRIBUTION WIDTH 14.2 % (11.5-14.5); WHITE BLOOD COUNT 6.9 10^3/ul (4.5-11.0)
[2017-04-22] MEDS: Insulin Reg-LOW-Coverage SC SCH ×4 (07:45→22:07)
[2017-04-22 07:46] LABS: ALB/GLOB RATIO 1.4 (1.1-1.8); ALBUMIN 4.3 g/dL (3.0-4.8); ALT/SGPT 44 U/L (7-56); AST/SGOT 23 U/L (17-59); BLOOD UREA NITROGEN 12 mg/dL (7-21); CALCIUM 8.8 mg/dL (8.4-10.5); GFR AFRICAN-AMERICAN > 60; GFR NON-AFRICAN AMERICAN > 60
[2017-04-22] MEDS: Dextrose 5%/0.9% NS 1,000 ML IV SCH (07:46)
[2017-04-22 08:05] VITALS: RESP 20
[2017-04-22] MEDS: Vancomycin 25 MG/ML PO SCH ×4 (10:46→22:08)
[2017-04-22] MEDS: Lactobacillus Acidophilus 500 MU Cap PO SCH ×2 (13:44→17:00)
--- NOTE | 2017-04-22 15:15 | CP.PCM.PN ---
Subjective - Date & Time of Evaluation Date of Evaluation: 04/22/17 Time of Evaluation: 15:11 - Subjective Subjective: Podiatry Progress Note for Dr. Alvarado 52 y.o male seen at bedside with attending Dr. Alvarado for right plantar foot ulceration secondary to Charcot foot deformity. Patient is known to Dr. Alvarado and [facility]. Patient comes to wound care weekly for continue treatment of ulceration. Patient was admitted yesterday for abdominal pain and diarrhea. Patient reports denies nausea, vomiting, fever, shortness of breath, chest pains or chills. No other pedal complaints at this time. Objective - Vital Signs/Intake and Output Vital Signs (last 24 hours): Temp Pulse Resp BP Pulse Ox 98.0 F 72 20 140/88 95 04/22/17 07:56 04/22/17 07:56 04/22/17 07:56 04/22/17 10:46 04/22/17 07:56 Intake and Output: 04/22/17 04/22/17 06:59 18:59 Intake Total 0 Balance 0 - Medications Medications: Current Medications Amlodipine Besylate (Norvasc) 10 mg PO DAILY [facility] Last Admin: 04/22/17 10:46 Dose: 10 mg Famotidine (Pepcid) 20 mg PO 1000 JIMMIE Last Admin: 04/22/17 10:46 Dose: 20 mg Dextrose/Sodium Chloride (Dextrose 5%/0.9% Ns 1000 Ml) 1,000 mls @ 100 mls/hr IV .Q10H [facility]IM[facility] Last Admin: 04/22/17 07:46 Dose: 100 mls/hr Insulin Human Regular (Humulin R Low) 0 units SC ACHS [facility] PRN Reason: Protocol Last Admin: 04/22/17 12:15 Dose: Not Given Lactobacillus Acidophilus (Bacid Acidophilus) 1 cap PO TID [facility] Last Admin: 04/22/17 13:44 Dose: 1 cap Vancomycin HCl (Vancocin 25 Mg/Ml (Oral Use)) 250 mg PO QID JIMMIE PRN Reason: Protocol Last Admin: 04/22/17 13:44 Dose: 250 mg - Labs Labs: 04/22/17 07:00 04/22/17 07:00 - Constitutional Appears: Well, Non-toxic, No Acute Distress - Extremities Exam Additional comments: Vasc: nonpalpable pedal pulses, TG warm to warm, CFT < 3 sec to digits Neuro: protective sensation grossly diminished Derm: plantar ulceration of right midfoot measuring 0.5 x 0.5 x 0.2 cm. Wound base is mixture of granular and fibrotic tissue. No erythema, no calor, noted malodor, no purulence, no streaking, no positive [id number]. No active bleeding noted to the ulceration. No clinical signs of infection noted. Musc: right foot 3rd toe amputated, partial amputation of 4th and 5th toes, left foot 2nd toe amputated. No pain with palpation to ulceration site. - Neurological Exam Neurological Exam: Alert, Awake, Oriented x3 - Psychiatric Exam Psychiatric exam: Normal Affect, Normal Mood Assessment and Plan - Assessment and Plan (Free Text) Assessment: 52 y.o male with right plantar foot ulceration secondary to Charcot foot deformity. Plan: Patient seen and examined with attending Dr. Alvarado Labs, charts, vitals reviewed Discussed plan in detail with attending Ulceration cleansed with saline solution, dressed with Maxosorb and optifoam Pt to continue full weightbearing to right foot and leg in CAM boot. Podiatry will continue to follow while in house. Upon discharge, pt to follow up at [facility] at previously established, regularly scheduled intervals.
[2017-04-22] MEDS: Sodium Chloride 0.9% 1,000 ML IV SCH (15:20)
--- NOTE | 2017-04-22 15:33 | CON ---
DATE: 04/22/2017 GASTROENTEROLOGY CONSULTATION REQUESTING PHYSICIAN: Aspen Fontana MD REASON FOR CONSULTATION: I have been asked to see this 52-year-old male with longstanding history of insulin-dependent diabetes mellitus, chronic recurrent right foot ulcer who comes to the hospital with a 1-day history of profuse diarrhea associated with [id number] abdominal cramps. The patient states the diarrhea began on the day of admission. He denies any rectal bleeding, melena, nausea, or vomiting. He states that he had approximately 20 episodes of diarrhea on the day of admission. The patient was treated for 1 week with amoxicillin for his foot ulcer. He was diagnosed with pseudomembranous colitis approximately 1 year ago. He denies ingestion of any unusual foods. He denies any other family members ill at home with diarrheal illness. PAST MEDICAL HISTORY: Notable for diabetes mellitus requiring insulin, hypertension, pseudomembranous colitis, and recurrent right foot ulcer. Past medical history is also notable for bipolar disorder and anxiety. PAST SURGICAL HISTORY: Notable for right foot surgery, amputation of his right third, fourth and fifth toes, left second toe amputation. SOCIAL HISTORY: He denies cigarette smoking and consumes alcohol on a social basis. FAMILY HISTORY: Noncontributory. REVIEW OF SYSTEMS: A 14-point review of systems is notable for profuse diarrhea and abdominal cramps. HOME MEDICATIONS: Include trazodone, bupropion, amlodipine 10 mg once a day, Janumet mg 1 b.i.d., losartan/hydrochlorothiazide 100/12.5 mg once a day, Toujeo 100 units subcutaneous at night, Amaryl 4 mg p.o. b.i.d., and Neurontin 600 mg 3 times a day. PHYSICAL EXAMINATION: GENERAL: Well-developed male lying in bed in no acute distress. VITAL SIGNS: Reveal temperature of 98, blood pressure 148/78, and heart rate 72. HEENT: Revealed oral mucosa be slightly dry. Sclerae white. Conjunctivae pink. NECK: Supple. CHEST: Reveal lungs to be clear. HEART: Reveals regular rate and rhythm. ABDOMEN: Soft and nontender. There are hyperactive bowel sounds. EXTREMITIES: Show 1+ pedal edema with chronic stasis changes of his legs. His right foot is covered by a surgical dressing and a walking boot. LABORATORY DATA: Reveal white blood cell count 6.9 and hemoglobin 13.8. Chemistries reveal normal electrolytes, BUN 12, creatinine 0.9, bicarbonate 23, and blood sugar 183. AST, ALT, and alkaline phosphatase were all normal. IMPRESSION: He is a 52-year-old male with 1 day of profuse diarrhea and abdominal cramps with a CT scan of the abdomen and pelvis showing fluid-filled colon and small bowel loops. I suspect that this is a gastroenteritis, one must also rule out pseudomembranous colitis, as the patient has been on multiple courses of antibiotics over the last several months due to his recurrent right foot infection. The patient has been started on vancomycin on 250 mg 4 times a day by Infectious Disease. RECOMMENDATIONS: 1. Await stool for Clostridium difficile. 2. Check stool for C and S, ova and parasites. 3. Continue IV fluid hydration. 4. I have started the patient on Lactobacillus 1 tablet 3 times a day 90. Mao Holliday MD
--- NOTE | 2017-04-22 16:00 | HP ---
HISTORY OF PRESENT ILLNESS: This is a 52-year-old male, who states that on the day of he had some for dinner, some chicken wings, some sausage. On the following morning, he got up and also had some eggs and sausage, subsequently after which he started to have loose watery stools with crampy abdominal pain. Denies any vomiting. Denies any blood in the stool. Denies any fever or chills and states that no other members of the family who ate the same food have been sick that he is aware of. He does state that a little weeks' prior he had completed a course of antibiotics for a wound infection nonhealing ulcer on his right foot. PAST MEDICAL HISTORY: The patient has a past medical history of cirrhosis, thrombocytopenia, alcohol abuse, suicide ideation, hypertension, insulin-dependent diabetes, and recurrent osteomyelitis of the right foot, with subsequent amputation on several toes with Charcot foot deformity, which also had surgical care. REVIEW OF SYSTEMS: He is lying in bed. He has some gurgling abdominal discomfort. No rebound or tenderness at this time. He has reported that there have been five to six loose bowel movements since coming to the floor. ALLERGIES: HE HAS NO KNOWN ALLERGY HISTORY. MEDICATIONS: Consists of Desyrel 150 at bedtime, Wellbutrin 150 mg daily, and Norvasc 10 mg daily. He is on Janumet twice a day, Zofran sublingual q.6 hours 4 mg, Losartan/hydrochlorothiazide 100/12.5 daily, he is on Humalog insulin subcu t.i.d. on a sliding scale and Toujeo Solostar 100 units of subcu at bedtime, Amaryl 4 mg b.i.d., and Neurontin 300 mg p.o. b.i.d. PHYSICAL EXAMINATION: VITAL SIGNS: Temperature of 98, pulse is 72, blood pressure is 148/78, respiratory rate is 20, and oxygen saturation is 95% on room air. LABORATORY DATA: Shows WBC of 8.9, RBC of 5.39, hemoglobin of 15.6, hematocrit 43.8, and platelet count of 115,000. to lactate level was 1.9. Chemistry showed normal electrolytes, BUN is 14, creatinine is 0.9, and random blood sugar is 222. LFTs are normal. Urinalysis showed trace protein, 250 mcg of sugar, and few urine bacteruria. CAT scan of the abdomen and pelvis reviewed by Radiology was reported as showing findings consistent with fluid filled colon and small bowel without mechanical obstruction. No evidence of colitis or inflammatory bowel disease. IMPRESSION AND PLAN: A 52-year-old male with: 1. Probable infectious diarrhea. 2. Rule out other gastrointestinal pathology. 3. Insulin-dependent diabetes uncontrolled. 4. Hypertension. 5. Cirrhosis. 6. Thrombocytopenia. 7. Charcot deformity of the right foot. 8. History of recurrent osteomyelitis. Aspen Fontana MD
[2017-04-23] MEDS: Sodium Chloride 0.9% 1,000 ML IV SCH ×3 (01:21→20:30)
[2017-04-23] MEDS: Insulin Reg-LOW-Coverage SC SCH ×4 (07:43→23:24)
--- NOTE | 2017-04-23 08:31 | CON ---
DATE: 04/22/2017 LOCATION: The patient is seen early this morning in room 560, bed 1. CHIEF COMPLAINT: Diarrhea times several days. HISTORY OF PRESENT ILLNESS: This is a 52-year-old male with past medical history of diabetes mellitus, ETOH alcohol, liver disease, portal hypertension, bipolar disorder, history of right foot infection and recently hospitalized, also had indication of the in the past. He had recent antibiotics. He is now admitted with diarrhea several times as days described as a watery. He denies any fevers or any chills. No nausea. No abdominal pain, , or constipation. No bright red blood per rectum. No melena. No headaches. PAST MEDICAL HISTORY: Significant for diabetes mellitus, alcoholic liver disease, and portal hypertension. PAST SURGICAL HISTORY: Significant for foot surgery and knee surgery. ALLERGIES: THE PATIENT HAS NO KNOWN ALLERGIES. MEDICATIONS AT HOME: Reviewed. PHYSICAL EXAMINATION GENERAL: The patient is in bed, in no acute distress. Answering questions appropriately. VITAL SIGNS: Temperature of 98, blood pressure is 112/70, and heart rate of 70. HEENT: Unremarkable. NECK: Supple. LUNGS: Have decreased breath sounds. HEART: Normal S1 and S2. ABDOMEN: Soft and nontender. No rebound. No guarding. LABORATORY DATA: Laboratory examination is noted and reviewed. Cultures are pending. White count is reported to be 6.9, hemoglobin of 13 with 94 platelets. BUN of 12 and creatinine of 0.9. Patient is seen in the Emergency Room, had heart rate of 101 and respiratory rate of 20. Patient's stool for C. diff is reported to be positive. ASSESSMENT AND PLAN: This is a 52-year-old male with past medical history of diabetes and alcoholic liver disease, portal hypertension, bipolar disorder, right foot infection, peripheral vascular disease, history of pseudomembranous colitis by history, osteoarthritis, panic disorder, and depression who was admitted now with severe diarrhea. Currently has pseudomembranous colitis, and we will treat the patient with p.o. vancomycin. We will check on the blood cultures. We will follow with you. Linwood Carter MD
[2017-04-23] MEDS: Vancomycin 25 MG/ML PO SCH ×4 (09:46→22:35)
[2017-04-23] MEDS: Lactobacillus Acidophilus 500 MU Cap PO SCH ×3 (09:46→17:00)
[2017-04-23] MEDS: buPROPion 150 mg/24 Hours XL Tab PO SCH (10:52)
[2017-04-23 11:17] LABS: BASO # 0.01 K/mm3 (0.0-2.0); BASO % 0.2 % (0.0-3.0); EOS # 0.2 (0.0-0.7); EOS % 3.4 % (1.5-5.0); GRAN # 3.28 (1.4-6.5); GRAN % 66.6 % (50.0-68.0); HEMOGLOBIN 13.5 g/dL (14.0-18.0); LYMPH % 21.1 % (22.0-35.0); MEAN CELL VOLUME 82.4 fl (80.0-105.0); MEAN CORPUSCULAR HEMOGLOBIN 28.7 pg (25.0-35.0); MEAN CORPUSCULAR HGB CONC 34.8 g/dl (31.0-37.0); MEAN PLATELET VOLUME 10.4 fl (7.0-11.0); MONO # 0.4 (0.1-0.6); MONO % 8.7 % (1.0-6.0); RBC 4.71 10^6/uL (3.5-6.1); WHITE BLOOD COUNT 4.9 10^3/ul (4.5-11.0)
[2017-04-23 11:39] LABS: ALB/GLOB RATIO 1.4 (1.1-1.8); ALBUMIN 4.1 g/dL (3.0-4.8); ALT/SGPT 48 U/L (7-56); AST/SGOT 30 U/L (17-59); BLOOD UREA NITROGEN 6 mg/dL (7-21); GFR AFRICAN-AMERICAN > 60; GFR NON-AFRICAN AMERICAN > 60
--- NOTE | 2017-04-23 20:16 | PN ---
DATE: 04/23/2017 SUBJECTIVE: A 52-year-old diabetic seen for ulceration to the plantar aspect of his right foot. The patient is seen at the bedside. He is hospitalized for C. diff. The patient's dressing is clean, dry and intact. dressing, there is a small ulceration on the plantar aspect of the mid foot this is secondary to a surgery he had approximately a year ago for exostectomy to the foot. The patient's dressing has a small amount of drainage on it. The wound is going on to heal. He is here at the hospital and obviously has been off his feet. PHYSICAL EXAMINATION VITAL SIGNS: Noted. His temperature is 97.6, his pulse is 71 and respirations are 20. LABORATORY DATA: Shows white blood cell count of 4.9, H and H is 13.5 and 38.8 and platelets are 79. The patient's chemistry shows a BUN and creatinine of 6 and 0.9 respectively. His blood glucose was 192. ASSESSMENT: He is a diabetic with a Charcot foot with a plantar foot ulceration. PLAN OF TREATMENT: Since he is here at the hospital, we will get foot x-ray to compare to the old x-rays and I will get a hemoglobin A1c while he is here to if see glucose management may be his part of the problem of his foot healing. The patient's dressing was done and he will be seen and followed. Leigh Ann Alvarado DPM
--- NOTE | 2017-04-23 20:17 | PN ---
DATE: SUBJECTIVE: This is a 52-year-old male, resting in bed comfortably this morning. Nursing staff relates no particular problems during the night. The patient states that his loose bowel movements have improved. PHYSICAL EXAMINATION: VITAL SIGNS: His temperature is 98.4, his pulse is 68, his blood pressure is 126/76, oxygen saturation is 98% on room air, respiratory rate is 20. GENERAL: He is alert and oriented x3. NECK: Supple. LUNGS: Clear. HEART: S1, S2 rhythm. ABDOMEN: Soft with positive bowel sounds. EXTREMITIES: He is wearing a boot on the right lower leg. LABORATORY DATA: Shows WBC of 4.9, RBC of 4.71, hemoglobin 13.5, hematocrit 38.8, and platelet count 79,000. Chemistry shows normal electrolytes. His BUN is 6, his creatinine is 0.9, his random blood sugar is 173. LFTs are normal. ASSESSMENT AND PLAN: He is being followed by Podiatry for an ulcer of his foot secondary to Charcot deformity. He is receiving vancomycin p.o. for positive C. difficile infection. He has an insulin-dependent diabetes, currently on clear liquid diet with fingerstick coverage. He has a peripheral neuropathy, on Neurontin 600 mg q. 8; history of hypertension, on Norvasc 10 mg daily; history of gastroesophageal reflux disease, on Pepcid 20 mg daily. Currently continuing IV fluids and he will start his depression medications. He has a past history of suicidal ideation, severe depression, alcoholism, thrombocytopenia, cirrhosis of the liver, osteomyelitis of the foot, Charcot deformity of the foot, surgery for Charcot deformity of the foot, recurrent episodes of cellulitis of the legs. Continue current level of care. Aspen Fontana MD
--- NOTE | 2017-04-23 23:50 | PN ---
DATE: 04/23/2017 SUBJECTIVE: Patient is in bed in no acute distress, nontoxic. PHYSICAL EXAMINATION VITAL SIGNS: Temperature is 98, blood pressure is 120/70, respiratory rate of 20, heart rate of 60. HEENT: Unremarkable. NECK: Supple. LUNGS: Have decreased breath sounds. HEART: Normal S1, S2. ABDOMEN: Soft. LABORATORY EXAMINATION: Reveals a white count of 4.9, hemoglobin of 13, platelets of 79. Chemistries reveals BUN of 6, creatinine of 0.9. Urinalysis is noted. Microbiology is noted. Blood cultures are reported to be no growth. Stool for C. diff is reported to be positive antigen. ASSESSMENT AND PLAN: This is a 52-year-old male with past medical history of diabetes mellitus, alcohol-induced liver disease, portal hypertension, bipolar disorder, history of right foot infection, recently hospitalized, antibiotics, now admitted with diarrhea with pseudomembranous colitis and currently on p.o. vancomycin. We will follow with you. Linwood Carter MD
[2017-04-24 03:18] VITALS: O2SAT 97
[2017-04-24] MEDS: Sodium Chloride 0.9% 1,000 ML IV SCH (06:01)
[2017-04-24] MEDS: Insulin Reg-LOW-Coverage SC SCH ×2 (08:06→12:18)
[2017-04-24 08:24] VITALS: BP 131/84; PULSE 60; TEMP 97.8
--- NOTE | 2017-04-24 08:32 | RAD ---
PROCEDURE: Right Foot Radiographs. HISTORY: midffot right ulcer COMPARISON: Right foot 11/18/2016. FINDINGS: BONES: Marked deformities at the distal 1st metatarsal greater than 2nd and 3rd distal metatarsal bones again evident from healed fractures. Gross degenerative changes compatible with Charcot joint is seen throughout the tarsal-metatarsal articulations with the cuboid 5th metatarsal joint the least affected the gross osteophytosis is otherwise appreciated at the midfoot. Lisfranc type subluxation of the 2nd through 5th metatarsal bones is again appreciated laterally. Distal phalangeal amputations at the 3rd, 4th and 5th digits is reiterated. No acute fracture and no complete dislocation is identified. No interval focal destructive lesion appreciable. JOINTS: As above. SOFT TISSUES: Unremarkable. OTHER FINDINGS: None. IMPRESSION: Midfoot Charcot joint are identified deformed by gross degenerative changes particularly throughout the tarsal metatarsal joints with Lisfranc type subluxation laterally of the 2nd through 5th metatarsal bones as per above. No definite acute fracture or interval destructive bony lesion appreciable. Prior partial amputations 3rd 4th and 5th digits. Fracture deformities again evident at the 2nd through 4th metatarsal bones distally.
[2017-04-24] MEDS: Vancomycin 25 MG/ML PO SCH (09:15)
[2017-04-24] MEDS: Lactobacillus Acidophilus 500 MU Cap PO SCH (09:16)
[2017-04-24] MEDS: buPROPion 150 mg/24 Hours XL Tab PO SCH (09:16)
--- NOTE | 2017-04-24 11:09 | CP.PCM.PN ---
Subjective - Date & Time of Evaluation Date of Evaluation: 04/24/17 Time of Evaluation: 11:04 - Subjective Subjective: Podiatry Progress Note for Dr. Alvarado 52 y.o male seen at bedside with attending Dr. Alvarado for right plantar foot ulceration secondary to Charcot foot deformity. Patient is seen resting comfortably in bed, in NAD, and AA0x3. Patient reports no acute overnight events. Patient denies n/v/sob/cp/chills/f or d today. Patient reports that he is tolerating his breakfast today without problems. No new complaints at this time. Objective - Vital Signs/Intake and Output Vital Signs (last 24 hours): Temp Pulse Resp BP Pulse Ox 97.8 F 60 20 131/84 97 04/24/17 07:30 04/24/17 07:30 04/24/17 07:30 04/24/17 09:16 04/24/17 07:30 Intake and Output: 04/24/17 04/24/17 06:59 18:59 Intake Total 3720 Output Total 5 Balance 3715 - Medications Medications: Current Medications Amlodipine Besylate (Norvasc) 10 mg PO DAILY [facility] Last Admin: 04/24/17 09:16 Dose: 10 mg Bupropion HCl (Wellbutrin Xl) 150 mg PO DAILY [facility] Last Admin: 04/24/17 09:16 Dose: 150 mg Famotidine (Pepcid) 20 mg PO 1000 [facility] Last Admin: 04/24/17 09:16 Dose: 20 mg Gabapentin (Neurontin) 600 mg PO Q8 [facility] PRN Reason: Protocol Last Admin: 04/24/17 05:59 Dose: 600 mg Insulin Human Regular (Humulin R Low) 0 units SC ACHS [facility] PRN Reason: Protocol Last Admin: 04/24/17 08:06 Dose: Not Given Lactobacillus Acidophilus (Bacid Acidophilus) 1 cap PO TID [facility] Last Admin: 04/24/17 09:16 Dose: 1 cap Trazodone HCl (Desyrel) 150 mg PO HS [facility] Last Admin: 04/23/17 21:39 Dose: 150 mg Vancomycin HCl (Vancocin 25 Mg/Ml (Oral Use)) 250 mg PO QID [facility] PRN Reason: Protocol Last Admin: 04/24/17 09:15 Dose: 250 mg - Labs Labs: 04/23/17 11:00 04/23/17 11:00 - Constitutional Appears: Non-toxic, No Acute Distress - Extremities Exam Additional comments: Vasc: nonpalpable pedal pulses, TG warm to warm, CFT < 3 sec to digits, no edema noted to LE Neuro: protective sensation grossly diminished Derm: plantar ulceration of right midfoot measuring 0.5 x 0.5 x 0.2 cm. Wound base is mixture of granular and fibrotic tissue. No erythema, no calor, noted malodor, no purulence, no streaking, no positive [id number]. Periwound is intact with hyperkeratotic rim. No active bleeding noted to the ulceration. No clinical signs of infection noted. Musc: right foot 3rd toe amputated, partial amputation of 4th and 5th toes, left foot 2nd toe amputated. No pain with palpation to ulceration site. - Psychiatric Exam Psychiatric exam: Normal Affect, Normal Mood Assessment and Plan - Assessment and Plan (Free Text) Assessment: 52 y.o male with right plantar foot ulceration secondary to Charcot foot deformity. Plan: Patient seen and examined with attending Dr. Alvarado Labs, charts, vitals reviewed (afebrile, absent leukocytosis WBC=4.9 on 04/23/17 ) Discussed plan in detail with attending Ulceration cleansed with saline solution, dressed with Maxosorb and optifoam Pt to continue full weightbearing to right foot and leg in CAM boot. X-rays results reviewed Impression: Midfoot Charcot joint are identified deformed by gross degenerative changes particularly throughout the tarsal metatarsal joints with Lisfranc type subluxation laterally of the 2nd through 5th metatarsal bones as per above. No definite acute fracture or interval destructive bony lesion appreciable. Prior partial amputations 3rd 4th and 5th digits. Fracture deformities again evident at the 2nd through 4th metatarsal bones distally. Podiatry will continue to follow while in house. Patient is stable per podiatry standpoint Upon discharge, pt to follow up at [facility] at previously established, regularly scheduled intervals.
[2017-04-24] MEDS ORDERED: Influenza Vaccine 60 mcg/0.5 mL SYR (4YR UP) IM ONE (14:06)
--- NOTE | 2017-04-24 21:16 | PN ---
DATE: 04/24/2017 SUBJECTIVE: The patient is in bed, in no acute distress. PHYSICAL EXAMINATION: VITAL SIGNS: Temperature is 98, blood pressure is 130/80, respiratory rate of 20, and heart rate of 60. HEENT: Unremarkable. NECK: Supple. LUNGS: Have decreased breath sounds. HEART: Normal S1, S2. ABDOMEN: Soft, nontender. LABORATORY EXAMINATION: Reveals the patient has white count of 4.9 and a hemoglobin of 13. Chemistries; BUN of 6 and creatinine of 0.9. Urinalysis is noted. ASSESSMENT AND PLAN: This is a 52-year-old male with past medical history significant for diabetes, alcohol-induced liver disease, portal hypertension, bipolar disorder, history of right foot infection, recently hospitalized on antibiotics, admitted with diarrhea, pseudomembranous colitis, and he completed with p.o. vancomycin. The patient is seen early this morning. Case discussed with Dr. Fontana. Linwood Carter MD
--- NOTE | 2017-04-26 15:31 | DS ---
HISTORY OF PRESENT ILLNESS: A 52-year-old male in the medical surgical floor, was admitted because of multiple loose bowel movements and found to have a positive C. diff serology. The patient was seen by Infectious Disease and Gastroenterology as well as Podiatry while in the hospital. He was being treated by Podiatry for a recurrent heel ulcer on the right foot with a history of Charcot deformity, prior surgeries for that as well as prior histories of osteomyelitis of that foot. He was being followed by Infectious Disease and had been placed on vancomycin for his C. diff infection and was also being followed by GI. Podiatry had the patient do an x-ray of the right foot, which showed Charcot deformity with Lisfranc-type subluxation of the second to fifth metatarsal bones. The patient was receiving wound care and was in a boot. partial amputation to third, fourth and fifth digits and fracture deformities evident on the second and fourth metatarsal bones distally. He had a history of cirrhosis with thrombocytopenia, portal hypertension, depression, suicidal ideation, alcohol abuse. He was continued with his CAM boot and the patient will be followed by Podiatry as an outpatient. He will complete 14 days of vancomycin for his C. diff. Recommended to stay on a bland soft diet. Follow up in the office. He was also an insulin-dependent diabetic and hypertensive. He will continue at home on Desyrel 150 mg at bedtime, Wellbutrin 150 mg daily, Norvasc 10 mg daily, metformin/sitagliptin or Janumet b.i.d., losartan and hydrochlorothiazide 100/12.5 mg daily, Lispro, Humalog insulin on a sliding scale t.i.d., Toujeo 100 units subcu at bedtime, Amaryl 4 mg b.i.d., Neurontin 600 mg t.i.d. and vancomycin 350 mg p.o. q.i.d. His WBC was 4.9, RBC 4.71, hemoglobin 13.5, hematocrit was 38.8. His platelet count was 79,000. Blood sugar was 121. Hemoglobin A1c was 6.7. He has a normal BUN and creatinine. Creatinine was 0.9. LFTs were normal. He had a negative stool guaiac. Microbiological study showed positive C. diff toxin. Cultures of blood were negative. Stool was negative for Salmonella, Shigella and Campylobacter and the stool for ova and parasites was negative. He had a CAT scan of the abdomen and pelvis, which was reviewed by the consultants and that time it showed fluid-filled colon with small bowel without mechanical obstruction. No evidence of colitis. His liver showed hepatic steatosis. Clinical findings were fully discussed with the patient. He was aware of his treatment plan and recommendations and outpatient followup. Aspen Fontana MD
== END 2017-04-24 14:58 | disposition home or self-care (01) | DRG 372 ==
LOC: ED 15:50 → ERH 18:59 → 5RNO 20:54
PROVIDERS: ADMIT Internal Medicine; ATTEND Internal Medicine
PROC: 3E0234Z Introduction of Serum, Toxoid and Vaccine into Muscle, Percutaneous Approach (ICD-10-PCS; principal; 2017-04-24)
DX: A04.72 Enterocolitis due to Clostridium difficile, not specified as recurrent (principal); K76.6 Portal hypertension; D69.6 Thrombocytopenia, unspecified; E11.51 Type 2 diabetes mellitus with diabetic peripheral angiopathy without gangrene; E11.610 Type 2 diabetes mellitus with diabetic neuropathic arthropathy; G62.9 Polyneuropathy, unspecified; E11.621 Type 2 diabetes mellitus with foot ulcer; L97.419 Non-pressure chronic ulcer of right heel and midfoot with unspecified severity; M14.671 Charcot's joint, right ankle and foot; E11.65 Type 2 diabetes mellitus with hyperglycemia; E86.0 Dehydration; F31.9 Bipolar disorder, unspecified; F41.0 Panic disorder [episodic paroxysmal anxiety]; I10 Essential (primary) hypertension; J43.9 Emphysema, unspecified; K21.9 Gastro-esophageal reflux disease without esophagitis; K70.9 Alcoholic liver disease, unspecified; K74.60 Unspecified cirrhosis of liver; K76.0 Fatty (change of) liver, not elsewhere classified; L08.9 Local infection of the skin and subcutaneous tissue, unspecified; L97.519 Non-pressure chronic ulcer of other part of right foot with unspecified severity; M21.6X1 Other acquired deformities of right foot; M20.5X1 Other deformities of toe(s) (acquired), right foot; Z79.4 Long term (current) use of insulin; Z79.899 Other long term (current) drug therapy; Z90.49 Acquired absence of other specified parts of digestive tract; Z91.5 Personal history of self-harm; Z89.422 Acquired absence of other left toe(s); Z89.421 Acquired absence of other right toe(s); Z23 Encounter for immunization

== ENCOUNTER 2017-10-15 07:44 | Day surgery (SDC) | payer MEDICARE ==
[2017-04-21 19:10] VITALS: BMI 32.1
[2017-10-15] MEDS ORDERED: Propofol 10 mg/ml Inj (20 ML) ONE (09:03)
[2017-10-15] MEDS ORDERED: Midazolam 2 MG/2 ML VIAL ONE (09:09)
[2017-10-15] MEDS ORDERED: Sodium Chloride 0.9% 1,000 ML IV SCH (09:15)
[2017-10-15 10:27] VITALS: BP 122/79; PULSE 74; RESP 18; TEMP 98.2; O2SAT 95
== END 2017-10-15 10:55 | disposition home or self-care (01) ==
LOC: ENDO 07:44
PROVIDERS: ATTEND Specialist
DX: Z12.11 Encounter for screening for malignant neoplasm of colon (principal); D12.4 Benign neoplasm of descending colon; K57.30 Diverticulosis of large intestine without perforation or abscess without bleeding; K64.8 Other hemorrhoids; I10 Essential (primary) hypertension; K74.60 Unspecified cirrhosis of liver; F41.9 Anxiety disorder, unspecified; E11.69 Type 2 diabetes mellitus with other specified complication; M86.9 Osteomyelitis, unspecified; Z96.652 Presence of left artificial knee joint
CPT/HCPCS: 45385; 88305; J2250; J2704; J3010; J7030

== ENCOUNTER 2018-01-28 10:19 | Inpatient (IN) | payer MEDICARE ==
[2018-01-28 10:29] VITALS: BMI 30.8
[2018-01-28] MEDS ORDERED: Sodium Chloride 0.9% 1,000 ML IV STA ×2 (11:13→12:27)
[2018-01-28 11:46] LABS: VENOUS BLOOD GAS PO2 39 mm/Hg (30-55); VENOUS BLOOD PH 7.38 (7.32-7.43)
[2018-01-28 11:59] LABS: BASO # 0.01 K/mm3 (0.0-2.0); BASO % 0.1 % (0.0-3.0); EOS % 0.1 % (1.5-5.0); GRAN # 9.09 (1.4-6.5); GRAN % 87.5 % (50.0-68.0); HEMOGLOBIN 15.1 g/dL (14.0-18.0); LYMPH # 0.6 (1.2-3.4); LYMPH % 6.1 % (22.0-35.0); MEAN CORPUSCULAR HEMOGLOBIN 31.1 pg (25.0-35.0); MEAN CORPUSCULAR HGB CONC 35.8 g/dl (31.0-37.0); MEAN PLATELET VOLUME 10.5 fl (7.0-11.0); MONO # 0.6 (0.1-0.6); MONO % 6.2 % (1.0-6.0); RBC 4.85 10^6/uL (3.5-6.1); RED CELL DISTRIBUTION WIDTH 15.4 % (11.5-14.5); URINE BILIRUBIN NEGATIVE (NEGATIVE); URINE BLOOD NEGATIVE (NEGATIVE); URINE GLUCOSE (UA) >=1000 mg/dL (NEGATIVE); URINE LEUKOCYTE ESTERASE NEGATIVE Leu/uL (NEGATIVE); URINE PROTEIN NEGATIVE mg/dL (<30 mg/dL); URINE UROBILINOGEN 0.2 E.U./dL (<1 E.U./dL); WHITE BLOOD COUNT 10.4 10^3/ul (4.5-11.0)
[2018-01-28 12:02] LABS: URINE APPEARANCE CLEAR (CLEAR); URINE COLOR LIGHT YELLOW (YELLOW)
[2018-01-28 12:08] LABS: ALB/GLOB RATIO 1.3 (1.1-1.8); ALBUMIN 4.4 g/dL (3.0-4.8); ALT/SGPT 47 U/L (7-56); AST/SGOT 34 U/L (17-59); BLOOD UREA NITROGEN 8 mg/dL (7-21); CALCIUM 9.3 mg/dL (8.4-10.5); GFR NON-AFRICAN AMERICAN > 60
[2018-01-28] MEDS ORDERED: Ceftaroline 600 MG in Sodium Chloride 0.9% 100 ML IVPB STA (12:23)
--- NOTE | 2018-01-28 12:29 | ED PDOC ---
Arrival/HPI - General Chief Complaint: Abnormal Skin Integrity Time Seen by Provider: 01/28/18 10:38 Historian: Patient - History of Present Illness Narrative History of Present Illness (Text): 01/28/18 15:07 53-year-old diabetic male presents today with bilateral diabetic ulcer infections. Patient states he was seen at the wound center today and just had cast removed from the right leg and was found to have blistering of the right great toe as well as posterior along the plantar aspect of the right foot. Patient states he also was found to have an infected ulceration on the plantar aspect of the left foot with just showed up 2 days ago. Patient complaining of fever and chills. He is complaining of pain in the right leg radiating from the foot to the groin. He denies chest pain or shortness of breath. Denies abdominal pain. No nausea or vomiting. Patient was sent in by the wound care center with a prescription to start to teflaro and admit the patient to hospital. Past Medical History - Provider Review Nursing Documentation Reviewed: Yes - Travel History Have you recently traveled outside [place] w/in the past 3 mons?: No - Past History Past History: No Previous - Infectious Disease Hx of Infectious Diseases: None - Tetanus Immunization Tetanus Immunization: Up to Date - Cardiac Hx Hypertension: Yes Hx Pacemaker: No Hx Peripheral Edema: Yes - Pulmonary Hx Emphysema: Yes - Neurological Hx Seizures: No - HEENT Hx HEENT Disorder: No - Renal Hx Renal Disorder: No - Endocrine/Metabolic Hx Diabetes Mellitus Type 2: Yes - Hematological/Oncological Hx Blood Transfusions: Yes (PLATELETS 07/2016) Hx Blood Transfusion Reaction: No - Integumentary Other/Comment: prior visit triage notes: 4th toe rt foot ulcer (resolved). RIGHT FOOT 3RD TOE AMPUTATED,PARTIAL AMPUTATION TO 4TH AND 5TH TOE. LEFT FOOT 2ND TOE AMPUTATION. OPEN WOUND TO SOLE OF RIGHT FOOT.HAD A BLISTER ,GOT WORSE. pt trerated by dr underwood at the wound center with wound care and a cast but wound opened up 4x's, pt went to [facility] to a dr nicole who specializes in charcot feet, had bone shaved on bottom of right charcot foot on 06/05/16, cast and herbie wrap in place pt ambulated with crutches - Musculoskeletal/Rheumatological Hx Arthritis: Yes Hx Fractures: Yes (ankle) - Gastrointestinal Hx Gastrointestinal Disorders: Yes (c dif,colitis) - Genitourinary/Gynecological Hx Sexually Transmitted Diseases: No - Psychiatric Hx Anxiety: Yes Hx Bipolar Disorder: Yes Hx Depression: Yes Hx Substance Use: No - Surgical History Hx Appendectomy: Yes - Anesthesia Hx Anesthesia: Yes Hx Anesthesia Reactions: No Hx Malignant Hyperthermia: No - Suicidal Assessment Feels Threatened In Home Enviroment: No Family/Social History - Physician Review Nursing Documentation Reviewed: Yes Family/Social History: Unknown Family HX Smoking Status: Never Smoked Hx Alcohol Use: Yes (ALCOHOLISM/ABUSE- LAST DRINK 1 YR AGO- LAST REHAB 08/2016 ) Hx Substance Use: No Hx Substance Use Treatment: No Allergies/Home Meds Allergies/Adverse Reactions: Allergies No Known Allergies Allergy (Verified 01/28/18 16:22) Home Medications: Home Meds Medication Instructions Recorded Confirmed Insulin Glargine,Hum.rec.anlog 100 unit SQ HS 10/22/16 01/28/18 [Toujeo Solostar] Losartan/Hydrochlorothiazide 1 tab PO QAM 10/22/16 01/28/18 [Losartan-Hctz 100-12.5 mg Tab] Sitagliptin Phos/Metformin HCl 1 each PO BID 10/22/16 01/28/18 [Janumet 50-1,000 mg Tablet] traZODone [Desyrel] 150 mg PO HS 10/22/16 01/28/18 Glimepiride [amaRYL] 4 mg PO BID 12/21/16 01/28/18 Insulin Lispro [humALOG] 10 units SC ACTID 12/21/16 01/28/18 Nortriptyline [Nortriptyline HCl] 25 mg PO HS 10/06/17 01/28/18 amLODIPine [Norvasc] 10 mg PO HS 10/06/17 01/28/18 Review of Systems - Review of Systems Constitutional: Fevers. absent: Fatigue Respiratory: absent: SOB, Cough Cardiovascular: absent: Chest Pain, Palpitations Gastrointestinal: absent: Abdominal Pain, Constipation, Diarrhea, Nausea, Vomiting Musculoskeletal: Arthralgias Skin: Skin Lesions, Cellulitis Neurological: absent: Headache, Dizziness Psychiatric: absent: Anxiety, Depression Physical Exam Vital Signs Reviewed: Yes Vital Signs Temp Pulse Resp BP Pulse Ox 01/28/18 10:29 99.1 F 106 H 16 170/94 H 96 Temperature: Afebrile Blood Pressure: Hypertensive Pulse: Tachycardic Respiratory Rate: Normal Appearance: Positive for: Well-Appearing, Non-Toxic, Comfortable Pain Distress: None Mental Status: Positive for: Alert and Oriented X 3 - Systems Exam Head: Present: Atraumatic Mouth: Present: Moist Mucous Membranes Neck: Present: Normal Range of Motion Respiratory/Chest: Present: Clear to Auscultation, Good Air Exchange. No: Respiratory Distress, Accessory Muscle Use Cardiovascular: Present: Tachycardic. No: Murmurs Abdomen: No: Tenderness, Rebound, Guarding Upper Extremity: Present: Normal Inspection, Normal ROM Lower Extremity: Present: Swelling, Erythema, Capillary Refill < 2 s, Other (r ight foot; + open wound noted to distal tip of great toe; + ulcer noted to plantar aspect of foot, left foot; + blister noted to plantar aspect approx nickel sized with purulent discharge and foul smell noted. ) Neurological: Present: GCS=15, Speech Normal Skin: Present: Warm, Dry, Normal Color Psychiatric: Present: Alert, Oriented x 3 Medical Decision Making ED Course and Treatment: 01/28/18 16:56 53yr old diabetic male sent in by wound center for diabetic foot infection. pt non toxic well appearing; no distress. glucose elevated wbc; 10.4 lactate; 1.5 pt given NS iv bolus. tylenol given po for fever. blood cultures pending. pt started on teflaro; venous duplex right leg; no dvt. case discussed with dr. lee will admit for sepsis, diabetic foot infection impression; sepsis, diabetic foot infection admit to med/surg - Lab Interpretations Lab Results: 01/28/18 11:35 01/28/18 11:35 Lab Results 01/28/18 11:35: Urine Color Light yellow, Urine Appearance Clear, Urine pH 7.0, Ur Specific [place] <= 1.005, Urine Protein Negative, Urine Glucose (UA) >=1000, Urine Ketones 15 H, Urine Blood Negative, Urine Nitrate Negative, Urine Bilirubin Negative, Urine Urobilinogen 0.2, Ur Leukocyte Esterase Negative 01/28/18 11:35: pO2 39, VBG pH 7.38, VBG pCO2 45.0, VBG HCO3 26.6, VBG Total CO2 28.0, VBG O2 Sat (Calc) 77.7 H, VBG Base Excess 1.0, VBG Potassium 4.3, Sodium 133.0, Chloride 101.0, Glucose 270 H, Lactate 1.5, FiO2 21.0, Venous Blood Potassium 4.3 01/28/18 11:35: WBC 10.4 D, RBC 4.85, Hgb 15.1, Hct 42.2, MCV 87.0, MCH 31.1, MCHC 35.8, RDW 15.4 H, Plt Count 74 L, MPV 10.5, Gran % 87.5 H, Lymph % (Auto) 6.1 L, [place] % (Auto) 6.2 H, Eos % (Auto) 0.1 L, Baso % (Auto) 0.1, Gran # 9.09 H , Lymph # (Auto) 0.6 L, [place] # (Auto) 0.6, Eos # (Auto) 0.0, Baso # (Auto) 0.01 01/28/18 11:35: Sodium 135, Chloride 99, Potassium 4.3, Carbon Dioxide 25, Anion Gap 16, BUN 8, Creatinine 0.7 L, Est GFR ( Amer) > 60, Est GFR (Non-Af Amer) > 60, Random Glucose 262 H, Calcium 9.3, Total Bilirubin 1.8 H, AST 34, ALT 47, Alkaline Phosphatase 84, Total Protein 7.7, Albumin 4.4, Globulin 3.3, Albumin/Globulin Ratio 1.3 - RAD Interpretation Radiology Orders: 01/28/18 11:13 DUPLEX LOWER EXTRM VEIN RIGHT [US] Stat - Medication Orders Current Medication Orders: Ceftaroline Fosamil 600 mg/ (Sodium Chloride) 100 mls @ 100 mls/hr IVPB STAT STA; Protocol Stop: 01/28/18 13:22 Discontinued Medications Acetaminophen (Tylenol 325mg Tab) 975 mg PO STAT STA Stop: 01/28/18 11:11 Last Admin: 01/28/18 11:25 Dose: 975 mg MAR Pain/Vitals Document 01/28/18 11:25 EQ (Rec: 01/28/18 11:25 EQ [id number]) Pain Reassessment Is This A Pain ReAssessment? No Sleep Is patient sleeping during reassessment? No Presence of Pain Presence of Pain Yes Pain Scale Used Protocol: PSCALES Pain Scale Used Numeric Sodium Chloride (Sodium Chloride 0.9%) 1,000 mls @ 999 mls/hr IV .Q1H1M STA Stop: 01/28/18 12:13 Last Admin: 01/28/18 11:25 Dose: 999 mls/hr eMAR Start Stop Document 01/28/18 11:25 EQ (Rec: 01/28/18 11:25 EQ [id number]) Intravenous Solution Start Date 01/28/18 Start Time 11:25 Disposition/Present on Arrival - Present on Arrival Any Indicators Present on Arrival: No History of DVT/PE: No History of Uncontrolled Diabetes: No Urinary Catheter: No History of Decub. Ulcer: No History Surgical Site Infection Following: None - Disposition Have Diagnosis and Disposition been Completed?: Yes Diagnosis: Sepsis, Diabetic foot ulcer, Hyperglycemia Disposition: HOSPITALIZED Disposition Time: 12:00 Patient Plan: Admission Patient Problems: Current Active Problems Problem Status Onset Diabetic foot ulcer Acute Hyperglycemia Acute Sepsis Acute Condition: FAIR
--- NOTE | 2018-01-28 15:09 | US ---
PROCEDURE: Right lower extremity venous US HISTORY: Leg pain and swelling. Evaluate for DVT. PHYSICIAN(S): Bal Carrillo M.D. TECHNIQUE: Duplex sonography and color-flow Doppler with graded compression were used to evaluate the deep venous system of the right lower extremity. FINDINGS: The visualized deep venous system of the right lower extremity is sonographically normal and compressible. Normal waveforms and augmentation are seen. There is no sonographic evidence for deep venous thrombosis in the visualized segments of the right lower extremity. IMPRESSION: 1. No sonographic evidence for deep venous thrombosis in the visualized segments of the right lower extremity.
[2018-01-28] MEDS ORDERED: Insulin Lispro 1 UNITS/0.01 ML SC SCH (16:30)
[2018-01-28] MEDS ORDERED: Influenza Vaccine 60 mcg/0.5 mL SYR (4YR UP) IM ONE (18:35)
[2018-01-28] MEDS ORDERED: Pneumococcal 23-Valent Vaccine IM ONE (18:35)
[2018-01-29] MEDS: Insulin Detemir 100 units/ml Vial (Levemir) SC SCH ×2 (00:12→22:07)
[2018-01-29] MEDS: Insulin Lispro (humaLOG) LOW Coverage SC SCH ×5 (00:22→21:52)
--- NOTE | 2018-01-29 00:28 | CON ---
DATE: 01/28/2018 LOCATION: Room 569. HISTORY OF PRESENT ILLNESS: This is a 53-year-old male with known history of type 2 insulin-requiring diabetes presenting here from the wound center with bilateral infected foot ulcerations and is being referred now for diabetic evaluation because of hyperglycemic accelerations as noted thereof. PAST MEDICAL HISTORY: History of type 2 insulin-requiring diabetes, being followed in my office for diabetic management and his last A1c was 8.4% which was higher than the previous one of 7% or so. He is currently on a combination of a high dose of Toujeo given as 80 units subcu at bedtime daily with Humalog given as 30 units t.i.d. before meals. Review of his current insulin dosing is that he is taking now 100 units at bedtime for the Toujeo and only 10 units of Humalog at meals as noted. He is also on Amaryl given as 4 mg b.i.d. and Janumet XR at b.i.d., history of hypertension and dyslipidemia, history of significant diabetic polyneuropathy and Charcot foot with underlying peripheral arterial disease and vasculopathy. He has had multiple toe amputations in the right foot from the third to the fifth toe and in the left foot in the second toe. At this time, he has also blistering infections in the right big toe and in the plantar surfaces of both the right and left foot as noted. He has had multiple surgeries and resections, especially, in the right foot with underlying Charcot foot deformity as noted and he ambulates with crutches on a day-to-day basis. History of hypertension and dyslipidemia, history of generalized anxiety and depression with intake of psychotropic medications for the same. SOCIAL HISTORY: History of chronic alcoholism, but quit a few months ago and has been to alcohol rehab as noted. He has a very supportive and family otherwise. FAMILY HISTORY: Positive for diabetes and hypertension. REVIEW OF SYSTEMS: As mentioned above. Admits to episodic bouts of dizziness and lightheadedness with generalized body weakness as noted. His energy is suboptimal as per the patient with occasional bifrontal headaches and visual blurring as noted. No chest pains or palpitations or PND since oral intake has been variable with nausea, dyspepsia and vague upper abdominal pains, admits to episodic bouts of polyuria, nocturia and polydipsia with lower extremity painful paresthesias, especially, nocturnally and at this time also has severe pain in the right foot and ascending to the upper extremity as noted. PHYSICAL EXAMINATION: GENERAL: This is an average-built male, in no apparent distress, with a blood pressure of 140/80, pulse of 70 beats per minute regular, temperature 98, respirations 20, height is 6 feet 2 inches, weight is 240 pounds. HEENT: Head normocephalic. Eyes anicteric with pink conjunctivae. Funduscopy not possible at this time. Ears, nose and throat otherwise normal. NECK: Supple. Thyroid gland is normal in size. No carotid bruits or cervical adenopathy. CARDIOPULMONARY: Some adynamic precordium. S1, S2 is rapid and regular. LUNGS: Clear to auscultation. ABDOMEN: Flat, soft with positive bowel sounds. EXTREMITIES: There are ulcerations in both the left plantar surface and the posterior aspect of the right foot as noted with a right hallux infected ulceration as noted. He has diminished pulses bilaterally with erythema of the dorsum of both feet as noted. LABORATORY DATA: His chemistries showed a BUN of 8, sodium 135, potassium 4.3, chloride 99, CO2 of 25, glucose 262 and creatinine 0.7. His latest glucose is 260 mg/dL. ASSESSMENT: This is a 53-year-old male with uncontrolled and decompensated type 2 insulin-requiring diabetes presenting here with bilateral infected foot ulcerations and also the right hallux area with severe underlying peripheral arterial disease and vasculopathy with comorbid diabetic polyneuropathy bilaterally as noted. PLAN OF MANAGEMENT: We will modify his current insulin regimen to a more physiologic basal and bolus insulin drug combination, but because of the variability of his oral intake, we will give him a much lower dosing compared to his outpatient insulin regimen as given. We will start him with Humalog given as 14 units subcu t.i.d. before meals as ordered. We will also add basal insulin with Levemir given as 40 units subcu at bedtime daily as given. He was actually using 100 units at bedtime at home as noted. We will modify the coverage scale to obviate hypoglycemia and detailed orders have been given for a low-dose Humalog algorithm as given. A hemoglobin A1c will be done to confirm his prior glycemic control and baseline thyroid function studies and lipid panel will be ordered. We will reinitiate diabetic education and dietary instructions at the time of this admission. We will obtain serial chemistries and supplement accordingly as needed. We will follow. Christianne Russ MD
--- NOTE | 2018-01-29 02:22 | HP ---
HISTORY OF PRESENT ILLNESS: A 53-year-old male referred to the emergency room by Dr. Alvarado. Reportedly, the patient was being treated for an ulcer on his right foot, had been recently noted to have gotten worse. He subsequently developed wound on his right toe as well as sore on the left foot. PAST MEDICAL HISTORY: The patient has a past medical history of bipolar disorder, alcohol abuse, passive suicidal ideations, diabetes, diabetic foot ulcers, systemic inflammatory response syndrome, foot ulcers, hyperglycemia, metabolic acidosis, major depressive disorder, syncope, hypertension, Charcot foot surgery, sepsis, cellulitis of the foot. HOME MEDICATIONS: Reported to be Amaryl 4 mg b.i.d., Cozaar 100 mg daily, Desyrel 100 mg at bedtime, metformin 1000 mg b.i.d., Humalog 10 units subcu a.c. t.i.d., Januvia 50 mg daily, Microzide 12.5 mg daily, Norvasc 10 mg daily, Tylenol two tabs every 4 hours p.r.n. SOCIAL HISTORY: He states he has not been drinking. He denies being a smoker. ALLERGY HISTORY: NO KNOWN ALLERGY. REVIEW OF SYSTEMS: Ten systems were reviewed. Pertinent findings as on the physical. PHYSICAL EXAMINATION: VITAL SIGNS: Show a temp orally of 99.1, his pulse is 106, his blood pressure is 170/94, respiratory rate is 16, oxygen saturation 96% on room air. GENERAL: He is alert and oriented x3. NECK: Supple. LUNGS: Diminished breath sounds at the bases. HEART: S1, S2 rhythm. ABDOMEN: Soft, positive bowel sounds. EXTREMITIES: Have dressings on both feet, which he does have placed on the wound care center prior to being referred to the emergency room. LABORATORY DATA: Shows WBC of 10.4, RBC 4.85, hemoglobin 15, hematocrit 42.2, platelet count 74,000. Chemistry: Sodium 135, potassium 4.3, chloride 99, BUN is 8, creatinine is 0.7. His random blood sugar is 262. His total bilirubin is 1.8. His lactate is 1.5. Urinalysis is clear. A Doppler of his lower extremity is reported as showing no evidence of venous DVT. IMPRESSION: A 53-year-old male with foot ulcers, not responding to outpatient therapy, referred for inpatient antibiotic management. 1. One must rule out the possibility of sepsis. 2. One must rule out the possibility of osteomyelitis. 3. Uncontrolled insulin-dependent diabetes. 4. Depression history. 5. Suicidal ideation history. 6. History of thrombocytopenia. 7. History of cirrhosis. PLAN: Patient will be admitted to the hospital with consults with Infectious Disease, Podiatry and Endocrinology. Follow up the patient's labs at this time. Further plan pending outcome of diagnostic studies and input from individual consultants. Case has been discussed with emergency room staff and physician. Aspen Fontana MD
[2018-01-29 07:22] LABS: ALB/GLOB RATIO 1.3 (1.1-1.8); ALBUMIN 4.1 g/dL (3.0-4.8); ALT/SGPT 39 U/L (7-56); AST/SGOT 28 U/L (17-59); BLOOD UREA NITROGEN 9 mg/dL (7-21); CALCIUM 9.3 mg/dL (8.4-10.5); GFR NON-AFRICAN AMERICAN > 60; HDL CHOLESTEROL 34 mg/dL (29-60)
[2018-01-29 07:33] LABS: LDL CHOLESTEROL 120 mg/dL (0-129)
[2018-01-29] MEDS: Insulin Lispro 1 UNITS/0.01 ML SC SCH ×3 (08:18→17:21)
--- NOTE | 2018-01-29 12:02 | CP.PCM.PN ---
<Tabby Rosario - Last Filed: 01/29/18 12:44> Subjective - Date & Time of Evaluation Date of Evaluation: 01/29/18 Time of Evaluation: 12:01 - Subjective Subjective: Podiatry Consult Note for Dr. Alvarado: 53 yo male patient, with PMHx of DM, HTN, previous alcohol dependence, seen and evaluated at bedside with Dr. Alvarado for bilateral lower extremity wounds. Patient is a regular patient to Dr. Alvarado in the wound care center. He notes that his cast was removed and he had an ulceration on the distal tip of his right big toe. Patient was admitted yesterday for sepsis after complaining of fever and chills. He also notes that he has pain radiating up from the inside of his right ankle up to his groin. The pain is beginning to resolve. He denies any other pedal complaints at this time. Patient currently denies N/V/CP/SOB. Objective - Vital Signs/Intake and Output Vital Signs (last 24 hours): Temp Pulse Resp BP Pulse Ox 98.2 F 88 20 113/82 98 01/29/18 06:31 01/29/18 06:31 01/29/18 06:31 01/29/18 10:29 01/29/18 06:31 Intake and Output: 01/29/18 01/29/18 06:59 18:59 Intake Total 1100 Balance 1100 - Medications Medications: Current Medications Acetaminophen (Tylenol 325mg Tab) 650 mg PO Q4H PRN PRN Reason: Fever >100.4 F Amlodipine Besylate (Norvasc) 10 mg PO DAILY [facility] Last Admin: 01/29/18 10:29 Dose: 10 mg Glimepiride (Amaryl) 4 mg PO BID [facility] Last Admin: 01/29/18 10:29 Dose: 4 mg Hydrochlorothiazide (Microzide) 12.5 mg PO DAILY [facility] Last Admin: 01/29/18 10:32 Dose: 12.5 mg Insulin Detemir (Levemir) 40 unit SC HS [facility] Last Admin: 01/29/18 00:12 Dose: 40 units Insulin Human Lispro (Humalog Low) 0 units SC [facility]; Protocol Last Admin: 01/29/18 07:50 Dose: Not Given Insulin Human Lispro (Humalog) 14 units SC ACTID [facility] Last Admin: 01/29/18 08:18 Dose: 14 units Losartan Potassium (Cozaar) 100 mg PO DAILY [facility] Last Admin: 01/29/18 10:29 Dose: 100 mg Metformin HCl (Glucophage) 1,000 mg PO BID [facility] Last Admin: 01/29/18 10:33 Dose: 1,000 mg Sitagliptin Phosphate (Januvia) 50 mg PO DAILY [facility] Last Admin: 01/29/18 10:32 Dose: 50 mg Trazodone HCl (Desyrel) 100 mg PO HS [facility] Last Admin: 01/28/18 22:58 Dose: 100 mg - Labs Labs: 01/28/18 11:35 01/29/18 06:45 - Constitutional Appears: Well, Non-toxic, No Acute Distress - Head Exam Head Exam: ATRAUMATIC, NORMOCEPHALIC - Extremities Exam Additional comments: Vascular: DP/PT diminished, CFT >3 seconds to all remaining digits, TG WNL, no edema noted Ortho: R 3rd toe amputation, R partial 4th and 5th amputation, L foot 2nd digit amputation. Neuro: Gross sensation dimished, protective sensation absent Derm: R hallux ulceration with granular base, mild serous drainage, no purulence noted, no tunneling, no probing to bone, no tracking, cellulitis noted circumfrentially. Plantar midfoot ulceration noted, fibrous base, no tunneling, no tracking, no probe to bone. L submetatarsal 1 ulceration,measuring approximately 1.5 cm x 1 cm x .1, with firbogranular base, no tunneling, no tracking, no probe to bone. L ulceration noted to distal tip of hallux, measuring approximately .5 x .5 x .1, granular in nature. Hallux nails dystrophic and discolored bilaterally. Hyperpigmented skin noted to dorsal aspect of feet bilaterally. L Charcot foot noted. - Neurological Exam Neurological Exam: Alert, Awake, Oriented x3 - Psychiatric Exam Psychiatric exam: Normal Affect, Normal Mood Assessment and Plan - Assessment and Plan (Free Text) Assessment: 53 yo male patient, with PMHx of DM, HTN, previous alcohol dependence, seen and evaluated at bedside with Dr. Alvarado for bilateral lower extremity wounds. Plan: Patient seen and evaluated with Dr. Alvarado Labs, charts, vitals reviewed; afebrile, absent leukocytosis (01/28) MRI of B/L lower extremities (01/29); pending R lower extremity US (01/28); no evidence of DVT to RLE Maxorb and DSD applied to bilateral lower extremity ulcerations ID consulted; reccs appreciated Will continue to follow patient while in house Thank you for the consult <ChristianoLeigh Ann K - Last Filed: 02/01/18 18:13> Objective - Vital Signs/Intake and Output Vital Signs (last 24 hours): Temp Pulse Resp BP Pulse Ox 98.4 F 93 H 18 132/86 99 02/01/18 14:54 02/01/18 14:54 02/01/18 14:54 02/01/18 14:54 02/01/18 14:54 Intake and Output: 02/01/18 02/01/18 06:59 18:59 Intake Total 1000 Balance 1000 - Medications Medications: Current Medications Acetaminophen (Tylenol 325mg Tab) 650 mg PO Q4H PRN PRN Reason: Fever >100.4 F Amlodipine Besylate (Norvasc) 10 mg PO DAILY [facility] Last Admin: 02/01/18 09:28 Dose: 10 mg Glimepiride (Amaryl) 4 mg PO BID [facility] Last Admin: 02/01/18 17:22 Dose: 4 mg Hydrochlorothiazide (Microzide) 12.5 mg PO DAILY [facility] Last Admin: 02/01/18 09:28 Dose: 12.5 mg Linezolid (Zyvox 600mg/300ml D5w) 600 mg in 300 mls @ 200 mls/hr IVPB Q12 [facility]; Protocol Stop: 02/06/18 22:01 Last Admin: 02/01/18 09:29 Dose: 200 mls/hr Piperacillin Sod/Tazobactam Sod (Zosyn 3.375 In Ns 100ml) 100 mls @ 200 mls/hr IVPB Q6 JIMMIE; Protocol Stop: 02/06/18 18:01 Last Admin: 02/01/18 17:23 Dose: 200 mls/hr Insulin Detemir (Levemir) 46 unit SC HS [facility] Last Admin: 01/31/18 21:37 Dose: 46 units Insulin Human Lispro (Humalog Low) 0 units SC ACHS [facility]; Protocol Last Admin: 02/01/18 11:41 Dose: Not Given Insulin Human Lispro (Humalog) 14 units SC ACTID [facility] Last Admin: 02/01/18 17:23 Dose: 14 units Losartan Potassium (Cozaar) 100 mg PO DAILY [facility] Last Admin: 02/01/18 09:28 Dose: 100 mg Metformin HCl (Glucophage) 1,000 mg PO BID [facility] Last Admin: 02/01/18 17:22 Dose: 1,000 mg Sitagliptin Phosphate (Januvia) 50 mg PO DAILY [facility] Last Admin: 02/01/18 09:29 Dose: 50 mg Trazodone HCl (Desyrel) 100 mg PO HS [facility] Last Admin: 01/31/18 21:28 Dose: 100 mg - Labs Labs: 01/31/18 05:00 01/31/18 05:00 Attending/Attestation - Attestation I have personally seen and examined this patient.: Yes I have fully participated in the care of the patient.: Yes I have reviewed all pertinent clinical information, including history, physical exam and plan: Yes
--- NOTE | 2018-01-29 12:39 | PN ---
DATE: 01/29/2018 ENDOCRINOLOGY FOLLOWUP NOTE LOCATION: Room 569. SUBJECTIVE: This is a 53-year-old male with recent uncontrolled type 2 insulin-requiring diabetes presenting here from the wound care center for further debridement and antibiotic management of bilateral infected plantar foot ulcerations with an infected right hallux area as noted with concomitant cellulitis as noted. His glycemic levels are fluctuating, but improved and the glucose values overnight have ranged from 187-26 mg/dL. His latest chemistry showed a BUN of 9, sodium 137, potassium 3.9, chloride 104, CO2 25, glucose 237 and creatinine 0.7. So at this time, we will modify once again his current basal and bolus insulin regimen and increase the Levemir to 40 units subcu at bedtime daily to start tonight. We will also add Humalog given as 10 units subcu t.i.d. before meals as ordered. We will observe his glycemic fluctuations with the variability of his oral intake if aforementioned still persists, then we will modify and titrate his dose regimen accordingly. We will follow up again with this patient. Christianne Russ MD
--- NOTE | 2018-01-29 16:37 | MRI ---
Date of service: 01/29/2018 PROCEDURE: MRI of the right foot without contrast HISTORY: bilateral ulcerations COMPARISON: Plain films dated 01/07/2018 TECHNIQUE: MRI of the right foot was performed in multiple planes using multiple pulse sequences. FINDINGS: Severe Charcot degenerative changes are seen in the midfoot. The changes are chronic. There is no marrow edema to suggest osteomyelitis or recent fracture. There is no evidence of abscess. There is no significant subcutaneous edema IMPRESSION: No acute osteomyelitis
[2018-01-29] MEDS: Ceftaroline 600 MG in Sodium Chloride 0.9% 100 ML IVPB SCH (21:52)
--- NOTE | 2018-01-29 22:55 | PN ---
DATE: 01/29/2018 SUBJECTIVE: A 53-year-old male admitted with bilateral ulcers of both feet which failed to respond to outpatient therapy. PHYSICAL EXAMINATION: VITAL SIGNS: He has a temperature of 98.6, pulse is 86, blood pressure is 131/81, oxygen saturation is 96% on room air. GENERAL: He is alert and oriented x3. NECK: Supple. No JVD. LUNGS: Clear. HEART: Regular S1, S2 rhythm. ABDOMEN: Soft with positive bowel sounds. LABORATORY DATA: His electrolytes are within normal range. His BUN is 9, his creatinine is 0.7. His blood sugar is 237. Hemoglobin A1c is 9. The patient is receiving ceftaroline IV, repeat cultures are pending. He is being followed by Infectious Disease. He has insulin-dependent diabetes, being followed by Dr. Russ. He is currently on Amaryl, Glucophage, Humalog insulin, Januvia, and Levemir. He has a history of hypertension, history of cirrhosis, history of thrombocytopenia. We will continue current level of care at this time and to date, his cultures are pending. Aspen Fontana MD
[2018-01-30 06:22] LABS: HEMOGLOBIN 13.9 g/dL (14.0-18.0); RBC 4.63 10^6/uL (3.5-6.1); WHITE BLOOD COUNT 5.8 10^3/ul (4.5-11.0)
[2018-01-30 06:23] LABS: BASO # 0.02 K/mm3 (0.0-2.0); BASO % 0.3 % (0.0-3.0); EOS # 0.1 (0.0-0.7); GRAN # 4.09 (1.4-6.5); LYMPH # 0.9 (1.2-3.4); LYMPH % 15.4 % (22.0-35.0); MEAN CELL VOLUME 88.3 fl (80.0-105.0); MEAN PLATELET VOLUME 10.9 fl (7.0-11.0); MONO # 0.7 (0.1-0.6); MONO % 12.3 % (1.0-6.0); RED CELL DISTRIBUTION WIDTH 15.5 % (11.5-14.5)
--- NOTE | 2018-01-30 06:27 | CON ---
DATE: 01/29/2018 LOCATION: Patient seen earlier today in room 565. CHIEF COMPLAINT: Foot infection times several days. HISTORY OF PRESENT ILLNESS: This is a 53-year-old male known to me from previous admission with diabetes mellitus, diabetic foot infection, who has been treated for diabetic foot infections and also with hypertension, history of pseudomembranous colitis, who was seen in the emergency room. Patient was seen in the emergency room also by Dr. Fontana, there is an infection to his right foot ulcer. Infectious Disease consultation requested for antibiotic choice. PAST MEDICAL HISTORY: Significant for diabetes mellitus, diabetic foot infection, pseudomembranous colitis, hypertension, major depression, alcoholic liver disease, portal hypertension. PAST SURGICAL HISTORY: Significant for foot surgery and knee surgery. ALLERGIES: PATIENT HAS NO KNOWN ALLERGIES. MEDICATIONS AT HOME: Reviewed. PHYSICAL EXAMINATION: GENERAL: He is in bed, seen earlier this morning, no acute distress. Answering questions appropriately. VITAL SIGNS: Temperature of 98; heart rate is 88, it was up to 106; respiratory rate of 20; blood pressure is 113/80. HEENT: Unremarkable. NECK: Supple. LUNGS: Have decreased breath sounds. HEART: Normal S1 and S2. ABDOMEN: Soft and nontender. EXTREMITIES: Examination of foot described purulent material and ulcers. LABORATORY EXAMINATION: Reveals a white count of 10,000, hemoglobin of 15, platelets of 74. Chemistries reveal a BUN of 9, creatinine 0.7. Triglycerides are elevated at 177. Urinalysis is noted. Microbiology reveals the blood cultures are negative. MRI of the lower extremity reveals . Doppler shows no evidence of DVT from the right foot that is sensitive to ceftriaxone . ASSESSMENT AND PLAN: This is a 53-year-old male with diabetes mellitus, diabetic foot infection, hypertension, pseudomembranous colitis, major depression, Charcot foot, alcoholism, portal hypertension, who was admitted now with bilateral lower extremity wound infection with bilateral lower extremity ulcers with right foot purulent material and cellulitis. No evidence of osteomyelitis. Because of history of acute kidney injury in the past, this patient will use Teflaro, pending wound cultures, at 600 mg intervenous every 12 hours. Further Podiatric input. We will follow closely with you. MRI from the other foot is still pending. We will make further recommendations pending culture results and input from the Podiatry. Linwood Carter MD
[2018-01-30 07:29] LABS: BLOOD UREA NITROGEN 13 mg/dL (7-21); CALCIUM 8.9 mg/dL (8.4-10.5); GFR NON-AFRICAN AMERICAN > 60
[2018-01-30] MEDS: Insulin Lispro (humaLOG) LOW Coverage SC SCH ×4 (08:17→21:45)
[2018-01-30] MEDS: Insulin Lispro 1 UNITS/0.01 ML SC SCH ×3 (08:17→19:01)
[2018-01-30] MEDS: Ceftaroline 600 MG in Sodium Chloride 0.9% 100 ML IVPB SCH (10:13)
--- NOTE | 2018-01-30 14:45 | PN ---
DATE: 01/30/2018 SUBJECTIVE: A 53-year-old male, resting on his bed this morning. PHYSICAL EXAMINATION VITAL SIGNS: His temperature is 97.9, his pulse is 79, blood pressure is 133/90, respiratory rate is 20, oxygen saturation is 96% on room air. GENERAL: He is alert and oriented x3. LUNGS: Clear. HEART: S1 and S2 rhythm. ABDOMEN: Soft with positive bowel sounds. EXTREMITIES: Show dressings on both feet. He states Podiatry recently changed the dressings. LABORATORY DATA: A 24-hours blood and urine culture are negative. MEDICATIONS: Currently, he is on Amaryl, Teflaro, Cozaar, Desyrel, Glucophage, Humalog, Januvia, Levemir, Microzide, Norvasc and Tylenol. He is receiving treatment for infected ulcers of both feet. ASSESSMENT AND PLAN: MRIs of the feet to rule out osteomyelitis are pending. He has a remote history of thrombocytopenia from cirrhosis with a history of alcohol abuse. He has suicidal ideation histories with a history of bipolar disorder. He has a history of portal hypertension as well and he is at this particular point in time feeling better than when he was admitted. Other medical problems is that he had Charcot foot surgery, sepsis, cellulitis of the foot, major depressive disorder, syncope, systemic inflammatory disorder, hyperglycemia. We will continue to monitor the patient closely. Await results of the MRI studies and continue current therapy. His blood sugar still runs a little high, it is 281 this morning and his hemoglobin A1c is 9. He is being followed by Endocrinology. Aspen Fontana MD
--- NOTE | 2018-01-30 15:07 | CP.PCM.PN ---
<Tabby Rosario - Last Filed: 01/30/18 14:58> Subjective - Date & Time of Evaluation Date of Evaluation: 01/30/18 Time of Evaluation: 14:58 - Subjective Subjective: Podiatry Progress Note for Dr. Wilson: 53 yo male patient, seen and evaluated at bedside, for bilateral lower extremity ulcerations. Patient is AAO x 3 and in NAD. Patient states that the pain radiating from ankle to groin is resolving. Patient denies any new pedal complaints at this time. Denies N/V/F/SOB/CP. Objective - Vital Signs/Intake and Output Vital Signs (last 24 hours): Temp Pulse Resp BP Pulse Ox 97.9 F 79 20 133/91 H 96 01/30/18 08:19 01/30/18 08:19 01/30/18 08:19 01/30/18 10:11 01/30/18 08:19 Intake and Output: 01/30/18 01/30/18 06:59 18:59 Intake Total 1060 360 Balance 1060 360 - Medications Medications: Current Medications Acetaminophen (Tylenol 325mg Tab) 650 mg PO Q4H PRN PRN Reason: Fever >100.4 F Amlodipine Besylate (Norvasc) 10 mg PO DAILY [facility] Last Admin: 01/30/18 10:11 Dose: 10 mg Glimepiride (Amaryl) 4 mg PO BID [facility] Last Admin: 01/30/18 10:11 Dose: 4 mg Hydrochlorothiazide (Microzide) 12.5 mg PO DAILY [facility] Last Admin: 01/30/18 10:12 Dose: 12.5 mg Ceftaroline Fosamil 600 mg/ (Sodium Chloride) 100 mls @ 100 mls/hr IVPB Q12 [facility]; Protocol Stop: 02/07/18 18:31 Last Admin: 01/30/18 10:13 Dose: 100 mls/hr Insulin Detemir (Levemir) 46 unit SC HS [facility] Insulin Human Lispro (Humalog Low) 0 units SC ACHS [facility]; Protocol Last Admin: 01/30/18 11:48 Dose: Not Given Insulin Human Lispro (Humalog) 14 units SC ACTID [facility] Last Admin: 01/30/18 11:42 Dose: 14 units Losartan Potassium (Cozaar) 100 mg PO DAILY [facility] Last Admin: 01/30/18 10:11 Dose: 100 mg Metformin HCl (Glucophage) 1,000 mg PO BID [facility] Last Admin: 01/30/18 10:11 Dose: 1,000 mg Sitagliptin Phosphate (Januvia) 50 mg PO DAILY [facility] Last Admin: 01/30/18 10:11 Dose: 50 mg Trazodone HCl (Desyrel) 100 mg PO HS [facility] Last Admin: 01/29/18 21:51 Dose: 100 mg - Labs Labs: 01/30/18 06:00 01/30/18 06:00 - Constitutional Appears: Well, Non-toxic, No Acute Distress - Head Exam Head Exam: ATRAUMATIC, NORMOCEPHALIC - Extremities Exam Additional comments: Vascular: DP/PT diminished, CFT >3 seconds to all remaining digits, TG WNL, no edema noted Ortho: R 3rd toe amputation, R partial 4th and 5th amputation, L foot 2nd digit amputation. Neuro: Gross sensation dimished, protective sensation absent Derm: R hallux ulceration with granular base, mild serous drainage, no purulence noted, no tunneling, no probing to bone, no tracking, cellulitis noted circumfrentially; resolving. Plantar midfoot ulceration noted, fibrous base, no tunneling, no tracking, no probe to bone. L submetatarsal 1 ulceration,measuring approximately 1.5 cm x 1 cm x .1, with firbogranular base, no tunneling, no tracking, no probe to bone. L ulceration noted to distal tip of hallux, measuring approximately .5 x .5 x .1, granular in nature. Hallux nails dystrophic and discolored bilaterally. Hyperpigmented skin noted to dorsal aspect of feet bilaterally. L Charcot foot noted. - Neurological Exam Neurological Exam: Alert, Awake, Oriented x3 - Psychiatric Exam Psychiatric exam: Normal Affect, Normal Mood Assessment and Plan - Assessment and Plan (Free Text) Assessment: 53 yo male patient, seen and evaluated, at bedside with Dr. Wilson for bilateral lower extremity ulcerations Plan: Patient seen and evaluated with Dr. Lee Labs, charts, vitals reviewed; afebrile, absent leukocytosis (01/30) MRI of B/L lower extremities (01/29); no OM present R lower extremity US (01/28); no evidence of DVT to RLE Continue with Teflaro, 600mg IV Q12, per ID reccs, pending cultures Wounds cleansed with saline, Maxorb and DSD applied to bilateral lower extremity ulcerations Will continue to follow patient while in house <Blayne Wilson - Last Filed: 01/31/18 08:21> Objective - Vital Signs/Intake and Output Vital Signs (last 24 hours): Temp Pulse Resp BP Pulse Ox 98 F 84 20 145/93 H 98 01/31/18 08:13 01/31/18 08:13 01/31/18 08:13 01/31/18 08:13 01/31/18 08:13 - Medications Medications: Current Medications Acetaminophen (Tylenol 325mg Tab) 650 mg PO Q4H PRN PRN Reason: Fever >100.4 F Amlodipine Besylate (Norvasc) 10 mg PO DAILY [facility] Last Admin: 01/30/18 10:11 Dose: 10 mg Glimepiride (Amaryl) 4 mg PO BID [facility] Last Admin: 01/30/18 17:36 Dose: 4 mg Hydrochlorothiazide (Microzide) 12.5 mg PO DAILY [facility] Last Admin: 01/30/18 10:12 Dose: 12.5 mg Linezolid (Zyvox 600mg/300ml D5w) 600 mg in 300 mls @ 200 mls/hr IVPB Q12 [facility]; Protocol Stop: 02/06/18 22:01 Last Admin: 01/30/18 21:44 Dose: 200 mls/hr Piperacillin Sod/Tazobactam Sod (Zosyn 3.375 In Ns 100ml) 100 mls @ 200 mls/hr IVPB Q6 [facility]; Protocol Stop: 02/06/18 18:01 Last Admin: 01/31/18 06:19 Dose: 200 mls/hr Insulin Detemir (Levemir) 46 unit SC HS [facility] Last Admin: 01/30/18 21:44 Dose: 46 units Insulin Human Lispro (Humalog Low) 0 units SC ACHS [facility]; Protocol Last Admin: 01/31/18 08:09 Dose: Not Given Insulin Human Lispro (Humalog) 14 units SC ACTID [facility] Last Admin: 01/31/18 08:14 Dose: 14 units Losartan Potassium (Cozaar) 100 mg PO DAILY [facility] Last Admin: 01/30/18 10:11 Dose: 100 mg Metformin HCl (Glucophage) 1,000 mg PO BID [facility] Last Admin: 01/30/18 17:36 Dose: 1,000 mg Sitagliptin Phosphate (Januvia) 50 mg PO DAILY [facility] Last Admin: 01/30/18 10:11 Dose: 50 mg Trazodone HCl (Desyrel) 100 mg PO HS [facility] Last Admin: 01/30/18 21:45 Dose: 100 mg - Labs Labs: 01/31/18 05:00 01/31/18 05:00 Attending/Attestation - Attestation I have personally seen and examined this patient.: Yes I have fully participated in the care of the patient.: Yes I have reviewed all pertinent clinical information, including history, physical exam and plan: Yes
--- NOTE | 2018-01-30 16:23 | CP.PCM.PN ---
Subjective - Date & Time of Evaluation Date of Evaluation: 01/30/18 Time of Evaluation: 09:25 - Subjective Subjective: Comfortable, no increased pain in the foot, no fevers. Objective - Vital Signs/Intake and Output Vital Signs (last 24 hours): Temp Pulse Resp BP Pulse Ox 97.9 F 79 20 133/91 H 96 01/30/18 08:19 01/30/18 08:19 01/30/18 08:19 01/30/18 10:11 01/30/18 08:19 Intake and Output: 01/30/18 01/30/18 06:59 18:59 Intake Total 1060 360 Balance 1060 360 - Medications Medications: Current Medications Acetaminophen (Tylenol 325mg Tab) 650 mg PO Q4H PRN PRN Reason: Fever >100.4 F Amlodipine Besylate (Norvasc) 10 mg PO DAILY [facility] Last Admin: 01/30/18 10:11 Dose: 10 mg Glimepiride (Amaryl) 4 mg PO BID [facility] Last Admin: 01/30/18 10:11 Dose: 4 mg Hydrochlorothiazide (Microzide) 12.5 mg PO DAILY [facility] Last Admin: 01/30/18 10:12 Dose: 12.5 mg Ceftaroline Fosamil 600 mg/ (Sodium Chloride) 100 mls @ 100 mls/hr IVPB Q12 [facility]; Protocol Stop: 02/07/18 18:31 Last Admin: 01/30/18 10:13 Dose: 100 mls/hr Insulin Detemir (Levemir) 46 unit SC [facility] Insulin Human Lispro (Humalog Low) 0 units SC [facility]; Protocol Last Admin: 01/30/18 11:48 Dose: Not Given Insulin Human Lispro (Humalog) 14 units SC ACTID [facility] Last Admin: 01/30/18 11:42 Dose: 14 units Losartan Potassium (Cozaar) 100 mg PO DAILY [facility] Last Admin: 01/30/18 10:11 Dose: 100 mg Metformin HCl (Glucophage) 1,000 mg PO BID [facility] Last Admin: 01/30/18 10:11 Dose: 1,000 mg Sitagliptin Phosphate (Januvia) 50 mg PO DAILY [facility] Last Admin: 01/30/18 10:11 Dose: 50 mg Trazodone HCl (Desyrel) 100 mg PO [facility] Last Admin: 01/29/18 21:51 Dose: 100 mg - Labs Labs: 01/30/18 06:00 01/30/18 06:00 - Constitutional Appears: Chronically Ill - Head Exam Head Exam: NORMAL INSPECTION - Neck Exam Neck Exam: absent: Meningismus - Respiratory Exam Respiratory Exam: Decreased Breath Sounds - Cardiovascular Exam Cardiovascular Exam: +S1, +S2 - GI/Abdominal Exam GI & Abdominal Exam: Soft. absent: Tenderness - Extremities Exam Additional comments: right foot with dressings in place Assessment and Plan - Assessment and Plan (Free Text) Plan: Assessment right infected diabetic foot ulcer with Pseudomonas, Klebsiella, Staph aureus, Enterococcus history of sepsis secondary to right foot osteomyelitis and abscess S/P debridement with associated Group A strep bacteremia; bone was growing Group B strep and wound was growing MSSA history of right foot skin and skin structure infection Charcot foot on the right S/P shaving of the bone last week history of left sided parotitis Diabetes Mellitus Liver disease with history of portal hypertension Plan will switch Ceftaroline to Zyvox and Zosyn and will monitor clinically; initial MRI is not showing osteomyelitis of the right foot
[2018-01-30] MEDS: Piperacillin/Tazobact 3.375 gm 100 ML IVPB SCH ×2 (17:36→23:39)
[2018-01-30] MEDS: Insulin Detemir 100 units/ml Vial (Levemir) SC SCH (21:44)
[2018-01-30] MEDS: Linezolid 600 mg in D5W 300 ml 600 MG/300 ML BAG IVPB SCH (21:44)
--- NOTE | 2018-01-31 02:43 | PN ---
DATE: 01/30/2018 LOCATION: In room 569. SUBJECTIVE: This is a 53-year-old male with recent uncontrolled type 2 insulin-requiring diabetes presenting here with infected bilateral foot ulcerations with underlying severe polyneuropathy and vasculopathy and is now being followed closely for metabolic management. His glycemic levels are fluctuating but improved and the glucose values have ranged from 196 to 273 mg/dL. His latest chemistry showed a BUN of 13, sodium 136, potassium 3.9, chloride 104, CO2 23, glucose 281 and creatinine 0.7. ASSESSMENT: This is a 53-year-old male with uncontrolled and decompensated type 2 insulin-requiring diabetes, presenting here with lower extremity cellulitis and bilateral neuropathic foot ulceration with severe diabetic peripheral arterial vasculopathy and polyneuropathy as noted. PLAN: So at this time, we will continue the same Humalog given as 40 units subcu t.i.d. before meals as ordered. We will increase the basal insulin with Levemir to be given as 46 units subcu at bedtime daily to start tonight. We will continue the low-dose correction scale using Humalog insulin as given. We will also continue the dual oral hypoglycemic therapy with metformin given as 1 g b.i.d. and Januvia given as 50 mg once daily as ordered. We will obtain serial chemistries and supplement accordingly needed. We will also continue Amaryl given as 4 mg b.i.d. before meals as ordered. Christianne Russ MD
[2018-01-31] MEDS: Piperacillin/Tazobact 3.375 gm 100 ML IVPB SCH ×4 (06:19→23:01)
[2018-01-31 06:25] LABS: HEMOGLOBIN 14.6 g/dL (14.0-18.0); MEAN CELL VOLUME 87.9 fl (80.0-105.0); MEAN CORPUSCULAR HGB CONC 34.2 g/dl (31.0-37.0); MEAN PLATELET VOLUME 10.5 fl (7.0-11.0); RBC 4.86 10^6/uL (3.5-6.1); RED CELL DISTRIBUTION WIDTH 15.5 % (11.5-14.5); WHITE BLOOD COUNT 7.1 10^3/ul (4.5-11.0)
[2018-01-31 06:36] LABS: ALB/GLOB RATIO 1.2 (1.1-1.8); ALBUMIN 4.1 g/dL (3.0-4.8); ALT/SGPT 55 U/L (7-56); AST/SGOT 58 U/L (17-59); BLOOD UREA NITROGEN 12 mg/dL (7-21); CALCIUM 9.3 mg/dL (8.4-10.5); GFR NON-AFRICAN AMERICAN > 60
[2018-01-31] MEDS: Insulin Lispro (humaLOG) LOW Coverage SC SCH ×4 (08:09→21:28)
[2018-01-31] MEDS: Insulin Lispro 1 UNITS/0.01 ML SC SCH ×3 (08:14→17:51)
[2018-01-31] MEDS: Linezolid 600 mg in D5W 300 ml 600 MG/300 ML BAG IVPB SCH ×2 (09:35→21:30)
--- NOTE | 2018-01-31 10:19 | CP.PCM.PN ---
<Theresa Damian - Last Filed: 01/31/18 10:16> Subjective - Date & Time of Evaluation Date of Evaluation: 01/31/18 Time of Evaluation: 10:16 - Subjective Subjective: Podiatry - Dr. Wilson 53M seen and evaluated this AM for bilateral lower extremity ulcerations. Patient resting comfortably at time of visit, hemodynamically stable and NAD. No acute events overnight. Denies any pain to lower extremities; offers no new pedal complaints. Able to ambulate in forefoot wedge shoe to RLE and surgical shoe LLE w/o issues. Denies N/V/F/D/C/SOB/MORRISSEY/CP. Objective - Vital Signs/Intake and Output Vital Signs (last 24 hours): Temp Pulse Resp BP Pulse Ox 98 F 84 20 136/90 98 01/31/18 08:13 01/31/18 08:13 01/31/18 08:13 01/31/18 09:36 01/31/18 08:13 - Medications Medications: Current Medications Acetaminophen (Tylenol 325mg Tab) 650 mg PO Q4H PRN PRN Reason: Fever >100.4 F Amlodipine Besylate (Norvasc) 10 mg PO DAILY [facility] Last Admin: 01/31/18 09:36 Dose: 10 mg Glimepiride (Amaryl) 4 mg PO BID [facility] Last Admin: 01/31/18 09:35 Dose: 4 mg Hydrochlorothiazide (Microzide) 12.5 mg PO DAILY [facility] Last Admin: 01/31/18 09:36 Dose: 12.5 mg Linezolid (Zyvox 600mg/300ml D5w) 600 mg in 300 mls @ 200 mls/hr IVPB Q12 [facility]; Protocol Stop: 02/06/18 22:01 Last Admin: 01/31/18 09:35 Dose: 200 mls/hr Piperacillin Sod/Tazobactam Sod (Zosyn 3.375 In Ns 100ml) 100 mls @ 200 mls/hr IVPB Q6 [facility]; Protocol Stop: 02/06/18 18:01 Last Admin: 01/31/18 06:19 Dose: 200 mls/hr Insulin Detemir (Levemir) 46 unit SC HS [facility] Last Admin: 01/30/18 21:44 Dose: 46 units Insulin Human Lispro (Humalog Low) 0 units SC ACHS [facility]; Protocol Last Admin: 01/31/18 08:09 Dose: Not Given Insulin Human Lispro (Humalog) 14 units SC ACTID [facility] Last Admin: 01/31/18 08:14 Dose: 14 units Losartan Potassium (Cozaar) 100 mg PO DAILY [facility] Last Admin: 01/31/18 09:35 Dose: 100 mg Metformin HCl (Glucophage) 1,000 mg PO BID [facility] Last Admin: 01/31/18 09:35 Dose: 1,000 mg Sitagliptin Phosphate (Januvia) 50 mg PO DAILY [facility] Last Admin: 01/31/18 09:35 Dose: 50 mg Trazodone HCl (Desyrel) 100 mg PO HS [facility] Last Admin: 01/30/18 21:45 Dose: 100 mg - Labs Labs: 01/31/18 05:00 01/31/18 05:00 - Constitutional Appears: Well, Non-toxic, No Acute Distress - Extremities Exam Additional comments: Vascular: DP/PT diminished, CFT >3 seconds to all remaining digits, TG WNL, no edema noted Ortho: R 3rd toe amputation, R partial 4th and 5th amputation, L foot 2nd digit amputation. Neuro: Gross sensation dimished, protective sensation absent Derm: R hallux ulceration with granular base, mild serous drainage, no purulence noted, no tunneling, no probing to bone, no tracking, cellulitis noted circumfrentially; resolving. Plantar midfoot ulceration noted, fibrous base, no tunneling, no tracking, no probe to bone. L submetatarsal 1 ulceration,measuring approximately 1.5 cm x 1 cm x .1, with firbogranular base, no tunneling, no tr acking, no probe to bone. L ulceration noted to distal tip of hallux, measuring approximately .5 x .5 x .1, granular in nature. Hallux nails dystrophic and discolored bilaterally. Hyperpigmented skin noted to dorsal aspect of feet bilaterally. L Charcot foot noted. - Neurological Exam Neurological Exam: Alert, Awake, Oriented x3 - Psychiatric Exam Psychiatric exam: Normal Affect, Normal Mood Assessment and Plan - Assessment and Plan (Free Text) Assessment: 53M with bilateral lower extremity ulcerations Plan: Patient seen and evaluated alongside attending, Dr. Rosa SANDOVAL, WBC 7.1 MRI of B/L lower extremities (01/29); no OM present R lower extremity US (01/28); no evidence of DVT to RLE ID recs appreciated - will switch Ceftaroline to Zyvox and Zosyn and will monitor clinically; initial MRI is not showing osteomyelitis of the right foot Continue local wound care: saline cleanse, maxsorb, adaptic, DSD b/l Podiatry will continue to follow <Blayne Wilson - Last Filed: 02/02/18 09:32> Objective - Vital Signs/Intake and Output Vital Signs (last 24 hours): Temp Pulse Resp BP Pulse Ox 98.5 F 78 20 131/87 98 02/02/18 08:42 02/02/18 08:42 02/02/18 08:42 02/02/18 08:42 02/02/18 08:42 - Medications Medications: Current Medications Acetaminophen (Tylenol 325mg Tab) 650 mg PO Q4H PRN PRN Reason: Fever >100.4 F Amlodipine Besylate (Norvasc) 10 mg PO DAILY [facility] Last Admin: 02/01/18 09:28 Dose: 10 mg Glimepiride (Amaryl) 4 mg PO BID [facility] Last Admin: 02/01/18 17:22 Dose: 4 mg Hydrochlorothiazide (Microzide) 12.5 mg PO DAILY [facility] Last Admin: 02/01/18 09:28 Dose: 12.5 mg Linezolid (Zyvox 600mg/300ml D5w) 600 mg in 300 mls @ 200 mls/hr IVPB Q12 [facility]; Protocol Stop: 02/06/18 22:01 Last Admin: 02/01/18 22:35 Dose: 200 mls/hr Piperacillin Sod/Tazobactam Sod (Zosyn 3.375 In Ns 100ml) 100 mls @ 200 mls/hr IVPB Q6 [facility]; Protocol Stop: 02/06/18 18:01 Last Admin: 02/02/18 06:12 Dose: 200 mls/hr Insulin Detemir (Levemir) 46 unit SC HS [facility] Last Admin: 02/01/18 22:35 Dose: 46 units Insulin Human Lispro (Humalog Low) 0 units SC ACHS [facility]; Protocol Last Admin: 02/02/18 07:42 Dose: Not Given Insulin Human Lispro (Humalog) 14 units SC ACTID [facility] Last Admin: 02/02/18 08:12 Dose: 14 units Losartan Potassium (Cozaar) 100 mg PO DAILY [facility] Last Admin: 02/01/18 09:28 Dose: 100 mg Metformin HCl (Glucophage) 1,000 mg PO BID [facility] Last Admin: 02/01/18 17:22 Dose: 1,000 mg Sitagliptin Phosphate (Januvia) 50 mg PO DAILY [facility] Last Admin: 02/01/18 09:29 Dose: 50 mg Trazodone HCl (Desyrel) 100 mg PO HS [facility] Last Admin: 02/01/18 22:35 Dose: 100 mg - Labs Labs: 02/02/18 07:30 02/02/18 07:30 Attending/Attestation - Attestation I have personally seen and examined this patient.: Yes I have fully participated in the care of the patient.: Yes I have reviewed all pertinent clinical information, including history, physical exam and plan: Yes
--- NOTE | 2018-01-31 15:53 | PN ---
DATE: 01/31/2018 ENDOCRINOLOGY FOLLOWUP NOTE LOCATION: Room 569. SUBJECTIVE: This is a 53-year-old male with recent uncontrolled type 2 insulin-requiring diabetes presenting here with infected neuropathic foot ulceration and currently undergoing local debridement and IV antibiotic management and is also being followed closely for metabolic management. His glycemic levels are fluctuating, but improved and the glucose values have ranged from 169-172 mg/dL. It was 119 at bedtime last night. His chemistry showed a BUN of 12, sodium 137, potassium 4.2, chloride 101, CO2 27, glucose 158 and creatinine 0.8. ASSESSMENT: This is a 53-year-old male with uncontrolled type 2 insulin-requiring diabetes presenting here with lower extremity infected neuropathic foot ulceration and currently undergoing IV antibiotic management and local debridement procedures as given thereof. He also has diabetic microvascular complications of polyneuropathy and macrovascular complications of cerebrovascular disease and peripheral arterial disease and vasculopathy. PLAN OF MANAGEMENT: We will continue the same low-dose correction scale using Humalog insulin as given. We will also modify his current insulin regimen to optimize metabolic control. We will increase the Humalog to 14 units subcu t.i.d. before meals to start today. We will also increase the basal insulin with Levemir to be given as 46 units subcu at bedtime daily to start tonight. We will obtain serial chemistries and supplement accordingly as needed. We will follow. Christianne Russ MD
--- NOTE | 2018-01-31 16:30 | CP.PCM.PN ---
Subjective - Date & Time of Evaluation Date of Evaluation: 01/31/18 Time of Evaluation: 14:20 - Subjective Subjective: No increase in foot pain, no fevers, not in distress. Objective - Vital Signs/Intake and Output Vital Signs (last 24 hours): Temp Pulse Resp BP Pulse Ox 98 F 84 20 136/90 98 01/31/18 08:13 01/31/18 08:13 01/31/18 08:13 01/31/18 09:36 01/31/18 08:13 - Medications Medications: Current Medications Acetaminophen (Tylenol 325mg Tab) 650 mg PO Q4H PRN PRN Reason: Fever >100.4 F Amlodipine Besylate (Norvasc) 10 mg PO DAILY [facility] Last Admin: 01/31/18 09:36 Dose: 10 mg Glimepiride (Amaryl) 4 mg PO BID [facility] Last Admin: 01/31/18 09:35 Dose: 4 mg Hydrochlorothiazide (Microzide) 12.5 mg PO DAILY [facility] Last Admin: 01/31/18 09:36 Dose: 12.5 mg Linezolid (Zyvox 600mg/300ml D5w) 600 mg in 300 mls @ 200 mls/hr IVPB Q12 [facility]; Protocol Stop: 02/06/18 22:01 Last Admin: 01/31/18 09:35 Dose: 200 mls/hr Piperacillin Sod/Tazobactam Sod (Zosyn 3.375 In Ns 100ml) 100 mls @ 200 mls/hr IVPB Q6 [facility]; Protocol Stop: 02/06/18 18:01 Last Admin: 01/31/18 12:06 Dose: 200 mls/hr Insulin Detemir (Levemir) 46 unit SC HS [facility] Last Admin: 01/30/18 21:44 Dose: 46 units Insulin Human Lispro (Humalog Low) 0 units SC ACHS [facility]; Protocol Last Admin: 01/31/18 11:51 Dose: Not Given Insulin Human Lispro (Humalog) 14 units SC ACTID [facility] Last Admin: 01/31/18 12:06 Dose: 14 units Losartan Potassium (Cozaar) 100 mg PO DAILY [facility] Last Admin: 01/31/18 09:35 Dose: 100 mg Metformin HCl (Glucophage) 1,000 mg PO BID [facility] Last Admin: 01/31/18 09:35 Dose: 1,000 mg Sitagliptin Phosphate (Januvia) 50 mg PO DAILY [facility] Last Admin: 01/31/18 09:35 Dose: 50 mg Trazodone HCl (Desyrel) 100 mg PO HS [facility] Last Admin: 01/30/18 21:45 Dose: 100 mg - Labs Labs: 01/31/18 05:00 01/31/18 05:00 - Constitutional Appears: Non-toxic, No Acute Distress - Head Exam Head Exam: NORMAL INSPECTION - Respiratory Exam Respiratory Exam: Decreased Breath Sounds - Cardiovascular Exam Cardiovascular Exam: +S1, +S2 - GI/Abdominal Exam GI & Abdominal Exam: Soft. absent: Tenderness - Extremities Exam Additional comments: both feet with dressings in place Assessment and Plan - Assessment and Plan (Free Text) Plan: Assessment right infected diabetic foot ulcer with Pseudomonas, Klebsiella, Staph aureus, Enterococcus history of sepsis secondary to right foot osteomyelitis and abscess S/P debridem ent with associated Group A strep bacteremia; bone was growing Group B strep and wound was growing MSSA history of right foot skin and skin structure infection Charcot foot on the right S/P shaving of the bone last week history of left sided parotitis Diabetes Mellitus Liver disease with history of portal hypertension Plan continue Zyvox and Zosyn day 2 to complete 7-10 days and will continue to monitor clinically; initial MRI is not showing osteomyelitis of the right foot
--- NOTE | 2018-01-31 18:30 | PN ---
DATE: 01/31/2018 SUBJECTIVE: The patient is a 53-year-old male receiving IV antibiotic therapy for wound infections of both lower feet. PHYSICAL EXAMINATION VITAL SIGNS: He has a temperature of 98, his pulse is 84, his blood pressure is 120/85, oxygen saturation is 97% on room air. GENERAL: He is alert and oriented x3. NECK: Supple. No JVD. LUNGS: Clear. HEART: S1 and S2 rhythm. ABDOMEN: Soft with positive bowel sounds. LABORATORY DATA: WBC is 7.1, RBC of 4.86, hemoglobin 14.6, hematocrit 42.7, platelet count is 96,000. Chemistry shows normal electrolytes, his BUN is 12, his creatinine is 0.8, his blood sugar is 158. ASSESSMENT AND PLAN: He has an underlying history of cirrhosis from alcohol abuse with thrombocytopenia. He has insulin-dependent diabetes, followed by Endocrinology. He is receiving Zosyn IV and Zyvox IV at this time by Infectious Disease. Cultures of blood and urine are negative to date and we will continue his current level of care. Aspen Fontana MD
[2018-01-31] MEDS: Insulin Detemir 100 units/ml Vial (Levemir) SC SCH (21:37)
[2018-02-01] MEDS: Piperacillin/Tazobact 3.375 gm 100 ML IVPB SCH ×3 (05:22→17:23)
[2018-02-01] MEDS: Insulin Lispro 1 UNITS/0.01 ML SC SCH ×3 (08:53→17:23)
[2018-02-01] MEDS: Insulin Lispro (humaLOG) LOW Coverage SC SCH ×4 (08:56→22:36)
[2018-02-01] MEDS: Linezolid 600 mg in D5W 300 ml 600 MG/300 ML BAG IVPB SCH ×2 (09:29→22:35)
--- NOTE | 2018-02-01 12:58 | CP.PCM.PN ---
Subjective - Date & Time of Evaluation Date of Evaluation: 02/01/18 Time of Evaluation: 12:53 - Subjective Subjective: Podiatry - Drs. Alvarado/Katie 53M seen and evaluated this AM for bilateral lower extremity ulcerations. Patient resting comfortably, hemodynamically stable and NAD. No acute events overnight. No new complaints to lower extremity b/l, able to ambulate in forefoot wedge RLE and surgical shoe LLE w/o issues. Plan to transfer to TCU for continued abx and physical therapy. Denies N/V/F/D/C/SOB/MORRISSEY/CP. Objective - Vital Signs/Intake and Output Vital Signs (last 24 hours): Temp Pulse Resp BP Pulse Ox 98.2 F 76 20 135/89 97 02/01/18 08:31 02/01/18 08:31 02/01/18 08:31 02/01/18 09:28 02/01/18 08:31 Intake and Output: 02/01/18 02/01/18 06:59 18:59 Intake Total 1000 Balance 1000 - Medications Medications: Current Medications Acetaminophen (Tylenol 325mg Tab) 650 mg PO Q4H PRN PRN Reason: Fever >100.4 F Amlodipine Besylate (Norvasc) 10 mg PO DAILY [facility] Last Admin: 02/01/18 09:28 Dose: 10 mg Glimepiride (Amaryl) 4 mg PO BID [facility] Last Admin: 02/01/18 10:00 Dose: 4 mg Hydrochlorothiazide (Microzide) 12.5 mg PO DAILY [facility] Last Admin: 02/01/18 09:28 Dose: 12.5 mg Linezolid (Zyvox 600mg/300ml D5w) 600 mg in 300 mls @ 200 mls/hr IVPB Q12 [facility]; Protocol Stop: 02/06/18 22:01 Last Admin: 02/01/18 09:29 Dose: 200 mls/hr Piperacillin Sod/Tazobactam Sod (Zosyn 3.375 In Ns 100ml) 100 mls @ 200 mls/hr IVPB Q6 [facility]; Protocol Stop: 02/06/18 18:01 Last Admin: 02/01/18 11:42 Dose: 200 mls/hr Insulin Detemir (Levemir) 46 unit SC HS [facility] Last Admin: 01/31/18 21:37 Dose: 46 units Insulin Human Lispro (Humalog Low) 0 units SC ACHS [facility]; Protocol Last Admin: 02/01/18 11:41 Dose: Not Given Insulin Human Lispro (Humalog) 14 units SC ACTID [facility] Last Admin: 02/01/18 11:25 Dose: 14 units Losartan Potassium (Cozaar) 100 mg PO DAILY [facility] Last Admin: 02/01/18 09:28 Dose: 100 mg Metformin HCl (Glucophage) 1,000 mg PO BID [facility] Last Admin: 02/01/18 09:28 Dose: 1,000 mg Sitagliptin Phosphate (Januvia) 50 mg PO DAILY [facility] Last Admin: 02/01/18 09:29 Dose: 50 mg Trazodone HCl (Desyrel) 100 mg PO HS [facility] Last Admin: 01/31/18 21:28 Dose: 100 mg - Labs Labs: 01/31/18 05:00 01/31/18 05:00 - Constitutional Appears: Well, Non-toxic, No Acute Distress - Extremities Exam Additional comments: Vasc: DP/PT diminished, CFT >3 seconds to all remaining digits, TG WNL, no edema noted Ortho: R 3rd toe amputation, R partial 4th and 5th amputation, L foot 2nd digit amputation. No pain on palpation noted to wounds. Neuro: Gross sensation dimished, protective sensation absent Derm: RLE= R hallux ulceration noted to have a 100% granular base, minimal serosangu inous drainage, no purulence noted, no tunneling, no probing to bone, no tracking, cellulitis noted circumfrentially, resolving. R Plantar midfoot ulceration resolving, noted to have a fibrous base, no tunneling, no tracking, no probe to bone. LLE= L submetatarsal 1 ulceration,measuring approximately 1.5 cm x 1 cm x .1, with fibrogranular base, no tunneling, no tracking, no probe to bone. L ulcer ation noted to distal tip of hallux resolving with overlying eschar cap, measuring approximately .5 x .5 x .1 cm. Hallux nails dystrophic and discolored bilaterally. Hyperpigmented skin noted to dorsal aspect of feet bilaterally. L Charcot foot noted. - Neurological Exam Neurological Exam: Alert, Awake, Oriented x3 - Psychiatric Exam Psychiatric exam: Normal Affect, Normal Mood Assessment and Plan - Assessment and Plan (Free Text) Assessment: 53M with bilateral lower extremity ulcerations Plan: Patient seen and evaluated Discussed with attending, Dr. Alvarado VSEdward MRI of B/L lower extremities (01/29); no OM present R lower extremity US (01/28); no evidence of DVT to RLE ID recs appreciated - continue Zyvox and Zosyn day 3to complete 7-10 days; initial MRI is not showing osteomyelitis of the right foot Continue local wound care: saline cleanse, maxsorb, adaptic, DSD b/l Podiatry will continue to follow
--- NOTE | 2018-02-01 14:07 | PN ---
DATE: 02/01/2018 SUBJECTIVE: A 53-year-old male receiving IV antibiotic therapy for wounds of the feet. PHYSICAL EXAMINATION: VITAL SIGNS: The patient has a temperature of 98.2, his pulse is 76, his blood pressure is 135/89. GENERAL: He is alert and oriented x3. LUNGS: Clear. HEART: S1, S2 rhythm. ABDOMEN: Soft with positive bowel sounds. LABORATORY DATA: His blood sugar this morning was 165. He is currently on Amaryl, Glucophage, Humalog, Januvia, Levemir. 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 He is on Zosyn and Zyvox by Infectious Disease for his wounds and he is on Norvasc, Microzide, Cozaar for hypertension. He is also on Glucophage and Amaryl by Endocrinology. He has got a past medical history of alcohol abuse, suicidal ideation, depression, Charcot foot surgery, osteomyelitis, portal hypertension, thrombocytopenia, and cirrhosis. We will follow up the patient's labs and continue medical management as per the recommendations of the individual consultants. Aspen Fontana MD
--- NOTE | 2018-02-01 15:45 | CP.PCM.PN ---
Subjective - Date & Time of Evaluation Date of Evaluation: 02/01/18 Time of Evaluation: 12:10 - Subjective Subjective: No fevers, not in distress, afebrile, no increased pain in the right foot. Objective - Vital Signs/Intake and Output Vital Signs (last 24 hours): Temp Pulse Resp BP Pulse Ox 98.2 F 76 20 138/91 H 97 02/01/18 08:31 02/01/18 08:31 02/01/18 08:31 02/01/18 08:31 02/01/18 08:31 Intake and Output: 02/01/18 02/01/18 06:59 18:59 Intake Total 1000 Balance 1000 - Medications Medications: Current Medications Acetaminophen (Tylenol 325mg Tab) 650 mg PO Q4H PRN PRN Reason: Fever >100.4 F Amlodipine Besylate (Norvasc) 10 mg PO DAILY [facility] Last Admin: 01/31/18 09:36 Dose: 10 mg Glimepiride (Amaryl) 4 mg PO BID [facility] Last Admin: 01/31/18 17:52 Dose: 4 mg Hydrochlorothiazide (Microzide) 12.5 mg PO DAILY [facility] Last Admin: 01/31/18 09:36 Dose: 12.5 mg Linezolid (Zyvox 600mg/300ml D5w) 600 mg in 300 mls @ 200 mls/hr IVPB Q12 [facility]; Protocol Stop: 02/06/18 22:01 Last Admin: 01/31/18 21:30 Dose: 200 mls/hr Piperacillin Sod/Tazobactam Sod (Zosyn 3.375 In Ns 100ml) 100 mls @ 200 mls/hr IVPB Q6 [facility]; Protocol Stop: 02/06/18 18:01 Last Admin: 02/01/18 05:22 Dose: 200 mls/hr Insulin Detemir (Levemir) 46 unit SC HS [facility] Last Admin: 01/31/18 21:37 Dose: 46 units Insulin Human Lispro (Humalog Low) 0 units SC ACHS [facility]; Protocol Last Admin: 01/31/18 21:28 Dose: Not Given Insulin Human Lispro (Humalog) 14 units SC ACTID [facility] Last Admin: 01/31/18 17:51 Dose: 14 units Losartan Potassium (Cozaar) 100 mg PO DAILY [facility] Last Admin: 01/31/18 09:35 Dose: 100 mg Metformin HCl (Glucophage) 1,000 mg PO BID [facility] Last Admin: 01/31/18 17:52 Dose: 1,000 mg Sitagliptin Phosphate (Januvia) 50 mg PO DAILY [facility] Last Admin: 01/31/18 09:35 Dose: 50 mg Trazodone HCl (Desyrel) 100 mg PO HS [facility] Last Admin: 01/31/18 21:28 Dose: 100 mg - Labs Labs: 01/31/18 05:00 01/31/18 05:00 - Constitutional Appears: Non-toxic, No Acute Distress, Chronically Ill - Head Exam Head Exam: NORMAL INSPECTION - Respiratory Exam Respiratory Exam: Decreased Breath Sounds. absent: Rales - Cardiovascular Exam Cardiovascular Exam: +S1, +S2 - GI/Abdominal Exam GI & Abdominal Exam: Soft. absent: Tenderness - Extremities Exam Additional comments: both feet with dressings in place Assessment and Plan - Assessment and Plan (Free Text) Plan: Assessment right infected diabetic foot ulcer with Pseudomonas, Klebsiella, Staph aureus, Enterococcus history of sepsis secondary to right foot osteomyelitis and abscess S/P debridement with associated Group A strep bacteremia; bone was growing Group B strep and wound was growing MSSA history of right foot skin and skin structure infection Charcot foot on the right S/P shaving of the bone last week history of left sided parotitis Diabetes Mellitus Liver disease with history of portal hypertension with associated chronic thrombocytopenia Plan continue Zyvox and Zosyn day 3 to complete 7-10 days and will continue to monitor clinically; initial MRI is not showing osteomyelitis of the right foot will monitor platelet count
--- NOTE | 2018-02-01 19:12 | PN ---
DATE: 02/01/2018 ENDOCRINOLOGY FOLLOWUP NOTE LOCATION: Room . SUBJECTIVE: This is a 53-year-old male with recent uncontrolled type 2 insulin-requiring diabetes, now being followed closely for metabolic management. He also has ongoing IV antibiotics and local debridement done for his lower extremity infected neuropathic ulcerations and also the right hallux ulceration as noted thereof. His glycemic levels are fluctuating but much improved as noted overnight and the glucose values have ranged from 131-165 mg/dL. It was 124-183 yesterday as noted. His latest chemistries: BUN of 12, sodium 137, potassium 4.2, chloride 101, CO2 of 27, glucose 158, and creatine 0.8. So, at this time, we will continue the same basal and bolus insulin regimen also for dose equilibration and keep him on the same dosing regimen given as Humalog at 14 units subcutaneously before meals as ordered. We will also continue the low-dose correction scale using Humalog insulin as given. Moreover, we will continue the same basal insulin given as Levemir at 46 units subcutaneously at bedtime daily to start. We will obtain serial chemistries and supplement accordingly as needed. We will follow. Christianne Russ MD
[2018-02-01] MEDS: Insulin Detemir 100 units/ml Vial (Levemir) SC SCH (22:35)
[2018-02-02] MEDS: Piperacillin/Tazobact 3.375 gm 100 ML IVPB SCH ×4 (00:06→17:08)
[2018-02-02] MEDS: Insulin Lispro (humaLOG) LOW Coverage SC SCH ×3 (07:42→16:03)
[2018-02-02 07:46] LABS: BASO # 0.01 K/mm3 (0.0-2.0); BASO % 0.2 % (0.0-3.0); EOS # 0.1 (0.0-0.7); EOS % 1.3 % (1.5-5.0); GRAN # 3.75 (1.4-6.5); GRAN % 68.9 % (50.0-68.0); HEMOGLOBIN 14.1 g/dL (14.0-18.0); LYMPH # 0.8 (1.2-3.4); LYMPH % 14.9 % (22.0-35.0); MEAN CELL VOLUME 88.4 fl (80.0-105.0); MEAN CORPUSCULAR HEMOGLOBIN 30.3 pg (25.0-35.0); MEAN CORPUSCULAR HGB CONC 34.2 g/dl (31.0-37.0); MONO # 0.8 (0.1-0.6); MONO % 14.7 % (1.0-6.0); RBC 4.66 10^6/uL (3.5-6.1); RED CELL DISTRIBUTION WIDTH 15.1 % (11.5-14.5); WHITE BLOOD COUNT 5.4 10^3/ul (4.5-11.0)
[2018-02-02 08:08] LABS: ALB/GLOB RATIO 1.2 (1.1-1.8); ALT/SGPT 59 U/L (7-56); AST/SGOT 58 U/L (17-59); BLOOD UREA NITROGEN 12 mg/dL (7-21); CALCIUM 9.2 mg/dL (8.4-10.5); GFR NON-AFRICAN AMERICAN > 60
[2018-02-02] MEDS: Insulin Lispro 1 UNITS/0.01 ML SC SCH ×3 (08:12→16:02)
[2018-02-02 08:43] VITALS: RESP 20
[2018-02-02] MEDS: Linezolid 600 mg in D5W 300 ml 600 MG/300 ML BAG IVPB SCH (09:49)
--- NOTE | 2018-02-02 10:27 | PN ---
DATE: 02/02/2018 PHYSICAL EXAMINATION VITAL SIGNS: Temp is 98.5, pulse is 78, blood pressure is 131/81, oxygen sat is 98% on room air, respiratory rate is 20. GENERAL: The patient is alert and oriented x3. LUNGS: Clear. HEART: An S1 and S2 rhythm. ABDOMEN: Soft with positive bowel sounds. EXTREMITIES: Show bilateral dressings on his lower feet. LABORATORY DATA: Shows normal electrolytes. His BUN is 12, his creatinine is 0.9. CBC shows a WBC of 5.4, RBC 4.66, hemoglobin 14, hematocrit 41.2, platelet count is 98,000. ASSESSMENT AND PLAN: The patient is currently being treated for infections of ulcers on his feet, being followed by Infectious Disease. He is also being followed by Endocrinology for his insulin-dependent diabetes. He has underlying thrombocytopenia from his liver disease with a past medical history of suicidal ideation and he is being followed by Podiatry for his wound care on his feet. We will continue the current medications as per Infectious Disease. He is on Zosyn and Zyvox IV. Aspen Fontana MD
--- NOTE | 2018-02-02 13:29 | CP.PCM.PN ---
Subjective - Date & Time of Evaluation Date of Evaluation: 02/02/18 Time of Evaluation: 13:30 - Subjective Subjective: Podiatry Progress Note for Dr. Alvarado 53 yo male seen and evaluated for bilateral lower extremity ulcerations. Patient is resting comfortably and in NAD. He denies any acute events overnight. Denies any pain to bilateral lower extremities. Plan for transfer to TCU for continued abx and PT. Denies any N/V/F/SOB/CP. Objective - Vital Signs/Intake and Output Vital Signs (last 24 hours): Temp Pulse Resp BP Pulse Ox 98.5 F 78 20 138/77 98 02/02/18 08:42 02/02/18 08:42 02/02/18 08:42 02/02/18 09:49 02/02/18 08:42 - Medications Medications: Current Medications Acetaminophen (Tylenol 325mg Tab) 650 mg PO Q4H PRN PRN Reason: Fever >100.4 F Amlodipine Besylate (Norvasc) 10 mg PO DAILY [facility] Last Admin: 02/02/18 09:49 Dose: 10 mg Glimepiride (Amaryl) 4 mg PO BID [facility] Last Admin: 02/02/18 09:49 Dose: 4 mg Hydrochlorothiazide (Microzide) 12.5 mg PO DAILY [facility] Last Admin: 02/02/18 09:49 Dose: 12.5 mg Linezolid (Zyvox 600mg/300ml D5w) 600 mg in 300 mls @ 200 mls/hr IVPB Q12 [facility]; Protocol Stop: 02/06/18 22:01 Last Admin: 02/02/18 09:49 Dose: 200 mls/hr Piperacillin Sod/Tazobactam Sod (Zosyn 3.375 In Ns 100ml) 100 mls @ 200 mls/hr IVPB Q6 [facility]; Protocol Stop: 02/06/18 18:01 Last Admin: 02/02/18 11:27 Dose: 200 mls/hr Insulin Detemir (Levemir) 46 unit SC HS [facility] Last Admin: 02/01/18 22:35 Dose: 46 units Insulin Human Lispro (Humalog Low) 0 units SC ACHS [facility]; Protocol Last Admin: 02/02/18 11:27 Dose: Not Given Insulin Human Lispro (Humalog) 14 units SC ACTID [facility] Last Admin: 02/02/18 11:26 Dose: 14 units Losartan Potassium (Cozaar) 100 mg PO DAILY [facility] Last Admin: 02/02/18 09:49 Dose: 100 mg Metformin HCl (Glucophage) 1,000 mg PO BID [facility] Last Admin: 02/02/18 09:49 Dose: 1,000 mg Sitagliptin Phosphate (Januvia) 50 mg PO DAILY [facility] Last Admin: 02/02/18 09:49 Dose: 50 mg Trazodone HCl (Desyrel) 100 mg PO HS [facility] Last Admin: 02/01/18 22:35 Dose: 100 mg - Labs Labs: 02/02/18 07:30 02/02/18 07:30 - Constitutional Appears: Well, Non-toxic, No Acute Distress - Head Exam Head Exam: ATRAUMATIC, NORMOCEPHALIC - Extremities Exam Additional comments: Vasc: DP/PT diminished, CFT >3 seconds to all remaining digits, TG WNL, no edema noted to bilateral lower extremities Ortho: Right 3rd toe amputation, right partial 4th and 5th amputation, left foot 2nd digit amputation, no tenderness to palpation of calf compression bilaterally Neuro: Gross sensation diminished, protective sensation absent Derm: R hallux ulceration noted to have a 100% granular base, minimal serosanguinous drainage, no purulence noted, no tunneling, no probing to bone, no tracking, cellulitis noted circumfrentially, resolving. R Plantar midfoot ulceration resolving with epithelialization, noted to have a fibrous base, no tunneling, no tracking, no probe to bone. L submetatarsal 1 ulceration,measuring approximately 1.5 cm x 1 cm x .1, with fibrogranular base, no tunneling, no tracking, no probe to bone. L ulceration noted to distal tip of hallux resolving with overlying eschar cap, measuring approximately .5 x .5 x .1 cm. Hallux nails dystrophic and discolored bilaterally. Hyperpigmented skin noted to dorsal aspect of feet bilaterally. B/L Charcot foot noted. - Neurological Exam Neurological Exam: Alert, Awake - Psychiatric Exam Psychiatric exam: Normal Affect, Normal Mood - Skin Skin Exam: Warm Assessment and Plan - Assessment and Plan (Free Text) Assessment: 53 yo male with bilateral lower extremity ulcerations Plan: Patient seen and evaluated with Dr. Alvarado Lab, chart, vitals reviewed; afebrile, absent leukocytosis MRI of B/L lower extremities (01/29); no OM present R lower extremity US (01/28); no evidence of DVT to RLE ID recs appreciated; continue Zyvox and Zosyn day 4 to complete 7-10 days Continue local wound care: saline cleanse, maxsorb, ABD, DSD Podiatry will continue to follow will in house
--- NOTE | 2018-02-02 15:39 | PN ---
DATE: 02/02/2018 ENDO FOLLOWUP NOTE LOCATION: In room 569. SUBJECTIVE: This is a 53-year-old male with recent uncontrolled type 2 insulin-requiring diabetes, currently undergoing IV antibiotic management and local debridement of his infected neuropathic foot ulcerations as noted. His glucose values are fluctuating, but improved and the glucose levels have ranged from 134-180 mg/dL. His chemistries today showed a BUN of 12, sodium 140, potassium 4.2, chloride 104, CO2 of 28, glucose 143 and creatinine 0.9. So at this time, we will continue the same basal and bolus insulin regimen as ordered. We will continue the Humalog given as 14 units subcu t.i.d. before meals as ordered. We will continue the Levemir given as 46 units subcu at bedtime daily as given. We will continue also the low-dose correction scale using Humalog insulin as given. We will titrate incrementally as indicated to optimize metabolic control. We will follow and advise accordingly. Christianne Russ MD
[2018-02-02 17:15] VITALS: BP 158/93; PULSE 94; TEMP 97.7; O2SAT 96
--- NOTE | 2018-02-02 20:43 | CP.PCM.PN ---
Subjective - Date & Time of Evaluation Date of Evaluation: 02/02/18 Time of Evaluation: 11:35 - Subjective Subjective: No new complaints, no increased pain in the feet, no fevers, no nausea. Objective - Vital Signs/Intake and Output Vital Signs (last 24 hours): Temp Pulse Resp BP Pulse Ox 97.7 F 94 H 20 158/93 H 96 02/02/18 14:00 02/02/18 14:00 02/02/18 14:00 02/02/18 14:00 02/02/18 14:00 - Labs Labs: 02/02/18 07:30 02/02/18 07:30 - Constitutional Appears: No Acute Distress, Chronically Ill - Head Exam Head Exam: NORMAL INSPECTION - ENT Exam ENT Exam: Mucous Membranes Moist - Neck Exam Neck Exam: absent: Meningismus - Respiratory Exam Respiratory Exam: Decreased Breath Sounds - Cardiovascular Exam Cardiovascular Exam: +S1, +S2 - GI/Abdominal Exam GI & Abdominal Exam: Soft. absent: Tenderness - Extremities Exam Additional comments: both feet with dressings in place Assessment and Plan - Assessment and Plan (Free Text) Plan: Assessment right infected diabetic foot ulcer with Pseudomonas, Klebsiella, Staph aureus, Enterococcus history of sepsis secondary to right foot osteomyelitis and abscess S/P debridement with associated Group A strep bacteremia; bone was growing Group B strep and wound was growing MSSA history of right foot skin and skin structure infection Charcot foot on the right S/P shaving of the bone last week history of left sided parotitis Diabetes Mellitus Liver disease with history of portal hypertension with associated chronic thrombocytopenia Plan continue Zyvox and Zosyn day 4 to complete 7-10 days and will continue to monitor clinically; MRI is not showing osteomyelitis of the right foot will monitor platelet count
--- NOTE | 2018-02-03 15:07 | MRI ---
Date of service: 01/29/2018 PROCEDURE: MRI of the left foot without contrast HISTORY: bilateral ulcerations COMPARISON: Plain films 04/17/2016 TECHNIQUE: MRI of the left foot was performed in multiple planes using multiple pulse sequences. FINDINGS: Severe chronic Charcot changes are seen in the midfoot. There is no marrow edema to suggest acute fracture or osteomyelitis. There is no evidence of a soft tissue abscess or cellulitis. IMPRESSION: No acute findings
== END 2018-02-02 18:40 | DRG 638 ==
LOC: ED 10:19 → ERH 12:43 → 5RNO 14:09
PROVIDERS: ADMIT Internal Medicine; ATTEND Internal Medicine
DX: E11.621 Type 2 diabetes mellitus with foot ulcer (principal); L97.519 Non-pressure chronic ulcer of other part of right foot with unspecified severity; L97.529 Non-pressure chronic ulcer of other part of left foot with unspecified severity; K76.6 Portal hypertension; L03.115 Cellulitis of right lower limb; E11.65 Type 2 diabetes mellitus with hyperglycemia; E11.51 Type 2 diabetes mellitus with diabetic peripheral angiopathy without gangrene; E11.42 Type 2 diabetes mellitus with diabetic polyneuropathy; D69.59 Other secondary thrombocytopenia; F31.9 Bipolar disorder, unspecified; I10 Essential (primary) hypertension; F41.1 Generalized anxiety disorder; K70.30 Alcoholic cirrhosis of liver without ascites; M14.679 Charcot's joint, unspecified ankle and foot; E11.610 Type 2 diabetes mellitus with diabetic neuropathic arthropathy; Z79.4 Long term (current) use of insulin; E78.5 Hyperlipidemia, unspecified; Z89.421 Acquired absence of other right toe(s)

== ENCOUNTER 2018-02-02 18:40 | Inpatient (IN) | payer MEDICARE ==
[2018-02-02] MEDS ORDERED: Insulin Lispro (humaLOG) LOW Coverage SC SCH (22:00)
[2018-02-02] MEDS ORDERED: Insulin Detemir 100 units/ml Vial (Levemir) SC SCH (22:00)
[2018-02-03] MEDS: Piperacillin/Tazobact 3.375 gm 100 ML IVPB SCH ×4 (01:49→21:07)
[2018-02-03] MEDS: Linezolid 600 mg in D5W 300 ml 600 MG/300 ML BAG IVPB SCH ×2 (05:27→18:02)
[2018-02-03] MEDS: Insulin Lispro (humaLOG) LOW Coverage SC SCH ×4 (06:57→21:08)
[2018-02-03] MEDS: Insulin Lispro 1 UNITS/0.01 ML SC SCH ×3 (08:09→17:59)
[2018-02-03 08:33] LABS: HEMOGLOBIN 14.1 g/dL (14.0-18.0); MEAN CELL VOLUME 87.8 fl (80.0-105.0); MEAN CORPUSCULAR HEMOGLOBIN 30.2 pg (25.0-35.0); MEAN CORPUSCULAR HGB CONC 34.4 g/dl (31.0-37.0); RBC 4.67 10^6/uL (3.5-6.1); WHITE BLOOD COUNT 5.3 10^3/ul (4.5-11.0)
[2018-02-03 08:44] LABS: BLOOD UREA NITROGEN 13 mg/dL (7-21); GFR NON-AFRICAN AMERICAN > 60
[2018-02-03] MEDS ORDERED: Piperacillin/Tazobact 3.375 gm 100 ML IVPB SCH (13:38)
--- NOTE | 2018-02-03 14:48 | PN ---
DATE: 02/03/2018 ENDO FOLLOWUP NOTE LOCATION: In room 321, [facility], [facility]. SUBJECTIVE: This is a 53-year-old male with recent uncontrolled type 2 insulin-requiring diabetes, now transferred to [facility] for IV antibiotics and local debridement of his neuropathic foot ulcerations as noted. His glycemic levels have been low normal because of the variability of his oral intake as noted. His latest chemistry showed a BUN of 13, sodium 138, potassium 4.5, chloride 101, CO2 of 28, glucose 242 and creatinine 0.8. His glucose levels have ranged from 82-107 and 194 mg/dL. ASSESSMENT: This is a 53-year-old male with uncontrolled and decompensated type 2 insulin-requiring diabetes with low normal glycemic profile at this time related to the variability of his oral intake as noted. He also has diabetic microvascular complications of retinopathy and severe polyneuropathy with diabetic macrovascular complications of coronary artery disease and peripheral arterial disease and vasculopathy with recurrent neuropathic foot ulcerations as noted. PLAN OF MANAGEMENT: We will modify at this time his current basal and bolus insulin regimen and detailed orders have been given. We will lower the Humalog to 10 units subcu t.i.d. before meals to start today. We will also lower the basal insulin with Levemir to be given as 40 units subcu at bedtime daily to start tonight. We will modify the coverage scale to obviate hypoglycemia and detailed orders have been given. We will follow and advise accordingly. Christianne Russ MD
--- NOTE | 2018-02-03 15:17 | CP.PCM.PN ---
<Tabby Rosario - Last Filed: 02/03/18 15:24> Subjective - Date & Time of Evaluation Date of Evaluation: 02/03/18 Time of Evaluation: 15:13 - Subjective Subjective: Podiatry Progress Note for Dr. Wilson: 53 yo male seen and evaluated for bilateral lower extremity ulcerations; resolving. Patient is AAOx3 and in NAD, denies any acute overnight events. Patient states that he was transfered to TCU and will most stay in house until next Friday for antibiotics and strengthening/conditioning with PT. Patient denies N/V/F/SOB/CP. Objective - Vital Signs/Intake and Output Vital Signs (last 24 hours): Temp Pulse Resp BP Pulse Ox 130/86 02/03/18 10:22 Intake and Output: 02/03/18 02/03/18 06:59 18:59 Intake Total 420 Balance 420 - Medications Medications: Current Medications Acetaminophen (Tylenol 325mg Tab) 650 mg PO Q4H PRN; Protocol PRN Reason: Fever >100.4 F Amlodipine Besylate (Norvasc) 10 mg PO DAILY [facility]; Protocol Last Admin: 02/03/18 10:22 Dose: 10 mg Glimepiride (Amaryl) 4 mg PO 0800,1800 [facility]; Protocol Hydrochlorothiazide (Microzide) 12.5 mg PO 0800 [facility]; Protocol Linezolid (Zyvox 600mg/300ml D5w) 600 mg in 300 mls @ 200 mls/hr IVPB 0600,1800 [facility]; Protocol Last Admin: 02/03/18 05:27 Dose: 200 mls/hr Piperacillin Sod/Tazobactam Sod (Zosyn 3.375 In Ns 100ml) 100 mls @ 25 mls/hr IVPB Q8 [facility]; Protocol Stop: 02/06/18 21:59 Insulin Detemir (Levemir) 40 unit SC HS [facility]; Protocol Insulin Human Lispro (Humalog Low) 0 units SC ACHS [facility]; Protocol Last Admin: 02/03/18 11:50 Dose: Not Given Insulin Human Lispro (Humalog) 10 units SC ACTID [facility]; Protocol Losartan Potassium (Cozaar) 100 mg PO DAILY [facility]; Protocol Last Admin: 02/03/18 10:22 Dose: 100 mg Metformin HCl (Glucophage) 1,000 mg PO 0800,1800 [facility]; Protocol Sitagliptin Phosphate (Januvia) 50 mg PO DAILY [facility]; Protocol Last Admin: 02/03/18 10:22 Dose: 50 mg Trazodone HCl (Desyrel) 100 mg PO HS [facility]; Protocol Last Admin: 02/02/18 21:07 Dose: 100 mg - Labs Labs: 02/03/18 08:00 02/03/18 08:00 - Constitutional Appears: Well, Non-toxic, No Acute Distress - Head Exam Head Exam: NORMOCEPHALIC - Extremities Exam Additional comments: Vasc: DP/PT diminished, CFT >3 seconds to all remaining digits, TG warm to warm, no edema noted to bilateral lower extremities Ortho: Right 3rd toe amputation, right partial 4th and 5th amputation, left foot 2nd digit amputation, no tenderness to palpation of calf compression bilaterally Neuro: Gross sensation diminished, protective sensation absent Derm: R hallux ulceration noted to have a 100% granular base, minimal serosanguinous drainage, no purulence noted, no tunneling, no probing to bone, no tracking, cellulitis noted circumfrentially, resolving. R Plantar midfoot ulceration resolved. L submetatarsal 1 ulceration,resolved; thin friable skin noted to central portion of residing hyperkeratosis. L ulceration noted to distal tip of hallux resolving with overlying eschar cap, measuring approximately .5 x .5 x .1 cm. Hallux nails dystrophic and discolored bilaterally. Hyperpigmented skin noted to dorsal aspect of feet bilaterally. B/L Charcot foot noted. - Neurological Exam Neurological Exam: Alert - Psychiatric Exam Psychiatric exam: Normal Affect, Normal Mood Assessment and Plan - Assessment and Plan (Free Text) Assessment: 53 yo male with bilateral lower extremity ulcerations; resolving Plan: Patient seen and evaluated Discussed patient plan in detail with with Dr. Wilson afebrile, absent leukocytosis MRI of B/L lower extremities (01/29); no OM present R lower extremity US (01/28); no evidence of DVT to RLE Continue IV abx per ID reccs; continue Zyvox and Zosyn day 5 to complete 7-10 days and will continue to monitor clinically Local wound care: [facility] will continue to follow will in house Upon d/c patient to follow up in wound care clinic with Dr. Wilson/Christiano <Blayne Wilson Last Filed: 02/03/18 16:59> Objective - Vital Signs/Intake and Output Vital Signs (last 24 hours): Temp Pulse Resp BP Pulse Ox 130/86 02/03/18 10:22 Intake and Output: 02/03/18 02/03/18 06:59 18:59 Intake Total 420 Balance 420 - Medications Medications: Current Medications Acetaminophen (Tylenol 325mg Tab) 650 mg PO Q4H PRN; Protocol PRN Reason: Fever >100.4 F Amlodipine Besylate (Norvasc) 10 mg PO DAILY [facility]; Protocol Last Admin: 02/03/18 10:22 Dose: 10 mg Glimepiride (Amaryl) 4 mg PO 0800,1800 [facility]; Protocol Hydrochlorothiazide (Microzide) 12.5 mg PO 0800 [facility]; Protocol Linezolid (Zyvox 600mg/300ml D5w) 600 mg in 300 mls @ 200 mls/hr IVPB 0600,1800 [facility]; Protocol Last Admin: 02/03/18 05:27 Dose: 200 mls/hr Piperacillin Sod/Tazobactam Sod (Zosyn 3.375 In Ns 100ml) 100 mls @ 25 mls/hr IVPB Q8 [facility]; Protocol Stop: 02/06/18 21:59 Insulin Detemir (Levemir) 40 unit SC HS [facility]; Protocol Insulin Human Lispro (Humalog Low) 0 units SC ACHS [facility]; Protocol Last Admin: 02/03/18 11:50 Dose: Not Given Insulin Human Lispro (Humalog) 10 units SC ACTID [facility]; Protocol Losartan Potassium (Cozaar) 100 mg PO DAILY [facility]; Protocol Last Admin: 02/03/18 10:22 Dose: 100 mg Metformin HCl (Glucophage) 1,000 mg PO 0800,1800 [facility]; Protocol Sitagliptin Phosphate (Januvia) 50 mg PO DAILY [facility]; Protocol Last Admin: 02/03/18 10:22 Dose: 50 mg Trazodone HCl (Desyrel) 100 mg PO HS [facility]; Protocol Last Admin: 02/02/18 21:07 Dose: 100 mg - Labs Labs: 02/03/18 08:00 02/03/18 08:00 Attending/Attestation - Attestation I have personally seen and examined this patient.: Yes I have fully participated in the care of the patient.: Yes I have reviewed all pertinent clinical information, including history, physical exam and plan: Yes
--- NOTE | 2018-02-03 16:48 | CP.PCM.CON ---
History of Present Illness - History of Present Illness History of Present Illness: 53 year old male with PMH of DM, alcohol abuse with liver disease and history of portal hypertension, bipolar disorder, history of right foot infection S/P amputation of digits, Charcot arthropathy of the right foot, S/P surgery on the right foot in 2016 came in to [facility] initially because of worsening right foot ulcer on the plantar surface and he was noted to have multiple bacteria growing from there. MRI was done which did not show osteomyelitis. He has been doing well and is now transferred to [facility] for continued medical therapy and physical rehab. Infectious Diseases consult is requested to continue his antibiotic therapy. He denies fever or chills, no nausea or vomiting, no chest pain, no SOB, no headache or dizziness, no nausea or vomiting, no diarrhea, no dysuria, no cough or colds, no increased pain in his feet. Review of Systems - Review of Systems All systems: reviewed and no additional remarkable complaints except (as per HPI) Past Patient History - Infectious Disease Hx of Infectious Diseases: None - Tetanus Immunizations Tetanus Immunization: Up to Date - Past Medical History & Family History Past Medical History?: Yes - Past Social History Smoking Status: Never Smoked - CARDIAC Hx Cardiac Disorders: Yes Hx Hypertension: Yes - PULMONARY Hx Respiratory Disorders: Yes Hx Emphysema: Yes - NEUROLOGICAL Hx Seizures: No - HEENT Hx HEENT Problems: No - RENAL Hx Chronic Kidney Disease: No - ENDOCRINE/METABOLIC Hx Diabetes Mellitus Type 2: Yes - HEMATOLOGICAL/ONCOLOGICAL Hx Human Immunodeficiency Virus (HIV): No - INTEGUMENTARY Hx Dermatological Problems: Yes Other/Comment: prior visit triage notes: 4th toe rt foot ulcer (resolved). RIGHT FOOT 3RD TOE AMPUTATED,PARTIAL AMPUTATION TO 4TH AND 5TH TOE. LEFT FOOT 2ND TOE AMPUTATION. OPEN WOUND TO SOLE OF RIGHT FOOT.HAD A BLISTER ,GOT WORSE. pt trerated by dr underwood at the wound center with wound care and a cast but wound opened up 4x's, pt went to [facility] to a dr nicole who specializes in charcot feet, had bone shaved on bottom of right charcot foot on 06/05/16, cast and herbie wrap in place pt ambulated with crutches - MUSCULOSKELETAL/RHEUMATOLOGICAL Hx Arthritis: Yes - GASTROINTESTINAL Hx Gastrointestinal Disorders: Yes (c dif,colitis) - GENITOURINARY/GYNECOLOGICAL Hx Genitourinary Disorders: No Hx Sexually Transmitted Disorders: No - PSYCHIATRIC Hx Psychophysiologic Disorder: Yes Hx Anxiety: Yes Hx Bipolar Disorder: Yes Hx Depression: Yes - SURGICAL HISTORY Hx Surgeries: Yes (MULTIPLE AMPUTATIONS TO BILATERAL TOES.RIGHT AND LEFT.) Hx Appendectomy: Yes - ANESTHESIA Hx Anesthesia: Yes Hx Anesthesia Reactions: No Hx Malignant Hyperthermia: No Meds Allergies/Adverse Reactions: Allergies Allergy/AdvReac Type Severity Reaction Status Date / Time No Known Allergies Allergy Verified 02/03/18 02:38 - Medications Medications: Current Medications Acetaminophen (Tylenol 325mg Tab) 650 mg PO Q4H PRN; Protocol PRN Reason: Fever >100.4 F Amlodipine Besylate (Norvasc) 10 mg PO DAILY [facility]; Protocol Glimepiride (Amaryl) 4 mg PO BID [facility]; Protocol Hydrochlorothiazide (Microzide) 12.5 mg PO DAILY [facility]; Protocol Piperacillin Sod/Tazobactam Sod (Zosyn 3.375 In Ns 100ml) 100 mls @ 25 mls/hr IVPB 0600,1200,1800,0000 [facility]; Protocol Stop: 02/03/18 09:59 Last Admin: 02/03/18 05:26 Dose: 25 mls/hr Linezolid (Zyvox 600mg/300ml D5w) 600 mg in 300 mls @ 200 mls/hr IVPB 0600,1800 [facility]; Protocol Last Admin: 02/03/18 05:27 Dose: 200 mls/hr Insulin Detemir (Levemir) 46 unit SC HS [facility]; Protocol Last Admin: 02/02/18 23:11 Dose: 46 u Insulin Human Lispro (Humalog) 14 units SC ACTID [facility]; Protocol Insulin Human Lispro (Humalog Low) 0 units SC ACHS [facility]; Protocol Losartan Potassium (Cozaar) 100 mg PO DAILY [facility]; Protocol Metformin HCl (Glucophage) 1,000 mg PO BID [facility]; Protocol Sitagliptin Phosphate (Januvia) 50 mg PO DAILY [facility]; Protocol Trazodone HCl (Desyrel) 100 mg PO HS [facility]; Protocol Last Admin: 02/02/18 21:07 Dose: 100 mg Physical Exam - Constitutional Appears: No Acute Distress, Chronically Ill - Head Exam Head Exam: NORMAL INSPECTION - Respiratory Exam Respiratory Exam: Decreased Breath Sounds - Cardiovascular Exam Cardiovascular Exam: +S1, +S2 - GI/Abdominal Exam GI & Abdominal Exam: Soft. absent: Tenderness - Extremities Exam Additional comments: both feet with dressings in place Results - Labs Result Diagrams: 02/03/18 08:00 02/03/18 08:00 Labs: Laboratory Results - last 24 hr 02/02/18 02/03/18 21:31 05:19 POC Glucose (mg/dL) 107 194 H Assessment & Plan - Assessment and Plan (Free Text) Plan: Assessment right infected diabetic foot ulcer with Pseudomonas, Klebsiella, Staph aureus, Enterococcus history of sepsis secondary to right foot osteomyelitis and abscess S/P debridement with associated Group A strep bacteremia; bone was growing Group B strep and wound was growing MSSA history of right foot skin and skin structure infection Charcot foot on the right S/P shaving of the bone last week history of left sided parotitis Diabetes Mellitus Liver disease with history of portal hypertension with associated chronic thrombocytopenia Plan continue Zyvox and Zosyn day 5 to complete 7-10 days and will continue to monitor clinically; MRI is not showing osteomyelitis of the right foot will monitor platelet count Podiatry continuing to do local wound care
[2018-02-03] MEDS: Insulin Detemir 100 units/ml Vial (Levemir) SC SCH (21:45)
[2018-02-04] MEDS: Piperacillin/Tazobact 3.375 gm 100 ML IVPB SCH ×3 (05:19→21:37)
[2018-02-04] MEDS: Linezolid 600 mg in D5W 300 ml 600 MG/300 ML BAG IVPB SCH ×2 (05:19→17:29)
--- NOTE | 2018-02-04 05:55 | HP ---
HISTORY OF PRESENT ILLNESS: A 53-year-old male on the transitional care unit with wound infection of the feet. Failed outpatient therapy and he is currently admitted for IV antibiotic therapy and occupational and physical therapy. ALLERGIES: HE HAS NO KNOWN ALLERGIES. PAST MEDICAL HISTORY: He has a past medical history of cirrhosis, thrombocytopenia, depression, suicidal ideation, cellulitis, Charcot foot surgery, recurrent ulcer of the feet. SOCIAL HISTORY: He denies any history of alcohol at this time. He does have a history of alcoholism in the past. CURRENT MEDICATIONS: Consist of Amaryl, Cozaar, Desyrel, Glucophage, Humalog, Levemir, Microzide, Norvasc, Tylenol, Zosyn and Zyvox IV. REVIEW OF SYSTEMS: Ten systems were reviewed. Pertinent findings as on the physical. PHYSICAL EXAMINATION: VITAL SIGNS: Temperature 98.2, blood pressure is 130/86, respiratory rate is 18, pulse is 82. GENERAL: He is alert and oriented x3. NECK: Supple. No JVD. LUNGS: Clear. HEART: S1, S2 rhythm. ABDOMEN: Soft with positive bowel sounds. EXTREMITIES: Show no evidence of edema. He has dressings on both feet, being followed by Podiatry. LABORATORY DATA: WBC 5.3, RBC 4.67, hemoglobin 14, hematocrit 41, platelet count is 120. Chemistry shows sodium 138, potassium 4.5, chloride 101, BUN is 13, creatinine is 0.8. His random blood sugar is 242. Patient is being followed by Infectious Disease, Podiatry and Endocrinology. We will continue to follow the patient clinically along with recommendations from the individual tax consultant. He is to continue with antibiotic therapy at this time. Aspen Fontana MD
[2018-02-04] MEDS: Insulin Lispro (humaLOG) LOW Coverage SC SCH ×4 (06:34→21:47)
[2018-02-04] MEDS: Insulin Lispro 1 UNITS/0.01 ML SC SCH ×3 (06:57→17:28)
--- NOTE | 2018-02-04 15:12 | CP.PCM.PN ---
Subjective - Date & Time of Evaluation Date of Evaluation: 02/04/18 Time of Evaluation: 15:11 - Subjective Subjective: Podiatry Progress Note for Dr. Alvarado: 53 yo male patient seen and evaluated at bedside of B/L lower extremity ulcerations; resolving. Patient is AAOx3 and denies any acute events overnight. He states he has been participating in physical therapy daily. He denies any new pedal complaints. Denies N/V/F/SOB/CP. Objective - Vital Signs/Intake and Output Vital Signs (last 24 hours): Temp Pulse Resp BP Pulse Ox 98.2 F 82 18 146/71 98 02/03/18 17:02 02/03/18 17:02 02/03/18 17:02 02/04/18 09:59 02/03/18 17:02 - Medications Medications: Current Medications Acetaminophen (Tylenol 325mg Tab) 650 mg PO Q4H PRN; Protocol PRN Reason: Fever >100.4 F Amlodipine Besylate (Norvasc) 10 mg PO DAILY [facility]; Protocol Last Admin: 02/04/18 09:59 Dose: 10 mg Glimepiride (Amaryl) 4 mg PO 0800,1800 [facility]; Protocol Last Admin: 02/04/18 07:53 Dose: 4 mg Hydrochlorothiazide (Microzide) 12.5 mg PO 0800 [facility]; Protocol Last Admin: 02/04/18 07:54 Dose: 12.5 mg Linezolid (Zyvox 600mg/300ml D5w) 600 mg in 300 mls @ 200 mls/hr IVPB 0600,1800 [facility]; Protocol Last Admin: 02/04/18 05:19 Dose: 200 mls/hr Piperacillin Sod/Tazobactam Sod (Zosyn 3.375 In Ns 100ml) 100 mls @ 25 mls/hr IVPB Q8 [facility]; Protocol Stop: 02/06/18 21:59 Last Admin: 02/04/18 14:11 Dose: 25 mls/hr Insulin Detemir (Levemir) 40 unit SC HS [facility]; Protocol Last Admin: 02/03/18 21:45 Dose: 40 units Insulin Human Lispro (Humalog Low) 0 units SC ACHS [facility]; Protocol Last Admin: 02/04/18 12:16 Dose: Not Given Insulin Human Lispro (Humalog) 10 units SC ACTID [facility]; Protocol Last Admin: 02/04/18 12:15 Dose: 10 units Losartan Potassium (Cozaar) 100 mg PO DAILY [facility]; Protocol Last Admin: 02/04/18 09:58 Dose: 100 mg Metformin HCl (Glucophage) 1,000 mg PO 0800,1800 [facility]; Protocol Last Admin: 02/04/18 07:54 Dose: 1,000 mg Sitagliptin Phosphate (Januvia) 50 mg PO DAILY [facility]; Protocol Last Admin: 02/04/18 09:58 Dose: 50 mg Trazodone HCl (Desyrel) 100 mg PO HS [facility]; Protocol Last Admin: 02/03/18 21:08 Dose: 100 mg - Labs Labs: 02/03/18 08:00 02/03/18 08:00 - Constitutional Appears: Well, Non-toxic, No Acute Distress - Head Exam Head Exam: ATRAUMATIC, NORMOCEPHALIC - Extremities Exam Additional comments: Vasc: DP/PT diminished, CFT >3 seconds to all remaining digits, TG warm to warm, no edema noted to bilateral lower extremities Ortho: Right 3rd toe amputation, right partial 4th and 5th amputation, left foot 2nd digit amputation, no tenderness to palpation of calf compression bilaterally Neuro: Gross sensation diminished, protective sensation absent Derm: R hallux ulceration noted to have a 100% granular base, no drainage, no purulence noted, no tunneling, no probing to bone, no tracking, no cellulitis, no erythema. R Plantar midfoot ulceration resolved. L submetatarsal 1 ulceration,resolved. Hallux nails dystrophic and discolored bilaterally. Hyperpigmented skin noted to dorsal aspect of feet bilaterally. B/L Charcot foot noted. - Neurological Exam Neurological Exam: Alert, Awake, Oriented x3 - Psychiatric Exam Psychiatric exam: Normal Affect, Normal Mood Assessment and Plan - Assessment and Plan (Free Text) Assessment: 53 yo male with bilateral lower extremity ulcerations; resolving Plan: Patient seen and evaluated at bedside with Dr. Christiano SANDOVAL, [facility] Local wound care: optifoam to right hallux; lower extremity wounds stable from podiatry standpoint MRI of B/L lower extremities (01/29); no OM present R lower extremity US (01/28); no evidence of DVT to RLE Continue IV abx per ID reccs; continue Zyvox and Zosyn, complete 7-10 days and will continue to monitor clinically Podiatry will continue to follow Upon d/c patient to follow up in wound care clinic with Dr. Wilson/Christiano
--- NOTE | 2018-02-04 17:27 | CP.PCM.PN ---
Subjective - Date & Time of Evaluation Date of Evaluation: 02/04/18 Time of Evaluation: 10:55 - Subjective Subjective: No increased pain in the feet, no fevers, no nausea, no diarrhea. Objective - Vital Signs/Intake and Output Vital Signs (last 24 hours): Temp Pulse Resp BP Pulse Ox 98.2 F 82 18 151/84 H 98 02/03/18 17:02 02/03/18 17:02 02/03/18 17:02 02/03/18 17:02 02/03/18 17:02 - Medications Medications: Current Medications Acetaminophen (Tylenol 325mg Tab) 650 mg PO Q4H PRN; Protocol PRN Reason: Fever >100.4 F Amlodipine Besylate (Norvasc) 10 mg PO DAILY [facility]; Protocol Last Admin: 02/03/18 10:22 Dose: 10 mg Glimepiride (Amaryl) 4 mg PO 0800,1800 [facility]; Protocol Last Admin: 02/03/18 17:58 Dose: 4 mg Hydrochlorothiazide (Microzide) 12.5 mg PO 0800 [facility]; Protocol Linezolid (Zyvox 600mg/300ml D5w) 600 mg in 300 mls @ 200 mls/hr IVPB 0600,1800 [facility]; Protocol Last Admin: 02/04/18 05:19 Dose: 200 mls/hr Piperacillin Sod/Tazobactam Sod (Zosyn 3.375 In Ns 100ml) 100 mls @ 25 mls/hr IVPB Q8 [facility]; Protocol Stop: 02/06/18 21:59 Last Admin: 02/04/18 05:19 Dose: 25 mls/hr Insulin Detemir (Levemir) 40 unit SC HS [facility]; Protocol Last Admin: 02/03/18 21:45 Dose: 40 units Insulin Human Lispro (Humalog Low) 0 units SC ACHS [facility]; Protocol Last Admin: 02/04/18 06:34 Dose: Not Given Insulin Human Lispro (Humalog) 10 units SC ACTID [facility]; Protocol Last Admin: 02/04/18 06:57 Dose: 10 units Losartan Potassium (Cozaar) 100 mg PO DAILY [facility]; Protocol Last Admin: 02/03/18 10:22 Dose: 100 mg Metformin HCl (Glucophage) 1,000 mg PO 0800,1800 [facility]; Protocol Last Admin: 02/03/18 17:58 Dose: 1,000 mg Sitagliptin Phosphate (Januvia) 50 mg PO DAILY [facility]; Protocol Last Admin: 02/03/18 10:22 Dose: 50 mg Trazodone HCl (Desyrel) 100 mg PO HS [facility]; Protocol Last Admin: 02/03/18 21:08 Dose: 100 mg - Labs Labs: 02/03/18 08:00 02/03/18 08:00 - Constitutional Appears: Chronically Ill - Head Exam Head Exam: NORMAL INSPECTION - Respiratory Exam Respiratory Exam: Decreased Breath Sounds - Cardiovascular Exam Cardiovascular Exam: +S1, +S2 - GI/Abdominal Exam GI & Abdominal Exam: Soft. absent: Tenderness Assessment and Plan - Assessment and Plan (Free Text) Plan: Assessment right infected diabetic foot ulcer with Pseudomonas, Klebsiella, Staph aureus, Enterococcus history of sepsis secondary to right foot osteomyelitis and abscess S/P debridement with associated Group A strep bacteremia; bone was growing Group B strep and wound was growing MSSA history of right foot skin and skin structure infection Charcot foot on the right S/P shaving of the bone last week history of left sided parotitis Diabetes Mellitus Liver disease with history of portal hypertension with associated chronic thrombocytopenia Plan continue Zyvox and Zosyn day 6 to complete 7-10 days and will continue to monitor clinically; MRI is not showing osteomyelitis of the right foot will continue to monitor platelet count Podiatry continuing to do local wound care
--- NOTE | 2018-02-04 18:24 | PN ---
DATE: 02/04/2018 SUBJECTIVE: This is a 53-year-old male, in transitional care unit, receiving IV antibiotics for ulcers of the foot, being followed by Infectious Disease and Podiatry. PHYSICAL EXAMINATION GENERAL: He is alert and oriented x3. VITAL SIGNS: His temperature is 98.2, his blood pressure is 130/86, his respiratory rate is 18, oxygen sat is 98%. LUNGS: Clear. HEART: S1 and S2 rhythm. ABDOMEN: Soft with positive bowel sounds. EXTREMITIES: Have dressings on both feet. MEDICATIONS: Currently, he is receiving Zosyn IV and Zyvox IV for his wound infections. He has a history of hypertension, on Norvasc and hydrochlorothiazide. He has a history of insulin-dependent diabetes, on Levemir, Januvia, Amaryl, and Glucophage. He is also on Cozaar for his blood pressure. LABORATORY DATA: His current labs, his blood sugar is 94. We will continue his current level of care at this time. Aspen Fontana MD
--- NOTE | 2018-02-04 21:19 | PN ---
DATE: 02/04/2018 ENDOCRINOLOGY FOLLOWUP NOTE LOCATION: In room 321. SUBJECTIVE: This is a 53-year-old male with recent uncontrolled type 2 insulin-requiring diabetes, now being followed closely for metabolic management. His glycemic levels are fluctuating, but much improved at this time and the glucose levels overnight have ranged from 94 to 125 mg/dL. It was 95 at bedtime last night. His latest chemistry showed the BUN of 13, sodium 138, potassium 4.5, chloride 101, CO2 28, glucose 242, and creatinine 0.8. So, at this time, we will continue the modified basal and bolus insulin regimen as ordered with Humalog given as 10 units three times a day before meals as given. We will continue the Levemir given as 40 units subcu at bedtime daily as ordered. We will also continue the oral hypoglycemic therapy as given with Januvia at 50 mg daily and metformin at 1 g b.i.d. as ordered. We will obtain serial chemistries and supplement accordingly as needed. We will follow. Christianne Russ MD
[2018-02-04] MEDS: Insulin Detemir 100 units/ml Vial (Levemir) SC SCH (21:37)
[2018-02-05] MEDS: Piperacillin/Tazobact 3.375 gm 100 ML IVPB SCH ×3 (05:04→21:10)
[2018-02-05] MEDS: Linezolid 600 mg in D5W 300 ml 600 MG/300 ML BAG IVPB SCH ×2 (05:04→17:29)
[2018-02-05] MEDS: Insulin Lispro (humaLOG) LOW Coverage SC SCH ×4 (06:40→22:17)
[2018-02-05] MEDS: Insulin Lispro 1 UNITS/0.01 ML SC SCH ×3 (06:52→17:30)
--- NOTE | 2018-02-05 14:34 | PN ---
DATE: 02/05/2018 ENDO FOLLOWUP NOTE LOCATION: In room 321. SUBJECTIVE: This is a 53-year-old male with recent uncontrolled type 2 insulin-requiring diabetes, now being followed closely for metabolic management. His glycemic levels are fluctuating, but not improved at this time and the glucose values overnight have ranged from 82-105 and 150 mg/dL. His latest chemistry showed a BUN of 13, sodium 138, potassium 4.5, chloride 101, CO2 of 28, glucose 242 and creatinine 0.3. So at this time, we will continue the same modified basal and bolus insulin regimen as given to allow for dose equilibration and keep his Humalog down to 10 units subcu t.i.d. before meals as ordered. We will continue the same lower and modified dosing of the Levemir given as 40 units subcu at bedtime daily to start tonight. We will continue the low-dose correction scale using Humalog insulin as given. We will obtain serial chemistries and supplement accordingly as needed. We will follow. Christianne Russ MD
--- NOTE | 2018-02-05 15:38 | CP.PCM.PN ---
Subjective - Date & Time of Evaluation Date of Evaluation: 02/05/18 Time of Evaluation: 15:35 - Subjective Subjective: Podiatry Progress Note for Dr. Alvarado: 53 yo male patient seen and evaluated at bedside of B/L lower extremity ulcerations; resolving. Patient denies any acute events overnight. He notes he has been participating daily in PT. He denies any new pedal complaints. Denies N/V/F/SOB/CP. Objective - Vital Signs/Intake and Output Vital Signs (last 24 hours): Temp Pulse Resp BP Pulse Ox 97.7 F 74 14 136/93 H 94 L 02/05/18 10:00 02/05/18 10:00 02/05/18 10:00 02/05/18 10:12 02/05/18 10:00 Intake and Output: 02/05/18 02/05/18 06:59 18:59 Intake Total 600 420 Balance 600 420 - Medications Medications: Current Medications Acetaminophen (Tylenol 325mg Tab) 650 mg PO Q4H PRN; Protocol PRN Reason: Fever >100.4 F Amlodipine Besylate (Norvasc) 10 mg PO DAILY [facility]; Protocol Last Admin: 02/05/18 10:12 Dose: 10 mg Glimepiride (Amaryl) 4 mg PO 0800,1800 [facility]; Protocol Last Admin: 02/05/18 08:19 Dose: 4 mg Hydrochlorothiazide (Microzide) 12.5 mg PO 0800 [facility]; Protocol Last Admin: 02/05/18 08:19 Dose: 12.5 mg Linezolid (Zyvox 600mg/300ml D5w) 600 mg in 300 mls @ 200 mls/hr IVPB 0600,1800 [facility]; Protocol Last Admin: 02/05/18 05:04 Dose: 200 mls/hr Piperacillin Sod/Tazobactam Sod (Zosyn 3.375 In Ns 100ml) 100 mls @ 25 mls/hr IVPB Q8 [facility]; Protocol Stop: 02/06/18 21:59 Last Admin: 02/05/18 14:21 Dose: 25 mls/hr Insulin Detemir (Levemir) 40 unit SC HS [facility]; Protocol Last Admin: 02/04/18 21:37 Dose: 40 units Insulin Human Lispro (Humalog Low) 0 units SC ACHS [facility]; Protocol Last Admin: 02/05/18 11:20 Dose: Not Given Insulin Human Lispro (Humalog) 10 units SC ACTID [facility]; Protocol Last Admin: 02/05/18 06:52 Dose: 10 units Losartan Potassium (Cozaar) 100 mg PO DAILY [facility]; Protocol Last Admin: 02/05/18 10:12 Dose: 100 mg Metformin HCl (Glucophage) 1,000 mg PO 0800,1800 [facility]; Protocol Last Admin: 02/05/18 08:19 Dose: 1,000 mg Sitagliptin Phosphate (Januvia) 50 mg PO DAILY [facility]; Protocol Last Admin: 02/05/18 10:13 Dose: 50 mg Trazodone HCl (Desyrel) 100 mg PO HS [facility]; Protocol Last Admin: 02/04/18 21:37 Dose: 100 mg - Labs Labs: 02/03/18 08:00 02/03/18 08:00 - Constitutional Appears: Well, Non-toxic, No Acute Distress - Head Exam Head Exam: ATRAUMATIC, NORMOCEPHALIC - Back Exam Additional comments: Vasc: DP/PT diminished, CFT >3 seconds to all remaining digits, TG warm to warm, no edema noted to bilateral lower extremities Ortho: Right 3rd toe amputation, right partial 4th and 5th amputation, left foot 2nd digit amputation, no tenderness to palpation of calf compression bilaterally Neuro: Gross sensation diminished, protective sensation absent Derm: R hallux ulceration noted to have a 100% granular base, no drainage, no purulence noted, no tunneling, no probing to bone, no tracking, no cellulitis, no erythema, reducing in size/resolving. R Plantar midfoot ulceration resolved. L submetatarsal 1 ulceration,resolved. Hallux nails dystrophic and discolored bilaterally. Hyperpigmented skin noted to dorsal aspect of feet bilaterally. B/L Charcot foot noted. Assessment and Plan - Assessment and Plan (Free Text) Assessment: 53 yo male with right hallux ulceration; resolving Plan: Patient seen and evaluated at bedside with Dr. Alvarado Local wound care: Calcium alginate and DSD applied to right hallux; stable from podiatry standpoint MRI of B/L lower extremities (01/29); no OM present R lower extremity US (01/28); no evidence of DVT to RLE Continue IV abx per ID reccs Dr. Stack; continue Zyvox and Zosyn, complete 7-10 days and will continue to monitor clinically Upon d/c patient to follow up in wound care clinic with Dr. Wilson/Christiano
--- NOTE | 2018-02-05 15:43 | PN ---
DATE: 02/05/2018 SUBJECTIVE: This is a 53-year-old male on the transitional care unit receiving IV antibiotics for wound infections. Patient has a past medical history of cirrhosis of the liver, alcohol abuse, suicidal ideation, diabetes, Charcot foot surgery, drug overdose, bipolar disorder, cellulitis of the foot, syncope, depression, substance abuse, lipoma of the axilla, systemic inflammatory response syndrome, uncontrolled insulin dependent diabetes. PHYSICAL EXAMINATION VITAL SIGNS: His blood pressure is 147/80, his temperature is 98. GENERAL: He is alert and oriented x3. NECK: Supple. LUNGS: Clear. HEART: S1 and S2 rhythm. ABDOMEN: Soft with positive bowel sounds. EXTREMITIES: Show dressings on both feet, although he states that he was told Podiatry that the left foot has healed. The right foot has improved except for a small area of his great toe. LABORATORY DATA: His blood sugar this morning was 150. At this time, he continues on IV antibiotics, being followed by Infectious Disease, which are Zosyn and Zyvox. He is on blood pressure medicine, insulin regimen, being followed by Endocrinology. We will continue current medical management for this patient. At this time, he is receiving occupational physical therapy as well and monitor the patient's blood sugar and plan of care as per Infectious Disease and Podiatry. Aspen Fontana MD
--- NOTE | 2018-02-05 20:18 | CP.PCM.PN ---
Subjective - Date & Time of Evaluation Date of Evaluation: 02/05/18 Time of Evaluation: 11:25 - Subjective Subjective: No increased pain in the feet, feet feel better, no nausea, no diarrhea, no fevers. Objective - Vital Signs/Intake and Output Vital Signs (last 24 hours): Temp Pulse Resp BP Pulse Ox 98.4 F 88 18 147/94 H 97 02/04/18 16:00 02/04/18 16:00 02/04/18 16:00 02/04/18 16:00 02/04/18 16:00 Intake and Output: 02/05/18 02/05/18 06:59 18:59 Intake Total 600 Balance 600 - Medications Medications: Current Medications Acetaminophen (Tylenol 325mg Tab) 650 mg PO Q4H PRN; Protocol PRN Reason: Fever >100.4 F Amlodipine Besylate (Norvasc) 10 mg PO DAILY [facility]; Protocol Last Admin: 02/04/18 09:59 Dose: 10 mg Glimepiride (Amaryl) 4 mg PO 0800,1800 [facility]; Protocol Last Admin: 02/04/18 17:27 Dose: 4 mg Hydrochlorothiazide (Microzide) 12.5 mg PO 0800 [facility]; Protocol Last Admin: 02/04/18 07:54 Dose: 12.5 mg Linezolid (Zyvox 600mg/300ml D5w) 600 mg in 300 mls @ 200 mls/hr IVPB 0600,1800 [facility]; Protocol Last Admin: 02/05/18 05:04 Dose: 200 mls/hr Piperacillin Sod/Tazobactam Sod (Zosyn 3.375 In Ns 100ml) 100 mls @ 25 mls/hr IVPB Q8 [facility]; Protocol Stop: 02/06/18 21:59 Last Admin: 02/05/18 05:04 Dose: 25 mls/hr Insulin Detemir (Levemir) 40 unit SC HS [facility]; Protocol Last Admin: 02/04/18 21:37 Dose: 40 units Insulin Human Lispro (Humalog Low) 0 units SC ACHS [facility]; Protocol Last Admin: 02/05/18 06:40 Dose: Not Given Insulin Human Lispro (Humalog) 10 units SC ACTID [facility]; Protocol Last Admin: 02/05/18 06:52 Dose: 10 units Losartan Potassium (Cozaar) 100 mg PO DAILY [facility]; Protocol Last Admin: 02/04/18 09:58 Dose: 100 mg Metformin HCl (Glucophage) 1,000 mg PO 0800,1800 [facility]; Protocol Last Admin: 02/04/18 17:27 Dose: 1,000 mg Sitagliptin Phosphate (Januvia) 50 mg PO DAILY [facility]; Protocol Last Admin: 02/04/18 09:58 Dose: 50 mg Trazodone HCl (Desyrel) 100 mg PO HS [facility]; Protocol Last Admin: 02/04/18 21:37 Dose: 100 mg - Labs Labs: 02/03/18 08:00 02/03/18 08:00 - Constitutional Appears: Chronically Ill - Head Exam Head Exam: NORMAL INSPECTION - Respiratory Exam Respiratory Exam: Decreased Breath Sounds - Cardiovascular Exam Cardiovascular Exam: +S1, +S2 - GI/Abdominal Exam GI & Abdominal Exam: Soft. absent: Tenderness Assessment and Plan - Assessment and Plan (Free Text) Plan: Assessment right infected diabetic foot ulcer with Pseudomonas, Klebsiella, Staph aureus, Enterococcus history of sepsis secondary to right foot osteomyelitis and abscess S/P debridement with associated Group A strep bacteremia; bone was growing Group B strep and wound was growing MSSA history of right foot skin and skin structure infection Charcot foot on the right S/P shaving of the bone last week history of left sided parotitis Diabetes Mellitus Liver disease with history of portal hypertension with associated chronic thrombocytopenia Plan continue Zyvox and Zosyn day 7 to complete 7-10 days and will continue to monitor clinically; MRI is not showing osteomyelitis of the right foot will continue to monitor platelet count Podiatry continuing to do local wound care
[2018-02-05] MEDS: Insulin Detemir 100 units/ml Vial (Levemir) SC SCH (21:10)
--- NOTE | 2018-02-06 02:32 | PN ---
DATE: 02/05/2018 SUBJECTIVE: A 53-year-old male on Transitional Care Unit, receiving IV antibiotic therapy for wound infections of both feet. PHYSICAL EXAMINATION: VITAL SIGNS: Show temperature 98, blood pressure is 136/93, pulse is 85, respiratory rate is 18. GENERAL: He is alert and oriented x3. LUNGS: Clear. HEART: In S1 and S2 rhythm. ABDOMEN: Soft with positive bowel sounds. EXTREMITIES: Show dressings as per Podiatry. ASSESSMENT AND PLAN: He continues his current antibiotics as per the recommendations of Infectious Disease and is being followed by Podiatry for his wound care. He has an underlying history of uncontrolled insulin-dependent diabetes, he is being followed by Endocrinology. We will continue current level of care. He continues occupational and physical therapy. Aspen Fontana MD
[2018-02-06] MEDS: Piperacillin/Tazobact 3.375 gm 100 ML IVPB SCH ×3 (05:08→22:50)
[2018-02-06] MEDS: Linezolid 600 mg in D5W 300 ml 600 MG/300 ML BAG IVPB SCH ×2 (05:08→17:24)
[2018-02-06] MEDS: Insulin Lispro 1 UNITS/0.01 ML SC SCH ×3 (07:00→17:25)
[2018-02-06] MEDS: Insulin Lispro (humaLOG) LOW Coverage SC SCH ×4 (07:02→22:50)
--- NOTE | 2018-02-06 11:05 | PN ---
DATE: 02/06/2018 SUBJECTIVE: This is a 53-year-old male on the Transitional Care Unit, receiving antibiotic therapy for ulcers of both feet. Nursing staff states that there were no problems during the night. The patient is feeling better today. PHYSICAL EXAMINATION: VITAL SIGNS: The temp is 97.7, his pulse is 73, his blood pressure is 127/75, his oxygen sat is 97% on room air. GENERAL: He is alert and oriented x3. NECK: Supple. There is no JVD. LUNGS: Clear. ABDOMEN: Soft, scaphoid with positive bowel sounds. EXTREMITIES: Showed dressings over both feet, being followed by Podiatry. LABORATORY DATA: We will follow up the patient's labs. He continues at this time on antibiotics being prescribed by Infectious Disease, Zosyn and Zelzaox. He has a history of hypertension, on Norvasc, Microzide and Cozaar. He has a history of uncontrolled insulin-dependent diabetes, on Amaryl, Glucophage, Januvia, Humalog and Levemir. We will continue current level of care. Other comorbid medical issues in this patient are cirrhosis, thrombocytopenia, alcohol abuse, suicidal ideation, bipolar disorder, he has a Charcot foot and Charcot foot surgery, he has had cellulitis, he has had osteomyelitis. Continue current medical management at this time. Input from the individual consultants is very appreciated. Aspen Fontana MD
--- NOTE | 2018-02-06 13:38 | PN ---
DATE: 02/06/2018 ENDO FOLLOWUP NOTE LOCATION: In room 321. SUBJECTIVE: This is a 53-year-old male with recent uncontrolled type 2 insulin-requiring diabetes with improved metabolic profile with the current regimen as noted and given and is now being followed closely for metabolic management. His glycemic levels have ranged overnight from 94-125 and 160 mg/dL. His latest chemistry showed a BUN of 13, sodium 138, potassium 4.5, chloride 101, CO2 of 28, glucose 242 and creatinine 0.8. So at this time, we will continue the modified basal and bolus insulin regimen as given with Humalog given as 10 units subcu t.i.d. before meals as ordered. We will continue the Levemir given as 40 units subcu at bedtime daily . We will titrate incrementally as indicated to optimize metabolic control. We will obtain serial chemistries and supplement accordingly as needed. We will follow. Christianne Russ MD
--- NOTE | 2018-02-06 14:24 | CP.PCM.PN ---
<Tabby Rosario - Last Filed: 02/06/18 14:20> Subjective - Date & Time of Evaluation Date of Evaluation: 02/06/18 Time of Evaluation: 14:20 - Subjective Subjective: Podiatry Progress Note for Dr. Wilson: 53 yo male patient seen and evaluated at bedside of R hallux ulceration; resolving. Patient is AAOx3, denies any acute events overnight. He denies any pain to the area and states feels well. Patient wearing forefoot wedge shoe on the right. Denies N/V/F/SOB. Objective - Vital Signs/Intake and Output Vital Signs (last 24 hours): Temp Pulse Resp BP Pulse Ox 97.7 F 73 16 130/74 97 02/06/18 06:00 02/06/18 06:00 02/06/18 06:00 02/06/18 09:28 02/06/18 06:00 Intake and Output: 02/06/18 02/06/18 06:59 18:59 Intake Total 420 Balance 420 - Medications Medications: Current Medications Acetaminophen (Tylenol 325mg Tab) 650 mg PO Q4H PRN; Protocol PRN Reason: Fever >100.4 F Amlodipine Besylate (Norvasc) 10 mg PO DAILY [facility]; Protocol Last Admin: 02/06/18 09:28 Dose: 10 mg Glimepiride (Amaryl) 4 mg PO 0800,1800 [facility]; Protocol Last Admin: 02/06/18 09:00 Dose: 4 mg Hydrochlorothiazide (Microzide) 12.5 mg PO 0800 [facility]; Protocol Last Admin: 02/06/18 09:00 Dose: 12.5 mg Linezolid (Zyvox 600mg/300ml D5w) 600 mg in 300 mls @ 200 mls/hr IVPB 0600,1800 [facility]; Protocol Last Admin: 02/06/18 05:08 Dose: 200 mls/hr Piperacillin Sod/Tazobactam Sod (Zosyn 3.375 In Ns 100ml) 100 mls @ 25 mls/hr IVPB Q8 [facility]; Protocol Stop: 02/06/18 21:59 Last Admin: 02/06/18 13:33 Dose: 25 mls/hr Insulin Detemir (Levemir) 40 unit SC HS [facility]; Protocol Last Admin: 02/05/18 21:10 Dose: 40 units Insulin Human Lispro (Humalog Low) 0 units SC ACHS [facility]; Protocol Last Admin: 02/06/18 11:49 Dose: Not Given Insulin Human Lispro (Humalog) 10 units SC ACTID [facility]; Protocol Last Admin: 02/06/18 11:48 Dose: 10 units Losartan Potassium (Cozaar) 100 mg PO DAILY [facility]; Protocol Last Admin: 02/06/18 09:28 Dose: 100 mg Metformin HCl (Glucophage) 1,000 mg PO 0800,1800 [facility]; Protocol Last Admin: 02/06/18 09:00 Dose: 1,000 mg Sitagliptin Phosphate (Januvia) 50 mg PO DAILY [facility]; Protocol Last Admin: 02/06/18 09:28 Dose: 50 mg Trazodone HCl (Desyrel) 100 mg PO HS [facility]; Protocol Last Admin: 02/05/18 21:09 Dose: 100 mg - Labs Labs: 02/03/18 08:00 02/03/18 08:00 - Constitutional Appears: Well, Non-toxic, No Acute Distress - Head Exam Head Exam: ATRAUMATIC, NORMOCEPHALIC - Extremities Exam Additional comments: Vasc: DP/PT diminished, CFT >3 seconds to all remaining digits, TG warm to warm, no edema noted to bilateral lower extremities Ortho: Right 3rd toe amputation, right partial 4th and 5th amputation, left foot 2nd digit amputation Neuro: Gross sensation diminished, protective sensation absent Derm: R superficial hallux ulceration noted to have a 100% granular base, no drainage, no purulence noted, no tunneling, no probing to bone, no tracking, no cellulitis, no erythema, reducing in size, no clinical signs of infection. Hallux nails dystrophic and discolored bilaterally. Hyperpigmented skin noted to dorsal aspect of feet bilaterally. B/L Charcot foot noted. - Neurological Exam Neurological Exam: Alert, Awake, Oriented x3 - Psychiatric Exam Psychiatric exam: Normal Affect, Normal Mood Assessment and Plan - Assessment and Plan (Free Text) Assessment: 53 yo male patient seen and evaluated at bedside of R hallux ulceration; resolving. Plan: Patient seen and evaluated with all questions and concerns addressed Patient plan discussed in detail with Dr. Wilson Local wound care: Maxorb and DSD applied to right hallux; stable from podiatry standpoint MRI of B/L lower extremities (01/29); no OM present R lower extremity US (01/28); no evidence of DVT to RLE Continue IV abx per ID reccs Dr. Stack; continue Zyvox and Zosyn, complete 7-10 days F/U in wound care clinic with Dr. Wilson/Christiano <Blayne Wilson - Last Filed: 02/06/18 17:10> Objective - Vital Signs/Intake and Output Vital Signs (last 24 hours): Temp Pulse Resp BP Pulse Ox 98.5 F 92 H 18 152/89 H 98 02/06/18 16:30 02/06/18 16:30 02/06/18 16:30 02/06/18 16:30 02/06/18 16:30 Intake and Output: 02/06/18 02/06/18 06:59 18:59 Intake Total 420 Balance 420 - Medications Medications: Current Medications Acetaminophen (Tylenol 325mg Tab) 650 mg PO Q4H PRN; Protocol PRN Reason: Fever >100.4 F Amlodipine Besylate (Norvasc) 10 mg PO DAILY [facility]; Protocol Last Admin: 02/06/18 09:28 Dose: 10 mg Glimepiride (Amaryl) 4 mg PO 0800,1800 [facility]; Protocol Last Admin: 02/06/18 09:00 Dose: 4 mg Hydrochlorothiazide (Microzide) 12.5 mg PO 0800 [facility]; Protocol Last Admin: 02/06/18 09:00 Dose: 12.5 mg Linezolid (Zyvox 600mg/300ml D5w) 600 mg in 300 mls @ 200 mls/hr IVPB 0600,1800 [facility]; Protocol Last Admin: 02/06/18 05:08 Dose: 200 mls/hr Piperacillin Sod/Tazobactam Sod (Zosyn 3.375 In Ns 100ml) 100 mls @ 25 mls/hr IVPB Q8 [facility]; Protocol Stop: 02/06/18 21:59 Last Admin: 02/06/18 13:33 Dose: 25 mls/hr Insulin Detemir (Levemir) 40 unit SC HS [facility]; Protocol Last Admin: 02/05/18 21:10 Dose: 40 units Insulin Human Lispro (Humalog Low) 0 units SC ACHS [facility]; Protocol Last Admin: 02/06/18 11:49 Dose: Not Given Insulin Human Lispro (Humalog) 10 units SC ACTID [facility]; Protocol Last Admin: 02/06/18 11:48 Dose: 10 units Losartan Potassium (Cozaar) 100 mg PO DAILY [facility]; Protocol Last Admin: 02/06/18 09:28 Dose: 100 mg Metformin HCl (Glucophage) 1,000 mg PO 0800,1800 [facility]; Protocol Last Admin: 02/06/18 09:00 Dose: 1,000 mg Sitagliptin Phosphate (Januvia) 50 mg PO DAILY [facility]; Protocol Last Admin: 02/06/18 09:28 Dose: 50 mg Trazodone HCl (Desyrel) 100 mg PO HS [facility]; Protocol Last Admin: 02/05/18 21:09 Dose: 100 mg - Labs Labs: 02/03/18 08:00 02/03/18 08:00 Attending/Attestation - Attestation I have personally seen and examined this patient.: Yes I have fully participated in the care of the patient.: Yes I have reviewed all pertinent clinical information, including history, physical exam and plan: Yes
[2018-02-06 17:08] VITALS: RESP 18
--- NOTE | 2018-02-06 21:27 | CP.PCM.PN ---
Subjective - Date & Time of Evaluation Date of Evaluation: 02/06/18 Time of Evaluation: 13:15 - Subjective Subjective: Less pain in the feet, no fevers, no diarrhea or nausea. Objective - Vital Signs/Intake and Output Vital Signs (last 24 hours): Temp Pulse Resp BP Pulse Ox 98.1 F 85 18 147/95 H 98 02/05/18 16:00 02/05/18 16:00 02/05/18 16:00 02/05/18 16:00 02/05/18 16:00 Intake and Output: 02/05/18 02/06/18 18:59 06:59 Intake Total 420 Balance 420 - Medications Medications: Current Medications Acetaminophen (Tylenol 325mg Tab) 650 mg PO Q4H PRN; Protocol PRN Reason: Fever >100.4 F Amlodipine Besylate (Norvasc) 10 mg PO DAILY [facility]; Protocol Last Admin: 02/05/18 10:12 Dose: 10 mg Glimepiride (Amaryl) 4 mg PO 0800,1800 [facility]; Protocol Last Admin: 02/05/18 17:29 Dose: 4 mg Hydrochlorothiazide (Microzide) 12.5 mg PO 0800 [facility]; Protocol Last Admin: 02/05/18 08:19 Dose: 12.5 mg Linezolid (Zyvox 600mg/300ml D5w) 600 mg in 300 mls @ 200 mls/hr IVPB 0600,1800 [facility]; Protocol Last Admin: 02/05/18 17:29 Dose: 200 mls/hr Piperacillin Sod/Tazobactam Sod (Zosyn 3.375 In Ns 100ml) 100 mls @ 25 mls/hr IVPB Q8 [facility]; Protocol Stop: 02/06/18 21:59 Last Admin: 02/05/18 14:21 Dose: 25 mls/hr Insulin Detemir (Levemir) 40 unit SC HS [facility]; Protocol Last Admin: 02/04/18 21:37 Dose: 40 units Insulin Human Lispro (Humalog Low) 0 units SC ACHS [facility]; Protocol Last Admin: 02/05/18 17:29 Dose: Not Given Insulin Human Lispro (Humalog) 10 units SC ACTID [facility]; Protocol Last Admin: 02/05/18 17:30 Dose: 10 units Losartan Potassium (Cozaar) 100 mg PO DAILY [facility]; Protocol Last Admin: 02/05/18 10:12 Dose: 100 mg Metformin HCl (Glucophage) 1,000 mg PO 0800,1800 [facility]; Protocol Last Admin: 02/05/18 17:29 Dose: 1,000 mg Sitagliptin Phosphate (Januvia) 50 mg PO DAILY [facility]; Protocol Last Admin: 02/05/18 10:13 Dose: 50 mg Trazodone HCl (Desyrel) 100 mg PO HS [facility]; Protocol Last Admin: 02/04/18 21:37 Dose: 100 mg - Labs Labs: 02/03/18 08:00 02/03/18 08:00 - Constitutional Appears: Chronically Ill - Head Exam Head Exam: NORMAL INSPECTION - Respiratory Exam Respiratory Exam: Decreased Breath Sounds - Cardiovascular Exam Cardiovascular Exam: +S1, +S2 - GI/Abdominal Exam GI & Abdominal Exam: Soft. absent: Tenderness - Extremities Exam Additional comments: both feet with dressings in place Assessment and Plan - Assessment and Plan (Free Text) Plan: Assessment right infected diabetic foot ulcer with Pseudomonas, Klebsiella, Staph aureus, Enterococcus history of sepsis secondary to right foot osteomyelitis and abscess S/P debridement with associated Group A strep bacteremia; bone was growing Group B strep and wound was growing MSSA history of right foot skin and skin structure infection Charcot foot on the right S/P shaving of the bone last week history of left sided parotitis Diabetes Mellitus Liver disease with history of portal hypertension with associated chronic thrombocytopenia Plan continue Zyvox and Zosyn day 8 to complete 7-10 days and will continue to monitor clinically; MRI is not showing osteomyelitis of the right foot will continue to monitor platelet count Podiatry continuing to do local wound care
[2018-02-06] MEDS: Insulin Detemir 100 units/ml Vial (Levemir) SC SCH (21:52)
[2018-02-07] MEDS: Linezolid 600 mg in D5W 300 ml 600 MG/300 ML BAG IVPB SCH ×2 (06:12→17:19)
[2018-02-07] MEDS: Piperacillin/Tazobact 3.375 gm 100 ML IVPB SCH ×3 (06:12→21:38)
[2018-02-07] MEDS: Insulin Lispro 1 UNITS/0.01 ML SC SCH ×3 (07:19→17:20)
[2018-02-07 08:27] LABS: BASO # 0.03 K/mm3 (0.0-2.0); BASO % 0.6 % (0.0-3.0); EOS # 0.1 (0.0-0.7); EOS % 1.7 % (1.5-5.0); GRAN # 3.57 (1.4-6.5); GRAN % 69.2 % (50.0-68.0); HEMOGLOBIN 14.5 g/dL (14.0-18.0); LYMPH # 1.1 (1.2-3.4); LYMPH % 20.9 % (22.0-35.0); MEAN CELL VOLUME 87.7 fl (80.0-105.0); MEAN CORPUSCULAR HEMOGLOBIN 30.1 pg (25.0-35.0); MEAN CORPUSCULAR HGB CONC 34.4 g/dl (31.0-37.0); MEAN PLATELET VOLUME 9.5 fl (7.0-11.0); MONO # 0.4 (0.1-0.6); MONO % 7.6 % (1.0-6.0); RBC 4.81 10^6/uL (3.5-6.1); RED CELL DISTRIBUTION WIDTH 14.5 % (11.5-14.5); WHITE BLOOD COUNT 5.2 10^3/ul (4.5-11.0)
[2018-02-07 08:50] LABS: ALB/GLOB RATIO 1.3 (1.1-1.8); ALBUMIN 4.2 g/dL (3.0-4.8); ALT/SGPT 77 U/L (7-56); AST/SGOT 48 U/L (17-59); BLOOD UREA NITROGEN 12 mg/dL (7-21); CALCIUM 9.6 mg/dL (8.4-10.5); GFR NON-AFRICAN AMERICAN > 60
[2018-02-07] MEDS: Insulin Lispro (humaLOG) LOW Coverage SC SCH ×3 (09:27→17:20)
--- NOTE | 2018-02-07 10:17 | CP.PCM.PN ---
Subjective - Date & Time of Evaluation Date of Evaluation: 02/07/18 Time of Evaluation: 10:15 - Subjective Subjective: Podiatry Progress Note for Dr. Wilson: 53 yo male patient seen and evaluated at bedside of R hallux ulceration; resolving. Patient is AAOx3, denies any acute events overnight. He denies any pain to the area and states feels well. Patient wearing forefoot wedge shoe on the right. Denies N/V/F/SOB. Objective - Vital Signs/Intake and Output Vital Signs (last 24 hours): Temp Pulse Resp BP Pulse Ox 98.5 F 92 H 18 145/90 98 02/06/18 16:30 02/06/18 16:30 02/06/18 16:30 02/07/18 09:26 02/06/18 16:30 - Medications Medications: Current Medications Acetaminophen (Tylenol 325mg Tab) 650 mg PO Q4H PRN; Protocol PRN Reason: Fever >100.4 F Amlodipine Besylate (Norvasc) 10 mg PO DAILY [facility]; Protocol Last Admin: 02/07/18 09:26 Dose: 10 mg Glimepiride (Amaryl) 4 mg PO 0800,1800 [facility]; Protocol Last Admin: 02/07/18 09:00 Dose: 4 mg Hydrochlorothiazide (Microzide) 12.5 mg PO 0800 [facility]; Protocol Last Admin: 02/07/18 09:26 Dose: 12.5 mg Linezolid (Zyvox 600mg/300ml D5w) 600 mg in 300 mls @ 200 mls/hr IVPB 0600,1800 [facility]; Protocol Last Admin: 02/07/18 06:12 Dose: 200 mls/hr Piperacillin Sod/Tazobactam Sod (Zosyn 3.375 In Ns 100ml) 100 mls @ 25 mls/hr IVPB Q8 [facility]; Protocol Stop: 02/09/18 23:59 Last Admin: 02/07/18 06:12 Dose: 25 mls/hr Insulin Detemir (Levemir) 40 unit SC HS [facility]; Protocol Last Admin: 02/06/18 21:52 Dose: 40 units Insulin Human Lispro (Humalog Low) 0 units SC ACHS [facility]; Protocol Last Admin: 02/07/18 09:27 Dose: Not Given Insulin Human Lispro (Humalog) 10 units SC ACTID [facility]; Protocol Last Admin: 02/07/18 07:19 Dose: 10 units Losartan Potassium (Cozaar) 100 mg PO DAILY [facility]; Protocol Last Admin: 02/07/18 09:25 Dose: 100 mg Metformin HCl (Glucophage) 1,000 mg PO 0800,1800 [facility]; Protocol Last Admin: 02/07/18 09:00 Dose: 1,000 mg Sitagliptin Phosphate (Januvia) 50 mg PO DAILY [facility]; Protocol Last Admin: 02/07/18 09:25 Dose: 50 mg Trazodone HCl (Desyrel) 100 mg PO HS [facility]; Protocol Last Admin: 02/06/18 21:52 Dose: 100 mg - Labs Labs: 02/07/18 08:10 02/07/18 08:10 - Constitutional Appears: Well, Non-toxic, No Acute Distress - Head Exam Head Exam: ATRAUMATIC, NORMOCEPHALIC - Extremities Exam Additional comments: Vasc: DP/PT diminished, CFT >3 seconds to all remaining digits, TG warm to warm, no edema noted to bilateral lower extremities Ortho: Right 3rd toe amputation, right partial 4th and 5th amputation, left foot 2nd digit amputation Neuro: Gross sensation diminished, protective sensation absent Derm: R superficial hallux ulceration noted to have a 100% granular base, no drainage, no purulence noted, no tunneling, no probing to bone, no tracking, no cellulitis, no erythema, reducing in size, no clinical signs of infection. Hallux nails dystrophic and discolored bilaterally. Hyperpigmented skin noted to dorsal aspect of feet bilaterally. B/L Charcot foot noted. - Neurological Exam Neurological Exam: Alert, Awake, Oriented x3 - Psychiatric Exam Psychiatric exam: Normal Affect - Skin Skin Exam: Normal Color Assessment and Plan - Assessment and Plan (Free Text) Assessment: 53 yo male patient seen and evaluated at bedside of R hallux ulceration; resolving. Plan: Patient seen and evaluated with all questions and concerns addressed with Dr. Wilson Patient plan discussed in detail Local wound care: Maxorb and DSD applied to right hallux; stable from podiatry standpoint MRI of B/L lower extremities (01/29); no OM present R lower extremity US (01/28); no evidence of DVT to RLE Continue IV abx per ID reccs Dr. Stack; continue Zyvox and Zosyn, complete 7-10 days F/U in wound care clinic with Dr. Wilson/Christiano
--- NOTE | 2018-02-07 12:08 | PN ---
DATE: 02/07/2018 ENDO FOLLOWUP NOTE LOCATION: In room 321. SUBJECTIVE: This is a 53-year-old male with recent uncontrolled type 2 insulin-requiring diabetes, now being followed closely for metabolic management. His glycemic levels are fluctuating, but improved and the glucose values overnight have ranged from 92-140 and 161 mg/dL. His latest chemistry showed a BUN of 12, sodium 139, potassium 4.1, chloride 104, CO2 of 26, glucose 140 and creatinine 0.8. So at this time, we will continue the same basal and bolus insulin regimen to allow for dose equilibration and keep him on the Humalog given as 10 units subcu t.i.d. before meals to start today as ordered. We will also continue the same basal insulin given as Levemir at 40 units subcu at bedtime daily to start tonight. We will titrate incrementally as indicated to optimize metabolic control. We will obtain serial chemistries and supplement accordingly as needed. We will follow. Christianne Russ MD
--- NOTE | 2018-02-07 13:29 | PN ---
DATE: 02/07/2018 SUBJECTIVE: A 53-year-old male resting in bed comfortably this morning, offers no specific complaints at this time. Nursing staff relates that the patient had a quiet day in the evening. PHYSICAL EXAMINATION: VITAL SIGNS: His blood pressure is 145/90. He is afebrile. Pulse is 80. GENERAL: He is alert and oriented x3. NECK: His neck is supple. LUNGS: Clear. HEART: Is in S1, S2 rhythm. ABDOMEN: Obese, soft with positive bowel sounds. EXTREMITIES: Showed dressings on both feet. LABORATORY DATA: His labs, sodium is 139, potassium 4.1, chloride 104, BUN 12, creatinine is 0.8. Random blood sugar is 140. His ALT is 77. CBC shows WBC of 5.2, RBC 4.81, hemoglobin 14.5 and hematocrit 42.2, platelet count 121. IMPRESSION AND PLAN: 1. The patient is receiving on Transitional Care Unit occupational and physical therapy. 2. He is receiving IV antibiotics for ulcers of both feet. 3. He is being followed by Podiatry for his wound care. 4. He has insulin-dependent diabetes. He is being followed by Endocrinology. 5. He has history of thrombocytopenia. 6. Cirrhosis. 7. Bipolar disorder. 8. Suicidal ideations. 9. Alcohol abuse. 10. Charcot foot surgery. 11. History of hypertension. He is currently on Zosyn and Zyvox IV by Infectious Disease and continue current level of care and follow recommendations from the individual consultants. His findings clinically had been discussed with the consultants and with the patient. He understands what the clinical plan is. He understands how he is doing. More than 35 minutes. Aspen Fontana MD
--- NOTE | 2018-02-07 18:27 | PN ---
DATE: 02/07/2018 SUBJECTIVE: The patient is in bed, in no acute distress, nontoxic. PHYSICAL EXAMINATION: VITAL SIGNS: On exam, blood pressure is 140/90, respiratory rate of 18. HEENT: Examination of HEENT is unremarkable. NECK: Supple. LUNGS: Have decreased breath sounds. HEART: Normal S1, S2. ABDOMEN: Emanation is soft, nontender. Laboratory examination reveals the patient's white count is 5.2, hemoglobin of 14, platelets of 121. Chemistries reveals the patient's BUN of 12, creatinine of 0.8. Microbiology is noted. ASSESSMENT AND PLAN: A 53-year-old male who was seen earlier today in room 321 with a right infected diabetic foot ulcer with Pseudomonas, Klebsiella, Staphylococcus Aureus, Enterococcus, on Zyvox and Zosyn day #9, would complete 10 days. MRI is negative for osteomyelitis in this patient who is diabetic, Charcot's foot, liver disease, portal hypertension, chronic thrombocytopenia, history of foot infections, history of bacteremia. We will follow with you. Review of orders reveals Zyvox and Zosyn to be active. . Linwood Carter MD
[2018-02-07] MEDS: Insulin Detemir 100 units/ml Vial (Levemir) SC SCH (21:44)
[2018-02-08] MEDS: Insulin Lispro (humaLOG) LOW Coverage SC SCH ×5 (00:57→21:49)
[2018-02-08] MEDS: Piperacillin/Tazobact 3.375 gm 100 ML IVPB SCH ×3 (05:24→21:39)
[2018-02-08] MEDS: Linezolid 600 mg in D5W 300 ml 600 MG/300 ML BAG IVPB SCH ×2 (05:25→18:17)
[2018-02-08] MEDS: Insulin Lispro 1 UNITS/0.01 ML SC SCH ×3 (06:29→17:33)
--- NOTE | 2018-02-08 12:14 | CP.PCM.PN ---
<Charley Herrera - Last Filed: 02/08/18 19:03> Subjective - Date & Time of Evaluation Date of Evaluation: 02/08/18 Time of Evaluation: 12:12 - Subjective Subjective: Podiatry Progress Note for Dr. Wilson: 53 yo male patient seen and evaluated at bedside of R hallux ulceration; resolving. Patient is AAOx3, denies any acute events overnight. He denies any pain to the area and states feels well. Patient wearing forefoot wedge shoe on the right. Denies N/V/F/SOB. Objective - Vital Signs/Intake and Output Vital Signs (last 24 hours): Temp Pulse Resp BP Pulse Ox 98.3 F 92 H 18 139/81 98 02/08/18 10:00 02/08/18 10:00 02/08/18 10:00 02/08/18 10:00 02/07/18 16:00 - Medications Medications: Current Medications Acetaminophen (Tylenol 325mg Tab) 650 mg PO Q4H PRN; Protocol PRN Reason: Fever >100.4 F Amlodipine Besylate (Norvasc) 10 mg PO DAILY [facility]; Protocol Last Admin: 02/08/18 09:52 Dose: 10 mg Glimepiride (Amaryl) 4 mg PO 0800,1800 [facility]; Protocol Last Admin: 02/08/18 08:12 Dose: 4 mg Hydrochlorothiazide (Microzide) 12.5 mg PO 0800 [facility]; Protocol Last Admin: 02/08/18 08:12 Dose: 12.5 mg Linezolid (Zyvox 600mg/300ml D5w) 600 mg in 300 mls @ 200 mls/hr IVPB 0600,1800 [facility]; Protocol Last Admin: 02/08/18 05:25 Dose: 200 mls/hr Piperacillin Sod/Tazobactam Sod (Zosyn 3.375 In Ns 100ml) 100 mls @ 25 mls/hr IVPB Q8 [facility]; Protocol Stop: 02/09/18 23:59 Last Admin: 02/08/18 05:24 Dose: 25 mls/hr Insulin Detemir (Levemir) 40 unit SC HS [facility]; Protocol Last Admin: 02/07/18 21:44 Dose: 40 units Insulin Human Lispro (Humalog Low) 0 units SC ACHS [facility]; Protocol Last Admin: 02/08/18 06:30 Dose: Not Given Insulin Human Lispro (Humalog) 10 units SC ACTID [facility]; Protocol Last Admin: 02/08/18 11:50 Dose: Not Given Losartan Potassium (Cozaar) 100 mg PO DAILY [facility]; Protocol Last Admin: 02/08/18 09:52 Dose: 100 mg Metformin HCl (Glucophage) 1,000 mg PO 0800,1800 [facility]; Protocol Last Admin: 02/08/18 08:12 Dose: 1,000 mg Sitagliptin Phosphate (Januvia) 50 mg PO DAILY [facility]; Protocol Last Admin: 02/08/18 09:52 Dose: 50 mg Trazodone HCl (Desyrel) 100 mg PO HS [facility]; Protocol Last Admin: 02/07/18 21:38 Dose: 100 mg - Labs Labs: 02/07/18 08:10 02/07/18 08:10 - Constitutional Appears: Well, Non-toxic, No Acute Distress - Head Exam Head Exam: ATRAUMATIC, NORMOCEPHALIC - Extremities Exam Additional comments: Vasc: DP/PT diminished, CFT >3 seconds to all remaining digits, TG warm to warm, no edema noted to bilateral lower extremities Ortho: Right 3rd toe amputation, right partial 4th and 5th amputation, left foot 2nd digit amputation Neuro: Gross sensation diminished, protective sensation absent Derm: R superficial hallux ulceration noted to have a 100% granular base, no drainage, no purulence noted, no tunneling, no probing to bone, no tracking, no cellulitis, no erythema, reducing in size, no clinical signs of infection. Hallux nails dystrophic and discolored bilaterally. Hyperpigmented skin noted to dorsal aspect of feet bilaterally. B/L Charcot foot noted. - Neurological Exam Neurological Exam: Alert, Awake, Normal Gait, Oriented x3 - Psychiatric Exam Psychiatric exam: Normal Affect - Skin Skin Exam: Normal Color Assessment and Plan - Assessment and Plan (Free Text) Assessment: 53 yo male patient seen and evaluated at bedside of R hallux ulceration; resolving. Plan: Patient seen and evaluated with all questions and concerns addressed with Dr. Wilson Patient plan discussed in detail Local wound care: Maxorb and DSD applied to right hallux; stable from podiatry standpoint MRI of B/L lower extremities (01/29); no OM present R lower extremity US (01/28); no evidence of DVT to RLE Continue IV abx per ID reccs Dr. Stack; continue Zyvox and Zosyn, complete 7-10 days F/U in wound care clinic with Dr. Wilson/Christiano <Blayne Wilson - Last Filed: 02/09/18 08:59> Objective - Vital Signs/Intake and Output Vital Signs (last 24 hours): Temp Pulse Resp BP Pulse Ox 98.7 F 91 H 18 145/84 98 02/08/18 16:00 02/08/18 16:00 02/08/18 16:00 02/08/18 16:00 02/08/18 16:00 - Medications Medications: Current Medications Acetaminophen (Tylenol 325mg Tab) 650 mg PO Q4H PRN; Protocol PRN Reason: Fever >100.4 F Amlodipine Besylate (Norvasc) 10 mg PO DAILY [facility]; Protocol Last Admin: 02/08/18 09:52 Dose: 10 mg Glimepiride (Amaryl) 4 mg PO 0800,1800 [facility]; Protocol Last Admin: 02/09/18 08:17 Dose: 4 mg Hydrochlorothiazide (Microzide) 12.5 mg PO 0800 [facility]; Protocol Last Admin: 02/09/18 08:16 Dose: 12.5 mg Linezolid (Zyvox 600mg/300ml D5w) 600 mg in 300 mls @ 200 mls/hr IVPB 0600,1800 [facility]; Protocol Last Admin: 02/09/18 05:07 Dose: 200 mls/hr Piperacillin Sod/Tazobactam Sod (Zosyn 3.375 In Ns 100ml) 100 mls @ 25 mls/hr IVPB Q8 [facility]; Protocol Stop: 02/09/18 23:59 Last Admin: 02/09/18 05:07 Dose: 25 mls/hr Insulin Detemir (Levemir) 40 unit SC HS [facility]; Protocol Last Admin: 02/08/18 21:49 Dose: 40 units Insulin Human Lispro (Humalog Low) 0 units SC ACHS [facility]; Protocol Last Admin: 02/09/18 06:40 Dose: Not Given Insulin Human Lispro (Humalog) 6 units SC ACTID [facility]; Protocol Last Admin: 02/09/18 08:16 Dose: 6 units Losartan Potassium (Cozaar) 100 mg PO DAILY [facility]; Protocol Last Admin: 02/08/18 09:52 Dose: 100 mg Metformin HCl (Glucophage) 1,000 mg PO 0800,1800 [facility]; Protocol Last Admin: 02/09/18 08:17 Dose: 1,000 mg Sitagliptin Phosphate (Januvia) 50 mg PO DAILY [facility]; Protocol Last Admin: 02/08/18 09:52 Dose: 50 mg Trazodone HCl (Desyrel) 100 mg PO HS [facility]; Protocol Last Admin: 02/08/18 21:38 Dose: 100 mg - Labs Labs: 02/07/18 08:10 02/07/18 08:10 Attending/Attestation - Attestation I have personally seen and examined this patient.: Yes I have fully participated in the care of the patient.: Yes I have reviewed all pertinent clinical information, including history, physical exam and plan: Yes
--- NOTE | 2018-02-08 14:52 | PN ---
DATE: 02/08/2018 SUBJECTIVE: A 53-year-old male on the Transitional Care Unit receiving IV antibiotics for ulcers of both feet. He is also receiving occupational, physical therapy. PHYSICAL EXAMINATION: VITAL SIGNS: Show a temperature of 98.3, pulse is 92, blood pressure is 139/81, respiratory rate is 18. GENERAL: He is alert and oriented x3. NECK: Supple. LUNGS: Clear. ABDOMEN: Soft with positive bowel sounds. EXTREMITIES: Show no evidence of edema and has bilateral dressings on both feet. LABORATORY DATA: The patient currently has a blood sugar this morning of 76. ASSESSMENT AND PLAN: 1. He is being followed by Infectious Disease and Podiatry and continues his antibiotic therapy. 2. He has insulin-dependent diabetes and being followed by Endocrinology. 3. He has a history of hypertension and is on Norvasc and Microzide. 4. He has a history of cirrhosis of the liver, alcohol abuse, bipolar disorder, suicidal ideation, cellulitis, osteomyelitis history in the past, Charcot foot surgery. We will continue current level of care at this time. Aspen Fontana MD
--- NOTE | 2018-02-08 17:33 | PN ---
DATE: 02/08/2018 ENDOCRINOLOGY FOLLOWUP NOTE ROOM: 321 This is a 53-year-old male with recent uncontrolled type 2 insulin-requiring diabetes, now being followed closely for metabolic management. He is undergoing IV antibiotic management and local debridement for right foot neuropathic ulceration as noted. His glycemic levels have been in the low side of normal overnight and glucose values have ranged from 76-172 and 67 mg/dL. His chemistry showed a BUN of 12, sodium 139, potassium 4.1, chloride 104, CO2 of 26, glucose 140, and creatinine 0.8, so at this time because of the variability of his oral intake and suboptimal meal portions, we will lower once again his basal and bolus insulin regimen as ordered. We will lower the Humalog down to 6 units subcu t.i.d. before meals to start today. Moreover, we will continue the low-dose correction scale using Humalog insulin as given. We will titrate incrementally as indicated to optimize metabolic control. We will also continue the same basal insulin, leaving the Levemir at 40 units subcu at bedtime daily as given. We will titrate incrementally as indicated to optimize metabolic control. We will obtain serial chemistries and supplement accordingly as needed. We will follow with you. Christianne Russ MD
--- NOTE | 2018-02-08 17:43 | PN ---
DATE: 02/08/2018 SUBJECTIVE: Patient is in bed, in no acute distress, was seen earlier today in 321. No fevers, no chills. PHYSICAL EXAMINATION VITAL SIGNS: Temperature is 98, blood pressure is 130/80, respiratory rate 18, and heart rate of 92. HEENT: Unremarkable. NECK: Supple. LUNGS: Decreased breath sounds. HEART: Normal S1, S2. ABDOMEN: Soft, nontender. LABORATORY EXAMINATION: Reveals a white count of 5.2, hemoglobin of 14, and platelets of 121. Chemistry reveals a BUN of 12, creatinine 0.8. ALT 77. Microbiology reveals noted. ASSESSMENT AND PLAN: This is a 53-year-old male who was seen earlier in room 321 with a right infected diabetic foot ulcer with Pseudomonas, Klebsiella, Staphylococcus Aureus, Enterococcus, on Zyvox and Zosyn day #10. MRI is negative for osteomyelitis in patient with Charcot foot, liver disease, portal hypertension, chronic thrombocytopenia. We will follow closely with you. Patient is on Linezolid and Zyvox is active, today is day #10 of therapy. We will discuss with Podiatry and PMD. Linwood Carter MD
[2018-02-08] MEDS: Insulin Detemir 100 units/ml Vial (Levemir) SC SCH (21:49)
[2018-02-09] MEDS: Linezolid 600 mg in D5W 300 ml 600 MG/300 ML BAG IVPB SCH ×2 (05:07→17:12)
[2018-02-09] MEDS: Piperacillin/Tazobact 3.375 gm 100 ML IVPB SCH ×3 (05:07→21:45)
[2018-02-09] MEDS: Insulin Lispro (humaLOG) LOW Coverage SC SCH ×4 (06:40→21:44)
[2018-02-09] MEDS: Insulin Lispro 1 UNITS/0.01 ML SC SCH ×3 (08:16→17:11)
--- NOTE | 2018-02-09 09:46 | CP.PCM.PN ---
<Tabby Rosario - Last Filed: 02/09/18 09:43> Subjective - Date & Time of Evaluation Date of Evaluation: 02/09/18 Time of Evaluation: 09:43 - Subjective Subjective: Podiatry Progress Note for Dr. Wilson: 53 yo male patient seen and evaluated at bedside of R hallux ulceration; resolving. Patient is resting comfortably in bed and denies any acute events overnight. He notes that he will most likely be d/c tomorrow after his final dose of antibiotics. Patient is aware that pending D/C he is to follow up in the wound care center with Dr. Wilson/Christiano. Patient wearing forefoot wedge shoe on the R, slipper on the L. Denies N/V/F/SOB. Objective - Vital Signs/Intake and Output Vital Signs (last 24 hours): Temp Pulse Resp BP Pulse Ox 98.7 F 91 H 18 145/84 98 02/08/18 16:00 02/08/18 16:00 02/08/18 16:00 02/08/18 16:00 02/08/18 16:00 - Medications Medications: Current Medications Acetaminophen (Tylenol 325mg Tab) 650 mg PO Q4H PRN; Protocol PRN Reason: Fever >100.4 F Amlodipine Besylate (Norvasc) 10 mg PO DAILY [facility]; Protocol Last Admin: 02/08/18 09:52 Dose: 10 mg Glimepiride (Amaryl) 4 mg PO 0800,1800 [facility]; Protocol Last Admin: 02/09/18 08:17 Dose: 4 mg Hydrochlorothiazide (Microzide) 12.5 mg PO 0800 [facility]; Protocol Last Admin: 02/09/18 08:16 Dose: 12.5 mg Linezolid (Zyvox 600mg/300ml D5w) 600 mg in 300 mls @ 200 mls/hr IVPB 0600,1800 [facility]; Protocol Last Admin: 02/09/18 05:07 Dose: 200 mls/hr Piperacillin Sod/Tazobactam Sod (Zosyn 3.375 In Ns 100ml) 100 mls @ 25 mls/hr IVPB Q8 [facility]; Protocol Stop: 02/09/18 23:59 Last Admin: 02/09/18 05:07 Dose: 25 mls/hr Insulin Detemir (Levemir) 40 unit SC HS [facility]; Protocol Last Admin: 02/08/18 21:49 Dose: 40 units Insulin Human Lispro (Humalog Low) 0 units SC ACHS [facility]; Protocol Last Admin: 02/09/18 06:40 Dose: Not Given Insulin Human Lispro (Humalog) 6 units SC ACTID [facility]; Protocol Last Admin: 02/09/18 08:16 Dose: 6 units Losartan Potassium (Cozaar) 100 mg PO DAILY [facility]; Protocol Last Admin: 02/08/18 09:52 Dose: 100 mg Metformin HCl (Glucophage) 1,000 mg PO 0800,1800 [facility]; Protocol Last Admin: 02/09/18 08:17 Dose: 1,000 mg Sitagliptin Phosphate (Januvia) 50 mg PO DAILY [facility]; Protocol Last Admin: 02/08/18 09:52 Dose: 50 mg Trazodone HCl (Desyrel) 100 mg PO HS [facility]; Protocol Last Admin: 02/08/18 21:38 Dose: 100 mg - Labs Labs: 02/07/18 08:10 02/07/18 08:10 - Constitutional Appears: Well, Non-toxic, No Acute Distress - Head Exam Head Exam: ATRAUMATIC, NORMOCEPHALIC - Extremities Exam Additional comments: Vasc: DP/PT diminished, CFT >3 seconds to all remaining digits, TG warm to warm, no edema noted to bilateral lower extremities Ortho: Right 3rd toe amputation, 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 Hallux nails dystrophic and discolored bilaterally. Hyperpigmented skin noted to dorsal aspect of feet bilaterally. B/L Charcot foot noted. - Neurological Exam Neurological Exam: Alert, Awake, Oriented x3 - Psychiatric Exam Psychiatric exam: Normal Affect, Normal Mood Assessment and Plan - Assessment and Plan (Free Text) Assessment: 53 yo male patient seen and evaluated at bedside of R hallux ulceration; resolving. Plan: Patient seen and evaluated in the TCU Discussed patient in detail with Dr. Wilson Local wound care: Optifoam applied to R hallux; stable from podiatry standpoint MRI of B/L lower extremities (01/29); no OM present R lower extremity US (01/28); no evidence of DVT to RLE Continue IV abx per ID reccs Dr. Stack; continue Zyvox and Zosyn, complete 7-10 days F/U in wound care clinic with Dr. Wilson/Christiano <Blyane Wilson - Last Filed: 02/10/18 12:09> Objective - Vital Signs/Intake and Output Vital Signs (last 24 hours): Temp Pulse Resp BP Pulse Ox 98.3 F 98 H 18 115/76 96 02/09/18 16:00 02/09/18 17:12 02/09/18 16:00 02/10/18 09:41 02/09/18 17:12 - Labs Labs: 02/07/18 08:10 02/10/18 06:45 Attending/Attestation - Attestation I have personally seen and examined this patient.: Yes I have fully participated in the care of the patient.: Yes I have reviewed all pertinent clinical information, including history, physical exam and plan: Yes
--- NOTE | 2018-02-09 14:16 | PN ---
DATE: 02/09/2018 SUBJECTIVE: A 53-year-old male in the Transitional Care Unit, receiving IV antibiotics for infections of ulcers on both feet. He feels well this morning. PHYSICAL EXAMINATION: VITAL SIGNS: He is afebrile with a temperature of 98.7 and his blood pressure is reported at 145/84. NECK: Supple. There is no JVD. LUNGS: Clear. HEART: S1 and S2 rhythm. ABDOMEN: Soft. Positive bowel sounds. EXTREMITIES: Show no evidence of edema. ASSESSMENT AND PLAN: Currently, the patient is being followed by Infectious Disease and Podiatry and he is receiving antibiotics IV of Zosyn and Zyvox. He is also being followed by Endocrinology for his insulin-dependent diabetes and he is on blood pressure medicines for his history of hypertension. He has an ulcer on the right foot which grew Pseudomonas and Staphylococcus aureus and Enterococcus. An MRI was performed, which showed no evidence of osteomyelitis. He has a history of Charcot foot and Charcot foot surgery. He has a history of liver disease, portal hypertension, chronic thrombocytopenia, suicidal ideation, depression, bipolar disorder. We will continue current management at this time and current antibiotics. Continue wound care by Podiatry and antibiotics by Infectious Disease. The recommendations at this time are to continue his Levemir at 40 units subcu at bedtime along with his Humalog 6 units t.i.d. before meals as well as his metformin and Amaryl. Aspen Fontana MD
--- NOTE | 2018-02-09 15:56 | PN ---
DATE: 02/09/2018 LOCATION: Room 321. SUBJECTIVE: This 53-year-old male with recent uncontrolled type 2 insulin-requiring diabetes, now being followed closely for metabolic management. His oral intake remains quite variable at this time and the glucose also fluctuating, but improved and the latest glucose levels have ranged from 102 to 115 and 117 mg/dL. His latest chemistry showed a BUN of 12, sodium ____, potassium 4.1, chloride 104, CO2 of 26, glucose 269, and creatinine 0.8. So, at this time, we will continue the modified basal and bolus insulin regimen to allow for dose equilibration and continue the Humalog given as 6 units subcu t.i.d. before meals as given. We will also continue the same basal insulin given as 40 units subcu at bedtime daily to start tonight. We will obtain serial chemistries and supplement accordingly as needed. We will follow this patient. Christianne Russ MD
[2018-02-09 16:55] VITALS: TEMP 98.3
[2018-02-09 17:21] VITALS: PULSE 98; O2SAT 96
[2018-02-09] MEDS: Insulin Detemir 100 units/ml Vial (Levemir) SC SCH (21:45)
--- NOTE | 2018-02-09 22:38 | PN ---
DATE: 02/09/2018 SUBJECTIVE: The patient is in bed, in no acute distress, nontoxic. No fevers. PHYSICAL EXAMINATION: VITAL SIGNS: Temperature is 98, blood pressure is 120/70, respiratory rate of 18. HEENT: Unremarkable. NECK: Supple. LUNGS: Decreased breath sounds. HEART: Normal S1, S2. ABDOMEN: Soft, nontender. LABORATORY EXAMINATION: Reveals a white count of 5.2, hemoglobin of 14, platelets of 121. Chemistries are noted. ASSESSMENT AND PLAN: A 53-year-old male was seen earlier today and infected diabetic foot ulcer and Pseudomonas, Klebsiella, staph aureus, enterococcus, on Zyvox and Zosyn, MRI negative, Charcot's foot, liver disease, portal hypertension and chronic thrombocytopenia, treated with Zyvox and Zosyn, currently on day #11 of Zyvox and Zosyn. We will follow with you. Linwood Carter MD
[2018-02-10] MEDS: Linezolid 600 mg in D5W 300 ml 600 MG/300 ML BAG IVPB SCH (05:28)
[2018-02-10] MEDS: Insulin Lispro 1 UNITS/0.01 ML SC SCH (06:45)
[2018-02-10] MEDS: Insulin Lispro (humaLOG) LOW Coverage SC SCH (06:45)
[2018-02-10 07:36] LABS: ALB/GLOB RATIO 1.3 (1.1-1.8); ALBUMIN 4.2 g/dL (3.0-4.8); ALT/SGPT 68 U/L (7-56); AST/SGOT 37 U/L (17-59); BLOOD UREA NITROGEN 11 mg/dL (7-21); CALCIUM 9.2 mg/dL (8.4-10.5); GFR NON-AFRICAN AMERICAN > 60
[2018-02-10 09:43] VITALS: BP 115/76
--- NOTE | 2018-02-10 10:14 | CP.PCM.PN ---
<Tabby Rosario - Last Filed: 02/10/18 11:03> Subjective - Date & Time of Evaluation Date of Evaluation: 02/10/18 Time of Evaluation: 10:10 - Subjective Subjective: Podiatry Progress Note for Dr. Wilson: 53 yo male patient seen and evaluated at bedside in the TCU for R hallux ulceration; resolving. Patient is AAOx3 and denies any acute events overnight. He denies any pain to the RLE. Dressing to R hallux clean, dry, intact. Patient continues to wear forefoot wedge shoe on the right. Denies N/V/F/SOB. Objective - Vital Signs/Intake and Output Vital Signs (last 24 hours): Temp Pulse Resp BP Pulse Ox 98.3 F 98 H 18 115/76 96 02/09/18 16:00 02/09/18 17:12 02/09/18 16:00 02/10/18 09:41 02/09/18 17:12 - Medications Medications: Current Medications Acetaminophen (Tylenol 325mg Tab) 650 mg PO Q4H PRN; Protocol PRN Reason: Fever >100.4 F Amlodipine Besylate (Norvasc) 10 mg PO DAILY JIMMIE; Protocol Last Admin: 02/10/18 09:41 Dose: 10 mg Glimepiride (Amaryl) 4 mg PO 0800,1800 JIMMIE; Protocol Last Admin: 02/10/18 08:09 Dose: 4 mg Hydrochlorothiazide (Microzide) 12.5 mg PO 0800 JIMMIE; Protocol Last Admin: 02/10/18 08:06 Dose: 12.5 mg Linezolid (Zyvox 600mg/300ml D5w) 600 mg in 300 mls @ 200 mls/hr IVPB 0600,1800 JIMMIE; Protocol Last Admin: 02/10/18 05:28 Dose: 200 mls/hr Insulin Detemir (Levemir) 40 unit SC HS JIMMIE; Protocol Last Admin: 02/09/18 21:45 Dose: 40 units Insulin Human Lispro (Humalog Low) 0 units SC ACHS JIMMIE; Protocol Last Admin: 02/10/18 06:45 Dose: Not Given Insulin Human Lispro (Humalog) 6 units SC ACTID JIMMIE; Protocol Last Admin: 02/10/18 06:45 Dose: Not Given Losartan Potassium (Cozaar) 100 mg PO DAILY JIMMIE; Protocol Last Admin: 02/10/18 09:40 Dose: 100 mg Metformin HCl (Glucophage) 1,000 mg PO 0800,1800 JIMMIE; Protocol Last Admin: 02/10/18 08:09 Dose: 1,000 mg Sitagliptin Phosphate (Januvia) 50 mg PO DAILY JIMMIE; Protocol Last Admin: 02/10/18 09:41 Dose: 50 mg Trazodone HCl (Desyrel) 100 mg PO HS JIMMIE; Protocol Last Admin: 02/09/18 21:44 Dose: 100 mg - Labs Labs: 02/07/18 08:10 02/10/18 06:45 - Constitutional Appears: Well, Non-toxic, No Acute Distress - Head Exam Head Exam: ATRAUMATIC, NORMOCEPHALIC - Extremities Exam Additional comments: Vasc: DP/PT diminished, CFT >3 seconds to all remaining digits, TG warm to warm, no edema noted to bilateral lower extremities Ortho: Right 3rd toe amputation, 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 Hallux nails dystrophic and discolored bilaterally. Hyperpigmented skin noted to dorsal aspect of feet bilaterally. B/L Charcot foot noted. - Neurological Exam Neurological Exam: Alert, Awake, Oriented x3 - Psychiatric Exam Psychiatric exam: Normal Affect, Normal Mood Assessment and Plan - Assessment and Plan (Free Text) Assessment: 53 yo male patient seen and evaluated at bedside of R hallux ulceration; resolving. Plan: Patient seen and evaluated in the TCU, discussed patient in detail with Dr. Wilson Local wound care: Optifoam applied to R hallux; stable from podiatry standpoint MRI of B/L lower extremities (01/29); no OM present R lower extremity US (01/28); no evidence of DVT to RLE ID reccs per Dr. Stack; continue Zyvox and Zosyn, complete 7-10 days Upon d/c patient to follow up in wound care center with Dr. Wilson/Christiano <Blayne Wilson Last Filed: 02/10/18 12:02> Objective - Vital Signs/Intake and Output Vital Signs (last 24 hours): Temp Pulse Resp BP Pulse Ox 98.3 F 98 H 18 115/76 96 02/09/18 16:00 02/09/18 17:12 02/09/18 16:00 02/10/18 09:41 02/09/18 17:12 - Labs Labs: 02/07/18 08:10 02/10/18 06:45 Attending/Attestation - Attestation I have personally seen and examined this patient.: Yes I have fully participated in the care of the patient.: Yes I have reviewed all pertinent clinical information, including history, physical exam and plan: Yes
[2018-02-10] MEDS ORDERED: Influenza Vaccine 60 mcg/0.5 mL SYR (4YR UP) IM ONE (10:58)
--- NOTE | 2018-02-10 13:23 | PN ---
DATE: 02/10/2018 SUBJECTIVE: This is a 53-year-old male with recent uncontrolled type 2 insulin-requiring diabetes, now being followed closely for metabolic management. His glycemic levels are much improved at this time with the recent dose modifications undertaken thereof. His glucose values today have ranged from 92-100 and 132 mg/dL. His latest chemistry showed a BUN of 11, sodium 137, potassium 4.5, chloride 102, CO2 of 29, glucose 167 and creatinine 0.9. So at this time, we will continue the modified dosing regimen as given with Levemir given as 40 units subcu at bedtime daily as ordered. We will continue the Humalog given as 14 units subcu t.i.d. before meals as ordered. He has been advised to resume his oral hypoglycemic therapy on the outpatient. We will follow and advise accordingly. Christianne Russ MD
--- NOTE | 2018-02-10 23:54 | PN ---
DATE: 02/10/2018 SUBJECTIVE: The patient is in bed, in no acute distress, nontoxic. PHYSICAL EXAMINATION: VITAL SIGNS: On exam, temperature is 98, blood pressure is 115/70, respiratory rate of 16. HEENT: Examination of HEENT is unremarkable. NECK: Supple. LUNGS: Have decreased breath sounds. HEART: Normal S1 and S2. ABDOMEN: Soft. LABORATORY DATA: Laboratory examination reveals a white count of 5.2, hemoglobin of 14. Chemistries reveals a BUN of 11, creatinine of 0.9. Microbiology is noted. ASSESSMENT AND PLAN: A 53-year-old male who was seen early this morning, an infected diabetic foot ulcer and Pseudomonas, Klebsiella, Staphylococcus aureus, Enterococcus, negative MRI. Completed his antibiotic therapy for discharge today to be followed up with Podiatry and Primary as outpatient. Linwood Carter MD
--- NOTE | 2018-02-11 05:07 | DS ---
HISTORY OF PRESENT ILLNESS: This is a 53-year-old male who has been on the Transitional Care Unit receiving treatment for ulcers of both feet. He had failed outpatient therapy. PHYSICAL EXAMINATION: VITAL SIGNS: He has a temperature of 98.3, his pulse was 86, blood pressure is 144/88, respiratory rate is 18, and oxygen sat is 97% on room air. LUNGS: Clear. HEART: S1 and S2 rhythm. ABDOMEN: Soft with positive bowel sounds. EXTREMITIES: Show evidence of edema. He has dressings on both feet. The patient has been followed by Infectious Disease, Endocrinology, and Podiatry while on the Transitional Care Unit and has been cleared by Infectious Diseases as he has completed a course of antibiotics. He has been followed by Podiatry, who has been doing the wound care, and he has been followed by Endocrinology for his insulin-dependent diabetes. He is currently cleared for discharge and will be followed as an outpatient. I will continue his home medications of Amaryl, Cozaar, trazodone, Glucophage, Humalog insulin, Januvia, Levemir Microzide, Norvasc, Tylenol p.r.n. and be followed up as an outpatient. He is aware that the Endocrinology will need to review his medications and adjust them accordingly, and he has an appointment to see Endocrinology. He will continue his losartan, hydrochlorothiazide, and his Janumet as he has been on at [facility] by Endocrinology. Aspen Fontana MD
== END 2018-02-10 11:53 | disposition home or self-care (01) | DRG 638 ==
LOC: TRCU 18:40
PROVIDERS: ADMIT Internal Medicine; ATTEND Internal Medicine
PROC: F08Z4ZZ Home Management Treatment (ICD-10-PCS; 2018-02-03)
PROC: 3E03328 Introduction of Oxazolidinones into Peripheral Vein, Percutaneous Approach (ICD-10-PCS; 2018-02-03)
PROC: F07Z9ZZ Gait Training/Functional Ambulation Treatment (ICD-10-PCS; principal; 2018-02-04)
PROC: F07L6YZ Therapeutic Exercise Treatment of Musculoskeletal System - Lower Back / Lower Extremity using Other Equipment (ICD-10-PCS; 2018-02-04)
PROC: F07Z5ZZ Bed Mobility Treatment (ICD-10-PCS; 2018-02-07)
PROC: 3E01340 Introduction of Influenza Vaccine into Subcutaneous Tissue, Percutaneous Approach (ICD-10-PCS; 2018-02-10)
DX: E11.621 Type 2 diabetes mellitus with foot ulcer (principal); K76.6 Portal hypertension; L97.519 Non-pressure chronic ulcer of other part of right foot with unspecified severity; L97.529 Non-pressure chronic ulcer of other part of left foot with unspecified severity; Z79.2 Long term (current) use of antibiotics; E11.65 Type 2 diabetes mellitus with hyperglycemia; E11.42 Type 2 diabetes mellitus with diabetic polyneuropathy; E11.51 Type 2 diabetes mellitus with diabetic peripheral angiopathy without gangrene; E11.610 Type 2 diabetes mellitus with diabetic neuropathic arthropathy; I10 Essential (primary) hypertension; K70.30 Alcoholic cirrhosis of liver without ascites; F10.10 Alcohol abuse, uncomplicated; F31.9 Bipolar disorder, unspecified; D69.6 Thrombocytopenia, unspecified; Z89.421 Acquired absence of other right toe(s); Z79.4 Long term (current) use of insulin; Z23 Encounter for immunization

== ENCOUNTER 2018-06-17 07:11 | Outpatient (CLI) | payer MEDICARE | END 2018-06-17 07:12 | disposition home or self-care (01) | LOC: LAB 07:11 ==

== ENCOUNTER 2018-09-18 07:00 | Outpatient (CLI) | payer MEDICARE | END 2018-09-18 07:01 | disposition home or self-care (01) | LOC: LAB 07:00 ==